=== PATIENT | male | born 1975 | race Caucasian/White ===

== ENCOUNTER → 2018-02-07 | Outpatient (CLI) | payer OTHER | LOC: M LRY 15:49 | DX: R09.89 Other specified symptoms and signs involving the circulatory and respiratory systems (principal) | CPT/HCPCS: 71046 ==

== ENCOUNTER → 2018-02-07 | Outpatient (REF) | payer OTHER | LOC: M SFHCLERA 15:41 | DX: J02.9 Acute pharyngitis, unspecified (principal) ==

== ENCOUNTER 2018-05-14 10:22 | Emergency (ER) | payer OTHER ==
[~2018-05-14 10:22] MED LIST: LORazepam 2 MG/ML VIAL (J2060) As Ordered
[2018-05-14] MEDS ORDERED: SUCCINYLCHOLINE 100 MG/5 ML SYRINGE (J0330) (10:23)
[2018-05-14] MEDS ORDERED: ETOMIDATE INJ 20MG/10ML VIAL (10:23)
[2018-05-14 10:33] LABS: BEDSIDE GLUCOSE 180 MG/DL (70-105)
[2018-05-14] MEDS ORDERED: PROPOFOL 1,000 MG/100 ML VIAL As Ordered (10:42)
[2018-05-14] MEDS ORDERED: fentaNYL 100 MCG/2 ML INJECTION (J3010) As Ordered (10:52)
[2018-05-14] MEDS: NS 1,000 ML IV (10:55)
[2018-05-14] MEDS: NS 500 ML IV ×2 (10:55→11:36)
[2018-05-14 10:57] LABS: HEMATOCRIT 52.8 % (42.0-52.0); HEMOGLOBIN 17.1 g/dl (13.5-17.5); MEAN CORPUSCULAR HEMOGLOBIN 29.8 pg (27.0-33.0); MEAN CORPUSCULAR HGB CONC 32.4 g/dl (32.0-36.5); PLATELET COUNT, AUTOMATED 319 10^3/uL (150-450); RED BLOOD COUNT 5.74 10^6/uL (4.30-6.10); RED CELL DISTRIBUTION WIDTH 11.8 % (11.5-14.5)
[2018-05-14] MEDS: ETOMIDATE INJ 20MG/10ML VIAL IV ×2 (10:57→11:02)
[2018-05-14] MEDS: SUCCINYLCHOLINE INJ 200 MG/10 ML VIAL (J0330) IV ×2 (10:58)
[2018-05-14] MEDS: PROPOFOL 200 MG/20 ML VIAL IV (10:59)
[2018-05-14] MEDS: PROPOFOL 1,000 MG in APPROPRIATE DILUENT 1 EA IV ×2 (10:59→11:36)
[2018-05-14 11:01] LABS: ADD MANUAL DIFFER YES; DIFF SLIDE NUMBER 119; POSITIVE DIFF POS FLAG; POSITIVE MORPH POS FLAG
[2018-05-14] MEDS: fentaNYL 100 MCG/2 ML INJECTION (J3010) IV ×3 (11:02→11:58)
[2018-05-14] MEDS: dexameTHASONE 20 MG/5 ML VIAL (J1100) IV (11:03)
[2018-05-14] MEDS: levETIRAcetam INJection 1,500 MG in D5W 100 ML IV (11:05)
[2018-05-14 11:12] LABS: AMMONIA 198 uMOL/L (<32)
[2018-05-14 11:13] LABS: ABG BASE EXCESS -17.9 (-2.0-2.0); ABG O2 SATURATION 97.9 % (95.0-99.0); ABG PARTIAL PRESSURE CO2 43.2 mmHg (35.0-45.0); ABG PARTIAL PRESSURE O2 141.6 mmHg (75.0-100.0); ABG STANDARD HCO3 11.7 MEQ/L (22.0-26.0); ABG TOTAL CO2 13.4 MEQ/L (22.0-29.0)
[2018-05-14 11:16] LABS: ABG pH (ARTERIAL) 7.063 UNITS (7.350-7.450); ALBUMIN 4.3 GM/DL (3.2-5.2); ALKALINE PHOSPHATASE 72 U/L (45-117); ALT/SGPT 55 U/L (12-78); ANION GAP 28 MEQ/L (8-16); AST/SGOT 28 U/L (7-37); BILIRUBIN,DIRECT 0.2 MG/DL (0.0-0.2); BILIRUBIN,TOTAL 0.5 MG/DL (0.2-1.0); BLOOD UREA NITROGEN 20 MG/DL (7-18); CALCIUM LEVEL 8.8 MG/DL (8.5-10.1); CARBON DIOXIDE LEVEL 9 MEQ/L (21-32); CHLORIDE LEVEL 104 MEQ/L (98-107); CPK CREATINE PHOSPHOKINASE 140 U/L (39-308); CREATININE FOR GFR 1.58 MG/DL (0.70-1.30); ETHYL ALCOHOL (ETHANOL) 0.005 % (0.000-0.010); GLUCOSE, FASTING 211 MG/DL (70-100); POTASSIUM SERUM 3.9 MEQ/L (3.5-5.1); SODIUM LEVEL 141 MEQ/L (136-145); TOTAL PROTEIN 8.2 GM/DL (6.4-8.2); TROPONIN I < 0.02 NG/ML (< 0.10)
[2018-05-14 11:22] LABS: CK-MB VALUE MASS 2.7 NG/ML (<3.6); MB/CK RELATIVE INDEX 1.92 (< OR =4)
[2018-05-14 11:29] LABS: ACETAMINOPHEN LEVEL < 2.0 UG/ML (10.0-30.0)
[2018-05-14 11:31] LABS: ATYPICAL LYMPH 37 % (0-5); EOSINOPHILS 1 % (0-5); LYMPHOCYTES 16 % (16-52); METAMYELOCYTES 1 % (0-0); MONOCYTES 3 % (0-8); NEUTROPHILS 42 % (35-75)
[2018-05-14 11:31] LABS: LACTIC ACID SEPSIS PROTOCOL 20.1 MMOL/L (0.4-2.0)
[2018-05-14 11:32] LABS: PLATELET ESTIMATE NORMAL (NORMAL); SMUDGE CELLS 1+
[2018-05-14 11:40] LABS: AMORPHOUS SEDIMENT RFX SMALL (NEGATIVE); KETONE, URINE AUTO RFX NEGATIVE (NEGATIVE); LEUKOCYTE ESTERASE UR AUTO RFX NEGATIVE (NEGATIVE); MUCUS, URINE RFX SMALL (NEGATIVE); NITRITE, URINE AUTO RFX NEGATIVE (NEGATIVE); RBC, URINE AUTO RFX 10 /HPF (0-3); SPECIFIC GRAVITY UR AUTO RFX 1.014 (1.002-1.035); SQUAM EPITHELIAL CELL UR AURFX 0 /HPF (0-6); WBC, URINE AUTO RFX 2 /HPF (0-3)
[2018-05-14 11:55] LABS: AMPHETAMINES LEVEL URINE NEGATIVE (NEGATIVE); BARBITURATES URINE NEGATIVE (NEGATIVE); BENZODIAZEPINES URINE NEGATIVE (NEGATIVE); CANNABINOIDS URINE NEGATIVE (NEGATIVE); COCAINE METABOLITE URINE NEGATIVE (NEGATIVE); METHADONE URINE NEGATIVE (NEGATIVE); OPIATES URINE NEGATIVE (NEGATIVE); PHENCYCLIDINE URINE NEGATIVE (NEGATIVE)
== END 2018-05-14 12:13 | disposition short-term general hospital (02) ==
LOC: M ED 10:22
DX: G40.901 Epilepsy, unspecified, not intractable, with status epilepticus (principal); G93.6 Cerebral edema; E72.20 Disorder of urea cycle metabolism, unspecified; D49.6 Neoplasm of unspecified behavior of brain; E87.2 Acidosis; R00.0 Tachycardia, unspecified; Z88.0 Allergy status to penicillin
CPT/HCPCS: J0330

== ENCOUNTER 2018-05-25 15:45 | Inpatient (IN) | payer OTHER ==
[2018-05-25] MEDS: MIRALAX *UNIT DOSE* 17GM PACKET PO (09:00)
[2018-05-25] MEDS ORDERED: FLEET ENEMA PR (16:30)
[2018-05-25] MEDS ORDERED: ONDANSETRON 4MG/2ML VIAL (J2405) IM (16:30)
[2018-05-25] MEDS ORDERED: MOM 30ML SUSPENSION UDC PO (16:30)
[2018-05-25] MEDS ORDERED: BISACODYL 10 MG SUPP PR (16:30)
[2018-05-25] MEDS ORDERED: SIMETHICONE 80 MG CHEW TAB PO (16:30)
[2018-05-25] MEDS: ACETAMINOPHEN TAB 650MG DOSE (2X325MG) PO (17:51)
[2018-05-25] MEDS: PERCOCET 5MG/325MG TAB PO ×2 (18:40→23:35)
[2018-05-25] MEDS: SENNA 8.6 MG TAB (SENOKOT) PO (20:30)
[2018-05-25] MEDS: HEPARIN SOD (PORCINE) 5000 UNITS/ML VIAL SC (20:30)
[2018-05-25] MEDS: levETIRAcetam 250MG TABLET (KEPPRA) PO (20:30)
[2018-05-26] MEDS: PERCOCET 5MG/325MG TAB PO ×2 (07:01→22:00)
[2018-05-26] MEDS: ONDANSETRON 4 MG TAB (S0181) PO (07:01)
[2018-05-26] MEDS: levETIRAcetam 250MG TABLET (KEPPRA) PO ×2 (09:53→21:51)
[2018-05-26] MEDS: OMEPRAZOLE 20 MG CAP PO (09:53)
[2018-05-26] MEDS: HEPARIN SOD (PORCINE) 5000 UNITS/ML VIAL SC ×2 (09:53→21:50)
[2018-05-26] MEDS: MIRALAX *UNIT DOSE* 17GM PACKET PO (09:54)
[2018-05-26] MEDS ORDERED: GLUCOSE 4 GM CHEW TABLET PO (10:00)
[2018-05-26] MEDS ORDERED: DEXTROSE 50% 50 ML SYRINGE IV (10:00)
[2018-05-26] MEDS ORDERED: GLUCAGON FOR INJ 1 MG VIAL (J1610) SC (10:00)
[2018-05-26] MEDS ORDERED: hydrALAZINE INJ 20 MG/ML VIAL IV (10:15)
[2018-05-26 10:38] LABS: BASO % 0.2 % (0.0-1.0); EOS % 0.1 % (0.0-3.0); HEMATOCRIT 37.5 % (42.0-52.0); HEMOGLOBIN 12.8 g/dl (13.5-17.5); IMMATURE GRANULOCYTE % 2.7 % (0-3.0); LYMPH # 1.1 10^3/uL (1.5-4.5); LYMPH % 4.9 % (24.0-44.0); MEAN CORPUSCULAR HGB CONC 34.1 g/dl (32.0-36.5); MEAN CORPUSCULAR VOLUME 87.8 fl (80.0-96.0); MONO % 4.6 % (0.0-5.0); NEUTROPHILS # 18.6 10^3/uL (1.8-7.7); NEUTROPHILS % 87.5 % (36.0-66.0); PLATELET COUNT, AUTOMATED 107 10^3/uL (150-450); RED BLOOD COUNT 4.27 10^6/uL (4.30-6.10); RED CELL DISTRIBUTION WIDTH 12.1 % (11.5-14.5); WHITE BLOOD COUNT 21.3 10^3/uL (4.0-10.0)
[2018-05-26 11:19] LABS: ALBUMIN 2.8 GM/DL (3.2-5.2); ALBUMIN/GLOBULIN RATIO 0.82 (1.00-1.93); ALKALINE PHOSPHATASE 52 U/L (45-117); ALT/SGPT 67 U/L (12-78); ANION GAP 8 MEQ/L (8-16); AST/SGOT 74 U/L (7-37); BILIRUBIN,TOTAL 0.6 MG/DL (0.2-1.0); BLOOD UREA NITROGEN 51 MG/DL (7-18); CALCIUM LEVEL 7.8 MG/DL (8.5-10.1); CARBON DIOXIDE LEVEL 29 MEQ/L (21-32); CHLORIDE LEVEL 106 MEQ/L (98-107); CREATININE FOR GFR 1.92 MG/DL (0.70-1.30); GLOMERULAR FILTRATION RATE 41.5 (>60); GLUCOSE, FASTING 139 MG/DL (70-100); POTASSIUM SERUM 4.4 MEQ/L (3.5-5.1); SODIUM LEVEL 143 MEQ/L (136-145); TOTAL PROTEIN 6.2 GM/DL (6.4-8.2)
[2018-05-26 11:21] LABS: BEDSIDE GLUCOSE 131 MG/DL (70-105)
[2018-05-26] MEDS: **hydrALAZINE HCL** 25 MG TAB PO ×3 (12:48→23:57)
[2018-05-26] MEDS: HumaLOG INSULIN (NovoLOG) PER UNIT SC ×2 (12:48→17:48)
[2018-05-26] MEDS: TOPIRAMATE (TopAMAX) 25 MG TAB PO ×2 (12:48→23:56)
[2018-05-26 16:40] LABS: BEDSIDE GLUCOSE 141 MG/DL (70-105)
[2018-05-26 20:49] LABS: BEDSIDE GLUCOSE 149 MG/DL (70-105)
[2018-05-26] MEDS: SENNA 8.6 MG TAB (SENOKOT) PO (21:51)
[2018-05-26] MEDS: FAMOTIDINE 20 MG TAB PO (21:51)
[2018-05-27] MEDS: **hydrALAZINE HCL** 25 MG TAB PO ×4 (06:00→20:00)
[2018-05-27 06:59] LABS: HEMATOCRIT 33.9 % (42.0-52.0); HEMOGLOBIN 11.7 g/dl (13.5-17.5); MEAN CORPUSCULAR HGB CONC 34.5 g/dl (32.0-36.5); MEAN CORPUSCULAR VOLUME 86.9 fl (80.0-96.0); RED CELL DISTRIBUTION WIDTH 12.1 % (11.5-14.5); WHITE BLOOD COUNT 15.7 10^3/uL (4.0-10.0)
[2018-05-27 07:25] LABS: ALBUMIN 2.5 GM/DL (3.2-5.2); ALBUMIN/GLOBULIN RATIO 0.86 (1.00-1.93); ALKALINE PHOSPHATASE 45 U/L (45-117); ALT/SGPT 60 U/L (12-78); ANION GAP 8 MEQ/L (8-16); AST/SGOT 48 U/L (7-37); BILIRUBIN,TOTAL 0.6 MG/DL (0.2-1.0); BLOOD UREA NITROGEN 47 MG/DL (7-18); CALCIUM LEVEL 7.8 MG/DL (8.5-10.1); CARBON DIOXIDE LEVEL 27 MEQ/L (21-32); CHLORIDE LEVEL 107 MEQ/L (98-107); CREATININE FOR GFR 1.75 MG/DL (0.70-1.30); GLOMERULAR FILTRATION RATE 46.2 (>60); GLUCOSE, FASTING 119 MG/DL (70-100); POTASSIUM SERUM 4.7 MEQ/L (3.5-5.1); SODIUM LEVEL 142 MEQ/L (136-145); TOTAL PROTEIN 5.4 GM/DL (6.4-8.2)
[2018-05-27 07:28] LABS: PLATELET COUNT, AUTOMATED 99 10^3/uL (150-450)
[2018-05-27 07:29] LABS: IMMATURE PLATELET FRACTION % 4.5 % (0.0-10.9)
[2018-05-27] MEDS: HumaLOG INSULIN (NovoLOG) PER UNIT SC ×3 (07:30→17:26)
[2018-05-27] MEDS: MIRALAX *UNIT DOSE* 17GM PACKET PO (08:57)
[2018-05-27] MEDS: HEPARIN SOD (PORCINE) 5000 UNITS/ML VIAL SC ×2 (08:57→20:39)
[2018-05-27] MEDS: PERCOCET 5MG/325MG TAB PO ×3 (08:58→20:38)
[2018-05-27] MEDS: TOPIRAMATE (TopAMAX) 25 MG TAB PO (08:58)
[2018-05-27] MEDS: levETIRAcetam 250MG TABLET (KEPPRA) PO ×2 (08:58→20:39)
[2018-05-27] MEDS: FAMOTIDINE 20 MG TAB PO ×2 (08:58→20:39)
[2018-05-27 12:38] LABS: BEDSIDE GLUCOSE 141 MG/DL (70-105)
[2018-05-27 16:52] LABS: BEDSIDE GLUCOSE 160 MG/DL (70-105)
[2018-05-27] MEDS: SENNA 8.6 MG TAB (SENOKOT) PO (20:38)
[2018-05-28] MEDS: **hydrALAZINE HCL** 25 MG TAB PO ×4 (06:00→23:16)
[2018-05-28] MEDS: PERCOCET 5MG/325MG TAB PO ×3 (06:47→17:09)
[2018-05-28 07:12] LABS: HEMATOCRIT 34.6 % (42.0-52.0); HEMOGLOBIN 11.8 g/dl (13.5-17.5); MEAN CORPUSCULAR HEMOGLOBIN 29.8 pg (27.0-33.0); MEAN CORPUSCULAR HGB CONC 34.1 g/dl (32.0-36.5); MEAN CORPUSCULAR VOLUME 87.4 fl (80.0-96.0); PLATELET COUNT, AUTOMATED 102 10^3/uL (150-450); RED BLOOD COUNT 3.96 10^6/uL (4.30-6.10); RED CELL DISTRIBUTION WIDTH 12.2 % (11.5-14.5); WHITE BLOOD COUNT 14.9 10^3/uL (4.0-10.0)
[2018-05-28 07:28] LABS: ALBUMIN 2.5 GM/DL (3.2-5.2); ALBUMIN/GLOBULIN RATIO 0.74 (1.00-1.93); ALKALINE PHOSPHATASE 42 U/L (45-117); ALT/SGPT 62 U/L (12-78); ANION GAP 7 MEQ/L (8-16); AST/SGOT 36 U/L (7-37); BILIRUBIN,TOTAL 0.5 MG/DL (0.2-1.0); BLOOD UREA NITROGEN 41 MG/DL (7-18); CALCIUM LEVEL 7.9 MG/DL (8.5-10.1); CARBON DIOXIDE LEVEL 25 MEQ/L (21-32); CHLORIDE LEVEL 110 MEQ/L (98-107); GLOMERULAR FILTRATION RATE 47.8 (>60); GLUCOSE, FASTING 115 MG/DL (70-100); SODIUM LEVEL 142 MEQ/L (136-145); TOTAL PROTEIN 5.9 GM/DL (6.4-8.2)
[2018-05-28] MEDS: HumaLOG INSULIN (NovoLOG) PER UNIT SC ×3 (08:50→16:55)
[2018-05-28] MEDS: levETIRAcetam 250MG TABLET (KEPPRA) PO ×2 (08:51→21:19)
[2018-05-28] MEDS: FAMOTIDINE 20 MG TAB PO ×2 (08:51→21:19)
[2018-05-28] MEDS: HEPARIN SOD (PORCINE) 5000 UNITS/ML VIAL SC ×2 (08:51→21:19)
[2018-05-28] MEDS: MIRALAX *UNIT DOSE* 17GM PACKET PO (08:52)
[2018-05-28 11:31] LABS: BEDSIDE GLUCOSE 150 MG/DL (70-105)
[2018-05-28 16:49] LABS: BEDSIDE GLUCOSE 132 MG/DL (70-105)
[2018-05-28 21:12] LABS: BEDSIDE GLUCOSE 138 MG/DL (70-105)
[2018-05-28] MEDS: amLODIPine 5 MG TAB PO (21:15)
[2018-05-28] MEDS: SENNA 8.6 MG TAB (SENOKOT) PO (21:19)
[2018-05-28] MEDS: ACETAMINOPHEN TAB 650MG DOSE (2X325MG) PO (23:17)
[2018-05-29] MEDS: **hydrALAZINE HCL** 25 MG TAB PO ×4 (06:09→23:40)
[2018-05-29] MEDS: PERCOCET 5MG/325MG TAB PO ×2 (06:38→12:17)
[2018-05-29 07:18] LABS: HEMATOCRIT 33.8 % (42.0-52.0); HEMOGLOBIN 11.8 g/dl (13.5-17.5); MEAN CORPUSCULAR HEMOGLOBIN 29.8 pg (27.0-33.0); MEAN CORPUSCULAR HGB CONC 34.9 g/dl (32.0-36.5); MEAN CORPUSCULAR VOLUME 85.4 fl (80.0-96.0); PLATELET COUNT, AUTOMATED 105 10^3/uL (150-450); RED BLOOD COUNT 3.96 10^6/uL (4.30-6.10); RED CELL DISTRIBUTION WIDTH 12.2 % (11.5-14.5); WHITE BLOOD COUNT 13.3 10^3/uL (4.0-10.0)
[2018-05-29 07:38] LABS: ALBUMIN 2.6 GM/DL (3.2-5.2); ALBUMIN/GLOBULIN RATIO 0.76 (1.00-1.93); ALKALINE PHOSPHATASE 40 U/L (45-117); ALT/SGPT 63 U/L (12-78); ANION GAP 8 MEQ/L (8-16); AST/SGOT 28 U/L (7-37); BILIRUBIN,TOTAL 0.6 MG/DL (0.2-1.0); BLOOD UREA NITROGEN 32 MG/DL (7-18); CARBON DIOXIDE LEVEL 24 MEQ/L (21-32); CHLORIDE LEVEL 109 MEQ/L (98-107); CREATININE FOR GFR 1.61 MG/DL (0.70-1.30); GLOMERULAR FILTRATION RATE 50.9 (>60); GLUCOSE, FASTING 111 MG/DL (70-100); MAGNESIUM LEVEL 1.7 MG/DL (1.8-2.4); POTASSIUM SERUM 4.6 MEQ/L (3.5-5.1); SODIUM LEVEL 141 MEQ/L (136-145)
[2018-05-29] MEDS: FAMOTIDINE 20 MG TAB PO ×2 (09:57→20:20)
[2018-05-29] MEDS: levETIRAcetam 250MG TABLET (KEPPRA) PO ×2 (09:57→20:21)
[2018-05-29] MEDS: HumaLOG INSULIN (NovoLOG) PER UNIT SC ×3 (09:57→18:11)
[2018-05-29] MEDS: HEPARIN SOD (PORCINE) 5000 UNITS/ML VIAL SC ×2 (09:58→20:20)
[2018-05-29] MEDS: MIRALAX *UNIT DOSE* 17GM PACKET PO (09:58)
[2018-05-29 12:14] LABS: BEDSIDE GLUCOSE 101 MG/DL (70-105)
[2018-05-29 16:49] LABS: BEDSIDE GLUCOSE 148 MG/DL (70-105)
[2018-05-29 19:43] LABS: BEDSIDE GLUCOSE 161 MG/DL (70-105)
[2018-05-29] MEDS: TOPIRAMATE (TopAMAX) 25 MG TAB PO (20:20)
[2018-05-29] MEDS: SENNA 8.6 MG TAB (SENOKOT) PO (20:23)
[2018-05-29] MEDS: METAXALONE 400 MG 1/2 TAB PO (22:22)
[2018-05-30] MEDS: PERCOCET 5MG/325MG TAB PO (00:34)
[2018-05-30] MEDS: **hydrALAZINE HCL** 25 MG TAB PO ×4 (05:47→23:22)
[2018-05-30 07:20] LABS: HEMATOCRIT 32.7 % (42.0-52.0); HEMOGLOBIN 11.5 g/dl (13.5-17.5); MEAN CORPUSCULAR HEMOGLOBIN 30.3 pg (27.0-33.0); MEAN CORPUSCULAR HGB CONC 35.2 g/dl (32.0-36.5); MEAN CORPUSCULAR VOLUME 86.1 fl (80.0-96.0); PLATELET COUNT, AUTOMATED 104 10^3/uL (150-450); RED CELL DISTRIBUTION WIDTH 12.4 % (11.5-14.5); WHITE BLOOD COUNT 12.4 10^3/uL (4.0-10.0)
[2018-05-30] MEDS: HumaLOG INSULIN (NovoLOG) PER UNIT SC ×3 (07:30→17:22)
[2018-05-30 07:57] LABS: ALBUMIN 2.6 GM/DL (3.2-5.2); ALBUMIN/GLOBULIN RATIO 0.76 (1.00-1.93); ALKALINE PHOSPHATASE 42 U/L (45-117); ALT/SGPT 62 U/L (12-78); ANION GAP 8 MEQ/L (8-16); AST/SGOT 24 U/L (7-37); BILIRUBIN,TOTAL 0.5 MG/DL (0.2-1.0); BLOOD UREA NITROGEN 32 MG/DL (7-18); CALCIUM LEVEL 7.9 MG/DL (8.5-10.1); CARBON DIOXIDE LEVEL 24 MEQ/L (21-32); CHLORIDE LEVEL 109 MEQ/L (98-107); CREATININE FOR GFR 1.59 MG/DL (0.70-1.30); GLOMERULAR FILTRATION RATE 51.6 (>60); GLUCOSE, FASTING 114 MG/DL (70-100); POTASSIUM SERUM 4.7 MEQ/L (3.5-5.1); SODIUM LEVEL 141 MEQ/L (136-145)
[2018-05-30] MEDS: FAMOTIDINE 20 MG TAB PO ×2 (09:21→20:49)
[2018-05-30] MEDS: levETIRAcetam 250MG TABLET (KEPPRA) PO ×2 (09:21→20:49)
[2018-05-30] MEDS: HEPARIN SOD (PORCINE) 5000 UNITS/ML VIAL SC ×2 (09:22→20:50)
[2018-05-30] MEDS: MIRALAX *UNIT DOSE* 17GM PACKET PO (09:22)
[2018-05-30 11:48] LABS: BEDSIDE GLUCOSE 147 MG/DL (70-105)
[2018-05-30] MEDS: METAXALONE 400 MG 1/2 TAB PO (13:38)
[2018-05-30 16:36] LABS: BEDSIDE GLUCOSE 150 MG/DL (70-105)
[2018-05-30] MEDS ORDERED: fentaNYL 100 MCG/2 ML INJECTION (J3010) As Ordered (19:06)
[2018-05-30] MEDS ORDERED: NORCO, ANEXSIA 5/325MG TABLET (HYDROcodone/ACETAMINOPHEN) As Ordered (19:07)
[2018-05-30] MEDS: SENNA 8.6 MG TAB (SENOKOT) PO (20:50)
[2018-05-30] MEDS: EUCERIN 120GM CREAM TOP (20:50)
[2018-05-30] MEDS ORDERED: AMITRIPTYLINE 50 MG TAB PO (21:00)
[2018-05-30] MEDS: TOPIRAMATE (TopAMAX) 25 MG TAB PO (23:30)
[2018-05-31] MEDS: **hydrALAZINE HCL** 25 MG TAB PO ×3 (05:21→17:05)
[2018-05-31] MEDS: HumaLOG INSULIN (NovoLOG) PER UNIT SC ×3 (06:57→16:57)
[2018-05-31 07:11] LABS: HEMATOCRIT 34.8 % (42.0-52.0); HEMOGLOBIN 11.9 g/dl (13.5-17.5); MEAN CORPUSCULAR HEMOGLOBIN 29.9 pg (27.0-33.0); MEAN CORPUSCULAR HGB CONC 34.2 g/dl (32.0-36.5); MEAN CORPUSCULAR VOLUME 87.4 fl (80.0-96.0); PLATELET COUNT, AUTOMATED 115 10^3/uL (150-450); RED BLOOD COUNT 3.98 10^6/uL (4.30-6.10); RED CELL DISTRIBUTION WIDTH 12.6 % (11.5-14.5); WHITE BLOOD COUNT 10.6 10^3/uL (4.0-10.0)
[2018-05-31 07:32] LABS: ALBUMIN 2.8 GM/DL (3.2-5.2); ALBUMIN/GLOBULIN RATIO 0.82 (1.00-1.93); ALKALINE PHOSPHATASE 46 U/L (45-117); ALT/SGPT 71 U/L (12-78); ANION GAP 8 MEQ/L (8-16); AST/SGOT 24 U/L (7-37); BILIRUBIN,TOTAL 0.5 MG/DL (0.2-1.0); BLOOD UREA NITROGEN 32 MG/DL (7-18); CALCIUM LEVEL 8.1 MG/DL (8.5-10.1); CARBON DIOXIDE LEVEL 24 MEQ/L (21-32); CHLORIDE LEVEL 110 MEQ/L (98-107); CREATININE FOR GFR 1.52 MG/DL (0.70-1.30); GLOMERULAR FILTRATION RATE 54.3 (>60); GLUCOSE, FASTING 102 MG/DL (70-100); POTASSIUM SERUM 4.5 MEQ/L (3.5-5.1); SODIUM LEVEL 142 MEQ/L (136-145); TOTAL PROTEIN 6.2 GM/DL (6.4-8.2)
[2018-05-31] MEDS: EUCERIN 120GM CREAM TOP ×2 (07:56→20:10)
[2018-05-31] MEDS: MIRALAX *UNIT DOSE* 17GM PACKET PO (07:56)
[2018-05-31] MEDS: FAMOTIDINE 20 MG TAB PO ×2 (07:57→20:09)
[2018-05-31] MEDS: levETIRAcetam 250MG TABLET (KEPPRA) PO ×2 (07:57→20:09)
[2018-05-31] MEDS: TOPIRAMATE (TopAMAX) 25 MG TAB PO ×2 (07:57→20:09)
[2018-05-31] MEDS: HEPARIN SOD (PORCINE) 5000 UNITS/ML VIAL SC ×2 (07:58→20:09)
[2018-05-31 11:49] LABS: MAGNESIUM LEVEL 1.7 MG/DL (1.8-2.4)
[2018-05-31 11:56] LABS: BEDSIDE GLUCOSE 136 MG/DL (70-105)
[2018-05-31] MEDS: METAXALONE 400 MG 1/2 TAB PO ×2 (14:42→23:02)
[2018-05-31 16:55] LABS: BEDSIDE GLUCOSE 138 MG/DL (70-105)
[2018-05-31] MEDS: SENNA 8.6 MG TAB (SENOKOT) PO (20:09)
[2018-05-31 20:10] LABS: BEDSIDE GLUCOSE 152 MG/DL (70-105)
[2018-06-01] MEDS: TOPIRAMATE (TopAMAX) 25 MG TAB PO ×3 (05:34→21:31)
[2018-06-01] MEDS: **hydrALAZINE HCL** 25 MG TAB PO ×4 (05:58→17:49)
[2018-06-01] MEDS: PERCOCET 5MG/325MG TAB PO ×2 (06:39→17:46)
[2018-06-01 06:48] LABS: BEDSIDE GLUCOSE 98 MG/DL (70-105)
[2018-06-01 07:10] LABS: HEMATOCRIT 37.3 % (42.0-52.0); HEMOGLOBIN 12.5 g/dl (13.5-17.5); MEAN CORPUSCULAR HEMOGLOBIN 29.5 pg (27.0-33.0); MEAN CORPUSCULAR HGB CONC 33.5 g/dl (32.0-36.5); PLATELET COUNT, AUTOMATED 116 10^3/uL (150-450); RED BLOOD COUNT 4.24 10^6/uL (4.30-6.10); RED CELL DISTRIBUTION WIDTH 12.5 % (11.5-14.5); WHITE BLOOD COUNT 10.2 10^3/uL (4.0-10.0)
[2018-06-01 07:30] LABS: ALBUMIN 3.1 GM/DL (3.2-5.2); ALBUMIN/GLOBULIN RATIO 0.89 (1.00-1.93); ALKALINE PHOSPHATASE 53 U/L (45-117); ALT/SGPT 81 U/L (12-78); ANION GAP 9 MEQ/L (8-16); AST/SGOT 25 U/L (7-37); BILIRUBIN,TOTAL 0.7 MG/DL (0.2-1.0); BLOOD UREA NITROGEN 30 MG/DL (7-18); CALCIUM LEVEL 8.4 MG/DL (8.5-10.1); CARBON DIOXIDE LEVEL 24 MEQ/L (21-32); CHLORIDE LEVEL 108 MEQ/L (98-107); CREATININE FOR GFR 1.57 MG/DL (0.70-1.30); GLOMERULAR FILTRATION RATE 52.4 (>60); GLUCOSE, FASTING 98 MG/DL (70-100); POTASSIUM SERUM 4.5 MEQ/L (3.5-5.1); SODIUM LEVEL 141 MEQ/L (136-145); TOTAL PROTEIN 6.6 GM/DL (6.4-8.2)
[2018-06-01] MEDS: HumaLOG INSULIN (NovoLOG) PER UNIT SC ×3 (08:05→17:30)
[2018-06-01] MEDS: MIRALAX *UNIT DOSE* 17GM PACKET PO (09:14)
[2018-06-01] MEDS: levETIRAcetam 250MG TABLET (KEPPRA) PO ×2 (09:14→21:27)
[2018-06-01] MEDS: HEPARIN SOD (PORCINE) 5000 UNITS/ML VIAL SC ×2 (09:14→21:26)
[2018-06-01] MEDS: FAMOTIDINE 20 MG TAB PO ×2 (09:14→21:27)
[2018-06-01] MEDS: EUCERIN 120GM CREAM TOP ×2 (09:15→21:00)
[2018-06-01 11:15] LABS: CK-MB VALUE MASS 1.8 NG/ML (<3.6); CPK CREATINE PHOSPHOKINASE 178 U/L (39-308); MB/CK RELATIVE INDEX 1.01 (< OR =4)
[2018-06-01 12:33] LABS: BEDSIDE GLUCOSE 139 MG/DL (70-105)
[2018-06-01 18:00] LABS: BEDSIDE GLUCOSE 125 MG/DL (70-105)
[2018-06-01 20:39] LABS: BEDSIDE GLUCOSE 125 MG/DL (70-105)
[2018-06-01] MEDS: SENNA 8.6 MG TAB (SENOKOT) PO (21:27)
[2018-06-02] MEDS: **hydrALAZINE HCL** 25 MG TAB PO ×4 (06:00→17:28)
[2018-06-02 06:44] LABS: BEDSIDE GLUCOSE 94 MG/DL (70-105)
[2018-06-02] MEDS: TOPIRAMATE (TopAMAX) 25 MG TAB PO (06:51)
[2018-06-02 06:58] LABS: HEMATOCRIT 35.6 % (42.0-52.0); HEMOGLOBIN 12.3 g/dl (13.5-17.5); MEAN CORPUSCULAR HGB CONC 34.6 g/dl (32.0-36.5); MEAN CORPUSCULAR VOLUME 86.8 fl (80.0-96.0); PLATELET COUNT, AUTOMATED 110 10^3/uL (150-450); RED CELL DISTRIBUTION WIDTH 12.7 % (11.5-14.5); WHITE BLOOD COUNT 10.6 10^3/uL (4.0-10.0)
[2018-06-02 07:26] LABS: ALBUMIN/GLOBULIN RATIO 0.83 (1.00-1.93); ALKALINE PHOSPHATASE 51 U/L (45-117); ALT/SGPT 72 U/L (12-78); ANION GAP 8 MEQ/L (8-16); AST/SGOT 19 U/L (7-37); BILIRUBIN,TOTAL 0.7 MG/DL (0.2-1.0); BLOOD UREA NITROGEN 30 MG/DL (7-18); CALCIUM LEVEL 8.2 MG/DL (8.5-10.1); CARBON DIOXIDE LEVEL 24 MEQ/L (21-32); CHLORIDE LEVEL 108 MEQ/L (98-107); CREATININE FOR GFR 1.65 MG/DL (0.70-1.30); GLOMERULAR FILTRATION RATE 49.4 (>60); GLUCOSE, FASTING 92 MG/DL (70-100); POTASSIUM SERUM 4.2 MEQ/L (3.5-5.1); SODIUM LEVEL 140 MEQ/L (136-145); TOTAL PROTEIN 6.6 GM/DL (6.4-8.2)
[2018-06-02] MEDS: HumaLOG INSULIN (NovoLOG) PER UNIT SC ×3 (07:30→16:37)
[2018-06-02] MEDS: HEPARIN SOD (PORCINE) 5000 UNITS/ML VIAL SC ×2 (08:45→21:23)
[2018-06-02] MEDS: levETIRAcetam 250MG TABLET (KEPPRA) PO ×2 (08:45→21:21)
[2018-06-02] MEDS: MIRALAX *UNIT DOSE* 17GM PACKET PO (08:45)
[2018-06-02] MEDS: FAMOTIDINE 20 MG TAB PO ×2 (08:45→21:21)
[2018-06-02] MEDS: PERCOCET 5MG/325MG TAB PO (08:45)
[2018-06-02] MEDS: EUCERIN 120GM CREAM TOP ×2 (08:47→21:23)
[2018-06-02] MEDS: BISACODYL 5 MG TAB PO (08:48)
[2018-06-02 11:41] LABS: BEDSIDE GLUCOSE 57 MG/DL (70-105)
[2018-06-02 16:20] LABS: BEDSIDE GLUCOSE 145 MG/DL (70-105)
[2018-06-02] MEDS: SENNA 8.6 MG TAB (SENOKOT) PO (21:21)
[2018-06-02 21:40] LABS: KETONE, URINE AUTO RFX NEGATIVE (NEGATIVE); LEUKOCYTE ESTERASE UR AUTO RFX NEGATIVE (NEGATIVE); NITRITE, URINE AUTO RFX NEGATIVE (NEGATIVE); RBC, URINE AUTO RFX 1 /HPF (0-3); SPECIFIC GRAVITY UR AUTO RFX 1.018 (1.002-1.035); SQUAM EPITHELIAL CELL UR AURFX 0 /HPF (0-6); WBC, URINE AUTO RFX 1 /HPF (0-3)
[2018-06-03] MEDS: TOPIRAMATE (TopAMAX) 25 MG TAB PO ×2 (04:47→20:53)
[2018-06-03 05:59] LABS: BEDSIDE GLUCOSE 112 MG/DL (70-105)
[2018-06-03] MEDS: **hydrALAZINE HCL** 25 MG TAB PO ×4 (06:00→18:19)
[2018-06-03] MEDS: PERCOCET 5MG/325MG TAB PO (07:01)
[2018-06-03] MEDS: HumaLOG INSULIN (NovoLOG) PER UNIT SC ×3 (07:34→17:13)
[2018-06-03] MEDS: FAMOTIDINE 20 MG TAB PO ×2 (09:02→20:53)
[2018-06-03] MEDS: levETIRAcetam 250MG TABLET (KEPPRA) PO ×2 (09:02→20:54)
[2018-06-03] MEDS: MIRALAX *UNIT DOSE* 17GM PACKET PO (09:03)
[2018-06-03] MEDS: EUCERIN 120GM CREAM TOP ×2 (09:03→20:54)
[2018-06-03] MEDS: HEPARIN SOD (PORCINE) 5000 UNITS/ML VIAL SC ×2 (09:03→20:54)
[2018-06-03 11:41] LABS: BEDSIDE GLUCOSE 100 MG/DL (70-105)
[2018-06-03 16:55] LABS: BEDSIDE GLUCOSE 146 MG/DL (70-105)
[2018-06-03] MEDS: SENNA 8.6 MG TAB (SENOKOT) PO (20:53)
[2018-06-04] MEDS: PERCOCET 5MG/325MG TAB PO ×2 (00:35→15:31)
[2018-06-04] MEDS: **hydrALAZINE HCL** 25 MG TAB PO ×5 (06:00→23:07)
[2018-06-04 06:49] LABS: BEDSIDE GLUCOSE 111 MG/DL (70-105)
[2018-06-04] MEDS: TOPIRAMATE (TopAMAX) 25 MG TAB PO ×3 (07:10→22:38)
[2018-06-04] MEDS: levETIRAcetam 250MG TABLET (KEPPRA) PO ×2 (08:47→22:13)
[2018-06-04] MEDS: FAMOTIDINE 20 MG TAB PO ×2 (08:47→22:13)
[2018-06-04] MEDS: HEPARIN SOD (PORCINE) 5000 UNITS/ML VIAL SC ×2 (08:47→22:13)
[2018-06-04] MEDS: MIRALAX *UNIT DOSE* 17GM PACKET PO (08:48)
[2018-06-04] MEDS: HumaLOG INSULIN (NovoLOG) PER UNIT SC ×3 (08:48→17:53)
[2018-06-04] MEDS: EUCERIN 120GM CREAM TOP ×2 (08:49→22:15)
[2018-06-04 11:42] LABS: BEDSIDE GLUCOSE 120 MG/DL (70-105)
[2018-06-04 17:53] LABS: BEDSIDE GLUCOSE 124 MG/DL (70-105)
[2018-06-04] MEDS: SENNA 8.6 MG TAB (SENOKOT) PO (21:00)
[2018-06-05] MEDS: PERCOCET 5MG/325MG TAB PO (00:45)
[2018-06-05] MEDS: METAXALONE 400 MG 1/2 TAB PO (00:48)
[2018-06-05] MEDS: **hydrALAZINE HCL** 25 MG TAB PO (06:00)
[2018-06-05 06:31] LABS: BEDSIDE GLUCOSE 91 MG/DL (70-105)
[2018-06-05] MEDS: HumaLOG INSULIN (NovoLOG) PER UNIT SC (07:30)
[2018-06-05] MEDS: MIRALAX *UNIT DOSE* 17GM PACKET PO (09:00)
[2018-06-05] MEDS: EUCERIN 120GM CREAM TOP (09:00)
[2018-06-05] MEDS: FAMOTIDINE 20 MG TAB PO (09:19)
[2018-06-05] MEDS: ACETAMINOPHEN TAB 650MG DOSE (2X325MG) PO (09:19)
[2018-06-05] MEDS: levETIRAcetam 250MG TABLET (KEPPRA) PO (09:19)
[2018-06-05] MEDS: HEPARIN SOD (PORCINE) 5000 UNITS/ML VIAL SC (09:20)
== END 2018-06-05 11:10 | disposition home or self-care (01) | DRG 862 ==
LOC: M PM&R 06-03 10:42
DX: Z48.3 Aftercare following surgery for neoplasm (principal); R56.9 Unspecified convulsions; Z79.899 Other long term (current) drug therapy; Z88.0 Allergy status to penicillin; I10 Essential (primary) hypertension; D72.829 Elevated white blood cell count, unspecified; R51 Headache; C71.1 Malignant neoplasm of frontal lobe; N17.9 Acute kidney failure, unspecified; D64.9 Anemia, unspecified; R25.2 Cramp and spasm; R26.89 Other abnormalities of gait and mobility; N39.44 Nocturnal enuresis

== ENCOUNTER 2018-06-14 12:59 | Outpatient (RCR) | payer OTHER | END 2018-07-07 | disposition home or self-care (01) | LOC: M ST 12:59 → M OT 06-26 13:21 → M PT 06-28 12:15 → M ST 12:59 → M OT 06-26 13:21 → M PT 06-28 12:15 → M OT 06-20 13:00 | DX: Z51.89 Encounter for other specified aftercare (principal); R29.898 Other symptoms and signs involving the musculoskeletal system; D49.6 Neoplasm of unspecified behavior of brain | CPT/HCPCS: 97010 ==

== ENCOUNTER → 2018-06-30 | Outpatient (CLI) | payer OTHER | LOC: M ONCR 10:08 | DX: C71.9 Malignant neoplasm of brain, unspecified (principal) ==

== ENCOUNTER 2018-07-12 13:02 | Outpatient (RCR) | payer OTHER | END 2018-08-06 | LOC: M ST 13:02 → M OT 07-17 06:45 → M PT 07-19 09:45 → M OT 07-24 07:30 → M ST 13:02 → M PT 07-19 09:45 → M OT 07-24 07:30 | DX: Z51.89 Encounter for other specified aftercare (principal); R29.898 Other symptoms and signs involving the musculoskeletal system; D49.6 Neoplasm of unspecified behavior of brain | CPT/HCPCS: 97110 ==

== ENCOUNTER 2018-08-07 08:59 | Outpatient (RCR) | payer OTHER | END 2018-09-06 | LOC: M OT 08:59 → M PT 08-14 12:56 → M OT 08:59 | DX: Z51.89 Encounter for other specified aftercare (principal); R29.898 Other symptoms and signs involving the musculoskeletal system; D49.6 Neoplasm of unspecified behavior of brain | CPT/HCPCS: 97110 ==

== ENCOUNTER 2018-09-11 08:54 | Outpatient (RCR) | payer OTHER | END 2018-10-06 | LOC: M PT 08:54 | DX: R29.898 Other symptoms and signs involving the musculoskeletal system (principal); D49.6 Neoplasm of unspecified behavior of brain | CPT/HCPCS: 97110 ==

== ENCOUNTER 2018-10-09 15:20 | Outpatient (RCR) | payer OTHER ==
[~2018-10-09 15:20] MED LIST changes: +ACET1TAB55 PO; +ALB2.5NEB INH; +BISA10SU4 PR; +DEXA1TA PO; +DOCU100C16 PO; +FAMO20TA PO; +HEPA50VL SC; +HYDR100T26 PO; +KEPP1TAB PO; -LORazepam 2 MG/ML VIAL (J2060) As Ordered; +META1TAB22 PO; +MIRA3350 PO; +OXYC-517 PO; +PANT40TA3 PO; +PERCOCET PO; +ROBA500T PO; +SENN8.6T63 PO; +SIME80TA PO; +TOPA1TAB PO; +VITMTA PO
== END 2018-11-06 | disposition home or self-care (01) ==
LOC: M PT 15:20
PROVIDERS: ATTEND Neurological Surgery
DX: D49.6 Neoplasm of unspecified behavior of brain (principal); R29.898 Other symptoms and signs involving the musculoskeletal system

== ENCOUNTER → 2018-10-30 | Outpatient (CLI) | payer OTHER ==
[2018-10-30 10:58] LABS: HEMATOCRIT 40.9 % (42.0-52.0); HEMOGLOBIN 14.1 g/dl (13.5-17.5); MEAN CORPUSCULAR HEMOGLOBIN 28.5 pg (27.0-33.0); MEAN CORPUSCULAR HGB CONC 34.5 g/dl (32.0-36.5); MEAN CORPUSCULAR VOLUME 82.6 fl (80.0-96.0); PLATELET COUNT, AUTOMATED 130 10^3/uL (150-450); RED BLOOD COUNT 4.95 10^6/uL (4.30-6.10); WHITE BLOOD COUNT 4.8 10^3/uL (4.0-10.0)
== END ==
LOC: M LAB 10:28
PROVIDERS: ATTEND Nurse Practitioner
DX: C71.9 Malignant neoplasm of brain, unspecified (principal)

== ENCOUNTER → 2018-11-13 | Outpatient (CLI) | payer OTHER ==
[2018-11-13 15:39] LABS: BASO % 0.2 % (0.0-1.0); EOS % 0.2 % (0.0-3.0); HEMATOCRIT 37.9 % (42.0-52.0); HEMOGLOBIN 13.4 g/dl (13.5-17.5); LYMPH # 1.3 10^3/uL (1.5-4.5); LYMPH % 27.1 % (24.0-44.0); MEAN CORPUSCULAR HEMOGLOBIN 29.1 pg (27.0-33.0); MEAN CORPUSCULAR HGB CONC 35.4 g/dl (32.0-36.5); MEAN CORPUSCULAR VOLUME 82.4 fl (80.0-96.0); MONO # 0.3 10^3/uL (0.0-0.8); NEUTROPHILS # 3.1 10^3/uL (1.8-7.7); NEUTROPHILS % 66.3 % (36.0-66.0); WHITE BLOOD COUNT 4.7 10^3/uL (4.0-10.0)
[2018-11-13 15:41] LABS: PLATELET COUNT, AUTOMATED 40 10^3/uL (150-450)
== END ==
LOC: M LAB 15:15
PROVIDERS: ATTEND Nurse Practitioner
DX: C71.9 Malignant neoplasm of brain, unspecified (principal)

== ENCOUNTER → 2018-11-20 | Outpatient (CLI) | payer OTHER ==
[2018-11-20 09:58] LABS: BASO % 0.4 % (0.0-1.0); EOS # 0.1 10^3/uL (0.0-0.50); EOS % 2.3 % (0.0-3.0); HEMOGLOBIN 12.9 g/dl (13.5-17.5); LYMPH % 39.7 % (24.0-44.0); MEAN CORPUSCULAR HEMOGLOBIN 29.7 pg (27.0-33.0); MEAN CORPUSCULAR HGB CONC 35.8 g/dl (32.0-36.5); MEAN CORPUSCULAR VOLUME 82.9 fl (80.0-96.0); MONO # 0.3 10^3/uL (0.0-0.8); MONO % 10.1 % (0.0-5.0); NEUTROPHILS # 1.2 10^3/uL (1.8-7.7); NEUTROPHILS % 47.5 % (36.0-66.0); RED BLOOD COUNT 4.34 10^6/uL (4.30-6.10); WHITE BLOOD COUNT 2.6 10^3/uL (4.0-10.0)
[2018-11-20 10:03] LABS: PLATELET COUNT, AUTOMATED 97 10^3/uL (150-450)
== END ==
LOC: M LAB 09:27
PROVIDERS: ATTEND Nurse Practitioner
DX: C71.9 Malignant neoplasm of brain, unspecified (principal)

== ENCOUNTER → 2018-11-27 | Outpatient (CLI) | payer OTHER ==
[2018-11-27 13:48] LABS: HEMATOCRIT 32.8 % (42.0-52.0); HEMOGLOBIN 11.7 g/dl (13.5-17.5); LYMPH # 1.2 10^3/uL (1.5-4.5); MEAN CORPUSCULAR HEMOGLOBIN 30.5 pg (27.0-33.0); MEAN CORPUSCULAR HGB CONC 35.7 g/dl (32.0-36.5); MEAN CORPUSCULAR VOLUME 85.4 fl (80.0-96.0); MONO # 0.4 10^3/uL (0.0-0.8); MONO % 13.9 % (0.0-5.0); NEUTROPHILS # 1.4 10^3/uL (1.8-7.7); NEUTROPHILS % 46.8 % (36.0-66.0); PLATELET COUNT, AUTOMATED 242 10^3/uL (150-450); RED BLOOD COUNT 3.84 10^6/uL (4.30-6.10)
== END ==
LOC: M LAB 13:17
PROVIDERS: ATTEND Nurse Practitioner
DX: C71.9 Malignant neoplasm of brain, unspecified (principal)

== ENCOUNTER → 2018-12-04 | Outpatient (CLI) | payer OTHER ==
[2018-12-04 09:46] LABS: BASO % 0.6 % (0.0-1.0); EOS % 0.6 % (0.0-3.0); HEMATOCRIT 36.5 % (42.0-52.0); HEMOGLOBIN 12.9 g/dl (13.5-17.5); LYMPH # 1.1 10^3/uL (1.5-4.5); LYMPH % 32.4 % (24.0-44.0); MEAN CORPUSCULAR HEMOGLOBIN 30.6 pg (27.0-33.0); MEAN CORPUSCULAR HGB CONC 35.3 g/dl (32.0-36.5); MEAN CORPUSCULAR VOLUME 86.5 fl (80.0-96.0); MONO # 0.5 10^3/uL (0.0-0.8); MONO % 13.9 % (0.0-5.0); NEUTROPHILS # 1.8 10^3/uL (1.8-7.7); NEUTROPHILS % 51.6 % (36.0-66.0); PLATELET COUNT, AUTOMATED 249 10^3/uL (150-450); RED BLOOD COUNT 4.22 10^6/uL (4.30-6.10); WHITE BLOOD COUNT 3.5 10^3/uL (4.0-10.0)
== END ==
LOC: M LAB 09:02
PROVIDERS: ATTEND Nurse Practitioner
DX: C71.9 Malignant neoplasm of brain, unspecified (principal)

== ENCOUNTER 2018-12-06 08:45 | Outpatient (RCR) | payer OTHER | END 2018-12-07 | LOC: M PT 08:45 | PROVIDERS: ATTEND Neurological Surgery | DX: C71.9 Malignant neoplasm of brain, unspecified (principal) ==

== ENCOUNTER → 2018-12-18 | Outpatient (CLI) | payer OTHER ==
[2018-12-18 14:23] LABS: BASO % 0.7 % (0.0-1.0); EOS % 0.9 % (0.0-3.0); HEMATOCRIT 35.6 % (42.0-52.0); HEMOGLOBIN 12.6 g/dl (13.5-17.5); LYMPH # 0.7 10^3/uL (1.5-4.5); LYMPH % 15.1 % (24.0-44.0); MEAN CORPUSCULAR HEMOGLOBIN 31.1 pg (27.0-33.0); MEAN CORPUSCULAR HGB CONC 35.4 g/dl (32.0-36.5); MEAN CORPUSCULAR VOLUME 87.9 fl (80.0-96.0); MONO # 0.4 10^3/uL (0.0-0.8); MONO % 8.9 % (0.0-5.0); NEUTROPHILS # 3.2 10^3/uL (1.8-7.7); NEUTROPHILS % 73.9 % (36.0-66.0); PLATELET COUNT, AUTOMATED 173 10^3/uL (150-450); RED BLOOD COUNT 4.05 10^6/uL (4.30-6.10); WHITE BLOOD COUNT 4.4 10^3/uL (4.0-10.0)
== END ==
LOC: M LAB 13:35
PROVIDERS: ATTEND Nurse Practitioner
DX: C71.9 Malignant neoplasm of brain, unspecified (principal)

== ENCOUNTER → 2018-12-25 | Outpatient (CLI) | payer OTHER ==
[2018-12-25 10:35] LABS: BASO % 0.2 % (0.0-1.0); EOS # 0.1 10^3/uL (0.0-0.50); EOS % 2.3 % (0.0-3.0); HEMATOCRIT 35.5 % (42.0-52.0); HEMOGLOBIN 12.7 g/dl (13.5-17.5); LYMPH # 0.8 10^3/uL (1.5-4.5); LYMPH % 14.9 % (24.0-44.0); MEAN CORPUSCULAR HEMOGLOBIN 32.3 pg (27.0-33.0); MEAN CORPUSCULAR HGB CONC 35.8 g/dl (32.0-36.5); MEAN CORPUSCULAR VOLUME 90.3 fl (80.0-96.0); MONO # 0.3 10^3/uL (0.0-0.8); MONO % 6.2 % (0.0-5.0); NEUTROPHILS % 76.2 % (36.0-66.0); PLATELET COUNT, AUTOMATED 122 10^3/uL (150-450); RED BLOOD COUNT 3.93 10^6/uL (4.30-6.10); WHITE BLOOD COUNT 5.2 10^3/uL (4.0-10.0)
== END ==
LOC: M LAB 10:10
PROVIDERS: ATTEND Nurse Practitioner
DX: C71.9 Malignant neoplasm of brain, unspecified (principal)

== ENCOUNTER → 2019-01-02 | Outpatient (CLI) | payer OTHER ==
[2019-01-02 11:07] LABS: BASO % 0.2 % (0.0-1.0); EOS # 0.1 10^3/uL (0.0-0.50); HEMATOCRIT 37.8 % (42.0-52.0); HEMOGLOBIN 13.5 g/dl (13.5-17.5); LYMPH # 0.9 10^3/uL (1.5-4.5); LYMPH % 19.2 % (24.0-44.0); MEAN CORPUSCULAR HEMOGLOBIN 32.2 pg (27.0-33.0); MEAN CORPUSCULAR HGB CONC 35.7 g/dl (32.0-36.5); MEAN CORPUSCULAR VOLUME 90.2 fl (80.0-96.0); MONO # 0.5 10^3/uL (0.0-0.8); MONO % 9.9 % (0.0-5.0); NEUTROPHILS # 3.1 10^3/uL (1.8-7.7); NEUTROPHILS % 68.5 % (36.0-66.0); RED BLOOD COUNT 4.19 10^6/uL (4.30-6.10); WHITE BLOOD COUNT 4.5 10^3/uL (4.0-10.0)
[2019-01-02 11:39] LABS: PLATELET COUNT, AUTOMATED 26 10^3/uL (150-450)
== END ==
LOC: M LAB 10:24
PROVIDERS: ATTEND Nurse Practitioner
DX: C71.9 Malignant neoplasm of brain, unspecified (principal)

== ENCOUNTER 2019-01-03 13:45 | Outpatient (RCR) | payer OTHER | END 2019-01-04 | LOC: M PT 13:45 | PROVIDERS: ATTEND Neurological Surgery | DX: Z51.89 Encounter for other specified aftercare (principal); C71.9 Malignant neoplasm of brain, unspecified ==

== ENCOUNTER → 2019-01-05 | Outpatient (CLI) | payer OTHER ==
[2019-01-05 10:05] LABS: BASO % 0.2 % (0.0-1.0); EOS # 0.1 10^3/uL (0.0-0.50); EOS % 1.1 % (0.0-3.0); HEMATOCRIT 33.2 % (42.0-52.0); HEMOGLOBIN 11.9 g/dl (13.5-17.5); LYMPH # 0.8 10^3/uL (1.5-4.5); LYMPH % 17.5 % (24.0-44.0); MEAN CORPUSCULAR HEMOGLOBIN 32.8 pg (27.0-33.0); MEAN CORPUSCULAR HGB CONC 35.8 g/dl (32.0-36.5); MEAN CORPUSCULAR VOLUME 91.5 fl (80.0-96.0); MONO # 0.4 10^3/uL (0.0-0.8); MONO % 7.6 % (0.0-5.0); NEUTROPHILS # 3.4 10^3/uL (1.8-7.7); NEUTROPHILS % 73.4 % (36.0-66.0); RED BLOOD COUNT 3.63 10^6/uL (4.30-6.10); WHITE BLOOD COUNT 4.6 10^3/uL (4.0-10.0)
[2019-01-05 10:39] LABS: PLATELET COUNT, AUTOMATED 17 10^3/uL (150-450)
== END ==
LOC: M LAB 09:23
PROVIDERS: ATTEND Nurse Practitioner
DX: C71.9 Malignant neoplasm of brain, unspecified (principal)

== ENCOUNTER → 2019-01-08 | Outpatient (CLI) | payer OTHER ==
[2019-01-08 12:44] LABS: BASO % 0.2 % (0.0-1.0); EOS % 0.4 % (0.0-3.0); HEMATOCRIT 31.2 % (42.0-52.0); HEMOGLOBIN 11.4 g/dl (13.5-17.5); LYMPH # 1.1 10^3/uL (1.5-4.5); LYMPH % 22.6 % (24.0-44.0); MEAN CORPUSCULAR HGB CONC 36.5 g/dl (32.0-36.5); MEAN CORPUSCULAR VOLUME 90.4 fl (80.0-96.0); MONO # 0.3 10^3/uL (0.0-0.8); NEUTROPHILS # 3.4 10^3/uL (1.8-7.7); NEUTROPHILS % 69.6 % (36.0-66.0); RED BLOOD COUNT 3.45 10^6/uL (4.30-6.10); WHITE BLOOD COUNT 4.8 10^3/uL (4.0-10.0)
[2019-01-08 12:53] LABS: PLATELET COUNT, AUTOMATED 18 10^3/uL (150-450)
== END ==
LOC: M LAB 11:53
PROVIDERS: ATTEND Nurse Practitioner
DX: C71.9 Malignant neoplasm of brain, unspecified (principal)

== ENCOUNTER → 2019-01-11 | Outpatient (CLI) | payer OTHER ==
[2019-01-11 11:28] LABS: BASO % 0.2 % (0.0-1.0); EOS % 0.5 % (0.0-3.0); HEMATOCRIT 31.1 % (42.0-52.0); HEMOGLOBIN 11.3 g/dl (13.5-17.5); MEAN CORPUSCULAR HEMOGLOBIN 33.4 pg (27.0-33.0); MEAN CORPUSCULAR HGB CONC 36.3 g/dl (32.0-36.5); MONO # 0.2 10^3/uL (0.0-0.8); MONO % 5.3 % (0.0-5.0); NEUTROPHILS # 2.9 10^3/uL (1.8-7.7); NEUTROPHILS % 70.8 % (36.0-66.0); RED BLOOD COUNT 3.38 10^6/uL (4.30-6.10); WHITE BLOOD COUNT 4.1 10^3/uL (4.0-10.0)
[2019-01-11 13:48] LABS: PLATELET COUNT, AUTOMATED 20 10^3/uL (150-450)
== END ==
LOC: M LAB 10:56
PROVIDERS: ATTEND Nurse Practitioner
DX: C71.9 Malignant neoplasm of brain, unspecified (principal)

== ENCOUNTER → 2019-01-15 | Outpatient (CLI) | payer OTHER ==
[2019-01-15 12:53] LABS: EOS # 0.1 10^3/uL (0.0-0.50); EOS % 2.5 % (0.0-3.0); HEMATOCRIT 29.3 % (42.0-52.0); HEMOGLOBIN 10.9 g/dl (13.5-17.5); LYMPH % 30.2 % (24.0-44.0); MEAN CORPUSCULAR HEMOGLOBIN 33.9 pg (27.0-33.0); MEAN CORPUSCULAR HGB CONC 37.2 g/dl (32.0-36.5); MONO # 0.1 10^3/uL (0.0-0.8); MONO % 4.3 % (0.0-5.0); NEUTROPHILS % 62.7 % (36.0-66.0); RED BLOOD COUNT 3.22 10^6/uL (4.30-6.10); WHITE BLOOD COUNT 3.2 10^3/uL (4.0-10.0)
[2019-01-15 13:08] LABS: PLATELET COUNT, AUTOMATED 27 10^3/uL (150-450)
== END ==
LOC: M LAB 12:30
PROVIDERS: ATTEND Nurse Practitioner
DX: C71.9 Malignant neoplasm of brain, unspecified (principal)

== ENCOUNTER 2019-01-18 14:12 | Outpatient (RCR) | payer OTHER | END 2019-02-04 | LOC: M PT 14:12 | PROVIDERS: ATTEND Neurological Surgery | DX: Z51.89 Encounter for other specified aftercare (principal); C71.9 Malignant neoplasm of brain, unspecified ==

== ENCOUNTER → 2019-01-22 | Outpatient (CLI) | payer OTHER ==
[2019-01-22 11:48] LABS: EOS # 0.1 10^3/uL (0.0-0.50); EOS % 4.6 % (0.0-3.0); HEMATOCRIT 27.8 % (42.0-52.0); LYMPH # 0.9 10^3/uL (1.5-4.5); LYMPH % 57.2 % (24.0-44.0); MEAN CORPUSCULAR HEMOGLOBIN 33.6 pg (27.0-33.0); MEAN CORPUSCULAR VOLUME 93.3 fl (80.0-96.0); MONO # 0.2 10^3/uL (0.0-0.8); MONO % 12.5 % (0.0-5.0); NEUTROPHILS % 25.7 % (36.0-66.0); RED BLOOD COUNT 2.98 10^6/uL (4.30-6.10)
[2019-01-22 12:22] LABS: NEUTROPHILS # 0.4 10^3/uL (1.8-7.7); PLATELET COUNT, AUTOMATED 96 10^3/uL (150-450); WHITE BLOOD COUNT 1.5 10^3/uL (4.0-10.0)
== END ==
LOC: M LAB 10:22
PROVIDERS: ATTEND Nurse Practitioner
DX: C71.9 Malignant neoplasm of brain, unspecified (principal)

== ENCOUNTER → 2019-02-12 | Outpatient (CLI) | payer OTHER ==
[~2019-02-12] MED LIST changes: +HEPA1INJ23 SC; -HEPA50VL SC
[2019-02-12 14:51] LABS: BASO % 0.5 % (0.0-1.0); EOS % 0.3 % (0.0-3.0); HEMATOCRIT 31.8 % (42.0-52.0); HEMOGLOBIN 11.1 g/dl (13.5-17.5); LYMPH # 0.7 10^3/uL (1.5-4.5); LYMPH % 18.3 % (24.0-44.0); MEAN CORPUSCULAR HEMOGLOBIN 34.5 pg (27.0-33.0); MEAN CORPUSCULAR HGB CONC 34.9 g/dl (32.0-36.5); MEAN CORPUSCULAR VOLUME 98.8 fl (80.0-96.0); MONO # 0.3 10^3/uL (0.0-0.8); MONO % 8.3 % (0.0-5.0); NEUTROPHILS # 2.8 10^3/uL (1.8-7.7); NEUTROPHILS % 72.3 % (36.0-66.0); PLATELET COUNT, AUTOMATED 159 10^3/uL (150-450); RED BLOOD COUNT 3.22 10^6/uL (4.30-6.10); WHITE BLOOD COUNT 3.9 10^3/uL (4.0-10.0)
== END ==
LOC: M LAB 14:09
PROVIDERS: ATTEND Nurse Practitioner
DX: C71.9 Malignant neoplasm of brain, unspecified (principal)

== ENCOUNTER 2019-02-28 14:22 | Outpatient (RCR) | payer OTHER | END 2019-03-06 | LOC: M PT 14:22 | PROVIDERS: ATTEND Neurological Surgery | DX: C71.9 Malignant neoplasm of brain, unspecified (principal) ==

== ENCOUNTER → 2019-02-28 | Outpatient (CLI) | payer OTHER ==
[2019-02-28 11:50] LABS: BASO % 0.2 % (0.0-1.0); EOS % 0.7 % (0.0-3.0); HEMATOCRIT 34.4 % (42.0-52.0); HEMOGLOBIN 12.3 g/dl (13.5-17.5); LYMPH # 1.5 10^3/uL (1.5-4.5); LYMPH % 26.7 % (24.0-44.0); MEAN CORPUSCULAR HEMOGLOBIN 35.3 pg (27.0-33.0); MEAN CORPUSCULAR HGB CONC 35.8 g/dl (32.0-36.5); MEAN CORPUSCULAR VOLUME 98.9 fl (80.0-96.0); MONO # 0.6 10^3/uL (0.0-0.8); MONO % 10.7 % (0.0-5.0); NEUTROPHILS # 3.4 10^3/uL (1.8-7.7); NEUTROPHILS % 61.5 % (36.0-66.0); RED BLOOD COUNT 3.48 10^6/uL (4.30-6.10); WHITE BLOOD COUNT 5.5 10^3/uL (4.0-10.0)
[2019-02-28 13:27] LABS: PLATELET COUNT, AUTOMATED 33 10^3/uL (150-450)
== END ==
LOC: M LAB 10:51
PROVIDERS: ATTEND Internal Medicine Medical Oncology
DX: C71.9 Malignant neoplasm of brain, unspecified (principal)

== ENCOUNTER → 2019-02-28 | Outpatient (CLI) | payer OTHER ==
[2019-02-28 16:19] LABS: ALBUMIN 3.8 GM/DL (3.2-5.2); ALT/SGPT 108 U/L (12-78); BILIRUBIN,TOTAL 0.6 MG/DL (0.2-1.0); BLOOD UREA NITROGEN 20 MG/DL (7-18); CALCIUM LEVEL 8.5 MG/DL (8.5-10.1); CARBON DIOXIDE LEVEL 28 MEQ/L (21-32); CHLORIDE LEVEL 106 MEQ/L (98-107); CREATININE FOR GFR 1.33 MG/DL (0.70-1.30); GLOMERULAR FILTRATION RATE > 60.0 (>60); GLUCOSE, FASTING 131 MG/DL (70-100); POTASSIUM SERUM 3.9 MEQ/L (3.5-5.1); SODIUM LEVEL 140 MEQ/L (136-145); TOTAL PROTEIN 7.1 GM/DL (6.4-8.2)
== END ==
LOC: M LAB 15:22
PROVIDERS: ATTEND Nurse Practitioner
DX: R94.5 Abnormal results of liver function studies (principal); C71.9 Malignant neoplasm of brain, unspecified

== ENCOUNTER → 2019-03-05 | Outpatient (CLI) | payer OTHER ==
[2019-03-05 12:00] LABS: BASO % 0.2 % (0.0-1.0); EOS % 0.6 % (0.0-3.0); HEMATOCRIT 34.1 % (42.0-52.0); HEMOGLOBIN 11.9 g/dl (13.5-17.5); LYMPH # 0.7 10^3/uL (1.5-4.5); LYMPH % 14.4 % (24.0-44.0); MEAN CORPUSCULAR HEMOGLOBIN 34.6 pg (27.0-33.0); MEAN CORPUSCULAR HGB CONC 34.9 g/dl (32.0-36.5); MEAN CORPUSCULAR VOLUME 99.1 fl (80.0-96.0); MONO # 0.3 10^3/uL (0.0-0.8); MONO % 6.8 % (0.0-5.0); NEUTROPHILS # 3.7 10^3/uL (1.8-7.7); NEUTROPHILS % 77.8 % (36.0-66.0); RED BLOOD COUNT 3.44 10^6/uL (4.30-6.10); WHITE BLOOD COUNT 4.7 10^3/uL (4.0-10.0)
[2019-03-05 12:05] LABS: PLATELET COUNT, AUTOMATED 13 10^3/uL (150-450)
== END ==
LOC: M LAB 10:47
PROVIDERS: ATTEND Nurse Practitioner
DX: C71.9 Malignant neoplasm of brain, unspecified (principal)

== ENCOUNTER → 2019-03-05 | Outpatient (CLI) | payer OTHER ==
[2019-03-05 12:25] LABS: ALBUMIN 3.7 GM/DL (3.2-5.2); ALT/SGPT 142 U/L (12-78); BILIRUBIN,TOTAL 1.1 MG/DL (0.2-1.0); BLOOD UREA NITROGEN 20 MG/DL (7-18); CALCIUM LEVEL 8.1 MG/DL (8.5-10.1); CARBON DIOXIDE LEVEL 29 MEQ/L (21-32); CHLORIDE LEVEL 107 MEQ/L (98-107); CREATININE FOR GFR 1.25 MG/DL (0.70-1.30); GLOMERULAR FILTRATION RATE > 60.0 (>60); GLUCOSE, FASTING 88 MG/DL (70-100); SODIUM LEVEL 140 MEQ/L (136-145); TOTAL PROTEIN 7.2 GM/DL (6.4-8.2)
== END ==
LOC: M LAB 11:06
PROVIDERS: ATTEND Nurse Practitioner
DX: C71.9 Malignant neoplasm of brain, unspecified (principal); R94.5 Abnormal results of liver function studies

== ENCOUNTER → 2019-03-09 | Outpatient (CLI) | payer OTHER ==
[2019-03-09 09:39] LABS: EOS % 1.1 % (0.0-3.0); HEMATOCRIT 31.6 % (42.0-52.0); HEMOGLOBIN 11.1 g/dl (13.5-17.5); LYMPH # 0.9 10^3/uL (1.5-4.5); LYMPH % 23.6 % (24.0-44.0); MEAN CORPUSCULAR HEMOGLOBIN 34.2 pg (27.0-33.0); MEAN CORPUSCULAR HGB CONC 35.1 g/dl (32.0-36.5); MEAN CORPUSCULAR VOLUME 97.2 fl (80.0-96.0); MONO # 0.2 10^3/uL (0.0-0.8); NEUTROPHILS # 2.7 10^3/uL (1.8-7.7); RED BLOOD COUNT 3.25 10^6/uL (4.30-6.10); WHITE BLOOD COUNT 3.7 10^3/uL (4.0-10.0)
[2019-03-09 09:49] LABS: PLATELET COUNT, AUTOMATED 24 10^3/uL (150-450)
[2019-03-09 10:17] LABS: ALBUMIN 3.9 GM/DL (3.2-5.2); ALT/SGPT 168 U/L (12-78); BLOOD UREA NITROGEN 20 MG/DL (7-18); CALCIUM LEVEL 8.3 MG/DL (8.5-10.1); CARBON DIOXIDE LEVEL 28 MEQ/L (21-32); CHLORIDE LEVEL 107 MEQ/L (98-107); CREATININE FOR GFR 1.28 MG/DL (0.70-1.30); GLOMERULAR FILTRATION RATE > 60.0 (>60); GLUCOSE, FASTING 134 MG/DL (70-100); SODIUM LEVEL 140 MEQ/L (136-145); TOTAL PROTEIN 7.1 GM/DL (6.4-8.2)
== END ==
LOC: M LAB 09:06
PROVIDERS: ATTEND Internal Medicine Medical Oncology
DX: C71.9 Malignant neoplasm of brain, unspecified (principal); R94.5 Abnormal results of liver function studies

== ENCOUNTER → 2019-03-12 | Outpatient (CLI) | payer OTHER ==
[2019-03-12 11:09] LABS: ALT/SGPT 180 U/L (12-78); BLOOD UREA NITROGEN 24 MG/DL (7-18); CALCIUM LEVEL 8.5 MG/DL (8.5-10.1); CARBON DIOXIDE LEVEL 28 MEQ/L (21-32); CHLORIDE LEVEL 107 MEQ/L (98-107); CREATININE FOR GFR 1.28 MG/DL (0.70-1.30); GLOMERULAR FILTRATION RATE > 60.0 (>60); GLUCOSE, FASTING 93 MG/DL (70-100); POTASSIUM SERUM 4.1 MEQ/L (3.5-5.1); SODIUM LEVEL 140 MEQ/L (136-145); TOTAL PROTEIN 7.3 GM/DL (6.4-8.2)
== END ==
LOC: M LAB 09:35
PROVIDERS: ATTEND Nurse Practitioner
DX: C71.9 Malignant neoplasm of brain, unspecified (principal); R94.5 Abnormal results of liver function studies

== ENCOUNTER → 2019-03-12 | Outpatient (CLI) | payer OTHER ==
[2019-03-12 10:40] LABS: BASO % 0.4 % (0.0-1.0); EOS % 1.7 % (0.0-3.0); HEMATOCRIT 29.6 % (42.0-52.0); HEMOGLOBIN 10.5 g/dl (13.5-17.5); LYMPH # 0.8 10^3/uL (1.5-4.5); LYMPH % 35.4 % (24.0-44.0); MEAN CORPUSCULAR HEMOGLOBIN 34.2 pg (27.0-33.0); MEAN CORPUSCULAR HGB CONC 35.5 g/dl (32.0-36.5); MEAN CORPUSCULAR VOLUME 96.4 fl (80.0-96.0); MONO # 0.1 10^3/uL (0.0-0.8); MONO % 4.6 % (0.0-5.0); NEUTROPHILS # 1.4 10^3/uL (1.8-7.7); NEUTROPHILS % 57.5 % (36.0-66.0); PLATELET COUNT, AUTOMATED 20 10^3/uL (150-450); RED BLOOD COUNT 3.07 10^6/uL (4.30-6.10); WHITE BLOOD COUNT 2.4 10^3/uL (4.0-10.0)
== END ==
LOC: M LAB 09:30
PROVIDERS: ATTEND Nurse Practitioner
DX: C71.9 Malignant neoplasm of brain, unspecified (principal)

== ENCOUNTER → 2019-03-15 | Outpatient (CLI) | payer OTHER ==
[2019-03-15 11:36] LABS: BASO % 0.5 % (0.0-1.0); EOS # 0.1 10^3/uL (0.0-0.50); EOS % 4.6 % (0.0-3.0); HEMATOCRIT 29.9 % (42.0-52.0); HEMOGLOBIN 10.5 g/dl (13.5-17.5); LYMPH # 1.1 10^3/uL (1.5-4.5); LYMPH % 53.8 % (24.0-44.0); MEAN CORPUSCULAR HEMOGLOBIN 34.4 pg (27.0-33.0); MEAN CORPUSCULAR HGB CONC 35.1 g/dl (32.0-36.5); MONO # 0.1 10^3/uL (0.0-0.8); MONO % 5.6 % (0.0-5.0); NEUTROPHILS % 35.5 % (36.0-66.0); RED BLOOD COUNT 3.05 10^6/uL (4.30-6.10)
[2019-03-15 11:51] LABS: NEUTROPHILS # 0.7 10^3/uL (1.8-7.7)
[2019-03-15 11:52] LABS: PLATELET COUNT, AUTOMATED 34 10^3/uL (150-450)
[2019-03-15 12:13] LABS: ALBUMIN 4.2 GM/DL (3.2-5.2); ALT/SGPT 145 U/L (12-78); BLOOD UREA NITROGEN 23 MG/DL (7-18); CALCIUM LEVEL 8.8 MG/DL (8.5-10.1); CARBON DIOXIDE LEVEL 29 MEQ/L (21-32); CHLORIDE LEVEL 106 MEQ/L (98-107); CREATININE FOR GFR 1.24 MG/DL (0.70-1.30); GLOMERULAR FILTRATION RATE > 60.0 (>60); GLUCOSE, FASTING 84 MG/DL (70-100); SODIUM LEVEL 141 MEQ/L (136-145); TOTAL PROTEIN 7.4 GM/DL (6.4-8.2)
== END ==
LOC: M LAB 10:56
PROVIDERS: ATTEND Nurse Practitioner
DX: C71.9 Malignant neoplasm of brain, unspecified (principal); R74.8 Abnormal levels of other serum enzymes

== ENCOUNTER → 2019-03-15 | Outpatient (CLI) | payer OTHER | LOC: M LAB 10:56 | PROVIDERS: ATTEND Internal Medicine Medical Oncology | DX: Z53.9 Procedure and treatment not carried out, unspecified reason (principal); C71.9 Malignant neoplasm of brain, unspecified ==

== ENCOUNTER → 2019-03-19 | Outpatient (CLI) | payer OTHER ==
[2019-03-19 12:03] LABS: EOS # 0.1 10^3/uL (0.0-0.50); EOS % 4.9 % (0.0-3.0); HEMATOCRIT 30.5 % (42.0-52.0); HEMOGLOBIN 10.8 g/dl (13.5-17.5); LYMPH # 1.2 10^3/uL (1.5-4.5); LYMPH % 63.2 % (24.0-44.0); MEAN CORPUSCULAR HEMOGLOBIN 34.6 pg (27.0-33.0); MEAN CORPUSCULAR HGB CONC 35.4 g/dl (32.0-36.5); MEAN CORPUSCULAR VOLUME 97.8 fl (80.0-96.0); MONO # 0.2 10^3/uL (0.0-0.8); NEUTROPHILS % 20.4 % (36.0-66.0); RED BLOOD COUNT 3.12 10^6/uL (4.30-6.10)
[2019-03-19 12:21] LABS: ALBUMIN 4.2 GM/DL (3.2-5.2); ALT/SGPT 98 U/L (12-78); BLOOD UREA NITROGEN 23 MG/DL (7-18); CALCIUM LEVEL 8.8 MG/DL (8.5-10.1); CARBON DIOXIDE LEVEL 28 MEQ/L (21-32); CHLORIDE LEVEL 107 MEQ/L (98-107); CREATININE FOR GFR 1.28 MG/DL (0.70-1.30); GLOMERULAR FILTRATION RATE > 60.0 (>60); GLUCOSE, FASTING 112 MG/DL (70-100); POTASSIUM SERUM 4.1 MEQ/L (3.5-5.1); SODIUM LEVEL 141 MEQ/L (136-145); TOTAL PROTEIN 7.4 GM/DL (6.4-8.2)
[2019-03-19 12:47] LABS: NEUTROPHILS # 0.4 10^3/uL (1.8-7.7); PLATELET COUNT, AUTOMATED 55 10^3/uL (150-450); WHITE BLOOD COUNT 1.8 10^3/uL (4.0-10.0)
== END ==
LOC: M LAB 10:56
PROVIDERS: ATTEND Nurse Practitioner
DX: C71.9 Malignant neoplasm of brain, unspecified (principal); R94.5 Abnormal results of liver function studies

== ENCOUNTER → 2019-03-22 | Outpatient (CLI) | payer OTHER ==
[2019-03-22 10:11] LABS: HEMATOCRIT 30.4 % (42.0-52.0); HEMOGLOBIN 10.7 g/dl (13.5-17.5); MEAN CORPUSCULAR HGB CONC 35.2 g/dl (32.0-36.5); MEAN CORPUSCULAR VOLUME 99.3 fl (80.0-96.0); RED BLOOD COUNT 3.06 10^6/uL (4.30-6.10)
[2019-03-22 10:39] LABS: ALBUMIN 4.2 GM/DL (3.2-5.2); ALT/SGPT 84 U/L (12-78); BILIRUBIN,TOTAL 0.9 MG/DL (0.2-1.0); BLOOD UREA NITROGEN 18 MG/DL (7-18); CALCIUM LEVEL 8.9 MG/DL (8.5-10.1); CARBON DIOXIDE LEVEL 28 MEQ/L (21-32); CHLORIDE LEVEL 106 MEQ/L (98-107); CREATININE FOR GFR 1.31 MG/DL (0.70-1.30); GLOMERULAR FILTRATION RATE > 60.0 (>60); GLUCOSE, FASTING 118 MG/DL (70-100); POTASSIUM SERUM 4.4 MEQ/L (3.5-5.1); SODIUM LEVEL 139 MEQ/L (136-145); TOTAL PROTEIN 7.1 GM/DL (6.4-8.2)
[2019-03-22 10:57] LABS: WHITE BLOOD COUNT 1.9 10^3/uL (4.0-10.0)
[2019-03-22 11:00] LABS: PLATELET COUNT, AUTOMATED 84 10^3/uL (150-450)
[2019-03-22 11:09] LABS: ATYPICAL LYMPH 6 % (0-5); EOSINOPHILS 2 % (0-5); LYMPHOCYTES 65 % (16-52); MONOCYTES 6 % (0-8); NEUTROPHILS 21 % (35-75)
[2019-03-22 11:11] LABS: ANISOCYTOSIS 1+; PLATELET ESTIMATE DECREASED (NORMAL)
== END ==
LOC: M LAB 09:37
PROVIDERS: ATTEND Nurse Practitioner
DX: C71.9 Malignant neoplasm of brain, unspecified (principal); R74.8 Abnormal levels of other serum enzymes

== ENCOUNTER → 2019-03-29 | Outpatient (CLI) | payer OTHER ==
[2019-03-29 11:30] LABS: BASO % 0.8 % (0.0-1.0); EOS % 0.8 % (0.0-3.0); HEMATOCRIT 29.6 % (42.0-52.0); HEMOGLOBIN 10.5 g/dl (13.5-17.5); LYMPH % 37.9 % (24.0-44.0); MEAN CORPUSCULAR HEMOGLOBIN 35.8 pg (27.0-33.0); MEAN CORPUSCULAR HGB CONC 35.5 g/dl (32.0-36.5); MONO # 0.4 10^3/uL (0.0-0.8); MONO % 14.6 % (0.0-5.0); NEUTROPHILS # 1.2 10^3/uL (1.8-7.7); NEUTROPHILS % 45.1 % (36.0-66.0); PLATELET COUNT, AUTOMATED 178 10^3/uL (150-450); RED BLOOD COUNT 2.93 10^6/uL (4.30-6.10); WHITE BLOOD COUNT 2.6 10^3/uL (4.0-10.0)
[2019-03-29 11:56] LABS: ALBUMIN 3.7 GM/DL (3.2-5.2); ALT/SGPT 82 U/L (12-78); BILIRUBIN,TOTAL 0.5 MG/DL (0.2-1.0); BLOOD UREA NITROGEN 23 MG/DL (7-18); CALCIUM LEVEL 8.4 MG/DL (8.5-10.1); CARBON DIOXIDE LEVEL 28 MEQ/L (21-32); CHLORIDE LEVEL 109 MEQ/L (98-107); CREATININE FOR GFR 1.27 MG/DL (0.70-1.30); GLOMERULAR FILTRATION RATE > 60.0 (>60); GLUCOSE, FASTING 85 MG/DL (70-100); POTASSIUM SERUM 4.6 MEQ/L (3.5-5.1); SODIUM LEVEL 143 MEQ/L (136-145)
== END ==
LOC: M LAB 10:47
PROVIDERS: ATTEND Nurse Practitioner
DX: C71.9 Malignant neoplasm of brain, unspecified (principal); R74.8 Abnormal levels of other serum enzymes

== ENCOUNTER → 2019-04-05 | Outpatient (CLI) | payer OTHER ==
[2019-04-05 11:53] LABS: BASO % 0.5 % (0.0-1.0); EOS % 0.3 % (0.0-3.0); HEMATOCRIT 35.2 % (42.0-52.0); HEMOGLOBIN 12.3 g/dl (13.5-17.5); LYMPH % 24.4 % (24.0-44.0); MEAN CORPUSCULAR HEMOGLOBIN 35.3 pg (27.0-33.0); MEAN CORPUSCULAR HGB CONC 34.9 g/dl (32.0-36.5); MEAN CORPUSCULAR VOLUME 101.1 fl (80.0-96.0); MONO # 0.4 10^3/uL (0.0-0.8); MONO % 10.7 % (0.0-5.0); NEUTROPHILS # 2.5 10^3/uL (1.8-7.7); NEUTROPHILS % 63.8 % (36.0-66.0); PLATELET COUNT, AUTOMATED 206 10^3/uL (150-450); RED BLOOD COUNT 3.48 10^6/uL (4.30-6.10); WHITE BLOOD COUNT 3.9 10^3/uL (4.0-10.0)
[2019-04-05 12:23] LABS: ALBUMIN 3.7 GM/DL (3.2-5.2); ALT/SGPT 102 U/L (12-78); BILIRUBIN,TOTAL 0.7 MG/DL (0.2-1.0); BLOOD UREA NITROGEN 20 MG/DL (7-18); CALCIUM LEVEL 8.5 MG/DL (8.5-10.1); CARBON DIOXIDE LEVEL 27 MEQ/L (21-32); CHLORIDE LEVEL 106 MEQ/L (98-107); CREATININE FOR GFR 1.24 MG/DL (0.70-1.30); GLOMERULAR FILTRATION RATE > 60.0 (>60); GLUCOSE, FASTING 107 MG/DL (70-100); POTASSIUM SERUM 3.9 MEQ/L (3.5-5.1); SODIUM LEVEL 141 MEQ/L (136-145); TOTAL PROTEIN 7.6 GM/DL (6.4-8.2)
== END ==
LOC: M LAB 11:15
PROVIDERS: ATTEND Nurse Practitioner
DX: C71.9 Malignant neoplasm of brain, unspecified (principal); R94.5 Abnormal results of liver function studies

== ENCOUNTER → 2019-04-09 | Outpatient (CLI) | payer OTHER ==
[2019-04-09 11:23] LABS: BASO % 0.6 % (0.0-1.0); EOS % 0.9 % (0.0-3.0); HEMATOCRIT 35.9 % (42.0-52.0); HEMOGLOBIN 12.5 g/dl (13.5-17.5); LYMPH # 0.8 10^3/uL (1.5-4.5); LYMPH % 23.2 % (24.0-44.0); MEAN CORPUSCULAR HEMOGLOBIN 35.6 pg (27.0-33.0); MEAN CORPUSCULAR HGB CONC 34.8 g/dl (32.0-36.5); MEAN CORPUSCULAR VOLUME 102.3 fl (80.0-96.0); MONO # 0.2 10^3/uL (0.0-0.8); MONO % 6.8 % (0.0-5.0); NEUTROPHILS # 2.3 10^3/uL (1.8-7.7); NEUTROPHILS % 68.2 % (36.0-66.0); PLATELET COUNT, AUTOMATED 168 10^3/uL (150-450); RED BLOOD COUNT 3.51 10^6/uL (4.30-6.10); WHITE BLOOD COUNT 3.4 10^3/uL (4.0-10.0)
[2019-04-09 11:55] LABS: ALBUMIN 3.7 GM/DL (3.2-5.2); ALT/SGPT 96 U/L (12-78); BILIRUBIN,TOTAL 0.7 MG/DL (0.2-1.0); BLOOD UREA NITROGEN 19 MG/DL (7-18); CALCIUM LEVEL 8.5 MG/DL (8.5-10.1); CARBON DIOXIDE LEVEL 29 MEQ/L (21-32); CHLORIDE LEVEL 108 MEQ/L (98-107); CREATININE FOR GFR 1.28 MG/DL (0.70-1.30); GLOMERULAR FILTRATION RATE > 60.0 (>60); GLUCOSE, FASTING 86 MG/DL (70-100); POTASSIUM SERUM 4.3 MEQ/L (3.5-5.1); SODIUM LEVEL 143 MEQ/L (136-145); TOTAL PROTEIN 7.1 GM/DL (6.4-8.2)
== END ==
LOC: M LAB 10:48
PROVIDERS: ATTEND Nurse Practitioner
DX: C71.9 Malignant neoplasm of brain, unspecified (principal); R94.5 Abnormal results of liver function studies

== ENCOUNTER → 2019-04-12 | Outpatient (CLI) | payer OTHER ==
[2019-04-12 14:40] LABS: BASO % 0.5 % (0.0-1.0); EOS # 0.1 10^3/uL (0.0-0.50); EOS % 1.8 % (0.0-3.0); HEMATOCRIT 34.7 % (42.0-52.0); HEMOGLOBIN 12.1 g/dl (13.5-17.5); LYMPH # 0.8 10^3/uL (1.5-4.5); LYMPH % 21.4 % (24.0-44.0); MEAN CORPUSCULAR HEMOGLOBIN 35.5 pg (27.0-33.0); MEAN CORPUSCULAR HGB CONC 34.9 g/dl (32.0-36.5); MEAN CORPUSCULAR VOLUME 101.8 fl (80.0-96.0); MONO # 0.3 10^3/uL (0.0-0.8); NEUTROPHILS # 2.7 10^3/uL (1.8-7.7); PLATELET COUNT, AUTOMATED 151 10^3/uL (150-450); RED BLOOD COUNT 3.41 10^6/uL (4.30-6.10); WHITE BLOOD COUNT 3.9 10^3/uL (4.0-10.0)
[2019-04-12 15:12] LABS: ALBUMIN 3.6 GM/DL (3.2-5.2); ALT/SGPT 90 U/L (12-78); BILIRUBIN,TOTAL 0.5 MG/DL (0.2-1.0); BLOOD UREA NITROGEN 24 MG/DL (7-18); CALCIUM LEVEL 8.2 MG/DL (8.5-10.1); CARBON DIOXIDE LEVEL 28 MEQ/L (21-32); CHLORIDE LEVEL 106 MEQ/L (98-107); CREATININE FOR GFR 1.32 MG/DL (0.70-1.30); GLOMERULAR FILTRATION RATE > 60.0 (>60); GLUCOSE, FASTING 136 MG/DL (70-100); POTASSIUM SERUM 4.3 MEQ/L (3.5-5.1); SODIUM LEVEL 142 MEQ/L (136-145)
== END ==
LOC: M LAB 13:51
PROVIDERS: ATTEND Nurse Practitioner
DX: C71.9 Malignant neoplasm of brain, unspecified (principal); R74.8 Abnormal levels of other serum enzymes

== ENCOUNTER → 2019-04-16 | Outpatient (CLI) | payer OTHER ==
[2019-04-16 09:55] LABS: BASO % 0.3 % (0.0-1.0); EOS # 0.1 10^3/uL (0.0-0.50); EOS % 2.3 % (0.0-3.0); HEMATOCRIT 36.6 % (42.0-52.0); HEMOGLOBIN 12.5 g/dl (13.5-17.5); LYMPH # 0.9 10^3/uL (1.5-4.5); LYMPH % 22.5 % (24.0-44.0); MEAN CORPUSCULAR HEMOGLOBIN 34.2 pg (27.0-33.0); MEAN CORPUSCULAR HGB CONC 34.2 g/dl (32.0-36.5); MEAN CORPUSCULAR VOLUME 100.3 fl (80.0-96.0); MONO # 0.3 10^3/uL (0.0-0.8); MONO % 8.1 % (0.0-5.0); NEUTROPHILS # 2.6 10^3/uL (1.8-7.7); NEUTROPHILS % 66.5 % (36.0-66.0); PLATELET COUNT, AUTOMATED 144 10^3/uL (150-450); RED BLOOD COUNT 3.65 10^6/uL (4.30-6.10); WHITE BLOOD COUNT 3.8 10^3/uL (4.0-10.0)
[2019-04-16 10:27] LABS: ALT/SGPT 78 U/L (12-78); BILIRUBIN,TOTAL 0.8 MG/DL (0.2-1.0); BLOOD UREA NITROGEN 21 MG/DL (7-18); CALCIUM LEVEL 8.7 MG/DL (8.5-10.1); CARBON DIOXIDE LEVEL 29 MEQ/L (21-32); CHLORIDE LEVEL 106 MEQ/L (98-107); CREATININE FOR GFR 1.38 MG/DL (0.70-1.30); GLOMERULAR FILTRATION RATE > 60.0 (>60); GLUCOSE, FASTING 123 MG/DL (70-100); POTASSIUM SERUM 4.2 MEQ/L (3.5-5.1); SODIUM LEVEL 142 MEQ/L (136-145)
== END ==
LOC: M LAB 09:14
PROVIDERS: ATTEND Nurse Practitioner
DX: C71.9 Malignant neoplasm of brain, unspecified (principal); R74.8 Abnormal levels of other serum enzymes

== ENCOUNTER → 2019-04-19 | Outpatient (CLI) | payer OTHER ==
[2019-04-19 14:14] LABS: BASO % 0.2 % (0.0-1.0); EOS # 0.1 10^3/uL (0.0-0.50); EOS % 2.4 % (0.0-3.0); HEMATOCRIT 36.3 % (42.0-52.0); HEMOGLOBIN 12.5 g/dl (13.5-17.5); LYMPH # 0.8 10^3/uL (1.5-4.5); LYMPH % 20.1 % (24.0-44.0); MEAN CORPUSCULAR HEMOGLOBIN 34.2 pg (27.0-33.0); MEAN CORPUSCULAR HGB CONC 34.4 g/dl (32.0-36.5); MEAN CORPUSCULAR VOLUME 99.5 fl (80.0-96.0); MONO # 0.4 10^3/uL (0.0-0.8); MONO % 9.3 % (0.0-5.0); NEUTROPHILS # 2.8 10^3/uL (1.8-7.7); PLATELET COUNT, AUTOMATED 100 10^3/uL (150-450); RED BLOOD COUNT 3.65 10^6/uL (4.30-6.10); WHITE BLOOD COUNT 4.2 10^3/uL (4.0-10.0)
[2019-04-19 14:46] LABS: ALBUMIN 3.8 GM/DL (3.2-5.2); ALT/SGPT 99 U/L (12-78); BILIRUBIN,TOTAL 0.7 MG/DL (0.2-1.0); BLOOD UREA NITROGEN 20 MG/DL (7-18); CALCIUM LEVEL 8.4 MG/DL (8.5-10.1); CARBON DIOXIDE LEVEL 29 MEQ/L (21-32); CHLORIDE LEVEL 108 MEQ/L (98-107); CREATININE FOR GFR 1.36 MG/DL (0.70-1.30); GLOMERULAR FILTRATION RATE > 60.0 (>60); GLUCOSE, FASTING 98 MG/DL (70-100); POTASSIUM SERUM 4.3 MEQ/L (3.5-5.1); SODIUM LEVEL 142 MEQ/L (136-145); TOTAL PROTEIN 7.2 GM/DL (6.4-8.2)
== END ==
LOC: M LAB 13:18
PROVIDERS: ATTEND Nurse Practitioner
DX: C71.9 Malignant neoplasm of brain, unspecified (principal); R94.5 Abnormal results of liver function studies; R74.8 Abnormal levels of other serum enzymes

== ENCOUNTER → 2019-04-23 | Outpatient (CLI) | payer OTHER ==
[2019-04-23 09:53] LABS: BASO % 0.5 % (0.0-1.0); EOS # 0.2 10^3/uL (0.0-0.50); EOS % 4.1 % (0.0-3.0); HEMATOCRIT 38.8 % (42.0-52.0); HEMOGLOBIN 13.5 g/dl (13.5-17.5); LYMPH # 0.8 10^3/uL (1.5-4.5); LYMPH % 20.6 % (24.0-44.0); MEAN CORPUSCULAR HEMOGLOBIN 35.1 pg (27.0-33.0); MEAN CORPUSCULAR HGB CONC 34.8 g/dl (32.0-36.5); MEAN CORPUSCULAR VOLUME 100.8 fl (80.0-96.0); MONO # 0.4 10^3/uL (0.0-0.8); MONO % 10.4 % (0.0-5.0); NEUTROPHILS # 2.3 10^3/uL (1.8-7.7); NEUTROPHILS % 64.1 % (36.0-66.0); RED BLOOD COUNT 3.85 10^6/uL (4.30-6.10); WHITE BLOOD COUNT 3.6 10^3/uL (4.0-10.0)
[2019-04-23 10:20] LABS: ALBUMIN 3.9 GM/DL (3.2-5.2); BILIRUBIN,TOTAL 0.7 MG/DL (0.2-1.0); CALCIUM LEVEL 8.8 MG/DL (8.5-10.1); CREATININE FOR GFR 1.5 MG/DL (0.70-1.30); GLOMERULAR FILTRATION RATE 54.9 (>60); POTASSIUM SERUM 4.3 MEQ/L (3.5-5.1); TOTAL PROTEIN 7.2 GM/DL (6.4-8.2)
[2019-04-23 10:33] LABS: PLATELET COUNT, AUTOMATED 65 10^3/uL (150-450)
== END ==
LOC: M LAB 09:17
PROVIDERS: ATTEND Nurse Practitioner
DX: C71.9 Malignant neoplasm of brain, unspecified (principal); R74.8 Abnormal levels of other serum enzymes

== ENCOUNTER → 2019-04-26 | Outpatient (CLI) | payer OTHER ==
[2019-04-26 11:34] LABS: BASO % 0.3 % (0.0-1.0); EOS # 0.1 10^3/uL (0.0-0.50); HEMATOCRIT 36.8 % (42.0-52.0); HEMOGLOBIN 12.9 g/dl (13.5-17.5); LYMPH # 0.8 10^3/uL (1.5-4.5); LYMPH % 22.8 % (24.0-44.0); MEAN CORPUSCULAR HEMOGLOBIN 35.1 pg (27.0-33.0); MEAN CORPUSCULAR HGB CONC 35.1 g/dl (32.0-36.5); MONO # 0.3 10^3/uL (0.0-0.8); MONO % 9.2 % (0.0-5.0); NEUTROPHILS # 2.4 10^3/uL (1.8-7.7); NEUTROPHILS % 64.4 % (36.0-66.0); RED BLOOD COUNT 3.68 10^6/uL (4.30-6.10); WHITE BLOOD COUNT 3.7 10^3/uL (4.0-10.0)
[2019-04-26 11:49] LABS: PLATELET COUNT, AUTOMATED 44 10^3/uL (150-450)
[2019-04-26 12:16] LABS: ALBUMIN 3.8 GM/DL (3.2-5.2); ALT/SGPT 71 U/L (12-78); BLOOD UREA NITROGEN 20 MG/DL (7-18); CALCIUM LEVEL 8.5 MG/DL (8.5-10.1); CARBON DIOXIDE LEVEL 29 MEQ/L (21-32); CHLORIDE LEVEL 106 MEQ/L (98-107); CREATININE FOR GFR 1.37 MG/DL (0.70-1.30); GLOMERULAR FILTRATION RATE > 60.0 (>60); GLUCOSE, FASTING 105 MG/DL (70-100); POTASSIUM SERUM 3.8 MEQ/L (3.5-5.1); SODIUM LEVEL 140 MEQ/L (136-145); TOTAL PROTEIN 7.6 GM/DL (6.4-8.2)
== END ==
LOC: M LAB 11:05
PROVIDERS: ATTEND Nurse Practitioner
DX: C71.9 Malignant neoplasm of brain, unspecified (principal); R94.5 Abnormal results of liver function studies

== ENCOUNTER → 2019-04-30 | Outpatient (CLI) | payer OTHER ==
[2019-04-30 11:25] LABS: BASO % 0.4 % (0.0-1.0); EOS # 0.1 10^3/uL (0.0-0.50); EOS % 1.8 % (0.0-3.0); HEMATOCRIT 35.9 % (42.0-52.0); HEMOGLOBIN 12.7 g/dl (13.5-17.5); LYMPH # 0.8 10^3/uL (1.5-4.5); LYMPH % 18.1 % (24.0-44.0); MEAN CORPUSCULAR HEMOGLOBIN 34.8 pg (27.0-33.0); MEAN CORPUSCULAR HGB CONC 35.4 g/dl (32.0-36.5); MEAN CORPUSCULAR VOLUME 98.4 fl (80.0-96.0); MONO # 0.3 10^3/uL (0.0-0.8); MONO % 7.5 % (0.0-5.0); NEUTROPHILS # 3.2 10^3/uL (1.8-7.7); NEUTROPHILS % 71.8 % (36.0-66.0); RED BLOOD COUNT 3.65 10^6/uL (4.30-6.10); WHITE BLOOD COUNT 4.5 10^3/uL (4.0-10.0)
[2019-04-30 11:26] LABS: PLATELET COUNT, AUTOMATED 30 10^3/uL (150-450)
[2019-04-30 11:51] LABS: ALBUMIN 3.6 GM/DL (3.2-5.2); ALT/SGPT 53 U/L (12-78); BILIRUBIN,TOTAL 0.7 MG/DL (0.2-1.0); BLOOD UREA NITROGEN 21 MG/DL (7-18); CALCIUM LEVEL 8.7 MG/DL (8.5-10.1); CARBON DIOXIDE LEVEL 29 MEQ/L (21-32); CHLORIDE LEVEL 107 MEQ/L (98-107); CREATININE FOR GFR 1.26 MG/DL (0.70-1.30); GLOMERULAR FILTRATION RATE > 60.0 (>60); GLUCOSE, FASTING 99 MG/DL (70-100); POTASSIUM SERUM 4.1 MEQ/L (3.5-5.1); SODIUM LEVEL 141 MEQ/L (136-145)
== END ==
LOC: M LAB 10:48
PROVIDERS: ATTEND Nurse Practitioner
DX: C71.9 Malignant neoplasm of brain, unspecified (principal); R74.8 Abnormal levels of other serum enzymes

== ENCOUNTER → 2019-05-03 | Outpatient (CLI) | payer OTHER ==
[2019-05-03 08:17] LABS: BASO % 0.3 % (0.0-1.0); EOS # 0.1 10^3/uL (0.0-0.50); HEMATOCRIT 34.6 % (42.0-52.0); HEMOGLOBIN 12.2 g/dl (13.5-17.5); LYMPH % 26.9 % (24.0-44.0); MEAN CORPUSCULAR HEMOGLOBIN 34.9 pg (27.0-33.0); MEAN CORPUSCULAR HGB CONC 35.3 g/dl (32.0-36.5); MEAN CORPUSCULAR VOLUME 98.9 fl (80.0-96.0); MONO # 0.3 10^3/uL (0.0-0.8); NEUTROPHILS # 2.3 10^3/uL (1.8-7.7); NEUTROPHILS % 63.5 % (36.0-66.0); WHITE BLOOD COUNT 3.6 10^3/uL (4.0-10.0)
[2019-05-03 08:28] LABS: PLATELET COUNT, AUTOMATED 35 10^3/uL (150-450)
[2019-05-03 08:31] LABS: ALBUMIN 3.7 GM/DL (3.2-5.2); ALT/SGPT 51 U/L (12-78); BILIRUBIN,TOTAL 0.8 MG/DL (0.2-1.0); BLOOD UREA NITROGEN 16 MG/DL (7-18); CALCIUM LEVEL 8.7 MG/DL (8.5-10.1); CARBON DIOXIDE LEVEL 28 MEQ/L (21-32); CHLORIDE LEVEL 107 MEQ/L (98-107); CREATININE FOR GFR 1.38 MG/DL (0.70-1.30); GLOMERULAR FILTRATION RATE > 60.0 (>60); GLUCOSE, FASTING 118 MG/DL (70-100); SODIUM LEVEL 140 MEQ/L (136-145); TOTAL PROTEIN 7.2 GM/DL (6.4-8.2)
== END ==
LOC: M LAB 07:40
PROVIDERS: ATTEND Nurse Practitioner
DX: C71.9 Malignant neoplasm of brain, unspecified (principal); R74.8 Abnormal levels of other serum enzymes

== ENCOUNTER → 2019-05-08 | Outpatient (CLI) | payer OTHER ==
[2019-05-08 14:09] LABS: EOS # 0.1 10^3/uL (0.0-0.50); HEMATOCRIT 34.1 % (42.0-52.0); HEMOGLOBIN 12.3 g/dl (13.5-17.5); LYMPH # 0.9 10^3/uL (1.5-4.5); LYMPH % 26.2 % (24.0-44.0); MEAN CORPUSCULAR HEMOGLOBIN 34.9 pg (27.0-33.0); MEAN CORPUSCULAR HGB CONC 36.1 g/dl (32.0-36.5); MEAN CORPUSCULAR VOLUME 96.9 fl (80.0-96.0); MONO # 0.2 10^3/uL (0.0-0.8); MONO % 6.3 % (0.0-5.0); NEUTROPHILS # 2.2 10^3/uL (1.8-7.7); NEUTROPHILS % 64.2 % (36.0-66.0); RED BLOOD COUNT 3.52 10^6/uL (4.30-6.10); WHITE BLOOD COUNT 3.4 10^3/uL (4.0-10.0)
[2019-05-08 14:14] LABS: PLATELET COUNT, AUTOMATED 23 10^3/uL (150-450)
[2019-05-08 14:35] LABS: ALBUMIN 3.7 GM/DL (3.2-5.2); ALT/SGPT 46 U/L (12-78); BILIRUBIN,TOTAL 0.8 MG/DL (0.2-1.0); BLOOD UREA NITROGEN 18 MG/DL (7-18); CALCIUM LEVEL 8.8 MG/DL (8.5-10.1); CARBON DIOXIDE LEVEL 28 MEQ/L (21-32); CHLORIDE LEVEL 109 MEQ/L (98-107); CREATININE FOR GFR 1.28 MG/DL (0.70-1.30); GLOMERULAR FILTRATION RATE > 60.0 (>60); GLUCOSE, FASTING 87 MG/DL (70-100); POTASSIUM SERUM 4.1 MEQ/L (3.5-5.1); SODIUM LEVEL 142 MEQ/L (136-145); TOTAL PROTEIN 6.7 GM/DL (6.4-8.2)
== END ==
LOC: M LAB 08:00
PROVIDERS: ATTEND Nurse Practitioner
DX: C71.9 Malignant neoplasm of brain, unspecified (principal); R94.5 Abnormal results of liver function studies

== ENCOUNTER → 2019-05-09 | Outpatient (CLI) | payer OTHER ==
[2019-05-09 09:31] LABS: BASO % 0.3 % (0.0-1.0); EOS # 0.1 10^3/uL (0.0-0.50); EOS % 4.8 % (0.0-3.0); HEMATOCRIT 33.9 % (42.0-52.0); HEMOGLOBIN 11.8 g/dl (13.5-17.5); LYMPH # 0.8 10^3/uL (1.5-4.5); MEAN CORPUSCULAR HEMOGLOBIN 33.5 pg (27.0-33.0); MEAN CORPUSCULAR HGB CONC 34.8 g/dl (32.0-36.5); MEAN CORPUSCULAR VOLUME 96.3 fl (80.0-96.0); MONO # 0.2 10^3/uL (0.0-0.8); MONO % 6.9 % (0.0-5.0); NEUTROPHILS # 1.8 10^3/uL (1.8-7.7); NEUTROPHILS % 61.7 % (36.0-66.0); RED BLOOD COUNT 3.52 10^6/uL (4.30-6.10); WHITE BLOOD COUNT 2.9 10^3/uL (4.0-10.0)
[2019-05-09 09:41] LABS: PLATELET COUNT, AUTOMATED 29 10^3/uL (150-450)
[2019-05-09 09:53] LABS: ALBUMIN 3.7 GM/DL (3.2-5.2); ALT/SGPT 49 U/L (12-78); BILIRUBIN,TOTAL 0.8 MG/DL (0.2-1.0); BLOOD UREA NITROGEN 18 MG/DL (7-18); CALCIUM LEVEL 8.6 MG/DL (8.5-10.1); CARBON DIOXIDE LEVEL 29 MEQ/L (21-32); CHLORIDE LEVEL 107 MEQ/L (98-107); CREATININE FOR GFR 1.24 MG/DL (0.70-1.30); GLOMERULAR FILTRATION RATE > 60.0 (>60); GLUCOSE, FASTING 92 MG/DL (70-100); POTASSIUM SERUM 4.1 MEQ/L (3.5-5.1); SODIUM LEVEL 141 MEQ/L (136-145); TOTAL PROTEIN 6.8 GM/DL (6.4-8.2)
== END ==
LOC: M LAB 08:53
PROVIDERS: ATTEND Nurse Practitioner
DX: C71.9 Malignant neoplasm of brain, unspecified (principal); R74.8 Abnormal levels of other serum enzymes

== ENCOUNTER → 2019-05-11 | Outpatient (CLI) | payer OTHER ==
[2019-05-11 10:39] LABS: BASO % 0.5 % (0.0-1.0); EOS # 0.1 10^3/uL (0.0-0.50); EOS % 6.4 % (0.0-3.0); HEMATOCRIT 32.4 % (42.0-52.0); HEMOGLOBIN 11.6 g/dl (13.5-17.5); LYMPH # 0.7 10^3/uL (1.5-4.5); LYMPH % 31.5 % (24.0-44.0); MEAN CORPUSCULAR HGB CONC 35.8 g/dl (32.0-36.5); MEAN CORPUSCULAR VOLUME 97.9 fl (80.0-96.0); MONO # 0.1 10^3/uL (0.0-0.8); MONO % 5.5 % (0.0-5.0); NEUTROPHILS # 1.2 10^3/uL (1.8-7.7); NEUTROPHILS % 55.6 % (36.0-66.0); RED BLOOD COUNT 3.31 10^6/uL (4.30-6.10); WHITE BLOOD COUNT 2.2 10^3/uL (4.0-10.0)
[2019-05-11 10:48] LABS: PLATELET COUNT, AUTOMATED 25 10^3/uL (150-450)
[2019-05-11 11:10] LABS: ALBUMIN 3.7 GM/DL (3.2-5.2); ALT/SGPT 57 U/L (12-78); BILIRUBIN,TOTAL 0.8 MG/DL (0.2-1.0); BLOOD UREA NITROGEN 20 MG/DL (7-18); CALCIUM LEVEL 8.2 MG/DL (8.5-10.1); CARBON DIOXIDE LEVEL 28 MEQ/L (21-32); CHLORIDE LEVEL 108 MEQ/L (98-107); CREATININE FOR GFR 1.35 MG/DL (0.70-1.30); GLOMERULAR FILTRATION RATE > 60.0 (>60); GLUCOSE, FASTING 90 MG/DL (70-100); POTASSIUM SERUM 4.2 MEQ/L (3.5-5.1); SODIUM LEVEL 142 MEQ/L (136-145); TOTAL PROTEIN 6.8 GM/DL (6.4-8.2)
== END ==
LOC: M LAB 10:02
PROVIDERS: ATTEND Nurse Practitioner
DX: C71.9 Malignant neoplasm of brain, unspecified (principal)

== ENCOUNTER → 2019-05-21 | Outpatient (CLI) | payer OTHER ==
[2019-05-21 13:01] LABS: BASO % 0.5 % (0.0-1.0); EOS # 0.1 10^3/uL (0.0-0.50); EOS % 3.6 % (0.0-3.0); HEMATOCRIT 33.6 % (42.0-52.0); HEMOGLOBIN 11.9 g/dl (13.5-17.5); LYMPH # 0.8 10^3/uL (1.5-4.5); LYMPH % 39.5 % (24.0-44.0); MEAN CORPUSCULAR HEMOGLOBIN 34.6 pg (27.0-33.0); MEAN CORPUSCULAR HGB CONC 35.4 g/dl (32.0-36.5); MEAN CORPUSCULAR VOLUME 97.7 fl (80.0-96.0); MONO # 0.3 10^3/uL (0.0-0.8); MONO % 15.4 % (0.0-5.0); NEUTROPHILS % 40.5 % (36.0-66.0); RED BLOOD COUNT 3.44 10^6/uL (4.30-6.10)
[2019-05-21 13:31] LABS: ALBUMIN 3.8 GM/DL (3.2-5.2); ALT/SGPT 55 U/L (12-78); BILIRUBIN,TOTAL 0.5 MG/DL (0.2-1.0); BLOOD UREA NITROGEN 19 MG/DL (7-18); CALCIUM LEVEL 8.7 MG/DL (8.5-10.1); CARBON DIOXIDE LEVEL 28 MEQ/L (21-32); CHLORIDE LEVEL 109 MEQ/L (98-107); CREATININE FOR GFR 1.23 MG/DL (0.70-1.30); GLOMERULAR FILTRATION RATE > 60.0 (>60); GLUCOSE, FASTING 109 MG/DL (70-100); POTASSIUM SERUM 3.9 MEQ/L (3.5-5.1); SODIUM LEVEL 144 MEQ/L (136-145); TOTAL PROTEIN 7.1 GM/DL (6.4-8.2)
[2019-05-21 13:36] LABS: NEUTROPHILS # 0.8 10^3/uL (1.8-7.7); PLATELET COUNT, AUTOMATED 91 10^3/uL (150-450)
== END ==
LOC: M LAB 12:32
PROVIDERS: ATTEND Nurse Practitioner
DX: C71.9 Malignant neoplasm of brain, unspecified (principal); R94.5 Abnormal results of liver function studies

== ENCOUNTER → 2019-05-28 | Outpatient (CLI) | payer OTHER ==
[2019-05-28 13:14] LABS: BASO % 0.6 % (0.0-1.0); EOS % 1.1 % (0.0-3.0); HEMOGLOBIN 12.3 g/dl (13.5-17.5); LYMPH % 28.8 % (24.0-44.0); MEAN CORPUSCULAR HEMOGLOBIN 33.8 pg (27.0-33.0); MEAN CORPUSCULAR HGB CONC 35.1 g/dl (32.0-36.5); MEAN CORPUSCULAR VOLUME 96.2 fl (80.0-96.0); MONO # 0.6 10^3/uL (0.0-0.8); MONO % 17.4 % (0.0-5.0); NEUTROPHILS # 1.8 10^3/uL (1.8-7.7); NEUTROPHILS % 51.8 % (36.0-66.0); PLATELET COUNT, AUTOMATED 132 10^3/uL (150-450); RED BLOOD COUNT 3.64 10^6/uL (4.30-6.10); WHITE BLOOD COUNT 3.5 10^3/uL (4.0-10.0)
[2019-05-28 13:46] LABS: ALBUMIN 3.8 GM/DL (3.2-5.2); ALT/SGPT 77 U/L (12-78); BILIRUBIN,TOTAL 0.6 MG/DL (0.2-1.0); BLOOD UREA NITROGEN 21 MG/DL (7-18); CALCIUM LEVEL 8.7 MG/DL (8.5-10.1); CARBON DIOXIDE LEVEL 30 MEQ/L (21-32); CHLORIDE LEVEL 109 MEQ/L (98-107); CREATININE FOR GFR 1.17 MG/DL (0.70-1.30); GLOMERULAR FILTRATION RATE > 60.0 (>60); GLUCOSE, FASTING 91 MG/DL (70-100); POTASSIUM SERUM 4.3 MEQ/L (3.5-5.1); SODIUM LEVEL 143 MEQ/L (136-145)
== END ==
LOC: M LAB 12:21
PROVIDERS: ATTEND Nurse Practitioner
DX: C71.9 Malignant neoplasm of brain, unspecified (principal); R74.8 Abnormal levels of other serum enzymes

== ENCOUNTER → 2019-06-11 | Outpatient (CLI) | payer OTHER ==
[2019-06-11 12:17] LABS: BASO % 0.3 % (0.0-1.0); EOS # 0.1 10^3/uL (0.0-0.50); EOS % 1.8 % (0.0-3.0); HEMATOCRIT 36.3 % (42.0-52.0); HEMOGLOBIN 12.6 g/dl (13.5-17.5); LYMPH # 0.7 10^3/uL (1.5-4.5); LYMPH % 21.6 % (24.0-44.0); MEAN CORPUSCULAR HEMOGLOBIN 33.5 pg (27.0-33.0); MEAN CORPUSCULAR HGB CONC 34.7 g/dl (32.0-36.5); MEAN CORPUSCULAR VOLUME 96.5 fl (80.0-96.0); MONO # 0.3 10^3/uL (0.0-0.8); MONO % 8.8 % (0.0-5.0); NEUTROPHILS # 2.2 10^3/uL (1.8-7.7); NEUTROPHILS % 67.2 % (36.0-66.0); PLATELET COUNT, AUTOMATED 143 10^3/uL (150-450); RED BLOOD COUNT 3.76 10^6/uL (4.30-6.10); WHITE BLOOD COUNT 3.3 10^3/uL (4.0-10.0)
[2019-06-11 12:41] LABS: ALBUMIN 3.7 GM/DL (3.2-5.2); ALT/SGPT 53 U/L (12-78); BILIRUBIN,TOTAL 0.8 MG/DL (0.2-1.0); BLOOD UREA NITROGEN 18 MG/DL (7-18); CARBON DIOXIDE LEVEL 32 MEQ/L (21-32); CHLORIDE LEVEL 107 MEQ/L (98-107); CREATININE FOR GFR 1.21 MG/DL (0.70-1.30); GLOMERULAR FILTRATION RATE > 60.0 (>60); GLUCOSE, FASTING 86 MG/DL (70-100); POTASSIUM SERUM 4.3 MEQ/L (3.5-5.1); SODIUM LEVEL 142 MEQ/L (136-145); TOTAL PROTEIN 6.9 GM/DL (6.4-8.2)
== END ==
LOC: M LAB 11:35
PROVIDERS: ATTEND Nurse Practitioner
DX: C71.9 Malignant neoplasm of brain, unspecified (principal); R74.8 Abnormal levels of other serum enzymes

== ENCOUNTER → 2019-06-18 | Outpatient (CLI) | payer OTHER ==
[2019-06-18 09:26] LABS: BASO % 0.3 % (0.0-1.0); EOS # 0.1 10^3/uL (0.0-0.50); EOS % 1.9 % (0.0-3.0); HEMATOCRIT 38.4 % (42.0-52.0); HEMOGLOBIN 13.5 g/dl (13.5-17.5); LYMPH # 0.6 10^3/uL (1.5-4.5); LYMPH % 16.3 % (24.0-44.0); MEAN CORPUSCULAR HEMOGLOBIN 34.7 pg (27.0-33.0); MEAN CORPUSCULAR HGB CONC 35.2 g/dl (32.0-36.5); MEAN CORPUSCULAR VOLUME 98.7 fl (80.0-96.0); MONO # 0.3 10^3/uL (0.0-0.8); MONO % 8.3 % (0.0-5.0); NEUTROPHILS # 2.7 10^3/uL (1.8-7.7); NEUTROPHILS % 72.9 % (36.0-66.0); PLATELET COUNT, AUTOMATED 118 10^3/uL (150-450); RED BLOOD COUNT 3.89 10^6/uL (4.30-6.10); WHITE BLOOD COUNT 3.7 10^3/uL (4.0-10.0)
[2019-06-18 09:59] LABS: ALBUMIN 3.7 GM/DL (3.2-5.2); ALT/SGPT 58 U/L (12-78); BILIRUBIN,TOTAL 0.5 MG/DL (0.2-1.0); BLOOD UREA NITROGEN 18 MG/DL (7-18); CALCIUM LEVEL 8.6 MG/DL (8.5-10.1); CARBON DIOXIDE LEVEL 30 MEQ/L (21-32); CHLORIDE LEVEL 108 MEQ/L (98-107); CREATININE FOR GFR 1.25 MG/DL (0.70-1.30); GLOMERULAR FILTRATION RATE > 60.0 (>60); GLUCOSE, FASTING 116 MG/DL (70-100); POTASSIUM SERUM 3.8 MEQ/L (3.5-5.1); SODIUM LEVEL 142 MEQ/L (136-145); TOTAL PROTEIN 7.2 GM/DL (6.4-8.2)
== END ==
LOC: M LAB 09:00
PROVIDERS: ATTEND Nurse Practitioner
DX: C71.9 Malignant neoplasm of brain, unspecified (principal); R74.8 Abnormal levels of other serum enzymes

== ENCOUNTER → 2019-06-25 | Outpatient (CLI) | payer OTHER ==
[2019-06-25 12:07] LABS: BASO % 0.3 % (0.0-1.0); EOS # 0.1 10^3/uL (0.0-0.50); EOS % 2.8 % (0.0-3.0); HEMOGLOBIN 13.1 g/dl (13.5-17.5); LYMPH # 0.7 10^3/uL (1.5-4.5); LYMPH % 20.4 % (24.0-44.0); MEAN CORPUSCULAR HEMOGLOBIN 33.6 pg (27.0-33.0); MEAN CORPUSCULAR HGB CONC 34.5 g/dl (32.0-36.5); MEAN CORPUSCULAR VOLUME 97.4 fl (80.0-96.0); MONO # 0.5 10^3/uL (0.0-0.8); MONO % 13.5 % (0.0-5.0); NEUTROPHILS # 2.3 10^3/uL (1.8-7.7); NEUTROPHILS % 62.7 % (36.0-66.0); WHITE BLOOD COUNT 3.6 10^3/uL (4.0-10.0)
[2019-06-25 12:27] LABS: ALBUMIN 3.7 GM/DL (3.2-5.2); ALT/SGPT 59 U/L (12-78); BILIRUBIN,TOTAL 0.8 MG/DL (0.2-1.0); BLOOD UREA NITROGEN 19 MG/DL (7-18); CALCIUM LEVEL 8.7 MG/DL (8.5-10.1); CARBON DIOXIDE LEVEL 30 MEQ/L (21-32); CHLORIDE LEVEL 107 MEQ/L (98-107); CREATININE FOR GFR 1.22 MG/DL (0.70-1.30); GLOMERULAR FILTRATION RATE > 60.0 (>60); GLUCOSE, FASTING 86 MG/DL (70-100); SODIUM LEVEL 143 MEQ/L (136-145)
[2019-06-25 12:30] LABS: PLATELET COUNT, AUTOMATED 67 10^3/uL (150-450)
== END ==
LOC: M LAB 11:25
PROVIDERS: ATTEND Nurse Practitioner
DX: C71.9 Malignant neoplasm of brain, unspecified (principal); R74.8 Abnormal levels of other serum enzymes

== ENCOUNTER → 2019-07-02 | Outpatient (CLI) | payer OTHER ==
[2019-07-02 12:35] LABS: BASO % 0.5 % (0.0-1.0); EOS # 0.1 10^3/uL (0.0-0.50); EOS % 1.8 % (0.0-3.0); HEMATOCRIT 36.3 % (42.0-52.0); HEMOGLOBIN 12.8 g/dl (13.5-17.5); LYMPH # 0.8 10^3/uL (1.5-4.5); LYMPH % 19.8 % (24.0-44.0); MEAN CORPUSCULAR HEMOGLOBIN 34.4 pg (27.0-33.0); MEAN CORPUSCULAR HGB CONC 35.3 g/dl (32.0-36.5); MEAN CORPUSCULAR VOLUME 97.6 fl (80.0-96.0); MONO # 0.4 10^3/uL (0.0-0.8); MONO % 10.1 % (0.0-5.0); NEUTROPHILS # 2.6 10^3/uL (1.8-7.7); NEUTROPHILS % 67.5 % (36.0-66.0); RED BLOOD COUNT 3.72 10^6/uL (4.30-6.10); WHITE BLOOD COUNT 3.9 10^3/uL (4.0-10.0)
[2019-07-02 12:50] LABS: ALBUMIN 3.8 GM/DL (3.2-5.2); ALT/SGPT 50 U/L (12-78); BLOOD UREA NITROGEN 25 MG/DL (7-18); CALCIUM LEVEL 8.7 MG/DL (8.5-10.1); CARBON DIOXIDE LEVEL 30 MEQ/L (21-32); CHLORIDE LEVEL 107 MEQ/L (98-107); CREATININE FOR GFR 1.24 MG/DL (0.70-1.30); GLOMERULAR FILTRATION RATE > 60.0 (>60); GLUCOSE, FASTING 86 MG/DL (70-100); POTASSIUM SERUM 4.1 MEQ/L (3.5-5.1); SODIUM LEVEL 143 MEQ/L (136-145); TOTAL PROTEIN 6.9 GM/DL (6.4-8.2)
[2019-07-02 12:54] LABS: PLATELET COUNT, AUTOMATED 31 10^3/uL (150-450)
== END ==
LOC: M LAB 11:50
PROVIDERS: ATTEND Nurse Practitioner
DX: C71.9 Malignant neoplasm of brain, unspecified (principal); R74.8 Abnormal levels of other serum enzymes

== ENCOUNTER → 2019-07-05 | Outpatient (CLI) | payer OTHER ==
[2019-07-05 11:39] LABS: EOS # 0.1 10^3/uL (0.0-0.50); EOS % 2.3 % (0.0-3.0); HEMATOCRIT 33.9 % (42.0-52.0); LYMPH # 0.7 10^3/uL (1.5-4.5); LYMPH % 18.7 % (24.0-44.0); MEAN CORPUSCULAR HEMOGLOBIN 33.5 pg (27.0-33.0); MEAN CORPUSCULAR HGB CONC 35.4 g/dl (32.0-36.5); MEAN CORPUSCULAR VOLUME 94.7 fl (80.0-96.0); MONO # 0.2 10^3/uL (0.0-0.8); MONO % 6.8 % (0.0-5.0); NEUTROPHILS # 2.6 10^3/uL (1.8-7.7); NEUTROPHILS % 72.2 % (36.0-66.0); RED BLOOD COUNT 3.58 10^6/uL (4.30-6.10); WHITE BLOOD COUNT 3.5 10^3/uL (4.0-10.0)
[2019-07-05 12:03] LABS: ALBUMIN 3.6 GM/DL (3.2-5.2); ALT/SGPT 38 U/L (12-78); BILIRUBIN,TOTAL 0.8 MG/DL (0.2-1.0); BLOOD UREA NITROGEN 24 MG/DL (7-18); CALCIUM LEVEL 8.7 MG/DL (8.5-10.1); CARBON DIOXIDE LEVEL 30 MEQ/L (21-32); CHLORIDE LEVEL 108 MEQ/L (98-107); CREATININE FOR GFR 1.15 MG/DL (0.70-1.30); GLOMERULAR FILTRATION RATE > 60.0 (>60); GLUCOSE, FASTING 75 MG/DL (70-100); POTASSIUM SERUM 3.8 MEQ/L (3.5-5.1); SODIUM LEVEL 141 MEQ/L (136-145); TOTAL PROTEIN 6.7 GM/DL (6.4-8.2)
[2019-07-05 12:09] LABS: PLATELET COUNT, AUTOMATED 23 10^3/uL (150-450)
== END ==
LOC: M LAB 10:48
PROVIDERS: ATTEND Nurse Practitioner
DX: C71.9 Malignant neoplasm of brain, unspecified (principal)

== ENCOUNTER → 2019-07-09 | Outpatient (CLI) | payer OTHER ==
[2019-07-09 15:17] LABS: EOS # 0.1 10^3/uL (0.0-0.5); EOS % 3.7 % (0.0-3.0); HEMATOCRIT 32.7 % (42.0-52.0); HEMOGLOBIN 11.7 g/dl (13.5-17.5); LYMPH # 0.8 10^3/uL (1.5-5.0); LYMPH % 23.1 % (24.0-44.0); MEAN CORPUSCULAR HEMOGLOBIN 34.4 pg (27.0-33.0); MEAN CORPUSCULAR HGB CONC 35.8 g/dl (32.0-36.5); MEAN CORPUSCULAR VOLUME 96.2 fl (80.0-96.0); MONO # 0.2 10^3/uL (0.0-0.8); MONO % 6.2 % (0.0-5.0); NEUTROPHILS # 2.2 10^3/uL (1.5-8.5); WHITE BLOOD COUNT 3.3 10^3/uL (4.0-10.0)
[2019-07-09 15:29] LABS: ALBUMIN 3.6 GM/DL (3.2-5.2); ALT/SGPT 49 U/L (12-78); BILIRUBIN,TOTAL 0.9 MG/DL (0.2-1.0); BLOOD UREA NITROGEN 25 MG/DL (7-18); CALCIUM LEVEL 8.3 MG/DL (8.5-10.1); CARBON DIOXIDE LEVEL 30 MEQ/L (21-32); CHLORIDE LEVEL 110 MEQ/L (98-107); CREATININE FOR GFR 1.17 MG/DL (0.70-1.30); GLOMERULAR FILTRATION RATE > 60.0 (>60); GLUCOSE, FASTING 109 MG/DL (70-100); POTASSIUM SERUM 4.5 MEQ/L (3.5-5.1); SODIUM LEVEL 144 MEQ/L (136-145); TOTAL PROTEIN 6.8 GM/DL (6.4-8.2)
[2019-07-09 16:54] LABS: PLATELET COUNT, AUTOMATED 17 10^3/uL (150-450)
== END ==
LOC: M LAB 14:12
PROVIDERS: ATTEND Nurse Practitioner
DX: C71.9 Malignant neoplasm of brain, unspecified (principal); R74.8 Abnormal levels of other serum enzymes

== ENCOUNTER → 2019-07-12 | Outpatient (CLI) | payer OTHER ==
[2019-07-12 12:40] LABS: BASO % 0.4 % (0.0-1.0); EOS # 0.1 10^3/uL (0.0-0.5); EOS % 4.8 % (0.0-3.0); HEMATOCRIT 33.6 % (42.0-52.0); LYMPH # 0.8 10^3/uL (1.5-5.0); LYMPH % 30.6 % (24.0-44.0); MEAN CORPUSCULAR HGB CONC 35.7 g/dl (32.0-36.5); MEAN CORPUSCULAR VOLUME 95.2 fl (80.0-96.0); MONO # 0.2 10^3/uL (0.0-0.8); MONO % 7.7 % (0.0-5.0); NEUTROPHILS # 1.5 10^3/uL (1.5-8.5); NEUTROPHILS % 56.1 % (36.0-66.0); RED BLOOD COUNT 3.53 10^6/uL (4.30-6.10); WHITE BLOOD COUNT 2.7 10^3/uL (4.0-10.0)
[2019-07-12 12:58] LABS: ALBUMIN 3.7 GM/DL (3.2-5.2); ALT/SGPT 43 U/L (12-78); BLOOD UREA NITROGEN 21 MG/DL (7-18); CALCIUM LEVEL 8.9 MG/DL (8.5-10.1); CARBON DIOXIDE LEVEL 29 MEQ/L (21-32); CHLORIDE LEVEL 106 MEQ/L (98-107); CREATININE FOR GFR 1.22 MG/DL (0.70-1.30); GLOMERULAR FILTRATION RATE > 60.0 (>60); GLUCOSE, FASTING 93 MG/DL (70-100); POTASSIUM SERUM 4.3 MEQ/L (3.5-5.1); SODIUM LEVEL 139 MEQ/L (136-145); TOTAL PROTEIN 7.2 GM/DL (6.4-8.2)
[2019-07-12 13:17] LABS: PLATELET COUNT, AUTOMATED 13 10^3/uL (150-450)
== END ==
LOC: M LAB 11:24
PROVIDERS: ATTEND Nurse Practitioner
DX: C71.9 Malignant neoplasm of brain, unspecified (principal); R74.8 Abnormal levels of other serum enzymes

== ENCOUNTER → 2019-07-19 | Outpatient (CLI) | payer OTHER ==
[2019-07-19 11:28] LABS: EOS # 0.1 10^3/uL (0.0-0.5); EOS % 4.9 % (0.0-3.0); HEMATOCRIT 30.1 % (42.0-52.0); HEMOGLOBIN 10.9 g/dl (13.5-17.5); LYMPH # 0.6 10^3/uL (1.5-5.0); LYMPH % 38.9 % (24.0-44.0); MEAN CORPUSCULAR HEMOGLOBIN 34.7 pg (27.0-33.0); MEAN CORPUSCULAR HGB CONC 36.2 g/dl (32.0-36.5); MEAN CORPUSCULAR VOLUME 95.9 fl (80.0-96.0); MONO # 0.2 10^3/uL (0.0-0.8); MONO % 11.1 % (0.0-5.0); NEUTROPHILS % 45.1 % (36.0-66.0); RED BLOOD COUNT 3.14 10^6/uL (4.30-6.10)
[2019-07-19 11:52] LABS: ALBUMIN 3.7 GM/DL (3.2-5.2); ALT/SGPT 42 U/L (12-78); BILIRUBIN,TOTAL 0.9 MG/DL (0.2-1.0); BLOOD UREA NITROGEN 20 MG/DL (7-18); CALCIUM LEVEL 8.5 MG/DL (8.5-10.1); CARBON DIOXIDE LEVEL 29 MEQ/L (21-32); CHLORIDE LEVEL 108 MEQ/L (98-107); CREATININE FOR GFR 1.18 MG/DL (0.70-1.30); GLOMERULAR FILTRATION RATE > 60.0 (>60); GLUCOSE, FASTING 80 MG/DL (70-100); POTASSIUM SERUM 3.9 MEQ/L (3.5-5.1); SODIUM LEVEL 143 MEQ/L (136-145); TOTAL PROTEIN 6.8 GM/DL (6.4-8.2)
[2019-07-19 11:59] LABS: WHITE BLOOD COUNT 1.4 10^3/uL (4.0-10.0)
[2019-07-19 12:03] LABS: NEUTROPHILS # 0.7 10^3/uL (1.5-8.5); PLATELET COUNT, AUTOMATED 21 10^3/uL (150-450)
== END ==
LOC: M LAB 10:24
PROVIDERS: ATTEND Internal Medicine Medical Oncology
DX: C71.9 Malignant neoplasm of brain, unspecified (principal); R74.8 Abnormal levels of other serum enzymes

== ENCOUNTER → 2019-07-23 | Outpatient (CLI) | payer OTHER ==
[2019-07-23 10:55] LABS: BASO % 0.6 % (0.0-1.0); EOS # 0.1 10^3/uL (0.0-0.5); HEMATOCRIT 32.4 % (42.0-52.0); HEMOGLOBIN 11.6 g/dl (13.5-17.5); LYMPH # 0.8 10^3/uL (1.5-5.0); LYMPH % 43.9 % (24.0-44.0); MEAN CORPUSCULAR HEMOGLOBIN 34.5 pg (27.0-33.0); MEAN CORPUSCULAR HGB CONC 35.8 g/dl (32.0-36.5); MEAN CORPUSCULAR VOLUME 96.4 fl (80.0-96.0); MONO # 0.3 10^3/uL (0.0-0.8); NEUTROPHILS % 36.5 % (36.0-66.0); RED BLOOD COUNT 3.36 10^6/uL (4.30-6.10)
[2019-07-23 11:18] LABS: ALBUMIN 3.7 GM/DL (3.2-5.2); ALT/SGPT 35 U/L (12-78); BLOOD UREA NITROGEN 21 MG/DL (7-18); CALCIUM LEVEL 8.6 MG/DL (8.5-10.1); CARBON DIOXIDE LEVEL 29 MEQ/L (21-32); CHLORIDE LEVEL 107 MEQ/L (98-107); CREATININE FOR GFR 1.33 MG/DL (0.70-1.30); GLOMERULAR FILTRATION RATE > 60.0 (>60); GLUCOSE, FASTING 90 MG/DL (70-100); POTASSIUM SERUM 4.1 MEQ/L (3.5-5.1); SODIUM LEVEL 143 MEQ/L (136-145)
[2019-07-23 11:23] LABS: NEUTROPHILS # 0.6 10^3/uL (1.5-8.5); PLATELET COUNT, AUTOMATED 38 10^3/uL (150-450); WHITE BLOOD COUNT 1.7 10^3/uL (4.0-10.0)
== END ==
LOC: M LAB 10:14
PROVIDERS: ATTEND Nurse Practitioner
DX: C71.9 Malignant neoplasm of brain, unspecified (principal)

== ENCOUNTER → 2019-07-30 | Outpatient (CLI) | payer OTHER ==
[2019-07-30 12:02] LABS: EOS % 1.5 % (0.0-3.0); HEMATOCRIT 30.9 % (42.0-52.0); HEMOGLOBIN 11.1 g/dl (13.5-17.5); LYMPH # 0.7 10^3/uL (1.5-5.0); LYMPH % 37.4 % (24.0-44.0); MEAN CORPUSCULAR HEMOGLOBIN 34.3 pg (27.0-33.0); MEAN CORPUSCULAR HGB CONC 35.9 g/dl (32.0-36.5); MEAN CORPUSCULAR VOLUME 95.4 fl (80.0-96.0); MONO # 0.3 10^3/uL (0.0-0.8); MONO % 13.3 % (0.0-5.0); NEUTROPHILS % 47.3 % (36.0-66.0); RED BLOOD COUNT 3.24 10^6/uL (4.30-6.10)
[2019-07-30 12:31] LABS: NEUTROPHILS # 0.9 10^3/uL (1.5-8.5); PLATELET COUNT, AUTOMATED 96 10^3/uL (150-450)
[2019-07-30 12:33] LABS: ALBUMIN 3.8 GM/DL (3.2-5.2); ALT/SGPT 41 U/L (12-78); BILIRUBIN,TOTAL 0.7 MG/DL (0.2-1.0); BLOOD UREA NITROGEN 23 MG/DL (7-18); CALCIUM LEVEL 8.8 MG/DL (8.5-10.1); CARBON DIOXIDE LEVEL 29 MEQ/L (21-32); CHLORIDE LEVEL 106 MEQ/L (98-107); CREATININE FOR GFR 1.24 MG/DL (0.70-1.30); GLOMERULAR FILTRATION RATE > 60.0 (>60); GLUCOSE, FASTING 91 MG/DL (70-100); POTASSIUM SERUM 3.9 MEQ/L (3.5-5.1); SODIUM LEVEL 143 MEQ/L (136-145); TOTAL PROTEIN 7.2 GM/DL (6.4-8.2)
== END ==
LOC: M LAB 11:31
PROVIDERS: ATTEND Nurse Practitioner
DX: C71.9 Malignant neoplasm of brain, unspecified (principal); R74.8 Abnormal levels of other serum enzymes

== ENCOUNTER → 2019-08-02 | Outpatient (CLI) | payer OTHER ==
[2019-08-02 13:46] LABS: BASO % 0.4 % (0.0-1.0); EOS % 1.2 % (0.0-3.0); HEMATOCRIT 31.5 % (42.0-52.0); LYMPH # 0.8 10^3/uL (1.5-5.0); LYMPH % 30.9 % (24.0-44.0); MEAN CORPUSCULAR HEMOGLOBIN 34.8 pg (27.0-33.0); MEAN CORPUSCULAR HGB CONC 34.9 g/dl (32.0-36.5); MEAN CORPUSCULAR VOLUME 99.7 fl (80.0-96.0); MONO # 0.3 10^3/uL (0.0-0.8); NEUTROPHILS # 1.3 10^3/uL (1.5-8.5); NEUTROPHILS % 54.1 % (36.0-66.0); PLATELET COUNT, AUTOMATED 107 10^3/uL (150-450); RED BLOOD COUNT 3.16 10^6/uL (4.30-6.10); WHITE BLOOD COUNT 2.5 10^3/uL (4.0-10.0)
[2019-08-02 14:28] LABS: ALBUMIN 3.8 GM/DL (3.2-5.2); ALT/SGPT 49 U/L (12-78); BILIRUBIN,TOTAL 0.7 MG/DL (0.2-1.0); BLOOD UREA NITROGEN 21 MG/DL (7-18); CALCIUM LEVEL 8.5 MG/DL (8.5-10.1); CARBON DIOXIDE LEVEL 29 MEQ/L (21-32); CHLORIDE LEVEL 104 MEQ/L (98-107); CREATININE FOR GFR 1.23 MG/DL (0.70-1.30); GLOMERULAR FILTRATION RATE > 60.0 (>60); GLUCOSE, FASTING 95 MG/DL (70-100); POTASSIUM SERUM 4.2 MEQ/L (3.5-5.1); SODIUM LEVEL 141 MEQ/L (136-145); TOTAL PROTEIN 6.9 GM/DL (6.4-8.2)
== END ==
LOC: M LAB 12:25
PROVIDERS: ATTEND Nurse Practitioner
DX: C71.9 Malignant neoplasm of brain, unspecified (principal); R74.8 Abnormal levels of other serum enzymes

== ENCOUNTER → 2019-08-13 | Outpatient (CLI) | payer OTHER ==
[2019-08-13 12:03] LABS: BASO % 0.3 % (0.0-1.0); EOS # 0.1 10^3/uL (0.0-0.5); EOS % 2.6 % (0.0-3.0); HEMATOCRIT 33.6 % (42.0-52.0); HEMOGLOBIN 11.5 g/dl (13.5-17.5); LYMPH # 0.7 10^3/uL (1.5-5.0); MEAN CORPUSCULAR HEMOGLOBIN 34.4 pg (27.0-33.0); MEAN CORPUSCULAR HGB CONC 34.2 g/dl (32.0-36.5); MEAN CORPUSCULAR VOLUME 100.6 fl (80.0-96.0); MONO # 0.4 10^3/uL (0.0-0.8); MONO % 11.5 % (0.0-5.0); NEUTROPHILS # 1.9 10^3/uL (1.5-8.5); NEUTROPHILS % 63.3 % (36.0-66.0); PLATELET COUNT, AUTOMATED 126 10^3/uL (150-450); RED BLOOD COUNT 3.34 10^6/uL (4.30-6.10)
[2019-08-13 12:33] LABS: ALBUMIN 3.8 GM/DL (3.2-5.2); ALT/SGPT 43 U/L (12-78); BILIRUBIN,TOTAL 0.7 MG/DL (0.2-1.0); BLOOD UREA NITROGEN 20 MG/DL (7-18); CALCIUM LEVEL 8.7 MG/DL (8.5-10.1); CARBON DIOXIDE LEVEL 30 MEQ/L (21-32); CHLORIDE LEVEL 107 MEQ/L (98-107); CREATININE FOR GFR 1.21 MG/DL (0.70-1.30); GLOMERULAR FILTRATION RATE > 60.0 (>60); GLUCOSE, FASTING 85 MG/DL (70-100); POTASSIUM SERUM 4.3 MEQ/L (3.5-5.1); SODIUM LEVEL 143 MEQ/L (136-145); TOTAL PROTEIN 7.1 GM/DL (6.4-8.2)
== END ==
LOC: M LAB 11:25
PROVIDERS: ATTEND Nurse Practitioner
DX: C71.9 Malignant neoplasm of brain, unspecified (principal)

== ENCOUNTER → 2019-08-20 | Outpatient (CLI) | payer OTHER ==
[2019-08-20 13:48] LABS: BASO % 0.2 % (0.0-1.0); EOS # 0.2 10^3/uL (0.0-0.5); EOS % 3.7 % (0.0-3.0); HEMATOCRIT 37.2 % (42.0-52.0); HEMOGLOBIN 12.9 g/dl (13.5-17.5); LYMPH # 0.6 10^3/uL (1.5-5.0); LYMPH % 14.4 % (24.0-44.0); MEAN CORPUSCULAR HEMOGLOBIN 34.9 pg (27.0-33.0); MEAN CORPUSCULAR HGB CONC 34.7 g/dl (32.0-36.5); MEAN CORPUSCULAR VOLUME 100.5 fl (80.0-96.0); MONO # 0.4 10^3/uL (0.0-0.8); NEUTROPHILS # 3.1 10^3/uL (1.5-8.5); NEUTROPHILS % 72.2 % (36.0-66.0); PLATELET COUNT, AUTOMATED 132 10^3/uL (150-450); WHITE BLOOD COUNT 4.3 10^3/uL (4.0-10.0)
[2019-08-20 14:17] LABS: ALBUMIN 3.9 GM/DL (3.2-5.2); ALT/SGPT 40 U/L (12-78); BILIRUBIN,TOTAL 0.8 MG/DL (0.2-1.0); BLOOD UREA NITROGEN 22 MG/DL (7-18); CALCIUM LEVEL 8.8 MG/DL (8.5-10.1); CARBON DIOXIDE LEVEL 32 MEQ/L (21-32); CHLORIDE LEVEL 105 MEQ/L (98-107); CREATININE FOR GFR 1.29 MG/DL (0.70-1.30); GLOMERULAR FILTRATION RATE > 60.0 (>60); GLUCOSE, FASTING 86 MG/DL (70-100); POTASSIUM SERUM 4.1 MEQ/L (3.5-5.1); SODIUM LEVEL 141 MEQ/L (136-145); TOTAL PROTEIN 7.4 GM/DL (6.4-8.2)
== END ==
LOC: M LAB 13:05
PROVIDERS: ATTEND Nurse Practitioner
DX: C71.9 Malignant neoplasm of brain, unspecified (principal)

== ENCOUNTER → 2019-08-27 | Outpatient (CLI) | payer OTHER ==
[2019-08-27 13:21] LABS: EOS # 0.2 10^3/uL (0.0-0.5); EOS % 4.1 % (0.0-3.0); HEMATOCRIT 37.3 % (42.0-52.0); LYMPH # 0.9 10^3/uL (1.5-5.0); LYMPH % 21.9 % (24.0-44.0); MEAN CORPUSCULAR HEMOGLOBIN 34.9 pg (27.0-33.0); MEAN CORPUSCULAR HGB CONC 34.9 g/dl (32.0-36.5); MONO # 0.5 10^3/uL (0.0-0.8); MONO % 12.1 % (0.0-5.0); NEUTROPHILS # 2.4 10^3/uL (1.5-8.5); NEUTROPHILS % 61.9 % (36.0-66.0); RED BLOOD COUNT 3.73 10^6/uL (4.30-6.10); WHITE BLOOD COUNT 3.9 10^3/uL (4.0-10.0)
[2019-08-27 13:36] LABS: PLATELET COUNT, AUTOMATED 74 10^3/uL (150-450)
[2019-08-27 13:55] LABS: ALBUMIN 4.1 GM/DL (3.2-5.2); ALT/SGPT 41 U/L (12-78); BILIRUBIN,TOTAL 1.1 MG/DL (0.2-1.0); BLOOD UREA NITROGEN 20 MG/DL (7-18); CALCIUM LEVEL 9.2 MG/DL (8.5-10.1); CARBON DIOXIDE LEVEL 31 MEQ/L (21-32); CHLORIDE LEVEL 105 MEQ/L (98-107); CREATININE FOR GFR 1.27 MG/DL (0.70-1.30); GLOMERULAR FILTRATION RATE > 60.0 (>60); GLUCOSE, FASTING 98 MG/DL (70-100); POTASSIUM SERUM 4.6 MEQ/L (3.5-5.1); SODIUM LEVEL 139 MEQ/L (136-145); TOTAL PROTEIN 7.5 GM/DL (6.4-8.2)
== END ==
LOC: M LAB 12:43
PROVIDERS: ATTEND Nurse Practitioner
DX: C71.9 Malignant neoplasm of brain, unspecified (principal)

== ENCOUNTER → 2019-09-03 | Outpatient (CLI) | payer OTHER ==
[2019-09-03 11:39] LABS: BASO % 0.3 % (0.0-1.0); EOS # 0.1 10^3/uL (0.0-0.5); EOS % 3.9 % (0.0-3.0); HEMATOCRIT 35.4 % (42.0-52.0); HEMOGLOBIN 12.3 g/dl (13.5-17.5); LYMPH # 0.7 10^3/uL (1.5-5.0); LYMPH % 19.3 % (24.0-44.0); MEAN CORPUSCULAR HEMOGLOBIN 35.2 pg (27.0-33.0); MEAN CORPUSCULAR HGB CONC 34.7 g/dl (32.0-36.5); MEAN CORPUSCULAR VOLUME 101.4 fl (80.0-96.0); MONO # 0.3 10^3/uL (0.0-0.8); MONO % 8.3 % (0.0-5.0); NEUTROPHILS # 2.5 10^3/uL (1.5-8.5); NEUTROPHILS % 67.9 % (36.0-66.0); RED BLOOD COUNT 3.49 10^6/uL (4.30-6.10); WHITE BLOOD COUNT 3.6 10^3/uL (4.0-10.0)
[2019-09-03 11:54] LABS: ALBUMIN 3.8 GM/DL (3.2-5.2); ALT/SGPT 36 U/L (12-78); BILIRUBIN,TOTAL 0.8 MG/DL (0.2-1.0); BLOOD UREA NITROGEN 20 MG/DL (7-18); CALCIUM LEVEL 8.6 MG/DL (8.5-10.1); CARBON DIOXIDE LEVEL 31 MEQ/L (21-32); CHLORIDE LEVEL 106 MEQ/L (98-107); CREATININE FOR GFR 1.25 MG/DL (0.70-1.30); GLOMERULAR FILTRATION RATE > 60.0 (>60); GLUCOSE, FASTING 86 MG/DL (70-100); POTASSIUM SERUM 4.1 MEQ/L (3.5-5.1); SODIUM LEVEL 142 MEQ/L (136-145)
[2019-09-03 12:24] LABS: PLATELET COUNT, AUTOMATED 40 10^3/uL (150-450)
== END ==
LOC: M LAB 10:56
PROVIDERS: ATTEND Nurse Practitioner
DX: C71.9 Malignant neoplasm of brain, unspecified (principal)

== ENCOUNTER → 2019-09-10 | Outpatient (CLI) | payer OTHER ==
[2019-09-10 11:30] LABS: BASO % 0.3 % (0.0-1.0); EOS # 0.2 10^3/uL (0.0-0.5); EOS % 5.7 % (0.0-3.0); HEMATOCRIT 36.9 % (42.0-52.0); HEMOGLOBIN 12.7 g/dl (13.5-17.5); LYMPH # 0.7 10^3/uL (1.5-5.0); LYMPH % 20.6 % (24.0-44.0); MEAN CORPUSCULAR HEMOGLOBIN 34.7 pg (27.0-33.0); MEAN CORPUSCULAR HGB CONC 34.4 g/dl (32.0-36.5); MEAN CORPUSCULAR VOLUME 100.8 fl (80.0-96.0); MONO # 0.2 10^3/uL (0.0-0.8); MONO % 5.7 % (0.0-5.0); NEUTROPHILS # 2.3 10^3/uL (1.5-8.5); NEUTROPHILS % 67.7 % (36.0-66.0); RED BLOOD COUNT 3.66 10^6/uL (4.30-6.10); WHITE BLOOD COUNT 3.4 10^3/uL (4.0-10.0)
[2019-09-10 11:53] LABS: PLATELET COUNT, AUTOMATED 24 10^3/uL (150-450)
[2019-09-10 12:01] LABS: ALBUMIN 3.9 GM/DL (3.2-5.2); ALT/SGPT 42 U/L (12-78); BILIRUBIN,TOTAL 0.8 MG/DL (0.2-1.0); BLOOD UREA NITROGEN 22 MG/DL (7-18); CALCIUM LEVEL 8.9 MG/DL (8.5-10.1); CARBON DIOXIDE LEVEL 32 MEQ/L (21-32); CHLORIDE LEVEL 107 MEQ/L (98-107); CREATININE FOR GFR 1.18 MG/DL (0.70-1.30); GLOMERULAR FILTRATION RATE > 60.0 (>60); GLUCOSE, FASTING 84 MG/DL (70-100); POTASSIUM SERUM 3.8 MEQ/L (3.5-5.1); SODIUM LEVEL 143 MEQ/L (136-145); TOTAL PROTEIN 7.7 GM/DL (6.4-8.2)
== END ==
LOC: M LAB 10:59
PROVIDERS: ATTEND Nurse Practitioner
DX: C71.9 Malignant neoplasm of brain, unspecified (principal)

== ENCOUNTER → 2019-09-13 | Outpatient (CLI) | payer OTHER ==
[2019-09-13 11:35] LABS: EOS # 0.2 10^3/uL (0.0-0.5); HEMATOCRIT 34.4 % (42.0-52.0); LYMPH # 0.7 10^3/uL (1.5-5.0); LYMPH % 26.2 % (24.0-44.0); MEAN CORPUSCULAR HEMOGLOBIN 34.9 pg (27.0-33.0); MEAN CORPUSCULAR HGB CONC 34.9 g/dl (32.0-36.5); MONO # 0.2 10^3/uL (0.0-0.8); MONO % 7.1 % (0.0-5.0); NEUTROPHILS # 1.6 10^3/uL (1.5-8.5); NEUTROPHILS % 60.3 % (36.0-66.0); RED BLOOD COUNT 3.44 10^6/uL (4.30-6.10); WHITE BLOOD COUNT 2.7 10^3/uL (4.0-10.0)
[2019-09-13 11:38] LABS: PLATELET COUNT, AUTOMATED 19 10^3/uL (150-450)
[2019-09-13 12:07] LABS: ALBUMIN 3.8 GM/DL (3.2-5.2); ALT/SGPT 50 U/L (12-78); BLOOD UREA NITROGEN 22 MG/DL (7-18); CALCIUM LEVEL 8.9 MG/DL (8.5-10.1); CARBON DIOXIDE LEVEL 30 MEQ/L (21-32); CHLORIDE LEVEL 108 MEQ/L (98-107); GLOMERULAR FILTRATION RATE > 60.0 (>60); GLUCOSE, FASTING 90 MG/DL (70-100); POTASSIUM SERUM 4.1 MEQ/L (3.5-5.1); SODIUM LEVEL 141 MEQ/L (136-145); TOTAL PROTEIN 7.2 GM/DL (6.4-8.2)
== END ==
LOC: M LAB 10:53
PROVIDERS: ATTEND Nurse Practitioner
DX: C71.9 Malignant neoplasm of brain, unspecified (principal)

== ENCOUNTER → 2019-09-14 | Outpatient (CLI) | payer OTHER ==
[2019-09-14 11:13] LABS: BASO % 0.4 % (0.0-1.0); EOS # 0.2 10^3/uL (0.0-0.5); EOS % 6.9 % (0.0-3.0); HEMOGLOBIN 11.9 g/dl (13.5-17.5); LYMPH # 0.6 10^3/uL (1.5-5.0); MEAN CORPUSCULAR HEMOGLOBIN 35.1 pg (27.0-33.0); MEAN CORPUSCULAR VOLUME 100.3 fl (80.0-96.0); MONO # 0.2 10^3/uL (0.0-0.8); MONO % 7.2 % (0.0-5.0); NEUTROPHILS # 1.8 10^3/uL (1.5-8.5); NEUTROPHILS % 63.5 % (36.0-66.0); RED BLOOD COUNT 3.39 10^6/uL (4.30-6.10); WHITE BLOOD COUNT 2.8 10^3/uL (4.0-10.0)
[2019-09-14 11:21] LABS: PLATELET COUNT, AUTOMATED 17 10^3/uL (150-450)
[2019-09-14 11:39] LABS: ALBUMIN 3.8 GM/DL (3.2-5.2); ALT/SGPT 50 U/L (12-78); BLOOD UREA NITROGEN 21 MG/DL (7-18); CALCIUM LEVEL 8.7 MG/DL (8.5-10.1); CARBON DIOXIDE LEVEL 31 MEQ/L (21-32); CHLORIDE LEVEL 109 MEQ/L (98-107); CREATININE FOR GFR 1.26 MG/DL (0.70-1.30); GLOMERULAR FILTRATION RATE > 60.0 (>60); GLUCOSE, FASTING 81 MG/DL (70-100); SODIUM LEVEL 143 MEQ/L (136-145); TOTAL PROTEIN 7.5 GM/DL (6.4-8.2)
== END ==
LOC: M LAB 10:46
PROVIDERS: ATTEND Nurse Practitioner
DX: C71.9 Malignant neoplasm of brain, unspecified (principal)

== ENCOUNTER → 2019-09-17 | Outpatient (CLI) | payer OTHER ==
[2019-09-17 11:46] LABS: BASO % 0.4 % (0.0-1.0); EOS # 0.2 10^3/uL (0.0-0.5); EOS % 7.6 % (0.0-3.0); HEMATOCRIT 31.7 % (42.0-52.0); HEMOGLOBIN 11.1 g/dl (13.5-17.5); LYMPH # 0.8 10^3/uL (1.5-5.0); LYMPH % 30.3 % (24.0-44.0); MEAN CORPUSCULAR HEMOGLOBIN 35.1 pg (27.0-33.0); MEAN CORPUSCULAR VOLUME 100.3 fl (80.0-96.0); MONO # 0.2 10^3/uL (0.0-0.8); MONO % 9.1 % (0.0-5.0); NEUTROPHILS # 1.4 10^3/uL (1.5-8.5); NEUTROPHILS % 52.6 % (36.0-66.0); RED BLOOD COUNT 3.16 10^6/uL (4.30-6.10); WHITE BLOOD COUNT 2.6 10^3/uL (4.0-10.0)
[2019-09-17 11:47] LABS: PLATELET COUNT, AUTOMATED 32 10^3/uL (150-450)
[2019-09-17 12:08] LABS: ALBUMIN 3.6 GM/DL (3.2-5.2); ALT/SGPT 57 U/L (12-78); BILIRUBIN,TOTAL 0.8 MG/DL (0.2-1.0); BLOOD UREA NITROGEN 17 MG/DL (7-18); CALCIUM LEVEL 8.5 MG/DL (8.5-10.1); CARBON DIOXIDE LEVEL 31 MEQ/L (21-32); CHLORIDE LEVEL 108 MEQ/L (98-107); GLOMERULAR FILTRATION RATE > 60.0 (>60); GLUCOSE, FASTING 86 MG/DL (70-100); SODIUM LEVEL 142 MEQ/L (136-145); TOTAL PROTEIN 7.3 GM/DL (6.4-8.2)
== END ==
LOC: M LAB 11:10
PROVIDERS: ATTEND Nurse Practitioner
DX: C71.9 Malignant neoplasm of brain, unspecified (principal)

== ENCOUNTER → 2019-10-01 | Outpatient (CLI) | payer OTHER ==
[2019-10-01 11:56] LABS: EOS % 1.7 % (0.0-3.0); HEMATOCRIT 30.3 % (42.0-52.0); HEMOGLOBIN 10.4 g/dl (13.5-17.5); LYMPH # 0.6 10^3/uL (1.5-5.0); LYMPH % 35.6 % (24.0-44.0); MEAN CORPUSCULAR HEMOGLOBIN 35.3 pg (27.0-33.0); MEAN CORPUSCULAR HGB CONC 34.3 g/dl (32.0-36.5); MEAN CORPUSCULAR VOLUME 102.7 fl (80.0-96.0); MONO # 0.3 10^3/uL (0.0-0.8); MONO % 14.4 % (0.0-5.0); NEUTROPHILS % 48.3 % (36.0-66.0); RED BLOOD COUNT 2.95 10^6/uL (4.30-6.10)
[2019-10-01 12:26] LABS: ALBUMIN 3.5 GM/DL (3.2-5.2); ALT/SGPT 42 U/L (12-78); BILIRUBIN,TOTAL 0.7 MG/DL (0.2-1.0); BLOOD UREA NITROGEN 18 MG/DL (7-18); CARBON DIOXIDE LEVEL 31 MEQ/L (21-32); CHLORIDE LEVEL 107 MEQ/L (98-107); CREATININE FOR GFR 1.15 MG/DL (0.70-1.30); GLOMERULAR FILTRATION RATE > 60.0 (>60); GLUCOSE, FASTING 92 MG/DL (70-100); SODIUM LEVEL 142 MEQ/L (136-145); TOTAL PROTEIN 7.4 GM/DL (6.4-8.2)
[2019-10-01 12:43] LABS: NEUTROPHILS # 0.9 10^3/uL (1.5-8.5); PLATELET COUNT, AUTOMATED 55 10^3/uL (150-450); WHITE BLOOD COUNT 1.8 10^3/uL (4.0-10.0)
== END ==
LOC: M LAB 11:12
PROVIDERS: ATTEND Nurse Practitioner
DX: C71.9 Malignant neoplasm of brain, unspecified (principal)

== ENCOUNTER 2019-10-03 12:42 | Outpatient (RCR) | payer OTHER | END 2019-10-06 | LOC: M PT 12:42 | PROVIDERS: ATTEND Family Medicine | DX: Z51.89 Encounter for other specified aftercare (principal); Z92.21 Personal history of antineoplastic chemotherapy ==

== ENCOUNTER → 2019-10-08 | Outpatient (CLI) | payer OTHER ==
[2019-10-08 11:43] LABS: BASO % 0.4 % (0.0-1.0); EOS % 1.2 % (0.0-3.0); HEMATOCRIT 30.4 % (42.0-52.0); HEMOGLOBIN 10.6 g/dl (13.5-17.5); LYMPH # 0.6 10^3/uL (1.5-5.0); LYMPH % 26.3 % (24.0-44.0); MEAN CORPUSCULAR HEMOGLOBIN 36.2 pg (27.0-33.0); MEAN CORPUSCULAR HGB CONC 34.9 g/dl (32.0-36.5); MEAN CORPUSCULAR VOLUME 103.8 fl (80.0-96.0); MONO # 0.5 10^3/uL (0.0-0.8); MONO % 18.9 % (0.0-5.0); NEUTROPHILS # 1.3 10^3/uL (1.5-8.5); NEUTROPHILS % 52.8 % (36.0-66.0); RED BLOOD COUNT 2.93 10^6/uL (4.30-6.10); WHITE BLOOD COUNT 2.4 10^3/uL (4.0-10.0)
[2019-10-08 11:46] LABS: PLATELET COUNT, AUTOMATED 86 10^3/uL (150-450)
[2019-10-08 12:10] LABS: ALBUMIN 3.6 GM/DL (3.2-5.2); ALT/SGPT 45 U/L (12-78); BLOOD UREA NITROGEN 19 MG/DL (7-18); CALCIUM LEVEL 8.6 MG/DL (8.5-10.1); CARBON DIOXIDE LEVEL 31 MEQ/L (21-32); CHLORIDE LEVEL 105 MEQ/L (98-107); CREATININE FOR GFR 1.26 MG/DL (0.70-1.30); GLOMERULAR FILTRATION RATE > 60.0 (>60); GLUCOSE, FASTING 101 MG/DL (70-100); POTASSIUM SERUM 3.9 MEQ/L (3.5-5.1); SODIUM LEVEL 142 MEQ/L (136-145); TOTAL PROTEIN 7.5 GM/DL (6.4-8.2)
== END ==
LOC: M LAB 11:22
PROVIDERS: ATTEND Nurse Practitioner
DX: C71.9 Malignant neoplasm of brain, unspecified (principal)

== ENCOUNTER → 2019-10-15 | Outpatient (CLI) | payer OTHER ==
[2019-10-15 12:11] LABS: CHOLESTEROL RISK RATIO 4.261 (<5)
== END ==
LOC: M LAB 11:01
PROVIDERS: ATTEND Family Medicine
DX: Z00.00 Encounter for general adult medical examination without abnormal findings (principal); Z13.220 Encounter for screening for lipoid disorders

== ENCOUNTER → 2019-10-15 | Outpatient (CLI) | payer OTHER ==
[2019-10-15 11:38] LABS: BASO % 0.3 % (0.0-1.0); EOS % 0.9 % (0.0-3.0); HEMATOCRIT 32.1 % (42.0-52.0); HEMOGLOBIN 11.3 g/dl (13.5-17.5); LYMPH # 0.7 10^3/uL (1.5-5.0); MEAN CORPUSCULAR HGB CONC 35.2 g/dl (32.0-36.5); MEAN CORPUSCULAR VOLUME 102.2 fl (80.0-96.0); MONO # 0.3 10^3/uL (0.0-0.8); MONO % 10.7 % (0.0-5.0); NEUTROPHILS # 2.1 10^3/uL (1.5-8.5); NEUTROPHILS % 66.1 % (36.0-66.0); PLATELET COUNT, AUTOMATED 110 10^3/uL (150-450); RED BLOOD COUNT 3.14 10^6/uL (4.30-6.10); WHITE BLOOD COUNT 3.2 10^3/uL (4.0-10.0)
== END ==
LOC: M LAB 10:58
PROVIDERS: ATTEND Nurse Practitioner
DX: C71.9 Malignant neoplasm of brain, unspecified (principal)

== ENCOUNTER 2019-10-30 09:15 | Outpatient (RCR) | payer OTHER | END 2019-11-06 | LOC: M PT 09:15 | PROVIDERS: ATTEND Family Medicine | DX: Z51.89 Encounter for other specified aftercare (principal); Z92.21 Personal history of antineoplastic chemotherapy; Z92.3 Personal history of irradiation; R53.1 Weakness; C71.1 Malignant neoplasm of frontal lobe ==

== ENCOUNTER 2019-11-26 00:34 | Emergency (ER) | payer OTHER ==
[~2019-11-26] VITALS: Ht 180.3 cm; Wt 88.6 kg
[2019-11-26] MEDS ORDERED: levETIRAcetam INJection 500 MG in D5W MINI-BAG PLUS 100 ML IV ONE (01:15)
[2019-11-26 01:21] LABS: BASO % 0.4 % (0.0-1.0); EOS # 0.2 10^3/uL (0.0-0.5); EOS % 3.3 % (0.0-3.0); HEMATOCRIT 33.7 % (42.0-52.0); HEMOGLOBIN 11.8 g/dl (13.5-17.5); LYMPH # 1.2 10^3/uL (1.5-5.0); LYMPH % 25.9 % (24.0-44.0); MEAN CORPUSCULAR HEMOGLOBIN 33.8 pg (27.0-33.0); MEAN CORPUSCULAR VOLUME 96.6 fl (80.0-96.0); MONO # 0.4 10^3/uL (0.0-0.8); MONO % 9.6 % (0.0-5.0); NEUTROPHILS # 2.8 10^3/uL (1.5-8.5); NEUTROPHILS % 60.6 % (36.0-66.0); PLATELET COUNT, AUTOMATED 110 10^3/uL (150-450); RED BLOOD COUNT 3.49 10^6/uL (4.30-6.10); WHITE BLOOD COUNT 4.6 10^3/uL (4.0-10.0)
--- NOTE | 2019-11-26 01:34 | REPVR ---
PROCEDURE INFORMATION: Exam: CT Head Without Contrast Exam date and time: 11/26/2019 1:20 AM Age: 44 years old Clinical indication: Condition or disease; Convulsions or seizures; Unspecified; Prior surgery; Surgery date: 6+ months; Surgery type: Craniotomy; Additional info: Siez/hx frontal glioma TECHNIQUE: Imaging protocol: Computed tomography of the head without contrast. Radiation optimization: All CT scans at this facility use at least one of these dose optimization techniques: automated exposure control; mA and/or kV adjustment per patient size (includes targeted exams where dose is matched to clinical indication); or iterative reconstruction. COMPARISON: CT HEAD W/O CONTRAST - OUTSIDE PRIOR 2018-05-19 02:56 FINDINGS: Brain: Left frontal lobe encephalomalacia. Calcifications along the medial left frontal lobe. Ventricles: Left lateral ventricle ex vacuo dilatation from volume loss. Bones/joints: Left frontal craniotomy. Sinuses: Visualized sinuses are unremarkable. No fluid levels. Mastoid air cells: Visualized mastoid air cells are well aerated. Soft tissues: Unremarkable. IMPRESSION: No acute intracranial abnormality. Electronically signed by: Tino Victoria On 11/26/2019 01:34:45 AM
[2019-11-26 01:42] LABS: ALBUMIN 3.9 GM/DL (3.2-5.2); ALT/SGPT 28 U/L (12-78); BILIRUBIN,DIRECT 0.2 MG/DL (0.0-0.2); BILIRUBIN,TOTAL 0.6 MG/DL (0.2-1.0); BLOOD UREA NITROGEN 21 MG/DL (7-18); CALCIUM LEVEL 9.1 MG/DL (8.5-10.1); CARBON DIOXIDE LEVEL 25 MEQ/L (21-32); CHLORIDE LEVEL 104 MEQ/L (98-107); CREATININE FOR GFR 1.36 MG/DL (0.70-1.30); GLOMERULAR FILTRATION RATE > 60.0 (>60); GLUCOSE, FASTING 109 MG/DL (70-100); POTASSIUM SERUM 3.7 MEQ/L (3.5-5.1); SODIUM LEVEL 139 MEQ/L (136-145); TOTAL PROTEIN 7.1 GM/DL (6.4-8.2)
[2019-11-26] MEDS ORDERED: NS 500 ML IV ONE ×2 (02:00)
[2019-11-26 02:09] LABS: INFLUENZA A AMPLIFICATION NEGATIVE (NEGATIVE); INFLUENZA B AMPLIFICATION NEGATIVE (NEGATIVE)
[2019-11-26 03:50] VITALS: BP 122/68
== END 2019-11-26 04:21 | disposition home or self-care (01) ==
LOC: M ED 00:34
DX: G40.909 Epilepsy, unspecified, not intractable, without status epilepticus (principal); Z85.841 Personal history of malignant neoplasm of brain; R05 Cough; Z88.0 Allergy status to penicillin; Z79.899 Other long term (current) drug therapy
CPT/HCPCS: 70450; 80048; 80076; 80180; 82140; 83605; 85025; 87502; 96374; 99284; J1953

== ENCOUNTER 2020-05-19 00:23 | Emergency (ER) | payer OTHER ==
[~2020-05-19] VITALS: Ht 180.3 cm; Wt 87.7 kg
[~2020-05-19 00:23] MED LIST changes: +PANT40TA29 PO; -PANT40TA3 PO
[2020-05-19] MEDS ORDERED: TIZA4TAB4 (00:44)
[2020-05-19] MEDS ORDERED: LEVE750T5 PO (00:44)
[2020-05-19] MEDS ORDERED: DICL75TA PO (00:44)
[2020-05-19] MEDS ORDERED: LIDOCAINE 5% (LIDODERM) PATCH TD ONE (01:30)
[2020-05-19 02:08] VITALS: BP 122/83
--- NOTE | 2020-05-19 08:56 | REP ---
REASON: Over use. COMPARISON: No priors. FINDINGS: Three views of the left shoulder were performed. The acromioclavicular and glenohumeral relationships are within normal limits. There is no acute fracture or destructive osseous lesions. Electronically Signed by Omer Huynh DO 05/19/2020 09:55 A
[2020-05-19] MEDS ORDERED: **NOTE PATIENT COMMENT** MISC XX SCH (21:00)
== END 2020-05-19 02:22 | disposition home or self-care (01) ==
LOC: M ED 00:23
DX: M25.512 Pain in left shoulder (principal); G40.919 Epilepsy, unspecified, intractable, without status epilepticus; Z79.899 Other long term (current) drug therapy; Z88.0 Allergy status to penicillin

== ENCOUNTER 2020-05-24 17:46 | Inpatient (IN) | payer OTHER ==
[~2020-05-24] VITALS: Ht 180.3 cm; Wt 88.1 kg
[~2020-05-24 17:46] MED LIST changes: +DICL75TA PO; +LEVE750T5 PO; +TIZA4TAB4
[2020-05-24] MEDS ORDERED: PRED20TA PO (17:57)
[2020-05-24] MEDS ORDERED: ACETAMINOPHEN 325 MG TAB PO ONE (20:00)
[2020-05-24 20:36] LABS: BASO % 0.3 % (0.0-1.0); LYMPH # 0.7 10^3/uL (1.5-5.0); LYMPH % 5.3 % (24.0-44.0); MEAN CORPUSCULAR HEMOGLOBIN 31.4 pg (27.0-33.0); MEAN CORPUSCULAR VOLUME 92.5 fl (80.0-96.0); MONO # 1.5 10^3/uL (0.0-0.8); MONO % 10.6 % (0.0-5.0); NEUTROPHILS # 11.5 10^3/uL (1.5-8.5); NEUTROPHILS % 83.1 % (36.0-66.0); PLATELET COUNT, AUTOMATED 167 10^3/uL (150-450); RED BLOOD COUNT 5.73 10^6/uL (4.30-6.10); WHITE BLOOD COUNT 13.8 10^3/uL (4.0-10.0)
[2020-05-24 20:57] LABS: ERYTHROCYTE SEDIMENTATION RATE 2 mm/hr (0-15)
[2020-05-24] MEDS ORDERED: NS 1,000 ML IV ONE (21:30)
[2020-05-24] MEDS ORDERED: AMPICILLIN SOD/SULBACTAM SOD 3 GM in D5W MINI-BAG PLUS 100 ML IV ONE (21:30)
[2020-05-25] VITALS (10 sets, daily range): BP systolic 118–164; BP diastolic 87–98
--- NOTE | 2020-05-25 01:04 | HPEPDOC ---
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 Patient reports that one week ago (Tuesday 05/15) he had injured his left shoulder while moving furniture. Patient reported that he had pulled a muscle and noted that he was experiencing some left arm weakness and pain. Patient subsequently went to the [facility] urgent care on (Thursday 05/17) where he was prescribed Zanaflex, Diclofenac and a sling of his left arm. Patient noted that on Tuesday (05/19) he began to develop a rash on his left forearm. Patient describes the rash as flat red without any itching. He reported that he can shower, which may be aggravated because it became slightly raised. On Tuesday (05/20) patient followed up with orthopedic surgery and received a joint injection of his left shoulder for his ongoing shoulder pain. He reported the rash and is advised that it can be secondary to a sling. Patients rash continued to worsen and began to blister. He had followed up with his primary care provider on Tuesday (05/21), and was prescribed prednisone. He is advised to stop ketorolac because of the drug interaction. Patient had already completed the Zanaflex that he was prescribed. Patient has presented to the ER today because of worsening rash and associated shortness of breath. Patient denies any fevers or chills while at home and was noted to have a fever in the emergency room. Patient denies any nausea, vomiting, chest pain, cough or palpitations. Patient in eyes any abdominal pain, constipation, diarrhea, or urinary discomfort. Has experiencing loss of appetite and a decrease in his weight. 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), Seizures and Recent history of a sprained left shoulder Surgical History Brain tumor resection 2017 Family History - Mother is alive without any medical problems in father with a history of diabetes Social History - Denies the use of alcohol, tobacco or illicit drugs - Denies recent travel or sick contacts - Lives with and children - Occupation; self-employed contractor Review of Systems Other systems 10 point review of systems complete, all negative otherwise stated in HPI Vital Signs - Vitals: BP [136/101], HR [99], RR [17], Sat [96%RA], Temp [99.7F] - General: Lying in bed, No acute distress, Speaking in full sentences, AAOx3 - HEENT: NC, AT, PERRLA - CVS: RRR, +S1S2 - Lungs: Fair air entry bilaterally, No appreciable wheezing / rales / rhonchi - Abdomen: Soft, Non-distended, Non-tender - Extremities: No lower extremity edema, No calf tenderness - Neuro: No focal motor or sensory deficit - Skin: L arm with extensive blistering lesion down to forearm, sparing palms, areas on body (back / chest / legs / neck) with small blisters noted Laboratory Data Labs 24H Laboratory Tests 2 05/24/20 19:52: Urine Color YELLOW, Urine Appearance CLEAR, Urine pH 5.0, Urine Specific [place] 1.021, Urine Protein NEGATIVE, Urine Glucose (UA) NEGATIVE, Urine Ketones NEGATIVE, Urine Blood NEGATIVE, Urine Nitrite NEGATIVE, Urine Bilirubin NEGATIVE, Urine Urobilinogen 0.2, Urine Leukocyte Esterase NEGATIVE, Urine WBC (Auto) 0, Urine RBC (Auto) 0, Urine Hyaline Casts (Auto) 0, Urine Bacteria (Auto) NEGATIVE, Urine Squamous Epithelial Cells 0, Urine Sperm (Auto) 05/24/20 19:55: Immature Granulocyte % (Auto) 0.7, Neutrophils (%) (Auto) 83.1H, Lymphocytes (%) (Auto) 5.3L, Monocytes (%) (Auto) 10.6H, Eosinophils (%) (Auto) 0.0, Basophils (%) (Auto) 0.3, Neutrophils # (Auto) 11.5H, Lymphocytes # (Auto) 0.7L, Monocytes # (Auto) 1.5H, Eosinophils # (Auto) 0.0, Basophils # (Auto) 0.0, Nucleated Red Blood Cells % (auto) 0.0, Erythrocyte Sedimentation Rate 2, C-Reactive Protein, Quantitative < 0.30 05/24/20 20:01: 05/24/20 21:13: POC Glucose (Misc Panel) 139H, POC Sodium (Misc Panel) 134L, POC Potassium (Misc Panel) 4.7, POC Chloride (Misc Panel) 97L, POC Total CO2 (Misc Panel) 28.0H, POC Blood Urea Nitrogen (Misc Panel 31H, POC Ionized Calcium (Misc Panel) 4.1L, POC Creatinine (Misc Panel) 1.2, POC Hematocrit (Misc Panel) 56.0H 05/24/20 21:20: Lactic Acid Level 2.6*H CBC/BMP Laboratory Tests 05/24/20 19:55 Microbiology Microbiology 05/24/20 Blood Culture, Received Pending 05/24/20 Blood Culture, Received Pending Plan / VTE VTE Prophylaxis Ordered?: Yes Plan Plan Extensive blistering rash / Fever - possibly 2/2 viral illness - Patient presented to emergency room with a rash that has worsened since Tuesday - Initially started off as a small red area on his forearm that is now extensively spread up his arm and his blistering - Physical does reveal multiple areas on his back, abdomen, chest and neck, appear as small blistering lesions - Patient was febrile emergency room - Leukocytosis with neutrophil predominance - possibly 2/2 viral illness, possibly 2/2 corticosteroids - ESR / CRP not elevated - UA negative - Will check viral titers / cultures / Procalcitonin / blood cultures - Airborne / contact precautions - Will start Acyclovir / empiric coverage with antibiotics to prevent additional bacterial infection / IV fluids Shortness of breath - possibly 2/2 above - Patient currently is not tachypneic and saturations are normal on room air - CXR was reviewed - Will get CT chest Lactic acidosis - c/w IV fluid hydration Mild hyponatremia - likely 2/2 hypotonic hypovolemic etiology - Will check repeat BMP - c/w IV fluid hydration Recent history of a sprained left shoulder - Has recently received a corticosteroid injection with Orthopedic surgery on Tuesday (05/20) Oligodendroglioma - s/p resection 05/2018 Seizures - Last seizure was November/2019 - c/w Jaqueline DVT prophylaxis - Will start Heparin HERNAN VARELA MD May 25, 2020 01:04
[2020-05-25] MEDS: ACYCLOVIR IV SCH ×3 (02:30→17:02)
[2020-05-25] MEDS: D5W IV SCH ×3 (02:30→17:02)
[2020-05-25] MEDS: levETIRAcetam 250MG TABLET (KEPPRA) PO SCH ×3 (02:30→21:51)
[2020-05-25] MEDS: NS 1,000 ML IV SCH ×4 (02:30→20:36)
--- NOTE | 2020-05-25 02:31 | REPVR ---
PROCEDURE INFORMATION: Exam: CT Chest Without Contrast Exam date and time: 05/25/2020 1:57 AM Age: 44 years old Clinical indication: Shortness of breath; Additional info: Possible zoster with SOB TECHNIQUE: Imaging protocol: Computed tomography of the chest without contrast. 3D rendering: MIP and/or 3D reconstructed images were created by the technologist. Radiation optimization: All CT scans at this facility use at least one of these dose optimization techniques: automated exposure control; mA and/or kV adjustment per patient size (includes targeted exams where dose is matched to clinical indication); or iterative reconstruction. COMPARISON: CR Chest, 1 view 2020-05-24 21:37 FINDINGS: Lungs: Dependent subsegmental pulmonary atelectasis. Pleural space: Unremarkable. No pneumothorax. No pleural effusion. Heart: Unremarkable. No cardiomegaly. No pericardial effusion. Aorta: Unremarkable. No aortic aneurysm. Lymph nodes: Unremarkable. No enlarged lymph nodes. Bones/joints: Unremarkable. No acute fracture. Soft tissues: Gynecomastia. IMPRESSION: No acute findings. Electronically signed by: Tino Victoria On 05/25/2020 02:31:36 AM
[2020-05-25] MEDS ORDERED: AMPICILLIN SOD/SULBACTAM SOD 3 GM in D5W MINI-BAG PLUS 100 ML IV SCH (05:00)
[2020-05-25] MEDS: HEPARIN SOD (PORCINE) 5000UNITS/ML 1ML VIAL/SYRINGE SC SCH ×3 (05:36→21:52)
[2020-05-25] MEDS: AMPICILLIN SOD/SULBACTAM SOD 3 GM in D5W MINI-BAG PLUS 100 ML IV SCH ×2 (06:18→12:21)
[2020-05-25 08:13] LABS: OSMOLALITY SERUM 279 MOSM/KG (275-295)
[2020-05-25 08:25] LABS: BLOOD UREA NITROGEN 26 MG/DL (7-18); CALCIUM LEVEL 7.9 MG/DL (8.5-10.1); CARBON DIOXIDE LEVEL 22 MEQ/L (21-32); CHLORIDE LEVEL 98 MEQ/L (98-107); CREATININE FOR GFR 1.12 MG/DL (0.70-1.30); GLOMERULAR FILTRATION RATE > 60.0 (>60); GLUCOSE, FASTING 140 MG/DL (70-100); POTASSIUM SERUM 4.3 MEQ/L (3.5-5.1); SODIUM LEVEL 132 MEQ/L (136-145)
[2020-05-25 10:00] LABS: HEMATOCRIT 47.7 % (42.0-52.0); HEMOGLOBIN 16.3 g/dl (13.5-17.5); MEAN CORPUSCULAR HEMOGLOBIN 31.2 pg (27.0-33.0); MEAN CORPUSCULAR HGB CONC 34.2 g/dl (32.0-36.5); MEAN CORPUSCULAR VOLUME 91.4 fl (80.0-96.0); PLATELET COUNT, AUTOMATED 124 10^3/uL (150-450); RED BLOOD COUNT 5.22 10^6/uL (4.30-6.10); WHITE BLOOD COUNT 9.2 10^3/uL (4.0-10.0)
--- NOTE | 2020-05-25 10:27 | REP ---
CHEST: REASON: Fever. COMPARISON: 05/14/2018 FINDINGS: The technique utilized in obtaining the radiograph has magnified the cardiac silhouette and accentuated the interstitial markings. The superior mediastinal structures are midline. The cardiac silhouette is unremarkable in size, shape, and position. The diaphragmatic surfaces of the lungs are regular, and the costophrenic angles are clear. The pulmonary vargas are clear. The imaged osseous structures are intact. IMPRESSION: There is no acute cardiopulmonary disease. No significant change. Electronically Signed by Omer Huynh DO 05/25/2020 10:34 A
[2020-05-25 10:44] LABS: ATYPICAL LYMPH 4 % (0-5); LYMPHOCYTES 12 % (16-44); MONOCYTES 6 % (0-5); NEUTROPHILS 73 % (28-66)
[2020-05-25 10:47] LABS: PLATELET ESTIMATE DECREASED (NORMAL)
[2020-05-25] MEDS: ACETAMINOPHEN TAB 650MG DOSE (2X325MG) PO PRN ×3 (10:55→23:06)
--- NOTE | 2020-05-25 15:13 | IPNPDOC ---
Text Note Date of Service The patient was seen on 05/25/20. NOTE Subjective: No any acute events overnight, patient had low grade fever in the morning. 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), Seizures and Recent history of a sprained left shoulder who presented to the emergency room with erythema or left arm associated with extensive blisters Sepsis 2/2 most likely viral infection pt has tachycardia, fever, elevated LA Await Bcx, Iv fluid Await safety associate recommendation Extensive blistering rash / Fever Differential diagnosis includes bullous impetigo, bolus pemphigoid, drug-induced blisters, varicella zoster Patient developed rash and blisters after he took diclofenac and Zanaflex c/w Acyclovir I will empirically start IV steroids Blood culture pending MRSA screen negative We will continue antibiotics for now Appreciate/agree with the safety associate consult Shortness of breath Resolved Lactic acidosis c/w IV fluid hydration Mild hyponatremia Most likely secondary to SIADH due to Keppra We'll check urine lites, serum and urine osmolality Continue to monitor Recent history of a sprained left shoulder Has recently received a corticosteroid injection with Orthopedic surgery on Tuesday (05/20) Oligodendroglioma - s/p resection 05/2018 Seizures - Last seizure was November/2019 - c/w Keppra DVT prophylaxis - Will start Heparin VS,Fishbone, I+O VS, Fishbone, I+O Laboratory Tests 05/24/20 19:55 05/25/20 07:25 05/25/20 09:41 Vital Signs Date Time Temp Pulse Resp B/P (MAP) Pulse Ox O2 Delivery O2 Flow Rate FiO2 05/25/20 11:59 99.5 124 22 135/95 (108) 05/25/20 05:23 96 Room Air I&O- Last 24 Hours up to 6 AM 05/25/20 06:00 Intake Total 1100 ml Balance 1100 ml PERICO MYLES DO May 25, 2020 15:13
--- NOTE | 2020-05-25 15:59 | CR.PDOC ---
General Date of Consultation: May 25, 2020 Referring Provider: PERICO MYLES DO Attending Physician: PERICO MYLES DO Consultation Reason for Consultation Rash left arm History of Present Illness Patient is a 44-year-old male with a past medical history of o ligodendroglioma (post resection 05/2018), seizures and recent history of a sprained left shoulder who presented to the emergency room with a worsening rash and was admitted to med/surg floor. Patient reports that one week ago (Tuesday 05/15) he had injured his left shoulder while moving furniture. Patient reported that he had pulled a muscle and noted that he was experiencing some left arm weakness and pain. Patient subsequently went to the [facility] urgent care on (Thursday 05/17) where he was prescribed Zanaflex, diclofenac and a sling of his left arm. Patient noted that on Tuesday (05/19) he began to develop a rash on his left forearm. Patient describes the rash at that time as flat red without any itching. On Tuesday (05/20) patient followed up with orthopedic surgery and received a joint injection of his left shoulder for his ongoing shoulder pain. He reported the rash and was advised that it can be secondary to a sling. Patients rash continued to worsen and began to blister. He had followed up with his primary care provider on Tuesday (05/21), and was prescribed prednisone. He was advised to stop ketorolac because of the drug interaction. Patient had already completed the Zanaflex that he was prescribed. Patient has presented to the ER today because of worsening rash and associated shortness of breath. Patient denies any fevers or chills while at home and was noted to have a fever in the emergency room and mild fevers in the past 24 hours. Patient denies any nausea, vomiting, chest pain, cough or palpitations. Patient denies any abdominal pain, constipation, diarrhea, or urinary discomfort. Patient is experiencing loss of appetite and a decrease in his weight. He feels a sense of malaise and sluggishness. Of note - patient does have neutrophilia, neg MRSA screen, lactic acidosis, and pending HIV, HSV and VZV serum labs and culture/smear. Home Medications Scheduled Levetiracetam (Levetiracetam) 750 Mg Tablet, 750 MG PO BID, (Reported) Prednisone (Prednisone) 20 Mg Tablet, 20 MG PO TID, (Reported) Allergies Coded Allergies: Amoxicillin (Verified Allergy, Severe, 05/19/20) Penicillins (Verified Allergy, Mild, NAUSEA AND VOMITING, 11/26/19) Past Medical History Medical History Oligodendroglioma (post resection 05/2018) Seizures Surgical History Brain tumor resection 2018 as above Family History Mother is alive without any medical problems Father with a history of diabetes Social History Denies the use of alcohol, tobacco or illicit drugs Denies recent travel or sick contacts Lives with and children Occupation; self-employed contractor Review of Systems CONSTITUTIONAL: + malaise and mild fever, + sluggishness HEENT: No vision problems or pain in ocular region CARDIOVASCULAR: No chest pain or edema of the legs RESPIRATORY: Mild SOB GENITOURINARY: No pain with urination, no rash in the genital region MUSCULOSKELETAL: + pain in the left shoulder GASTROINTESTINAL: No N/V/D SKIN: Itching and pain with rash in the left forearm >>> chest, left shoulder, face NEUROLOGICAL: No recent seizure activity per patient, no HEALY PSYCHIATRIC: No depression or anxiety per patient HEMATOLOGIC/LYMPHATIC: No abnormal bruising per patient ALLERGIC/IMMUNOLOGIC: No allergic symptoms per patient except for possible rash on his left arm with itch Physical Examination VITAL SIGNS: Please see below. GENERAL APPEARANCE: Mild sluggishness appreciated o/w well developed well n ourished white male in NAD HEENT: EOMI with scattered inflammatory pink vesicles and papules with a few of them crusted on the face RESPIRATORY: RRR, no labored breathing CARDIOVASCULAR: No lower leg edema appreciated ABDOMEN: Soft, supple EXTREMITIES and SKIN: Left shoulder to hand with sharply demarcated vesicles and bullae in a tight pattern that appears almost dermatomal (did have sling in this distribution as well per patient); vesicles and bullae are tense (not flaccid); vesicles and inflammatory papules also appreciated on face, chest, and shoulders proper but 98% of the rash is present on the left arm NEUROLOGICAL: EOMI, no gross deficits, CN II-XII grossly intact PSYCHIATRIC: Mood and affect appropriate and congruent to the situation at hand Laboratory Data Please see below. I favor the neutrophilia to be 2/2 steroid-induced neutrophil demargination driving up the overall WBC. Increasing lactic acid level day over day. Pending several lab studies. Assessment and Plan 1. Rash - Favor herpes zoster > allergic contact dermatitis (elastic or latex in the sling can cause ACD). 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 My concern would be that patient actually was developing herpes zoster around May 15 while he was moving furniture and that he attributed the pain and discomfort in the shoulder as musculoskeletal in nature when in reality he was in the prodromal/early stages of herpes zoster before the rash breaks out (usually about 2-4 days after the first symptoms of pain and discomfort). If zoster, I am concerned about disseminated variant given several lesions on face (CN V) plus the left arm and thus we should continue to watch the patient in the hospital. - STOP methylprednisolone (defer to primary team to stop medication); can make viral situations worse and thus will be important to stop until virus ruled out by lab studies - STOP ampicillin/sulbactam (do not favor bacterial process) - CONTINUE acyclovir at current dosing for 10-14 days; can convert dosing to PO Valtrex as patient improves (typically Valtrex 1 gram PO TID) - FOLLOW UP VZV PCR swab, VZV and HSV smear/culture, VZV and HSV serum studies - If virus is ruled out via studies, then treatment with a steroid taper (starting at 40 mg per day and decreased by 10 mg every 5 days) plus topical triamcinolone 0.1 oint BID to areas with rash on body and topical hydrocortisone 2.5 oint BID to areas with rash on face would be reasonable - this treatment would be for allergic contact dermatitis for elastic and - Does not appear like bullous pemphigoid 2. Lactic acidosis - Defer to primary team but could be caused by his herpes zoster eruption (disseminated version) vs. sub-clinical seizures vs. other. Ensure adequate hydration PO and IV if necessary. 3. Neutrophilia - I favor the neutrophilia to be 2/2 steroid-induced neutrophil demargination driving up the overall WBC. - STOP methylprednisolone (defer to primary team to stop medication); can make viral situations worse and thus will be important to stop until virus ruled out by lab studies 4. Fever - Low grade with malaise. - CONTINUE to monitor as part of vital signs - Can use acetaminophen to lower (max 3-4 g per day) Thank you for this consultation. Patient should remain in the hospital for the time being. You can reach the water filtration technician dermatology provider if patient concerns develop. Dermatology will continue to follow along with this patient. Tim Sarmiento MD [facility] [phone] (personal cell) [phone] (work cell) Vital Signs/I&O Vital Signs Date Time Temp Pulse Resp B/P (MAP) Pulse Ox O2 Delivery O2 Flow Rate FiO2 05/25/20 14:00 99.4 117 21 134/93 (107) 94 Room Air I&O- Last 24 Hours up to 6 AM 05/25/20 06:00 Intake Total 1100 ml Balance 1100 ml Laboratory Data Labs 24H Laboratory Tests 2 05/24/20 19:52: Urine Color YELLOW, Urine Appearance CLEAR, Urine pH 5.0, Urine Specific [place] 1.021, Urine Protein NEGATIVE, Urine Glucose (UA) NEGATIVE, Urine Ketones NEGATIVE, Urine Blood NEGATIVE, Urine Nitrite NEGATIVE, Urine Bilirubin NEGATIVE, Urine Urobilinogen 0.2, Urine Leukocyte Esterase NEGATIVE, Urine WBC (Auto) 0, Urine RBC (Auto) 0, Urine Hyaline Casts (Auto) 0, Urine Bacteria (Auto) NEGATIVE, Urine Squamous Epithelial Cells 0, Urine Sperm (Auto) 05/24/20 19:55: Immature Granulocyte % (Auto) 0.7, Neutrophils (%) (Auto) 83.1H, Lymphocytes (%) (Auto) 5.3L, Monocytes (%) (Auto) 10.6H, Eosinophils (%) (Auto) 0.0, Basophils (%) (Auto) 0.3, Neutrophils # (Auto) 11.5H, Lymphocytes # (Auto) 0.7L, Monocytes # (Auto) 1.5H, Eosinophils # (Auto) 0.0, Basophils # (Auto) 0.0, Nucleated Red Blood Cells % (auto) 0.0, Erythrocyte Sedimentation Rate 2, C-Reactive Protein, Quantitative < 0.30 05/24/20 20:01: 05/24/20 21:13: POC Glucose (Misc Panel) 139H, POC Sodium (Misc Panel) 134L, POC Potassium (Misc Panel) 4.7, POC Chloride (Misc Panel) 97L, POC Total CO2 (Misc Panel) 28.0H, POC Blood Urea Nitrogen (Misc Panel 31H, POC Ionized Calcium (Misc Panel) 4.1L, POC Creatinine (Misc Panel) 1.2, POC Hematocrit (Misc Panel) 56.0H 05/24/20 21:20: Lactic Acid Level 2.6*H 05/25/20 05:29: Methicillin-Resist S.aureus DNA PCR NOT DETECTED 05/25/20 07:15: 05/25/20 07:17: Lactic Acid Followup at 4 Hours 3.6*H 05/25/20 07:25: Anion Gap 12, Glomerular Filtration Rate > 60.0, Osmolality 279, Calcium Level 7.9L 05/25/20 09:41: Neutrophils (%) (Auto) , Nucleated Red Blood Cells % (auto) 0.0, Neutrophils 73H, Band Neutrophils 5, Lymphocytes (Manual) 12L, Monocytes (Manual) 6H, Aty pical Lymphocytes 4, Platelet Estimate DECREASED CBC/BMP Laboratory Tests 05/24/20 19:55 05/25/20 07:25 05/25/20 09:41 Microbiology Microbiology 05/25/20 Herpes & Varicella-Zoster Culture M, Received Pending 05/25/20 Herpes Simplex Virus Culture, Received Pending 05/25/20 Varicella zoster Virus Smear, Received Pending 05/24/20 Blood Culture, Received Pending 05/24/20 Blood Culture, Received Pending Allergies Coded Allergies: amoxicillin (Verified Allergy, Severe, 05/19/20) Penicillins (Verified Allergy, Mild, NAUSEA AND VOMITING, 11/26/19) Home Medications Scheduled Diclofenac Sodium (Diclofenac Sodium) 75 Mg Tablet.dr, 75 MG PO BID, (Reported) Levetiracetam (Levetiracetam) 750 Mg Tablet, 750 MG PO BID, (Reported) Prednisone (Prednisone) 20 Mg Tablet, 20 MG PO TID, (Reported) TIM SARMIENTO MD May 25, 2020 15:59
[2020-05-25] MEDS ORDERED: methylPREDNISolone 40MG 1ML VIAL IV SCH (16:00)
[2020-05-25] MEDS ORDERED: METOPROLOL 5 MG/5 ML VIAL IV STA (19:07)
[2020-05-25] MEDS ORDERED: NS 1,000 ML IV ONE (19:15)
[2020-05-25 20:21] LABS: HEMATOCRIT 43.9 % (42.0-52.0); MEAN CORPUSCULAR HEMOGLOBIN 31.6 pg (27.0-33.0); MEAN CORPUSCULAR HGB CONC 34.2 g/dl (32.0-36.5); MEAN CORPUSCULAR VOLUME 92.4 fl (80.0-96.0); PLATELET COUNT, AUTOMATED 128 10^3/uL (150-450); RED BLOOD COUNT 4.75 10^6/uL (4.30-6.10); WHITE BLOOD COUNT 6.9 10^3/uL (4.0-10.0)
[2020-05-25 20:48] LABS: ALBUMIN 2.9 GM/DL (3.2-5.2); ALT/SGPT 262 U/L (12-78); BILIRUBIN,TOTAL 0.5 MG/DL (0.2-1.0); BLOOD UREA NITROGEN 27 MG/DL (7-18); CALCIUM LEVEL 7.9 MG/DL (8.5-10.1); CARBON DIOXIDE LEVEL 27 MEQ/L (21-32); CHLORIDE LEVEL 100 MEQ/L (98-107); CREATININE FOR GFR 1.28 MG/DL (0.70-1.30); GLOMERULAR FILTRATION RATE > 60.0 (>60); GLUCOSE, FASTING 153 MG/DL (70-100); POTASSIUM SERUM 4.5 MEQ/L (3.5-5.1); SODIUM LEVEL 132 MEQ/L (136-145); TOTAL PROTEIN 6.5 GM/DL (6.4-8.2)
[2020-05-25] MEDS: METOPROLOL 5 MG/5 ML VIAL IV PRN (23:07)
[2020-05-26] VITALS (10 sets, daily range): BP systolic 114–148; BP diastolic 74–93
[2020-05-26] MEDS: NS 1,000 ML IV SCH ×3 (02:15→21:44)
[2020-05-26] MEDS: ACYCLOVIR IV SCH ×3 (02:15→17:56)
[2020-05-26] MEDS: D5W IV SCH ×3 (02:15→17:56)
[2020-05-26] MEDS: ACETAMINOPHEN TAB 650MG DOSE (2X325MG) PO PRN ×3 (05:26→21:45)
[2020-05-26] MEDS: HEPARIN SOD (PORCINE) 5000UNITS/ML 1ML VIAL/SYRINGE SC SCH ×3 (05:26→21:46)
[2020-05-26 06:37] LABS: HEMATOCRIT 46.1 % (42.0-52.0); HEMOGLOBIN 15.8 g/dl (13.5-17.5); MEAN CORPUSCULAR HEMOGLOBIN 31.8 pg (27.0-33.0); MEAN CORPUSCULAR HGB CONC 34.3 g/dl (32.0-36.5); MEAN CORPUSCULAR VOLUME 92.8 fl (80.0-96.0); PLATELET COUNT, AUTOMATED 116 10^3/uL (150-450); RED BLOOD COUNT 4.97 10^6/uL (4.30-6.10); WHITE BLOOD COUNT 6.5 10^3/uL (4.0-10.0)
[2020-05-26 06:55] LABS: BLOOD UREA NITROGEN 24 MG/DL (7-18); CARBON DIOXIDE LEVEL 27 MEQ/L (21-32); CHLORIDE LEVEL 103 MEQ/L (98-107); CREATININE FOR GFR 1.07 MG/DL (0.70-1.30); GLOMERULAR FILTRATION RATE > 60.0 (>60); GLUCOSE, FASTING 112 MG/DL (70-100); MAGNESIUM LEVEL 2.3 MG/DL (1.8-2.4); POTASSIUM SERUM 4.5 MEQ/L (3.5-5.1); SODIUM LEVEL 139 MEQ/L (136-145)
[2020-05-26 07:12] LABS: ATYPICAL LYMPH 7 % (0-5); LYMPHOCYTES 18 % (16-44); METAMYELOCYTES 1 % (0-0); MONOCYTES 10 % (0-5); NEUTROPHILS 63 % (28-66)
[2020-05-26 07:13] LABS: PLATELET ESTIMATE DECREASED (NORMAL)
[2020-05-26] MEDS: levETIRAcetam 250MG TABLET (KEPPRA) PO SCH ×2 (08:24→21:45)
[2020-05-26] MEDS: METOPROLOL 5 MG/5 ML VIAL IV PRN (09:52)
[2020-05-26 10:07] LABS: OSMOLALITY URINE 578 MOSM/KG (500-800)
[2020-05-26 10:13] LABS: SODIUM,RANDOM URINE 99 MEQ/L
[2020-05-26] MEDS ORDERED: MIRALAX *UNIT DOSE* 17GM PACKET PO PRN (10:15)
--- NOTE | 2020-05-26 10:59 | ECGEPIP ---
[facility] Test Date: 2020-05-25 Pat Name: JANIE CASTILLO Department: Room: [place] [address] Gender: Male Bargeman: NATHALIA : [id number] Requested By: PERICO MYLES Order Number: [id number] Reading MD: Tino Chacon Measurements Intervals [place] Rate: 144 P: [place]: 0 QRS: 24 QRSD: 80 T: 50 QT: 259 QTc: 401 Interpretive Statements Sinus tachycardia, 144 bpm. Increased heart rate compared with 05/14/2018. Electronically Signed on 05-26-2020 10:58:58 EDT by Tino Chacon
[2020-05-26] MEDS: METOPROLOL TART 12.5 MG PER 1/2 TAB PO SCH ×2 (13:20→21:45)
[2020-05-26] MEDS ORDERED: NS 1,000 ML IV ONE (14:15)
--- NOTE | 2020-05-26 15:03 | IPNPDOC ---
Text Note Date of Service The patient was seen on 05/26/20. NOTE Subjective: 44 WM transferred to PCU overnight with fever and tachycardia, sinus tach on EKG. LFTs elevated 2-3x normal limit, patient is eating at bedside and feeling better this morning than late day yesterday. Steroids stopped. On acyclovir. Unasyn stopped as well. Review of Systems CONSTITUTIONAL: + malaise and fever, + sluggishness HEENT: No vision problems or pain in ocular region CARDIOVASCULAR: No chest pain or edema of the legs RESPIRATORY: Mild SOB GENITOURINARY: No pain with urination, no rash in the genital region MUSCULOSKELETAL: + pain in the left shoulder GASTROINTESTINAL: No N/V/D, no abdominal pain SKIN: Itching and pain with rash in the left forearm >>> chest, left shoulder, face NEUROLOGICAL: No recent seizure activity per patient, no HEALY PSYCHIATRIC: No depression or anxiety per patient HEMATOLOGIC/LYMPHATIC: No abnormal bruising per patient ALLERGIC/IMMUNOLOGIC: No allergic symptoms per patient except for possible rash on his left arm with itch Physical Examination VITAL SIGNS: Please see below. GENERAL APPEARANCE: Mild sluggishness appreciated o/w well developed well nourished white male in NAD HEENT: EOMI with scattered inflammatory pink vesicles and papules with a few of them crusted on the face RESPIRATORY: RRR, no labored breathing CARDIOVASCULAR: No lower leg edema appreciated ABDOMEN: Soft, supple EXTREMITIES and SKIN: Left shoulder to hand with sharply demarcated vesicles and bullae in a tight pattern that appears almost dermatomal (did have sling in this distribution as well per patient); vesicles and bullae are tense (not flaccid); vesicles and inflammatory papules also appreciated on face, chest, and shoulders proper but 98% of the rash is present on the left arm NEUROLOGICAL: EOMI, no gross deficits, CN II-XII grossly intact PSYCHIATRIC: Mood and affect appropriate and congruent to the situation at hand Laboratory Data Please see below. I favor the neutrophilia to be 2/2 steroid-induced neutrophil demargination driving up the overall WBC. Lactic acid elevation resolved. Elevated LFTs noted, see below for commentary. HIV negative. Ca 7.9 to 8 with albumin 2.9 (normal when corrected). Assessment and Plan 1. Rash - Favor herpes zoster > allergic contact dermatitis (elastic or latex in the sling can cause ACD). 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 My concern would be that patient actually was developing herpes zoster around May 15 while he was moving furniture and that he attributed the pain and discomfort in the shoulder as musculoskeletal in nature when in reality he was in the prodromal/early stages of herpes zoster before the rash breaks out (usually about 2-4 days after the first symptoms of pain and discomfort). If zoster, I am concerned about disseminated variant given several lesions on face (CN V) plus the left arm and thus we should continue to watch the patient in the hospital. - CONTINUE acyclovir at current dosing for 10-14 days; can convert dosing to PO Valtrex as patient improves (typically Valtrex 1 gram PO TID) - FOLLOW UP VZV PCR swab, VZV and HSV smear/culture, VZV and HSV serum studies - If virus is ruled out via studies, then treatment with a steroid taper (starting at 40 mg per day and decreased by 10 mg every 5 days) plus topical triamcinolone 0.1 oint BID to areas with rash on body and topical hydrocortisone 2.5 oint BID to areas with rash on face would be reasonable - this treatment would be for allergic contact dermatitis for elastic and - Does not appear like bullous pemphigoid - Check coagulation panel - Check IgA level in case IVIg is needed if patient decompensates 2. Elevated LFTs - Favor 2/2 herpes zoster dissemination - Check hepatitis panel 3. Lactic acidosis - Resolved 1.7. 4. Neutrophilia - I favor the neutrophilia to be 2/2 steroid-induced neutrophil demargination driving up the overall WBC. 5. Fever - Low grade with malaise. - CONTINUE to monitor as part of vital signs - Can use acetaminophen to lower (max 3 g per day) Thank you for this consultation. Patient should remain in the hospital for the time being. You can reach the balance wheel motion inspector dermatology provider if patient concerns develop. Dermatology will continue to follow along with this patient. Tim Sarmiento MD [facility] [phone] (personal cell) [phone] (work cell) VS,Fishbone, I+O VS, Fishbone, I+O Laboratory Tests 05/25/20 20:07 05/26/20 05:50 Vital Signs Date Time Temp Pulse Resp B/P (MAP) Pulse Ox O2 Delivery O2 Flow Rate FiO2 05/26/20 14:00 98.8 95 20 119/76 (90) 97 Room Air I&O- Last 24 Hours up to 6 AM 05/26/20 06:00 Intake Total 3590 ml Output Total 3825 ml Balance -235 ml TIM SARMIENTO MD May 26, 2020 15:03
[2020-05-26 18:08] LABS: INR 0.92; PROTHROMBIN TIME 12.1 SECONDS (11.8-14.0)
[2020-05-26] MEDS ORDERED: FLEET ENEMA PR PRN (18:30)
[2020-05-26 18:40] LABS: PARTIAL THROMBOPLASTIN TIME 24.6 SECONDS (25.0-38.4)
[2020-05-26] MEDS: MOM 30ML SUSPENSION UDC PO PRN (18:47)
--- NOTE | 2020-05-26 19:27 | IPNPDOC ---
Text Note Date of Service The patient was seen on 05/26/20. NOTE Subjective: Patient seen at bedside on 05/26/2020. He had overnight fevers and tachycardia and is on telemetry. He feels tired and lying in bed.. He reports having constipation. He denies having any chest shortness of breath, chest pain, abdominal pain, diarrhea or dysuria. Objective: General: Well developed, Patient is mildly sluggishness, alert, lying in bed. HEENT: Extraocular movements intact, scattered vesicles and papules over the face and neck. Cardiovascular: S1, S2, normal rhythm, no murmur, rub, or gallop. Respiratory: Chest is clear to auscultation bilaterally, No rhonchi, wheezes or rubs. Abdomen: Soft, bowel sounds positive, no bruits. No tenderness on palpation. Liver edge, spleen, kidney not felt, no masses. Extremities and skin: Tense vesicles and bullae noted on his left arm and forearm, inflammatory papules are noted on the back, chest, face, behind neck, over thighs. Patient denies having pain or itching. Central nervous system (BANQUET MANAGER): Awake, alert and fully oriented. 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 He denies having any fever, chills, nausea, vomiting, chest pain. . He reports experiencing loss of appetite and weight loss. Patient reports a week ago [05/15/2020] he had an injury to the left shoulder and pulled his muscle and was experiencing pain and weakness. He went to the urgent care and was prescribed Zanaflex, diclofenac, and a sling for his left arm. Patient noted a rash on his left forearm on Tuesday [05/19/2020]. Tuesday he foll owed up with orthopedic surgery and received a joint injection for the left shoulder for the shoulder pain. He was advised to stop ketorolac due to drug interaction. Plan: 1. Rash: 2/2 Herpes zoster vs allergic contact dermatitis: - Dermatology consulted, and will follow their recommendations. - Patient reports having a history of an elastic band allergy as an . - Continue acyclovir for 10-14 days, switched to by mouth Valtrex if the patient improves. - VZV PCR swab, VZV and HSV smear/culture, VZV and HSV serum studies pending, and Blood cultures negative, MRSA negative. - Will check IgA , and if needed start on IVIg as recommend by dermatology. 2. Sepsis: - Secondary to viral infection, patient is tachycardic, fevers, elevated lactic acidosis. - Blood cultures negative, continue IV fluids. - Continue IV fluid hydration. 3. Sprained left shoulder: - Received a corticosteroid injection with orthopedic surgery on Tuesday [05/20/2020]. 4. Oligodendroglioma: - Status post resection 05/2018 5. Seizure: - Last seizure was in November 2019. - Continue Keppra. DVT prophylaxis: sc heparin Disposition: pending clinical improvement *Note written by Amos Parra MD and reviewed. Perico Maynard, have independently examined this patient and performed my own physical exam, as well as reviewed the documentation. I have discussed in detail with the resident / student the findings and plan of treatment as documented by the resident / student. I agree with their findings and treatment plan. I will continue to follow the patient during this hospital stay VS,Maranda, I+O VS, Maranda, I+O Laboratory Tests 05/25/20 20:07 05/26/20 05:50 Vital Signs Date Time Temp Pulse Resp B/P (MAP) Pulse Ox O2 Delivery O2 Flow Rate FiO2 05/26/20 17:00 99.0 118 20 145/93 (110) 96 Room Air I&O- Last 24 Hours up to 6 AM 05/26/20 06:00 Intake Total 3590 ml Output Total 3825 ml Balance -235 ml SAUMYA NATARAJAN D.O. May 26, 2020 19:27 PERICO MAYNARD DO May 27, 2020 16:04
[2020-05-26] MEDS: POLYVINYL ALCOHOL OPHTH SOLN 15 ML(LIQUITEARS) OU PRN (21:44)
[2020-05-27] VITALS (7 sets, daily range): BP systolic 114–135; BP diastolic 64–88
[2020-05-27] MEDS: ACYCLOVIR IV SCH ×3 (02:27→17:55)
[2020-05-27] MEDS: D5W IV SCH ×3 (02:27→17:55)
[2020-05-27] MEDS: ACETAMINOPHEN TAB 650MG DOSE (2X325MG) PO PRN ×2 (02:28→09:06)
[2020-05-27 05:44] LABS: HEMATOCRIT 36.4 % (42.0-52.0); HEMOGLOBIN 12.5 g/dl (13.5-17.5); MEAN CORPUSCULAR HGB CONC 34.3 g/dl (32.0-36.5); MEAN CORPUSCULAR VOLUME 93.1 fl (80.0-96.0); PLATELET COUNT, AUTOMATED 113 10^3/uL (150-450); RED BLOOD COUNT 3.91 10^6/uL (4.30-6.10); WHITE BLOOD COUNT 5.3 10^3/uL (4.0-10.0)
[2020-05-27 06:03] LABS: BLOOD UREA NITROGEN 21 MG/DL (7-18); CALCIUM LEVEL 7.8 MG/DL (8.5-10.1); CARBON DIOXIDE LEVEL 29 MEQ/L (21-32); CHLORIDE LEVEL 105 MEQ/L (98-107); CREATININE FOR GFR 1.07 MG/DL (0.70-1.30); GLOMERULAR FILTRATION RATE > 60.0 (>60); GLUCOSE, FASTING 112 MG/DL (70-100); MAGNESIUM LEVEL 2.3 MG/DL (1.8-2.4); POTASSIUM SERUM 4.6 MEQ/L (3.5-5.1); SODIUM LEVEL 135 MEQ/L (136-145)
[2020-05-27] MEDS: NS 1,000 ML IV SCH ×3 (06:22→21:58)
[2020-05-27] MEDS: HEPARIN SOD (PORCINE) 5000UNITS/ML 1ML VIAL/SYRINGE SC SCH ×3 (06:22→21:59)
[2020-05-27 06:32] LABS: ATYPICAL LYMPH 4 % (0-5); EOSINOPHILS 1 % (0-3); LYMPHOCYTES 48 % (16-44); MONOCYTES 2 % (0-5); NEUTROPHILS 44 % (28-66); PLATELET ESTIMATE NORMAL (NORMAL)
[2020-05-27 08:25] LABS: ALBUMIN 2.5 GM/DL (3.2-5.2); ALT/SGPT 235 U/L (12-78); BILIRUBIN,DIRECT 0.1 MG/DL (0.0-0.2); BILIRUBIN,TOTAL 0.4 MG/DL (0.2-1.0); TOTAL PROTEIN 5.9 GM/DL (6.4-8.2)
[2020-05-27] MEDS: METOPROLOL TART 12.5 MG PER 1/2 TAB PO SCH ×2 (09:05→21:58)
[2020-05-27] MEDS: levETIRAcetam 250MG TABLET (KEPPRA) PO SCH ×2 (09:05→21:58)
[2020-05-27] MEDS: MOM 30ML SUSPENSION UDC PO PRN (09:09)
--- NOTE | 2020-05-27 10:03 | IPNPDOC ---
Text Note Date of Service The patient was seen on 05/27/20. NOTE Subjective: 44 WM in the PCU with fever and tachycardia that have improved since yesterday. LFTs elevated 2-3x normal limit and now improving, patient is eating at bedside and feeling better this morning yesterday. On acyclovir. IgA level ordered along with hepatitis panel. Review of Systems CONSTITUTIONAL: + malaise and fever, + sluggishness HEENT: No vision problems or pain in ocular region CARDIOVASCULAR: No chest pain or edema of the legs RESPIRATORY: Mild SOB GENITOURINARY: No pain with urination, no rash in the genital region MUSCULOSKELETAL: + pain in the left shoulder GASTROINTESTINAL: No N/V/D, no abdominal pain SKIN: Itching and pain with rash in the left forearm >>> chest, left shoulder, face NEUROLOGICAL: No recent seizure activity per patient, no HEALY PSYCHIATRIC: No depression or anxiety per patient HEMATOLOGIC/LYMPHATIC: No abnormal bruising per patient ALLERGIC/IMMUNOLOGIC: No allergic symptoms per patient except for possible rash on his left arm with itch Physical Examination VITAL SIGNS: Please see below. GENERAL APPEARANCE: Mild sluggishness appreciated o/w well developed well nourished white male in NAD HEENT: EOMI with scattered inflammatory pink vesicles and papules with a few of them crusted on the face RESPIRATORY: RRR, no labored breathing CARDIOVASCULAR: No lower leg edema appreciated ABDOMEN: Soft, supple EXTREMITIES and SKIN: Left shoulder to hand with sharply demarcated vesicles and bullae in a tight pattern that appears almost dermatomal (did have sling in this distribution as well per patient); vesicles and bullae are tense (not flaccid); vesicles and inflammatory papules also appreciated on face, chest, and shoulders proper but 98% of the rash is present on the left arm - 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 I favor the neutrophilia to be 2/2 steroid-induced neutrophil demargination driving up the overall WBC and WBC now normalized. Lactic acid elevation resolved. Elevated LFTs noted, see below for commentary but have improved. HIV negative. Ca normalized when corrected for albumin. Synthetic liver function good with coag panel. Assessment and Plan 1. Rash - Has improved. Favor herpes zoster > allergic contact dermatitis (elastic or latex in the sling can cause ACD). 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 My concern would be that patient actually was developing herpes zoster around May 15 while he was moving furniture and that he attributed the pain and discomfort in the shoulder as musculoskeletal in nature when in reality he was in the prodromal/early stages of herpes zoster before the rash breaks out (usually about 2-4 days after the first symptoms of pain and discomfort). If zoster, I am concerned about disseminated variant given several lesions on face (CN V) plus the left arm and thus we should continue to watch the patient in the hospital. - CONTINUE acyclovir at current dosing for 10-14 days; can convert dosing to PO Valtrex as patient improves (typically Valtrex 1 gram PO TID) - FOLLOW UP VZV PCR swab, VZV and HSV smear/culture, VZV and HSV serum studies - If virus is ruled out via studies, then treatment with a steroid taper (starting at 40 mg per day and decreased by 10 mg every 5 days) plus topical triamcinolone 0.1 oint BID to areas with rash on body and topical hydrocortisone 2.5 oint BID to areas with rash on face would be reasonable - this treatment would be for allergic contact dermatitis for elastic and - Coag panel ok - Follow up IgA level 2. Elevated LFTs - Favor 2/2 herpes zoster dissemination. Improving. - Follow up hepatitis panel 3. SIRS criteria - Patient needs to be consistently afebrile and not tachycardic and then can move back to regular floor room with discharge planning at that time. White count has normalized. 4. Lactic acidosis - Resolved. 5. Neutrophilia - I favor the neutrophilia to be 2/2 steroid-induced neutrophil demargination driving up the overall WBC but WBC has now normalized. 6. Fever - Low grade with malaise. - CONTINUE to monitor as part of vital signs - Can use acetaminophen to lower (max 3 g per day) Thank you for this consultation. Patient should remain in the hospital for the time being. You can reach the occupational therapist assistants dermatology provider if patient concerns develop. Dermatology will continue to follow along with this patient. Tim Sarmiento MD [facility] [phone] (personal cell) [phone] (work cell) VS,Fishbone, I+O VS, Fishbone, I+O Laboratory Tests 05/27/20 05:24 Vital Signs Date Time Temp Pulse Resp B/P (MAP) Pulse Ox O2 Delivery O2 Flow Rate FiO2 05/27/20 09:05 97 123/79 05/27/20 04:00 98.5 17 95 Room Air I&O- Last 24 Hours up to 6 AM 05/27/20 06:00 Intake Total 5890 ml Output Total 5250 ml Balance 640 ml TIM SARMIENTO MD May 27, 2020 10:03
--- NOTE | 2020-05-27 18:59 | IPNPDOC ---
Text Note Date of Service The patient was seen on 05/27/20. NOTE Subjective: Patient seen at bedside 05/27/2020. He reports feeling better than yesterday, feels less tired, eating and had a bowel movement. Denies chest pain, shortness of breath, abdominal pain, diarrhea and dysuria. Objective: General: Patient is awake, alert, oriented times three, lying in bed, no apparent distress. HEENT: Extraocular movement intact, scattered papules and crusted lesion on face and neck, noted one in his hair too. Cardiovascular: S1, S2, normal rhythm, no murmur, rub, or gallop Respiratory: Chest is clear to auscultation bilaterally, No rhonchi, wheezes or rubs. Abdomen: Soft, bowel sounds positive, no bruits. No tenderness on palpation. Liver edge, spleen, kidney not felt, no masses. Extremities and skin: Tense vesicles and bullae noted on his left arm and forearm, inflammatory papules are noted on the back, chest, face, behind neck. His lesions look less tense than yesterday. Patient denies having pain or itching. Spine: No kyphosis, no para-spinal tenderness, no costovertebral tenderness. Central nervous system (NUMBERER AND WIRER): Awake, alert and fully oriented. 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 He denies having any fever, chills, nausea, vomiting and chest pain. He reports experiencing loss of appetite and weight loss. Plan: 1. Rash: 2/2 Herpes zoster vs allergic contact dermatitis: - Dermatology consulted, and we are following their recommendations. - Patient reports having a history of an elastic band allergy as an infant. - Continue acyclovir for 10-14 days, switched to by mouth Valtrex if the patient improves. - VZV PCR swab, VZV and HSV smear/culture, VZV and HSV serum studies pending, and Blood cultures negative, MRSA negative. - If virus is ruled out via studies, then treatment with a steroid taper (starting at 40 mg per day and decreased by 10 mg every 5 days) plus topical triamcinolone 0.1 oint BID to areas with rash on body and topical hydrocortisone 2.5 oint BID to areas with rash on face would be reasonable - this treatment would be for allergic contact dermatitis(recommended by [facility]) - Coagulation panel normal, IgA pending - His liver enzymes trending down, hepatitis panel pending. 2. Sepsis: - Secondary to viral infection, patient is tachycardic, no fevers overnight. - Will start him on metoprolol. - Blood cultures negative, continue IV fluids. 3. Sprained left shoulder: - Received a corticosteroid injection with orthopedic surgery on Tuesday [05/20/2020]. 4. Oligodendroglioma: - Status post resection 05/2018 5. Seizure: - Last seizure was in November 2019. - Continue Keppra. 6. DVT prophylaxis: - Heparin SC Disposition: Lab Work pending. Based on lab work and if the patient is clinically improving will to switch him to oral medication. *Note written by Amos Parra MD and reviewed. VS,Fishbone, I+O VS, Fishbone, I+O Laboratory Tests 05/27/20 05:24 Vital Signs Date Time Temp Pulse Resp B/P (MAP) Pulse Ox O2 Delivery O2 Flow Rate FiO2 05/27/20 16:00 98.9 95 20 135/88 (104) 99 Room Air I&O- Last 24 Hours up to 6 AM 05/27/20 06:00 Intake Total 5890 ml Output Total 5250 ml Balance 640 ml SAUMYA NATARAJAN D.O. May 27, 2020 18:59
[2020-05-27 19:07] LABS: HERPES ZOSTER, VARICELLA IgG >4000 index (Immune >165); HERPES ZOSTER, VARICELLA IgM 1.16 index (0.00-0.90); HSV IgM TYPES 1&2 1.36 Ratio (0.00-0.90)
[2020-05-27] MEDS: POLYVINYL ALCOHOL OPHTH SOLN 15 ML(LIQUITEARS) OU PRN (22:01)
--- NOTE | 2020-05-27 23:05 | ECGEPIP ---
[facility] Test Date: 2020-05-26 Pat Name: JANIE CASTILLO Department: Room: [place] [address] Gender: Male School Psychologist: EDY : 1975 Requested By: SAUMYA NATARAJAN D.O. Order Number: [id number] Reading MD: Tino Chacon Measurements Intervals [place] Rate: 97 P: 50 KS: 138 QRS: 26 QRSD: 93 T: 54 QT: 329 QTc: 419 Interpretive Statements SINUS RHYTHM Within normal limits. Decreased heart rate compared with 05/25/2020. Electronically Signed on 05-27-2020 23:04:51 EDT by Tino Chacon
[2020-05-28] MEDS: NS 1,000 ML IV SCH ×5 (01:42→21:14)
[2020-05-28] MEDS: D5W IV SCH ×3 (02:46→18:42)
[2020-05-28] MEDS: ACYCLOVIR IV SCH ×3 (02:46→18:42)
[2020-05-28 04:00] VITALS: BP 130/72
[2020-05-28] MEDS: HEPARIN SOD (PORCINE) 5000UNITS/ML 1ML VIAL/SYRINGE SC SCH ×3 (05:10→21:13)
[2020-05-28 06:02] LABS: BASO % 0.3 % (0.0-1.0); EOS # 0.1 10^3/uL (0.0-0.5); HEMATOCRIT 39.2 % (42.0-52.0); HEMOGLOBIN 13.5 g/dl (13.5-17.5); LYMPH % 34.1 % (24.0-44.0); MEAN CORPUSCULAR HEMOGLOBIN 32.1 pg (27.0-33.0); MEAN CORPUSCULAR HGB CONC 34.4 g/dl (32.0-36.5); MEAN CORPUSCULAR VOLUME 93.1 fl (80.0-96.0); MONO # 0.4 10^3/uL (0.0-0.8); MONO % 7.2 % (0.0-5.0); NEUTROPHILS # 3.3 10^3/uL (1.5-8.5); NEUTROPHILS % 55.1 % (36.0-66.0); PLATELET COUNT, AUTOMATED 115 10^3/uL (150-450); RED BLOOD COUNT 4.21 10^6/uL (4.30-6.10)
[2020-05-28 06:24] LABS: ALBUMIN 2.8 GM/DL (3.2-5.2); ALT/SGPT 186 U/L (12-78); BILIRUBIN,TOTAL 0.4 MG/DL (0.2-1.0); BLOOD UREA NITROGEN 16 MG/DL (7-18); CALCIUM LEVEL 8.3 MG/DL (8.5-10.1); CARBON DIOXIDE LEVEL 29 MEQ/L (21-32); CHLORIDE LEVEL 102 MEQ/L (98-107); CREATININE FOR GFR 1.16 MG/DL (0.70-1.30); GLOMERULAR FILTRATION RATE > 60.0 (>60); GLUCOSE, FASTING 106 MG/DL (70-100); MAGNESIUM LEVEL 2.3 MG/DL (1.8-2.4); POTASSIUM SERUM 4.5 MEQ/L (3.5-5.1); SODIUM LEVEL 138 MEQ/L (136-145); TOTAL PROTEIN 6.4 GM/DL (6.4-8.2)
[2020-05-28 08:00] VITALS: BP 124/78
--- NOTE | 2020-05-28 10:32 | IPNPDOC ---
Text Note Date of Service The patient was seen on 05/28/20. NOTE Subjective: 44 WM in the PCU with fever and tachycardia that have improved since yesterday, slowly, with VZV IgM and HSV 1/2 IgM positivity. LFTs elevated 2-3x normal limit and now improving to normalized, patient is eating at bedside and feeling better this morning than yesterday. On acyclovir. IgA level ordered along with hepatitis panel. Review of Systems CONSTITUTIONAL: + malaise and fever, + sluggishness HEENT: No vision problems or pain in ocular region CARDIOVASCULAR: No chest pain or edema of the legs RESPIRATORY: Mild SOB GENITOURINARY: No pain with urination, no rash in the genital region MUSCULOSKELETAL: + pain in the left shoulder GASTROINTESTINAL: No N/V/D, no abdominal pain SKIN: Itching and pain with rash in the left forearm >>> chest, left shoulder, face NEUROLOGICAL: No recent seizure activity per patient, no HEALY PSYCHIATRIC: No depression or anxiety per patient HEMATOLOGIC/LYMPHATIC: No abnormal bruising per patient ALLERGIC/IMMUNOLOGIC: No allergic symptoms per patient except for possible rash on his left arm with itch Physical Examination VITAL SIGNS: Please see below. GENERAL APPEARANCE: Mild sluggishness appreciated o/w well developed well nourished white male in NAD HEENT: EOMI with scattered inflammatory pink vesicles and papules with a few of them crusted on the face RESPIRATORY: RRR, no labored breathing CARDIOVASCULAR: No lower leg edema appreciated ABDOMEN: Soft, supple EXTREMITIES and SKIN: Left shoulder to hand with sharply demarcated vesicles and bullae in a tight pattern that appears almost dermatomal (did have sling in this distribution as well per patient); vesicles and bullae are tense (not flaccid); vesicles and inflammatory papules also appreciated on face, chest, and shoulders proper but 98% of the rash is present on the left arm - does appear drier operator 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 Assessment and Plan 1. Varicella zoster virus, disseminated - Has improved. VZV IgM positive along with HSV 1/2 IgM. - CONTINUE acyclovir at current dosing for 10-14 days; can convert dosing to PO Valtrex as patient improves (typically Valtrex 1 gram PO TID) - FOLLOW UP remainder of studies ordered - Follow up IgA level 2. Elevated LFTs - Favor 2/2 herpes zoster dissemination. Improving. - Follow up hepatitis panel 3. SIRS criteria met - Patient needs to be consistently afebrile and not tachycardic and then can move back to regular floor room with discharge planning at that time. White count has normalized. 4. Fever - Low grade with malaise. - CONTINUE to monitor as part of vital signs - Can use acetaminophen to lower (max 3 g per day) Thank you for this consultation. Patient should remain in the hospital for the time being. You can reach the production floater dermatology provider if patient concerns develop. Dermatology will continue to follow along with this patient. Tim Sarmiento MD [facility] [phone] (personal cell) [phone] (work cell) VS,Fishbone, I+O VS, Fishbone, I+O Laboratory Tests 05/28/20 05:47 Vital Signs Date Time Temp Pulse Resp B/P (MAP) Pulse Ox O2 Delivery O2 Flow Rate FiO2 05/28/20 04:00 99.2 102 16 130/72 (91) 94 Room Air I&O- Last 24 Hours up to 6 AM 05/28/20 06:00 Intake Total 5010 ml Output Total 6750 ml Balance -1740 ml TIM SARMIENTO MD May 28, 2020 10:32
[2020-05-28] MEDS: levETIRAcetam 250MG TABLET (KEPPRA) PO SCH ×2 (10:41→21:13)
[2020-05-28] MEDS: METOPROLOL TART 12.5 MG PER 1/2 TAB PO SCH ×2 (10:42→21:14)
[2020-05-28 11:28] LABS: HEPATITIS A ANTIBODY IGM NEGATIVE (NEGATIVE); HEPATITIS B CORE ANTIBODY IGM NEGATIVE (NEGATIVE); HEPATITIS B SURFACE ANTIGEN NEGATIVE (NEGATIVE); HEPATITIS C VIRUS ABY INDEX 0.1 INDEX (<0.8)
[2020-05-28 17:00] VITALS: BP 136/70
--- NOTE | 2020-05-28 18:16 | IPNPDOC ---
Text Note Date of Service The patient was seen on 05/28/20. NOTE Subjective: Patient seen at bedside 05/28/2020. Patient reports feeling better, improving slowly. Eating well and had a bowel movement. Denies chest pain, shortness of breath, abdominal pain, diarrhea and dysuria. Objective: General: Patient is awake, alert, oriented times three, lying in bed, no apparent distress. HEENT: Extraocular movement intact, crusted lesion on face and neck. Cardiovascular: S1, S2, normal rhythm, no murmur, rub, or gallop Respiratory: Chest is clear to auscultation bilaterally, No rhonchi, wheezes or rubs. Abdomen: Soft, bowel sounds positive, no bruits. No tenderness on palpation. Liver edge, spleen, kidney not felt, no masses. Extremities and skin: He has crusted lesions over the left shoulder posteriorly. Vesicles and bullae noted on his left arm and forearm reduced in size than yesterday, inflammatory papules are noted on the back, chest, face, behind neck. His lesions look less tense than yesterday. Patient denies having pain or itching. Spine: No kyphosis, no para-spinal tenderness, no costovertebral tenderness. Central nervous system (MANAGER INTERNET): Awake, alert and fully oriented. 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 He denies having any fever, chills, nausea, vomiting and chest pain. He reports experiencing loss of appetite and weight loss. Plan: 1. Rash: 2/2 Herpes zoster - Dermatology consulted, and we are following their recommendations. - Patient reports having a history of an elastic band allergy as an . - Continue acyclovir for 10-14 days, switched to by mouth Valtrex if the patient improves[typically Valtrex 1 g by mouth 3 times a day] - VZV IgM antibody 1.16[elevated], HSV 1 & 2 IgM AB 1.36[elevated], HIV negat kiley, hepatitis panel negative and Blood cultures negative, MRSA negative. - Coagulation panel normal, IgA pending 2. Sepsis: - Secondary to viral infection, patient is tachycardic, no fevers overnight. -Continue metoprolol. - Blood cultures negative, continue IV fluids. 3. Sprained left shoulder: - Received a corticosteroid injection with orthopedic surgery on Tuesday [05/20/2020]. 4. Oligodendroglioma: - Status post resection 05/2018 5. Seizure: - Last seizure was in November 2019. - Continue Keppra. 6. DVT prophylaxis: - Heparin SC Disposition: pending clinical improvement will switch him to oral medication and plan for discharge after PT/OT clearance. *Note written by Amos Parra MD and reviewed. VS,Maranda, I+O VSMaranda, I+O Laboratory Tests 05/28/20 05:47 Vital Signs Date Time Temp Pulse Resp B/P (MAP) Pulse Ox O2 Delivery O2 Flow Rate FiO2 05/28/20 17:00 99.7 100 18 136/70 (92) 95 Room Air I&O- Last 24 Hours up to 6 AM 05/28/20 06:00 Intake Total 5010 ml Output Total 6750 ml Balance -1740 ml SAUMYA NATARAJAN D.O. May 28, 2020 18:16
[2020-05-28 20:00] VITALS: BP 131/77
[2020-05-29] MEDS: D5W IV SCH ×2 (01:48→10:33)
[2020-05-29] MEDS: ACYCLOVIR IV SCH ×2 (01:48→10:33)
[2020-05-29 02:00] VITALS: BP 124/76
[2020-05-29] MEDS: NS 1,000 ML IV SCH ×2 (04:47→11:29)
[2020-05-29] MEDS: HEPARIN SOD (PORCINE) 5000UNITS/ML 1ML VIAL/SYRINGE SC SCH (04:47)
[2020-05-29 06:08] LABS: IGASUB2 173.5 mg/dL (73.2-301.2); IGASUB3 25.8 mg/dL (13.4-97.9)
[2020-05-29 06:53] LABS: BASO % 0.3 % (0.0-1.0); EOS # 0.2 10^3/uL (0.0-0.5); HEMATOCRIT 37.8 % (42.0-52.0); LYMPH # 1.6 10^3/uL (1.5-5.0); LYMPH % 25.1 % (24.0-44.0); MEAN CORPUSCULAR HEMOGLOBIN 31.9 pg (27.0-33.0); MEAN CORPUSCULAR HGB CONC 34.4 g/dl (32.0-36.5); MEAN CORPUSCULAR VOLUME 92.9 fl (80.0-96.0); MONO # 0.4 10^3/uL (0.0-0.8); MONO % 6.5 % (0.0-5.0); NEUTROPHILS # 4.1 10^3/uL (1.5-8.5); NEUTROPHILS % 64.2 % (36.0-66.0); PLATELET COUNT, AUTOMATED 126 10^3/uL (150-450); RED BLOOD COUNT 4.07 10^6/uL (4.30-6.10); WHITE BLOOD COUNT 6.4 10^3/uL (4.0-10.0)
[2020-05-29 07:16] LABS: ALBUMIN 2.9 GM/DL (3.2-5.2); ALT/SGPT 170 U/L (12-78); BILIRUBIN,TOTAL 0.5 MG/DL (0.2-1.0); BLOOD UREA NITROGEN 20 MG/DL (7-18); CALCIUM LEVEL 8.4 MG/DL (8.5-10.1); CARBON DIOXIDE LEVEL 26 MEQ/L (21-32); CHLORIDE LEVEL 105 MEQ/L (98-107); GLOMERULAR FILTRATION RATE > 60.0 (>60); GLUCOSE, FASTING 105 MG/DL (70-100); MAGNESIUM LEVEL 2.3 MG/DL (1.8-2.4); POTASSIUM SERUM 4.5 MEQ/L (3.5-5.1); SODIUM LEVEL 137 MEQ/L (136-145); TOTAL PROTEIN 6.6 GM/DL (6.4-8.2)
[2020-05-29 09:00] VITALS: BP 148/78
[2020-05-29] MEDS: levETIRAcetam 250MG TABLET (KEPPRA) PO SCH (09:00)
[2020-05-29] MEDS: METOPROLOL TART 12.5 MG PER 1/2 TAB PO SCH (09:00)
[2020-05-31] MEDS ORDERED: HEPARIN SOD (PORCINE) 5000UNITS/ML 1ML VIAL/SYRINGE ONE ×3 (05:21→22:33)
[2020-05-31] MEDS ORDERED: levETIRAcetam 250MG TABLET (KEPPRA) ONE ×2 (08:46→20:20)
[2020-05-31] MEDS ORDERED: METOPROLOL TART 12.5 MG PER 1/2 TAB ONE ×2 (08:46→20:20)
[2020-05-31] MEDS ORDERED: METOPROLOL TART 12.5 MG PER 1/2 TAB As Ordered ONE (20:20)
[2020-05-31] MEDS ORDERED: levETIRAcetam 250MG TABLET (KEPPRA) As Ordered ONE (20:20)
[2020-05-31] MEDS ORDERED: HEPARIN SOD (PORCINE) 5000UNITS/ML 1ML VIAL/SYRINGE As Ordered ONE ×3 (22:32→22:35)
[2020-06-01] MEDS ORDERED: METOPROLOL TART 12.5 MG PER 1/2 TAB ONE (07:13)
[2020-06-01] MEDS ORDERED: HEPARIN SOD (PORCINE) 5000UNITS/ML 1ML VIAL/SYRINGE As Ordered ONE (07:13)
[2020-06-01] MEDS ORDERED: levETIRAcetam 250MG TABLET (KEPPRA) ONE (07:13)
[2020-06-01] MEDS ORDERED: valACYclovir HCL 500 MG TAB ONE (07:13)
[2020-06-01] MEDS ORDERED: HEPARIN SOD (PORCINE) 5000UNITS/ML 1ML VIAL/SYRINGE ONE (07:13)
[2020-06-01] MEDS ORDERED: levETIRAcetam 250MG TABLET (KEPPRA) As Ordered ONE (10:16)
[2020-06-01] MEDS ORDERED: METOPROLOL TART 12.5 MG PER 1/2 TAB As Ordered ONE (10:16)
[2020-06-01] MEDS ORDERED: valACYclovir HCL 500 MG TAB As Ordered ONE (11:32)
[2020-06-03] MEDS ORDERED: ACETAMINOPHEN TAB 650MG DOSE (2X325MG) ONE (20:57)
[2020-06-03] MEDS ORDERED: GABAPENTIN 400 MG CAP As Ordered ONE (20:57)
[2020-06-03] MEDS ORDERED: LEVEMIR (INSULIN DETEMIR) 1 UNITS/0.01ML As Ordered ONE (20:58)
[2020-07-09 12:37] LABS: HEMATOCRIT 38.6 % (42.0-52.0); HEMOGLOBIN 13.3 g/dl (13.5-17.5); MEAN CORPUSCULAR HEMOGLOBIN 32.3 pg (27.0-33.0); MEAN CORPUSCULAR HGB CONC 34.5 g/dl (32.0-36.5); MEAN CORPUSCULAR VOLUME 93.7 fl (80.0-96.0); PLATELET COUNT, AUTOMATED 175 10^3/uL (150-450); RED BLOOD COUNT 4.12 10^6/uL (4.30-6.10); WHITE BLOOD COUNT 7.2 10^3/uL (4.0-10.0)
[2020-07-15 09:59] LABS: BLOOD UREA NITROGEN 16 MG/DL (7-18); GLUCOSE, FASTING 127 MG/DL (70-100)
[2020-07-15 10:00] LABS: CALCIUM LEVEL 8.5 MG/DL (8.5-10.1); CARBON DIOXIDE LEVEL 25 mmol/L (20-29); CHLORIDE LEVEL 108 MEQ/L (98-107); GLOMERULAR FILTRATION RATE > 60.0 (>60); POTASSIUM SERUM 4.3 MEQ/L (3.5-5.1); SODIUM LEVEL 140 MEQ/L (136-145)
[2020-07-15 13:18] LABS: BLOOD UREA NITROGEN 19 MG/DL (7-18); GLOMERULAR FILTRATION RATE > 60.0 (>60); GLUCOSE, FASTING 104 MG/DL (70-100)
[2020-07-15 13:19] LABS: ALT/SGPT 137 IU/L (0-32); BILIRUBIN,TOTAL 0.5 MG/DL (0.2-1.0); CALCIUM LEVEL 8.8 MG/DL (8.5-10.1); CARBON DIOXIDE LEVEL 27 mmol/L (20-29); CHLORIDE LEVEL 105 MEQ/L (98-107); MAGNESIUM LEVEL 2.3 MG/DL (1.8-2.4); POTASSIUM SERUM 4.6 MEQ/L (3.5-5.1); SODIUM LEVEL 139 MEQ/L (136-145)
== END 2020-06-01 13:00 | disposition home or self-care (01) | DRG 720 ==
LOC: M ED 17:46 → M ED INP 05-25 00:13 → M MSPAV 05-25 05:10 → M PCU 05-25 20:16
PROVIDERS: ADMIT Internal Medicine; ATTEND Internal Medicine
DX: A41.9 Sepsis, unspecified organism (principal); E87.0 Hyperosmolality and hypernatremia; E87.2 Acidosis; B01.89 Other varicella complications; Z88.0 Allergy status to penicillin; Z79.899 Other long term (current) drug therapy; B02.8 Zoster with other complications

== ENCOUNTER → 2020-06-15 | Emergency (ER) | payer OTHER ==
[~2020-06-15] MED LIST changes: +DOXY100C37 PO; +GABAPENTIN 300 MG CAP As Ordered ONE; +GABAPENTIN 300 MG CAP ONE; +NEUR300C PO; +PRED20TA PO; +VALA1TAB5
== END | disposition home or self-care (01) ==
LOC: M ED 23:27
DX: B02.23 Postherpetic polyneuropathy (principal); R56.9 Unspecified convulsions; Z88.0 Allergy status to penicillin; Z88.1 Allergy status to other antibiotic agents; Z79.899 Other long term (current) drug therapy

== ENCOUNTER → 2020-07-07 | Outpatient (RCR) | payer OTHER ==
[~2020-07-07] MED LIST changes: -GABAPENTIN 300 MG CAP As Ordered ONE; -GABAPENTIN 300 MG CAP ONE
== END ==
LOC: M PT 13:19
PROVIDERS: ATTEND Orthopaedic Surgery Sports Medicine
DX: S46.012D Strain of muscle(s) and tendon(s) of the rotator cuff of left shoulder, subsequent encounter (principal); W18.30XD Fall on same level, unspecified, subsequent encounter; Y92.9 Unspecified place or not applicable

== ENCOUNTER 2020-07-18 19:57 | Emergency (ER) | payer OTHER ==
[~2020-07-18] VITALS: Ht 180.3 cm; Wt 90.5 kg
[~2020-07-18 19:57] MED LIST changes: -DOXY100C37 PO; -NEUR300C PO; -VALA1TAB5
[2020-07-18 21:18] LABS: BASO % 0.4 % (0.0-1.0); EOS # 0.3 10^3/uL (0.0-0.5); EOS % 4.8 % (0.0-3.0); HEMATOCRIT 40.1 % (42.0-52.0); HEMOGLOBIN 13.9 g/dl (13.5-17.5); LYMPH # 1.2 10^3/uL (1.5-5.0); LYMPH % 23.6 % (24.0-44.0); MEAN CORPUSCULAR HEMOGLOBIN 32.7 pg (27.0-33.0); MEAN CORPUSCULAR HGB CONC 34.7 g/dl (32.0-36.5); MEAN CORPUSCULAR VOLUME 94.4 fl (80.0-96.0); MONO # 0.5 10^3/uL (0.0-0.8); MONO % 9.8 % (0.0-5.0); NEUTROPHILS # 3.2 10^3/uL (1.5-8.5); NEUTROPHILS % 61.2 % (36.0-66.0); PLATELET COUNT, AUTOMATED 181 10^3/uL (150-450); RED BLOOD COUNT 4.25 10^6/uL (4.30-6.10); WHITE BLOOD COUNT 5.2 10^3/uL (4.0-10.0)
[2020-07-18 21:40] LABS: BLOOD UREA NITROGEN 20 MG/DL (7-18); C REACTIVE PROTEIN QUANTITATIV 0.41 MG/DL (0.00-0.30); CALCIUM LEVEL 8.9 MG/DL (8.5-10.1); CARBON DIOXIDE LEVEL 28 MEQ/L (21-32); CHLORIDE LEVEL 105 MEQ/L (98-107); CREATININE FOR GFR 1.22 MG/DL (0.70-1.30); GLOMERULAR FILTRATION RATE > 60.0 (>60); GLUCOSE, FASTING 127 MG/DL (70-100); SODIUM LEVEL 139 MEQ/L (136-145)
--- NOTE | 2020-07-18 21:41 | REPVR ---
PROCEDURE INFORMATION: Exam: US Left Non-Vascular Joint or Other Extremity Structure, Limited Upper Extremity Exam date and time: 07/18/2020 9:26 PM Age: 44 years old Clinical indication: Mass or lump; Arm, lower; Left; Additional info: 2 tender indurated areas to left forearm TECHNIQUE: Imaging protocol: Left US joint or other nonvascular extremity structure or structures. Real-time ultrasound with image documentation. Limited study. Exam focused on the upper extremity in the region of clinical interest. COMPARISON: No relevant prior studies available. FINDINGS: Soft tissues: There are 2 subcutaneous hypoechoic areas in the forearm. One is more proximal measuring 10 x 10 x 3 mm with no internal vascularity. There is another more distal measuring 13 x 6 x 17 mm. No surrounding hypervascularity is noted. IMPRESSION: 2 hypoechoic areas in the left forearm with 1 more proximal measuring 10 x 10 x 3 and 1 more distal measuring 13 x 6 x 17 mm. Findings may reflect lymphoceles or seroma formations. Abscess is not excluded. Significant surrounding hypervascularity is not seen. Electronically signed by: Ralph Bella On 07/18/2020 21:40:16 PM
[2020-07-18 21:42] LABS: ERYTHROCYTE SEDIMENTATION RATE 50 mm/hr (0-15)
[2020-07-18] MEDS ORDERED: DOXYCYCLINE HYCLATE 100MG TABLET PO ONE (22:15)
[2020-07-18] MEDS ORDERED: DOXY100C37 PO (22:15)
[2020-07-18 22:34] VITALS: BP 129/85
--- NOTE | 2020-07-21 13:11 | ED PDOC ---
Post-Departure Follow-Up dr domingo faxed formal report of extremity us for fu John Casas MD Jul 21, 2020 13:11
== END 2020-07-18 22:40 | disposition home or self-care (01) ==
LOC: M ED 19:57
DX: L03.114 Cellulitis of left upper limb (principal); Z88.0 Allergy status to penicillin; Z88.1 Allergy status to other antibiotic agents; Z79.899 Other long term (current) drug therapy

== ENCOUNTER 2020-07-27 14:45 | Emergency (ER) | payer OTHER ==
[~2020-07-27] VITALS: Ht 180.3 cm; Wt 90.7 kg
[~2020-07-27 14:45] MED LIST changes: +DOXY100C37 PO
[2020-07-27 14:46] VITALS: BP 111/72
[2020-07-27] MEDS ORDERED: VALA1TAB5 (14:58)
[2020-07-27] MEDS ORDERED: NEUR300C PO (16:05)
[2020-07-27] MEDS ORDERED: GABAPENTIN 300 MG CAP PO ONE (16:15)
== END 2020-07-27 16:22 | disposition home or self-care (01) ==
LOC: M ED 14:45
DX: B02.23 Postherpetic polyneuropathy (principal); Z88.0 Allergy status to penicillin; Z88.1 Allergy status to other antibiotic agents; Z79.899 Other long term (current) drug therapy

== ENCOUNTER → 2020-08-06 | Outpatient (RCR) | payer OTHER ==
[~2020-08-06] MED LIST changes: +NEUR300C PO; +VALA1TAB5
== END ==
LOC: M PT 07-10 11:42
PROVIDERS: ATTEND Orthopaedic Surgery Sports Medicine
DX: S46.012A Strain of muscle(s) and tendon(s) of the rotator cuff of left shoulder, initial encounter (principal); X58.XXXA Exposure to other specified factors, initial encounter; Y92.9 Unspecified place or not applicable

== ENCOUNTER 2020-08-11 11:45 | Outpatient (RCR) | payer OTHER | END 2020-09-06 | LOC: M PT 11:45 | PROVIDERS: ATTEND Orthopaedic Surgery Sports Medicine | DX: S46.012D Strain of muscle(s) and tendon(s) of the rotator cuff of left shoulder, subsequent encounter (principal); X58.XXXD Exposure to other specified factors, subsequent encounter; Y92.89 Other specified places as the place of occurrence of the external cause ==

== ENCOUNTER 2020-09-05 22:50 | Emergency (ER) | payer OTHER ==
[~2020-09-05] VITALS: Ht 180.3 cm; Wt 93.0 kg
[2020-09-05] MEDS ORDERED: NS 1,000 ML IV SCH (23:12)
[2020-09-05] MEDS ORDERED: ASPIRIN 81 MG CHEW TABLET PO ONE (23:15)
[2020-09-05] MEDS ORDERED: GI COCKTAIL 50ML BTL(HYOSCYAMINE/MAALOX/LIDOCAINE VISCOUS)(1:3:1) PO ONE (23:15)
[2020-09-05 23:22] LABS: BASO % 0.4 % (0.0-1.0); EOS # 0.2 10^3/uL (0.0-0.5); EOS % 4.3 % (0.0-3.0); HEMATOCRIT 40.5 % (42.0-52.0); HEMOGLOBIN 14.1 g/dl (13.5-17.5); LYMPH # 1.7 10^3/uL (1.5-5.0); LYMPH % 35.9 % (24.0-44.0); MEAN CORPUSCULAR HEMOGLOBIN 32.6 pg (27.0-33.0); MEAN CORPUSCULAR HGB CONC 34.8 g/dl (32.0-36.5); MEAN CORPUSCULAR VOLUME 93.8 fl (80.0-96.0); MONO # 0.6 10^3/uL (0.0-0.8); MONO % 11.5 % (0.0-5.0); NEUTROPHILS # 2.3 10^3/uL (1.5-8.5); NEUTROPHILS % 47.7 % (36.0-66.0); PLATELET COUNT, AUTOMATED 190 10^3/uL (150-450); RED BLOOD COUNT 4.32 10^6/uL (4.30-6.10); WHITE BLOOD COUNT 4.9 10^3/uL (4.0-10.0)
[2020-09-05 23:34] LABS: INR 0.84; PROTHROMBIN TIME 11.7 SECONDS (12.5-14.3)
[2020-09-05 23:51] LABS: ALBUMIN 3.9 GM/DL (3.2-5.2); ALT/SGPT 39 U/L (12-78); BILIRUBIN,DIRECT < 0.1 MG/DL (0.0-0.2); BILIRUBIN,TOTAL 0.5 MG/DL (0.2-1.0); BLOOD UREA NITROGEN 25 MG/DL (7-18); CALCIUM LEVEL 8.4 MG/DL (8.5-10.1); CARBON DIOXIDE LEVEL 26 MEQ/L (21-32); CHLORIDE LEVEL 107 MEQ/L (98-107); CREATININE FOR GFR 1.15 MG/DL (0.70-1.30); GLOMERULAR FILTRATION RATE > 60.0 (>60); GLUCOSE, FASTING 117 MG/DL (70-100); LIPASE 105 U/L (73-393); POTASSIUM SERUM 4.2 MEQ/L (3.5-5.1); SODIUM LEVEL 140 MEQ/L (136-145); TOTAL PROTEIN 8.2 GM/DL (6.4-8.2)
--- NOTE | 2020-09-05 23:52 | REPVR ---
PROCEDURE INFORMATION: Exam: XR Chest, 1 View Exam date and time: 09/05/2020 11:42 PM Age: 44 years old Clinical indication: Other: Chest pain TECHNIQUE: Imaging protocol: XR of the chest Views: 1 view. COMPARISON: CT Chest without contrast 05/25/2020 1:47 AM FINDINGS: Lungs: Unremarkable. No consolidation. Pleural space: Unremarkable. No pleural effusion. No pneumothorax. Heart/Mediastinum: Unremarkable. No cardiomegaly. Bones/joints: Unremarkable. IMPRESSION: Negative chest. Electronically signed by: Ralph Bella On 09/05/2020 23:52:21 PM
[2020-09-06 00:21] VITALS: BP 142/83
[2020-09-06 01:30] LABS: TROPONIN I < 0.02 NG/ML (< 0.10)
--- NOTE | 2020-09-06 08:02 | ECGEPIP ---
[facility] - ED Test Date: 2020-09-05 Pat Name: JANIE CASTILLO Department: Room: - Gender: Male [employer]: juanito : 1975 Requested By: ROB GOOD Order Number: [id number] Reading MD: Arturo Lawrence Measurements Intervals [place] Rate: 82 P: 6 TX: 106 QRS: -15 QRSD: 110 T: 68 QT: 333 QTc: 390 Interpretive Statements SINUS RHYTHM WITH SHORT TX INTERVAL INCOMPLETE RIGHT BUNDLE BRANCH BLOCK BASELINE ARTIFACT AFFECTS INTERPRETATION Electronically Signed on 09-06-2020 8:02:09 EDT by Arturo Lawrence
== END 2020-09-06 01:40 | disposition home or self-care (01) ==
LOC: M ED 22:50
DX: R07.9 Chest pain, unspecified (principal); R94.31 Abnormal electrocardiogram [ECG] [EKG]; Z88.0 Allergy status to penicillin; Z88.1 Allergy status to other antibiotic agents; Z79.899 Other long term (current) drug therapy

== ENCOUNTER → 2020-09-12 | Outpatient (CLI) | payer OTHER ==
--- NOTE | 2020-09-12 11:06 | REP ---
INDICATION: LT SHOULDER PAIN FILE ROOM. COMPARISON: Radiographs 05/19/2020. TECHNIQUE: Coronal oblique T1, T2 fat sat, sagittal oblique T2 fat sat, axial T2 fat sat, gradient echo. FINDINGS: Rotator cuff: There is diffuse ill-defined high signal on T2 weighted images involving the visualized supraspinatus, infraspinatus and subscapularis muscles suggesting diffuse muscle strain. There is also mild ill-defined high signal in the subscapularis and supraspinatus tendons compatible with tendinopathy/tendinitis. I do not see a discrete rotator cuff tendon tear. Acromioclavicular joint: There are mild hypertrophic degenerative changes with a tiny amount of fluid in the joint. Acromion: Type 2 Biceps Tendon: The biceps tendon is within the bicipital groove mild surrounding fluid possibly indicating mild tenosynovitis. Hill Sach's deformity: None. Deltoid muscle: No abnormal signal. Biceps labral complex: Mild fraying. Labrum: No tear. Cartilage: No defects. 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 More inferolaterally there are tiny areas of subcortical cystic change. Joint fluid: No effusion. IMPRESSION: Diffuse increased signal on T2 weighted images involving the supraspinatus, infraspinatus and subscapularis muscles suggesting diffuse muscle strain. Tendinopathy/tendinitis supraspinatus and subscapularis tendons without evidence of a discrete rotator cuff tendon tear. Mild hypertrophic degenerative changes acromioclavicular joint with type 2 acromion. Mild fraying of the biceps labral complex. No discrete labral tear identified. Mild fluid surrounding the biceps tendon in the bicipital groove may indicate mild tenosynovitis. Abnormal signal in the superior humeral head characteristic of avascular necrosis. <Electronically signed by Tre Copeland > 09/12/20 [id number]
== END ==
LOC: M RAD 09:11
PROVIDERS: ATTEND Orthopaedic Surgery Sports Medicine
DX: M25.512 Pain in left shoulder (principal)

== ENCOUNTER 2020-09-26 05:51 | Emergency (ER) | payer OTHER ==
[~2020-09-26] VITALS: Ht 180.3 cm; Wt 95.9 kg
[2020-09-26] MEDS ORDERED: NEOM1SUS13 AS (05:58)
[2020-09-26] MEDS ORDERED: IBUP-1720 PO (06:30)
[2020-09-26] MEDS ORDERED: ACETAMINOPHEN 500 MG TAB PO ONE (06:45)
[2020-09-26 07:19] LABS: BASO % 0.2 % (0.0-1.0); EOS # 0.1 10^3/uL (0.0-0.5); EOS % 1.1 % (0.0-3.0); HEMOGLOBIN 13.2 g/dl (13.5-17.5); LYMPH # 1.1 10^3/uL (1.5-5.0); LYMPH % 13.1 % (24.0-44.0); MEAN CORPUSCULAR HEMOGLOBIN 31.8 pg (27.0-33.0); MEAN CORPUSCULAR HGB CONC 33.8 g/dl (32.0-36.5); MONO # 0.7 10^3/uL (0.0-0.8); MONO % 8.4 % (0.0-5.0); NEUTROPHILS # 6.3 10^3/uL (1.5-8.5); NEUTROPHILS % 76.8 % (36.0-66.0); PLATELET COUNT, AUTOMATED 161 10^3/uL (150-450); RED BLOOD COUNT 4.15 10^6/uL (4.30-6.10); WHITE BLOOD COUNT 8.2 10^3/uL (4.0-10.0)
--- NOTE | 2020-09-26 07:21 | REPVR ---
PROCEDURE INFORMATION: Exam: CT Temporal Bones Without Contrast. Exam date and time: 09/26/2020 6:42 AM Age: 44 years old Clinical indication: Pain; Other: Right ear; Additional info: R severe ear canal swelling with mastoid tenderness TECHNIQUE: Imaging protocol: Computed tomography images of the temporal bones without contrast. Radiation optimization: All CT scans at this facility use at least one of these dose optimization techniques: automated exposure control; mA and/or kV adjustment per patient size (includes targeted exams where dose is matched to clinical indication); or iterative reconstruction. COMPARISON: CT Head without contrast 11/26/2019 1:11 AM FINDINGS: Right inner ear: Normal. Right ossicles and middle ear: There is soft tissue in the right middle ear, mostly around the ossicles and a small amount in the epitympanum. There is thickening of the right tympanic membrane. There is slight blunting of the right scutum. The ossicles appear intact. Right external auditory canal: There is diffuse swelling of the soft tissues in the right external auditory canal, approaching the tympanic membrane. Right facial nerve canal: Normal. Right jugular foramen: No jugular dehiscence. Right carotid canal: No aberrent carotid canal. Right mastoid air cells: There is partial opacification of the right mastoid air cells. No associated sclerosis or destructive changes identified. Left inner ear: Normal. Left ossicles and middle ear: Normal. Left external auditory canal: Normal. Left facial nerve canal: Normal. Left jugular foramen: No jugular dehiscence. Left carotid canal: No aberrent carotid canal. Left mastoid air cells: The left mastoid air cells are clear. Soft tissues: Unremarkable. IMPRESSION: 1. Diffuse thickening of the soft tissues of the right external auditory canal, consistent with otitis externa. 2. Thickened right tympanic membrane and soft tissue in the right middle ear, mostly around the ossicles and a small amount in the epitympanum, as well as a small amount of fluid in the right mastoid air cells, most consistent with chronic otitis media. There is slight blunting of the right scutum but there is no erosion of the ossicles and no bony changes of the right mastoid identified. Electronically signed by: Sharon Mathew On 09/26/2020 07:21:04 AM
[2020-09-26 07:38] LABS: ERYTHROCYTE SEDIMENTATION RATE 60 mm/hr (0-15)
[2020-09-26] MEDS ORDERED: NS 1,000 ML IV ONE (07:45)
[2020-09-26] MEDS ORDERED: AZIT-12 PO (07:51)
[2020-09-26 10:09] VITALS: BP 124/81
--- NOTE | 2020-09-26 21:37 | ECGEPIP ---
[facility] - ED Test Date: 2020-09-26 Pat Name: JANIE CASTILLO Department: Room: - Gender: Male Care Taker: CESILIA : 1975 Requested By: EMILIANO GOOD Order Number: [id number] Reading MD: Verona Burks Measurements Intervals [place] Rate: 102 P: 30 TN: 143 QRS: 7 QRSD: 106 T: 55 QT: 311 QTc: 406 Interpretive Statements SINUS TACHYCARDIA ABNORMAL RHYTHM ECG INCOMPLETE BUNDLE BRANCH BLOCK INCREASED RATE 09/05/20 Electronically Signed on 09-26-2020 21:36:40 EST by Verona Burks
[2020-09-26] MEDS ORDERED: NAPR-837 PO (23:27)
== END 2020-09-26 10:15 | disposition home or self-care (01) ==
LOC: M ED 05:51
DX: H66.91 Otitis media, unspecified, right ear (principal); H60.91 Unspecified otitis externa, right ear; R50.9 Fever, unspecified; R00.0 Tachycardia, unspecified; I45.10 Unspecified right bundle-branch block; G40.909 Epilepsy, unspecified, not intractable, without status epilepticus; Z85.841 Personal history of malignant neoplasm of brain; Z88.0 Allergy status to penicillin; Z88.1 Allergy status to other antibiotic agents; Z79.899 Other long term (current) drug therapy

== ENCOUNTER 2020-09-26 22:00 | Emergency (ER) | payer OTHER ==
[~2020-09-26] VITALS: Ht 180.3 cm; Wt 95.5 kg
[~2020-09-26 22:00] MED LIST changes: +AZIT-12 PO; +IBUP-1720 PO; +NEOM1SUS13 AS
[2020-09-26 22:01] VITALS: BP 125/86
[2020-09-26] MEDS ORDERED: NAPR-837 PO (23:27)
[2020-09-26] MEDS ORDERED: NAPROXEN 250 MG TAB PO ONE (23:30)
== END 2020-09-26 23:45 | disposition home or self-care (01) ==
LOC: M ED 22:00
DX: M25.512 Pain in left shoulder (principal); G89.29 Other chronic pain; Z79.899 Other long term (current) drug therapy; Z79.2 Long term (current) use of antibiotics; Z88.0 Allergy status to penicillin

== ENCOUNTER 2020-10-17 12:29 | Outpatient (RCR) | payer OTHER ==
[~2020-10-17 12:29] MED LIST changes: +NAPR-837 PO
== END 2020-11-06 ==
LOC: M PT 12:29
PROVIDERS: ATTEND Family Medicine
DX: Z51.89 Encounter for other specified aftercare (principal); M25.512 Pain in left shoulder

== ENCOUNTER 2020-10-27 19:40 | Emergency (ER) | payer OTHER ==
[~2020-10-27] VITALS: Ht 180.3 cm; Wt 93.8 kg
[2020-10-27 20:23] LABS: BASO % 0.2 % (0.0-1.0); EOS # 0.1 10^3/uL (0.0-0.5); EOS % 2.6 % (0.0-3.0); HEMOGLOBIN 13.6 g/dl (13.5-17.5); LYMPH # 1.3 10^3/uL (1.5-5.0); LYMPH % 28.6 % (24.0-44.0); MEAN CORPUSCULAR HEMOGLOBIN 30.8 pg (27.0-33.0); MEAN CORPUSCULAR VOLUME 90.7 fl (80.0-96.0); MONO # 0.5 10^3/uL (0.0-0.8); MONO % 10.2 % (0.0-5.0); NEUTROPHILS # 2.7 10^3/uL (1.5-8.5); NEUTROPHILS % 58.2 % (36.0-66.0); PLATELET COUNT, AUTOMATED 163 10^3/uL (150-450); RED BLOOD COUNT 4.41 10^6/uL (4.30-6.10); WHITE BLOOD COUNT 4.7 10^3/uL (4.0-10.0)
--- NOTE | 2020-10-27 20:39 | REPVR ---
PROCEDURE INFORMATION: Exam: XR Chest, 1 View Exam date and time: 10/27/2020 8:03 PM Age: 45 years old Clinical indication: Chest pain TECHNIQUE: Imaging protocol: XR of the chest Views: 1 view. COMPARISON: 1. CR PORTABLE CHEST X-RAY 09/05/2020 11:[address] Chest without contrast 05/25/2020 1:47:02 AM FINDINGS: Lungs: Unremarkable. No consolidation. No pulmonary edema. Pleural space: Unremarkable. No pleural effusion or pneumothorax is identified. Heart/Mediastinum: Unremarkable. No cardiomegaly. Bones/joints: Unremarkable. IMPRESSION: No acute findings. Electronically signed by: Mickey Parks On 10/27/2020 20:39:43 PM
[2020-10-27 20:52] LABS: BLOOD UREA NITROGEN 23 MG/DL (7-18); CALCIUM LEVEL 8.7 MG/DL (8.5-10.1); CARBON DIOXIDE LEVEL 30 MEQ/L (21-32); CHLORIDE LEVEL 106 MEQ/L (98-107); CK-MB VALUE MASS < 1.0 NG/ML (<3.6); CPK CREATINE PHOSPHOKINASE 64 U/L (39-308); CREATININE FOR GFR 1.46 MG/DL (0.70-1.30); GLOMERULAR FILTRATION RATE 56.1 (>60); GLUCOSE, FASTING 132 MG/DL (70-100); MB/CK RELATIVE INDEX 1.56 (< OR =4); POTASSIUM SERUM 4.5 MEQ/L (3.5-5.1); SODIUM LEVEL 140 MEQ/L (136-145); TROPONIN I < 0.02 NG/ML (< 0.10)
[2020-10-27 21:30] VITALS: BP 122/81
--- NOTE | 2020-10-28 00:40 | ECGEPIP ---
[facility] - ED Test Date: 2020-10-27 Pat Name: JANIE CASTILLO Department: Room: - Gender: Male [employer]: : 1975 Requested By: Arturo Quevedo Order Number: [id number] Reading MD: Arturo Lawrence Measurements Intervals [place] Rate: 86 P: 54 UT: 151 QRS: 31 QRSD: 106 T: 58 QT: 337 QTc: 405 Interpretive Statements SINUS RHYTHM POSSIBLE INCOMPLETE RIGHT BUNDLE BRANCH BLOCK RATE CHANGE COMPARED TO 09/26/20 Electronically Signed on 10-28-2020 0:39:58 EST by Arturo Lawrence
== END 2020-10-27 21:32 | disposition home or self-care (01) ==
LOC: M ED 19:40
DX: R07.9 Chest pain, unspecified (principal); Z88.0 Allergy status to penicillin; Z88.1 Allergy status to other antibiotic agents

== ENCOUNTER 2020-11-05 22:05 | Emergency (ER) | payer OTHER ==
[~2020-11-05] VITALS: Ht 180.3 cm; Wt 93.8 kg
[2020-11-05 22:06] VITALS: BP 126/78
== END 2020-11-06 00:28 | disposition left against medical advice (07) ==
LOC: M ED 22:05
DX: Z53.29 Procedure and treatment not carried out because of patient's decision for other reasons (principal)

== ENCOUNTER 2020-11-26 01:13 | Emergency (ER) | payer MEDICARE, OTHER ==
[~2020-11-26] VITALS: Ht 180.3 cm; Wt 94.2 kg
[~2020-11-26 01:13] MED LIST changes: +SIME80CH5 PO; -SIME80TA PO
--- OUTSIDE RECORDS SUMMARY | 2020-11-26 01:21 | CCD ---
Author Author [facility] Organization [facility] Address Unknown Phone Unavailable Care Team Providers Care Research Subject Name Role Phone Darlene Sosa Unavailable PROBLEMS Type Condition ICD9-CM Code LOP92-GA Code Onset Dates Condition S tatus SNOMED Code Notes Problem Status post radiation therapy Z92.3 Active 42 2365064 Problem History of oligodendroglioma of brain Z85.841 Active 112847577864535 Problem Post-inflammatory hyperpigmentation L81.0 Acti ve 174349954 Problem Brachial plexopathy G54.0 Active 8669584 Problem Pain in left shoulder M25.512 Active 78005798 Problem Other chronic pain G89.29 Active 07939431 Problem Neuralgia, 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 5958442 Problem Scar condition and fibrosis of skin L90.5 Acti ve 071438325 ALLERGIES Allergen (clinical drug ingredient) Drug/Non Drug Allergy do cumented on EMR Reaction Allergy Type Onset Date Status Penicillin (For Allergies Use Only) Nausea/Vomiting Drug A llergy Active ENCOUNTERS from 1977 to 2020-11-10 Encounter Location Date Provider Diagnosis [facility] [address] [place] [address] Oct Darlene Smithoecarlos IMMUNIZATIONS No Information SOCIAL HISTORY Tobacco Use: Social History Observation Description Date Details (start date - stop date) Never Smoker Sex Assigned At : Social History Observation Description Sex Assigned At Unknown Education: Question Answer Notes Level of Education: Finished High School Audit Question Answer Notes Total Score: 0 Interpretation: Alcohol Education Language: Question Answer Notes Languages spoken: [place] Tenriism: Question Answer Notes Tenriism 08 Muslim Sexual Hx: Question Answer Notes Had sex in the last 12 months (vaginal, oral, or anal)? Yes Have you ever had an STD? No with Women only Use protection? No Drug and Alcohol Question Answer Notes Total Score: 0 Interpretation: No problems reported Alcohol Screening: Question Answer Notes Did you have a drink containing alcohol in the past year? No Points 0 Interpretation Negative BMI Care Goal Follow-Up Question Answer Notes Above Normal BMI Follow-Up Dietary management educatio n, guidance, and counseling Tobacco Use: Question Answer Notes Are you a: never smoker never smoker updated 05/21/2020 REASON FOR REFERRAL No Information VITAL SIGNS No information MEDICATIONS Medication SIG (Take, Route, Frequency, Duration) Notes Start Da te End Date Status Vitamin D 400 UNIT 2 capsules Orally Once a day Active Zinc 10 MG Orally Active Garlic 300 MG Orally Active Multi Vitamin - 1 tablet Orally Once a day Active Glucosamine Chondro Complex - Orally Active Vitamin C 500 MG Orally Active Naproxen 500 MG 1 tablet with food or milk as needed Orally every 12 hrs Active Keppra 750 MG 1 tablet Orally Twice a day Active Turmeric Active PROCEDURES No Information RESULTS No Results REASON FOR VISIT er follow up MEDICAL (GENERAL) HISTORY Type Description Date Medical History brain tumor: Oligodendroglioma Surgical History partial removal of brain tumor 2018 Surgical History Platlet infusion 2019 Hospitalization History [facility] 05/14-05/26 2018 Hospitalization History [facility] 05/26-06/05 2018 Goals Section No Information Health Concerns No Information MEDICAL EQUIPMENT No Information MENTAL STATUS No Information FUNCTIONAL STATUS No Information ASSESSMENTS No Information PLAN OF TREATMENT Next Appt Details Provider Name:Darlene Sosa, 2021-02 01:30:00 PM, [address] [place] [address], [id number], Provider Name:Justus Castrejon, 2021-02 10:15:00 AM, [address] [facility], [place], [address], Insurance Providers Payer Name Payer Address Payer Phone Insured Name Patient Relati onship to Insured Coverage Start Date Coverage End Date [employer] CLAIMS DEPT [facility] [phone] [facility] [phone] JANIE CASTILLO 2018
--- OUTSIDE RECORDS SUMMARY | 2020-11-26 01:22 | CCD ---
Author Author [facility] Organization [facility] Address Unknown Phone Unavailable Care Team Providers Care Bronze Plater Name Role Phone JOSELO VALENCIA . Unavailable Unavailable Amy Ha MD Unavailable Unavailable Amy Ha MD Unavailable Unavailable Amy Ha MD Unavailable Unavailable Amy Ha MD Unavailable Unavailable Amy Ha MD Unavailable Unavailable Amy Ha MD Unavailable Unavailable Amy Ha MD Unavailable Unavailable Amy Ha MD Unavailable Unavailable Amy Ha MD Unavailable Unavailable Amy Ha MD Unavailable Unavailable Amy Ha MD Unavailable Unavailable Amy Ha MD Unavailable Unavailable Amy Ha MD Unavailable Unavailable Amy Ha MD Unavailable Unavailable Amy Ha MD Unavailable Unavailable Amy Ha MD Unavailable Unavailable Amy Ha MD Unavailable Unavailable Schoeneman, Wilburton DO Unavailable Schoeneman, Wilburton DO Unavailable Schoeneman, Wilburton DO Unavailable Schoeneman, Wilburton DO Unavailable Schoeneman, Wilburton DO Unavailable Schoeneman, Wilburton DO Unavailable Schoeneman, Darlene DO Unavailable Schoeneman, Darlene DO Unavailable Schoeneman, Wilburton DO Unavailable Schoeneman, Wilburton DO Unavailable Schoeneman, Wilburton DO Unavailable Schoeneman, Wilburton DO Unavailable Schoeneman, Wilburton DO Unavailable Schoeneman, Darlene DO Unavailable Schoeneman, Wilburton DO Unavailable Schoeneman, Wilburton DO Unavailable Schoeneman, Wilburton DO Unavailable Schoeneman, Darlene DO Unavailable Schoeneman, Wilburton DO Unavailable Schoeneman, Wilburton DO Unavailable Schoeneman, Wilburton DO Unavailable Schoeneman, Darlene DO Unavailable Schoeneman, Wilburton DO Unavailable Schoeneman, Darlene DO Unavailable Schoeneman, Wilburton DO Unavailable Schoeneman, Wilburton DO Unavailable Schoeneman, Wilburton DO Unavailable Schoeneman, Wilburton DO Unavailable Schoeneman, Wilburton DO Unavailable Schoeneman, Darlene DO Unavailable Schoeneman, Wilburton DO Unavailable Schoeneman, Wilburton DO Unavailable ADITHYA SAVAGEUM MD, PHD Unavailable Unavailabl e SAVAGE, ADITHYA GOOD MD, PHD Unavailable Unavailabl e SAVAGE, ADITHYA GOOD MD, PHD Unavailable Unavailabl e SAVAGE, ADITHYA GOOD MD, PHD Unavailable Unavailabl e SAVAEG, ADITHYA GOOD MD, PHD Unavailable Unavailabl e SAVAGE, ADITHYA GOOD MD, PHD Unavailable Unavailabl e SAVAGE, ADITHYA GOOD MD, PHD Unavailable Unavailabl e SAVAGE, ADITHYA GOOD MD, PHD Unavailable Unavailabl e SAVAGE, ADTIHYA GOOD MD, PHD Unavailable Unavailabl e SAVAGE, ADITHYA GOOD MD, PHD Unavailable Unavailabl e SAVAGE, ADITHYA GOOD MD, PHD Unavailable Unavailabl e SAVAGE, ADITHYA GOOD MD, PHD Unavailable Unavailabl e SAVAGE, ADITHYA GOOD MD, PHD Unavailable Unavailabl e SAVAGE, ADITHYA GOOD MD, PHD Unavailable Unavailabl e SAVAGE, ADITHYA GOOD MD, PHD Unavailable Unavailabl e SAVAGE, ADITHYA GOOD MD, PHD Unavailable Unavailabl e SAVAGE, ADITHYA GOOD MD, PHD Unavailable Unavailabl e SAVAGE, ADITHYA GOOD MD, PHD Unavailable Unavailabl e SAVAGE, ADITHYA GOOD MD, PHD Unavailable Unavailabl e SAVAGE, ADITHYA GOOD MD, PHD Unavailable Unavailabl e SAVAGE, ADITHYA GOOD MD, PHD Unavailable Unavailabl e SAVAGE, ADITHYA GOOD MD, PHD Unavailable Unavailabl e SAVAGE, ADITHYA GOOD MD, PHD Unavailable Unavailabl e SAVAGE, ADITHYA GOOD MD, PHD Unavailable Unavailabl e SAVAGE, ADITHYA GOOD MD, PHD Unavailable Unavailabl e SAVAGE, ADITHYA GOOD MD, PHD Unavailable Unavailabl e SAVAGE, ADITHYA GOOD MD, PHD Unavailable Unavailabl e SAVAGE, ADITHYA GOOD MD, PHD Unavailable Unavailabl e SAVAGE, ADITHYA GOOD MD, PHD Unavailable Unavailabl e SAVAGE, ADITHYA GOOD MD, PHD Unavailable Unavailabl e SAVAGE, ADITHYA GOOD MD, PHD Unavailable Unavailabl e SAVAGE, ADITHYA GOOD MD, PHD Unavailable Unavailabl e SAVAGE, ADITHYA GOOD MD, PHD Unavailable Unavailabl e MONIQUE OCONNOR . Unavailable Unavailable LLOYD MIJUNG MD Unavailable Unavailable LLOYD MIJUNG MD Unavailable Unavailable LLOYD MIJUNG MD Unavailable Unavailable LLOYD MIJUNG MD Unavailable Unavailable LLOYD MIJUNG MD Unavailable Unavailable LLOYD MIJUNG MD Unavailable Unavailable LLOYD MIJUNG MD Unavailable Unavailable LLOYD MIJUNG MD Unavailable Unavailable LLOYD MIJUNG MD Unavailable Unavailable LLOYD MIJUNG MD Unavailable Unavailable LLOYD MIJUNG MD Unavailable Unavailable LLOYD MIJUNG MD Unavailable Unavailable LLOYD MIJUNG MD Unavailable Unavailable LLOYD MIJUNG MD Unavailable Unavailable LLOYD MIJUNG MD Unavailable Unavailable LLOYD, MIJUNG MD Unavailable Unavailable LLOYD, MIJUNG MD Unavailable Unavailable LLOYD, MIJUNG MD Unavailable Unavailable LLOYD, MIJUNG MD Unavailable Unavailable LLOYD MIJUNG MD Unavailable Unavailable LLOYD, MIJUNG MD Unavailable Unavailable LLOYD, MIJUNG MD Unavailable Unavailable LLOYD, MIJUNG MD Unavailable Unavailable LLOYD, MIJUNG MD Unavailable Unavailable LLOYD MIJUNG MD Unavailable Unavailable LLOYD, MIJUNG MD Unavailable Unavailable LLOYD MIJUNG MD Unavailable Unavailable LLOYD MIJUNG MD Unavailable Unavailable LLOYD MIJUNG MD Unavailable Unavailable LLOYD MIJUNG MD Unavailable Unavailable LLOYD, MIJUNG MD Unavailable Unavailable LLOYD MIJUNG MD Unavailable Unavailable LLOYD MIJUNG MD Unavailable Unavailable LLOYD, MIJUNG MD Unavailable Unavailable LLOYD MIJUNG MD Unavailable Unavailable LLOYD MIJUNG MD Unavailable Unavailable LLOYD MIJUNG MD Unavailable Unavailable LLOYD MIJUNG MD Unavailable Unavailable LLOYD, MIJUNG MD Unavailable Unavailable LLOYD, MIJUNG MD Unavailable Unavailable LLOYD, MIJUNG MD Unavailable Unavailable LLOYD MIJUNG MD Unavailable Unavailable LLOYD MIJUNG MD Unavailable Unavailable LLOYD MIJUNG MD Unavailable Unavailable LLOYD MIJUNG MD Unavailable Unavailable LLOYD MIJUNG MD Unavailable Unavailable LLOYD MIJUNG MD Unavailable Unavailable LLOYD MIJUNG MD Unavailable Unavailable LLOYD MIJUNG MD Unavailable Unavailable LLOYD MIJUNG MD Unavailable Unavailable LLOYD MIJUNG MD Unavailable Unavailable LLOYD MIJUNG MD Unavailable Unavailable LLOYD MIJUNG MD Unavailable Unavailable LLOYD MIDEYSIG MD Unavailable Unavailable LLOYD MIJUNG Unavailable Unavailable Michelle BULL MD Unavailable Unavailable Michelle BULL MD Unavailable Unavailable Michelle BULL MD Unavailable Unavailable Michelle BULL MD Unavailable Unavailable Michelle BULL MD Unavailable Unavailable ANTECMichelle LUBIN MD Unavailable Unavailable ANTECMichelle LUBIN MD Unavailable Unavailable ANTECOL, Michelle TEIXEIRA MD Unavailable Unavailable ANTECOL, Michelle TEIXEIRA MD Unavailable Unavailable ANTECOL, Michelle TEIXEIRA MD Unavailable Unavailable ANTECOL, Michelle TEIXEIRA MD Unavailable Unavailable ANTECOL, Michelle TEIXEIRA MD Unavailable Unavailable ANTECOL, Michelle TEIXEIRA MD Unavailable Unavailable ANTECOL, Michelle TEIXEIRA MD Unavailable Unavailable ANTECOL, Michelle TEIXEIRA MD Unavailable Unavailable ANTECOL, Michelle TEIXEIRA MD Unavailable Unavailable ANTECOL, Michelle TEIXEIRA MD Unavailable Unavailable ANTECOL, Michelle TEIXEIRA MD Unavailable Unavailable ANTECOL, Michelle TEIXEIRA MD Unavailable Unavailable ANTECOL, Michelle TEIXEIRA MD Unavailable Unavailable ANTECOL, Michelle TEIXEIRA MD Unavailable Unavailable ANTECOL, Michelle TEIXEIRA MD Unavailable Unavailable ANTECOL, Michelle TEIXEIRA MD Unavailable Unavailable ANTECOL, Michelle TEIXEIRA MD Unavailable Unavailable ANTECOL, Michelle TEIXEIRA MD Unavailable Unavailable ANTECOL, Michelle TEIXEIRA MD Unavailable Unavailable ANTECOL, Michelle TEIXEIRA MD Unavailable Unavailable ANTECOL, Michelle TEIXEIRA MD Unavailable Unavailable ANTECOL, Michelle TEIXEIRA MD Unavailable Unavailable ANTECOL, Michelle TEIXEIRA MD Unavailable Unavailable ANTECOL, Micehlle TEIXEIRA MD Unavailable Unavailable ANTECOL, Michelle TEIXEIRA MD Unavailable Unavailable ANTECOL, Michelle TEIXEIRA MD Unavailable Unavailable ANTECOL, Michelle TEIXEIRA MD Unavailable Unavailable ANTECOL, Michelle TEIXEIRA MD Unavailable Unavailable ANTECOL, Michelle TEIXEIRA MD Unavailable Unavailable ANTECOL, Michelle TEIXEIRA MD Unavailable Unavailable ANTECOL, Michelle TEIXEIRA MD Unavailable Unavailable ANTECOL, Michelle TEIXEIRA MD Unavailable Unavailable ANTECOL, Michelle TEIXEIRA MD Unavailable Unavailable ANTECOL, Michelle TEIXEIRA MD Unavailable Unavailable ANTECOL, Michelle TEIXEIRA MD Unavailable Unavailable ANTECOL, Michelle TEIXEIRA MD Unavailable Unavailable ANTECOL, Michelle TEIXEIRA MD Unavailable Unavailable ANTECOL, Michelle TEIXEIRA MD Unavailable Unavailable ANTECOL, Michelle TEIXEIRA MD Unavailable Unavailable ANTECOL, Michelle TEIXEIRA MD Unavailable Unavailable ANTECOL, Michelle TEIXEIRA MD Unavailable Unavailable ANTECOL, Michelle TEIXEIRA MD Unavailable Unavailable ANTECOL, Michelle TEIXEIRA MD Unavailable Unavailable ANTECOL, Michelle TEIXEIRA MD Unavailable Unavailable ANTECOL, Michelle TEIXEIRA MD Unavailable Unavailable ANTECOL, Michelle TEIXEIRA MD Unavailable Unavailable ANTECOL, Michelle TEIXEIRA MD Unavailable Unavailable ANTECOL, Michelle TEIXEIRA MD Unavailable Unavailable SAVAGE, ADITHYA GOOD MD, PHD Unavailable Unavailabl e SAVAGEADITHYA WHITMORE MD, PHD Unavailable Unavailabl e SAVAGE, ADITHYA GOOD MD, PHD Unavailable Unavailabl e SAVAGEADITHYA WHITMORE MD, PHD Unavailable Unavailabl e SAVAGE, ADITHYA GOOD MD, PHD Unavailable Unavailabl e SAVAGE, ADITHYA GOOD MD, PHD Unavailable Unavailabl e SAVAGEADITHYA WHITMORE MD, PHD Unavailable Unavailabl e SAVAGE, ADITHYA GOOD MD, PHD Unavailable Unavailabl e SAVAGE, ADITHYA GOOD MD, PHD Unavailable Unavailabl e SAVAGE, ADITHYA GOOD MD, PHD Unavailable Unavailabl e SAVAGE, ADITHYA GOOD MD, PHD Unavailable Unavailabl e SAVAGE, ADITHYA GOOD MD, PHD Unavailable Unavailabl e SAVAGE, ADITHYA GOOD MD, PHD Unavailable Unavailabl e SAVAGE, ADITHYA GOOD MD, PHD Unavailable Unavailabl e SAVAGE, ADITHYA GOOD MD, PHD Unavailable Unavailabl e SAVAGE, ADITHYA GOOD MD, PHD Unavailable Unavailabl e SAVAGE, ADITHYA GOOD MD, PHD Unavailable Unavailabl e SAVAGE, ADITHYA GOOD MD, PHD Unavailable Unavailabl e SAVAGE, ADITHYA GOOD MD, PHD Unavailable Unavailabl e SAVAGE, ADITHYA GOOD MD, PHD Unavailable Unavailabl e SAVAGE, ADITHYA GOOD MD, PHD Unavailable Unavailabl e SAVAGE, ADITHYA GOOD MD, PHD Unavailable Unavailabl e SAVAGE, ADITHYA GOOD MD, PHD Unavailable Unavailabl e SAVAGE, ADITHYA GOOD MD, PHD Unavailable Unavailabl e SAVAGE, ADITHYA GOOD MD, PHD Unavailable Unavailabl e SAVAGE, ADITHYA GOOD MD, PHD Unavailable Unavailabl e SAVAGE, ADITHYA GOOD MD, PHD Unavailable Unavailabl e SAVAGE, ADITHYA GOOD MD, PHD Unavailable Unavailabl e SAVAGE, ADITHYA GOOD MD, PHD Unavailable Unavailabl e SAVAGE, ADITHYA GOOD MD, PHD Unavailable Unavailabl e SAVAGE, ADITHYA GOOD MD, PHD Unavailable Unavailabl e SAVAGE, ADITHYA GOOD MD, PHD Unavailable Unavailabl e SAVAGE, ADITHYA GOOD MD, PHD Unavailable Unavailabl e CAMEJO, B JOSE ALBERTO Unavailable Unavailable Abhay Merrill MD Unavailable Unavailable Abhay Merrill MD Unavailable Unavailable Abhay Merrill MD Unavailable Unavailable Abhay Merrill MD Unavailable Unavailable Abhay Merrill MD Unavailable Unavailable Abhay Merrill MD Unavailable Unavailable Abhay Merrill MD Unavailable Unavailable Abhay Merrill MD Unavailable Unavailable Abhay Merrill MD Unavailable Unavailable Abhay Merrill MD Unavailable Unavailable Abhay Merrill MD Unavailable Unavailable Abhay Merrill MD Unavailable Unavailable Abhay Merrill MD Unavailable Unavailable Abhay Merrill MD Unavailable Unavailable Abhay Merrill MD Unavailable Unavailable Mollison, Abhay Don MD Unavailable Unavailable Mollison, Abhay Don MD Unavailable Unavailable Mollison, Abhay Don MD Unavailable Unavailable Mollison, Abhay Don MD Unavailable Unavailable Mollison, Abhay Don MD Unavailable Unavailable Mollison, Abhay Don MD Unavailable Unavailable Schoeneman, Wilburton DO Unavailable Schoeneman, Darlene DO Unavailable Schoeneman, Darlene DO Unavailable Schoeneman, Darlene DO Unavailable Schoeneman, Wilburton DO Unavailable Schoeneman, Wilburton DO Unavailable Schoeneman, Wilburton DO Unavailable Schoeneman, Darlene DO Unavailable Schoeneman, Wilburton DO Unavailable Schoeneman, Wilburton DO Unavailable Schoeneman, Wilburton DO Unavailable Schoeneman, Wilburton DO Unavailable Schoeneman, Wilburton DO Unavailable Schoeneman, Wilburton DO Unavailable Schoeneman, Darlene DO Unavailable Schoeneman, Darlene DO Unavailable Schoeneman, Wilburton DO Unavailable Schoeneman, Darlene DO Unavailable Schoeneman, Darlene DO Unavailable Schoeneman, Darlene DO Unavailable Schoeneman, Wilburton DO Unavailable Schoeneman, Darlene DO Unavailable Schoeneman, Wilburton DO Unavailable Schoeneman, Wilburton DO Unavailable Schoeneman, Wilburton DO Unavailable Schoeneman, Wilburton DO Unavailable Schoeneman, Wilburton DO Unavailable Schoeneman, Darlene DO Unavailable Schoeneman, Darlene DO Unavailable Schoeneman, Darlene DO Unavailable Schoeneman, Darlene DO Unavailable Schoeneman, Darlene DO Unavailable SHIN CHERY MD Unavailable Unavailable SHIN CHERY MD Unavailable Unavailable SHIN CHERY MD Unavailable Unavailable SHIN CHERY MD Unavailable Unavailable SHIN CHERY MD Unavailable Unavailable SHIN CHERY MD Unavailable Unavailable SHIN CHERY MD Unavailable Unavailable SHIN CHERY MD Unavailable Unavailable SHIN CHERY MD Unavailable Unavailable SHIN CHERY MD Unavailable Unavailable SHIN CHERY MD Unavailable Unavailable SHIN CHERY MD Unavailable Unavailable SHIN CHERY MD Unavailable Unavailable SHIN CHERY MD Unavailable Unavailable SHIN CHERY MD Unavailable Unavailable SHIN CHERY MD Unavailable Unavailable SHIN CHERY MD Unavailable Unavailable SHIN CHERY MD Unavailable Unavailable SHIN CHERY MD Unavailable Unavailable SHIN CHERY MD Unavailable Unavailable SHIN CHERY MD Unavailable Unavailable SHIN CHERY MD Unavailable Unavailable SHIN CHERY MD Unavailable Unavailable SHIN CHERY MD Unavailable Unavailable SHIN CHERY MD Unavailable Unavailable SHIN CHERY MD Unavailable Unavailable SHIN CHERY MD Unavailable Unavailable SHIN CHERY MD Unavailable Unavailable SHIN CHERY MD Unavailable Unavailable SHIN CHERY MD Unavailable Unavailable SHIN CHERY MD Unavailable Unavailable SHIN CHERY MD Unavailable Unavailable SHIN CHERY MD Unavailable Unavailable SHIN CHERY MD Unavailable Unavailable SHIN CHERY MD Unavailable Unavailable SHIN CHERY MD Unavailable Unavailable SHIN CHERY MD Unavailable Unavailable SHIN CHERY MD Unavailable Unavailable SHIN CHERY MD Unavailable Unavailable SHIN CHERY MD Unavailable Unavailable SHIN CHERY MD Unavailable Unavailable SHIN CHERY MD Unavailable Unavailable SHIN CHERY MD Unavailable Unavailable SHIN CHERY MD Unavailable Unavailable SHIN CHERY MD Unavailable Unavailable Peter Pipo, L Earlene DO Unavailable Unavailable Winchester Pipo, L Earlene DO Unavailable Unavailable Peter Pipo, L Earlene DO Unavailable Unavailable Peter Pipo, L Earlene DO Unavailable Unavailable Winchester Pipo, L Earlene DO Unavailable Unavailable Winchester Pipo, L Earlene DO Unavailable Unavailable DARLYN, L HARDIK MD Unavailable Unavailable DARLYN, L HARDIK MD Unavailable Unavailable DARLYN, L HARDIK MD Unavailable Unavailable DARLYN, L HARDIK MD Unavailable Unavailable DARLYN, L HARDIK MD Unavailable Unavailable DARLYN, L HARDIK MD Unavailable Unavailable DARLYN, L HARDIK MD Unavailable Unavailable DARLYN, L HARDIK MD Unavailable Unavailable DARLYN, L HARDIK MD Unavailable Unavailable DARLYN, L HARDIK MD Unavailable Unavailable DARLYN, L HARDIK MD Unavailable Unavailable DARLYN, L HARDIK MD Unavailable Unavailable DARLYN, L HARDIK MD Unavailable Unavailable DARLYN, L HARDIK MD Unavailable Unavailable DARLYN, L HARDIK MD Unavailable Unavailable DARLYN, L HARDIK MD Unavailable Unavailable DARLYN, L HARDIK MD Unavailable Unavailable DARLYN, L HARDIK MD Unavailable Unavailable DARLYN, L HARDIK MD Unavailable Unavailable DARLYN, L HARDIK MD Unavailable Unavailable DARLYN, L HARDIK MD Unavailable Unavailable DARLYN, L HARDIK MD Unavailable Unavailable DARLYN, L HARDIK MD Unavailable Unavailable Re-disclosure Warning The records that you are about to access may contain information from federally-assisted alcohol or drug abuse programs. If such information is present, then the following federally mandated warning applies: This information has been disclosed to you from records protected by federal confidentiality rules (42 CFR part 2). The federal rules prohibit you from making any further disclosure of this information unless further disclosure is expressly permitted by the written consent of the person to whom it pertains or as otherwise permitted by 42 CFR part 2. A general authorization for the release of medical or other information is NOT sufficient for this purpose. The Federal rules restrict any use of the information to criminally investigate or prosecute any alcohol or drug abuse patient.The records that you are about to access may contain highly sensitive health information, the redisclosure of which is protected by Article 27-F of the [facility] Public Health law. If you continue you may have access to information: Regarding HIV / AIDS; Provided by facilities licensed or operated by the [facility] Office of Mental Health; or Provided by the [facility] Office for People With Developmental Disabilities. If such information is present, then the following [facility] mandated warning applies: This information has been disclosed to you from confidential records which are protected by state law. State law prohibits you from making any further disclosure of this information without the specific written consent of the person to whom it pertains, or as otherwise permitted by law. Any unauthorized further disclosure in violation of state law may result in a fine or prison sentence or both. A general authorization for the release of medical or other information is NOT sufficient authorization for further disc losure. Allergies and Adverse Reactions Type Description Substance Reaction Status Data Source(s ) Drug allergy Penicillin (For Allergies Use Only) Drug allergy Nause a/Vomiting Active eCW1 ([facility]) Encounters Encounter Providers Location Date Indications Data Source(s ) Outpatient Attender: SHAE CHERY MD 07/27/2021 12:00:00 AM [facility] Outpatient Attender: FLOR OCONNOR . 12/23/2020 12:00:00 AM [facility] Outpatient Attender: SUZI DESAI MD 12/01/2020 12:00:00 AM [facility] Outpatient Referrer: JOSE ALBERTO CAMEJO 11/27/2020 12:00:00 AM [facility] Outpatient Referrer: JOSE ALBERTO CAMEJO 11/26/2020 12:00:00 AM [facility] Unknown [address] [id number] 11/03/2020 12:00:00 AM EST eCW1 ([facility]) Recurring Patient Referrer: Darlene Sosa DO 0 11:58:12 AM EST [facility] Recurring Patient Referrer: Darlene Sosa DO 0 02:07:11 PM EST [facility] Unknown [address] [facility] [place] [address] 10/17/2020 12:00:00 AM EST eCW1 ([facility]) Outpatient [address] [facility] [place] [address] 10/13/2020 12:00:00 AM EST eCW1 ([facility]) Unknown [address] [facility] [place] [address] 10/13/2020 12:00:00 AM EST eCW1 ([facility]) [place] [address] [address] 2020 12:00:00 AM EST eCW1 ([facility]) Outpatient Attender: LLUVIA BULL MD Main Office 10/01/2020 07:45:00 AM EST [facility] ([facility]) Outpatient Attender: FLOR OCONNOR . 09/30/2020 12:00:00 AM [facility] [place] [address] [address] 09/25/2020 12:00:00 AM EST eCW1 ([facility]) [place] [address] [address] 09/24/2020 12:00:00 AM EST eCW1 ([facility]) [place] [address] [address] 09/24/2020 12:00:00 AM EST eCW1 ([facility]) [place] [address] [address] 09/16/2020 12:00:00 AM EST eCW1 ([facility]) [place] [address] [address] 09/16/2020 12:00:00 AM EST eCW1 ([facility]) [place] [address] [address] 09/10/2020 12:00:00 AM EST eCW1 ([facility]) [place] [address] [address] 09/08/2020 12:00:00 AM EST eCW1 ([facility]) [place] [address] [address] 09/02/2020 12:00:00 AM EDT eCW1 ([facility]) [place] [address] [address] 08/28/2020 12:00:00 AM EDT eCW1 ([facility]) [place] [address] [address] 08/25/2020 12:00:00 AM EDT eCW1 ([facility]) Emergency Attender: Dudley Ha MDAttender: Lewis Foss DO [id number] 08/22/2020 02:08:00 AM EDT - 08/22/2020 10:34:00 AM EDT Pain in left shoulder [facility] Pain in left shoulder Patient discharged. Outpatient Attender: Arian Almaraz/Darleen/Peter/Re indl 08/21/2020 11:10:00 AM EDT [facility] ([facility]) [place] [address] [address] 08/15/2020 12:00:00 AM EDT eCW1 ([facility]) [place] [address] [address] 08/07/2020 12:00:00 AM EDT eCW1 ([facility]) Emergency Attender: HARDIK SANTIZO MDConsultant: Darlene mcconnell DO 08/02/2020 08:24:00 PM EDT - 08/02/2020 08:59:00 PM EDT [facility] Patient discharged. Emergency Attender: HARDIK SANTIZO MDConsultant: Darlene mcconnell DO 07/31/2020 02:05:00 PM EDT - 07/31/2020 03:43:00 PM EDT [facility] Patient discharged. Outpatient Attender: SHAE CHERY MDReferrer: SUZI DESAI MD [id number] 07/22/2020 12:00:00 AM EDT - 07/22/2020 11:12:47 AM EDT follow up [facility] follow up Outpatient Attender: SHAE CHERY MD 06/24/2020 12:00:00 AM EDT [facility] [place] [address] [address] 05/23/2020 12:00:00 AM EDT eCW1 ([facility]) [place] [address] [address] 05/21/2020 12:00:00 AM EDT eCW1 ([facility]) [place] [address] [address] 05/21/2020 12:00:00 AM EDT eCW1 ([facility]) [place] [address] [address] 05/21/2020 12:00:00 AM EDT eCW1 ([facility]) Outpatient Attender: SHAE CHERY MD 05/21/2020 12:00:00 AM EDT [facility] Outpatient Attender: Arian Almaraz/Darleen/Peter/Jammie luzl 05/20/2020 09:40:00 AM EDT [facility] ([facility]) [place] [address] [address] 05/19/2020 12:00:00 AM EDT eCW1 ([facility]) [place] [address] [address] 05/17/2020 12:00:00 AM EDT eCW1 ([facility]) Outpatient Attender: FLORENTINO SAVAGE MD, PHD [id number] 05/09/2020 12:00:00 AM EDT Neoplasm of unspecified behavior of brain [facility] Neoplasm of unspecified behavior of brai n Outpatient Attender: SUZI DESAI MD [id number] 05/05/20 12:00:00 AM EDT - 05/05/2020 12:35:16 PM EDT Malignant neoplasm of brain, unspecified [facility] Malignant neoplasm of brain, unspecified Outpatient Attender: SUZI DESAI MDReferrer: Darlene overton DO 04/29/2020 12:00:00 AM EDT Malignant neoplasm of brain, unspecified [facility] Malignant neoplasm of brain, unspecified [place] [address] [address] 04/09/2020 12:00:00 AM EDT eCW1 ([facility]) Outpatient Attender: SUZI DESAI MD 02/04/2020 12:00:00 AM [facility] Outpatient Referrer: JOSELO VALENCIA . 02/01/2020 12:00:00 AM [facility] Outpatient Attender: SUZI DESAI MD 01/28/2020 12:00:00 AM [facility] Outpatient Referrer: FLORENTINO SAVAGE MD, PHD 11/30/2019 01:28 :00 PM EST [facility] Outpatient Attender: SUZI DESAI MD 11/28/2019 12:00:[address] [address] 11/27/2019 12:00:00 AM EST eCW1 ([facility]) Outpatient Attender: SHAE CHERY MDReferrer: SUZI DESAI MD [id number] 10/15/2019 12:00:00 AM EST - 10/15/2019 03:22:25 PM EST f/u [facility] f/u [address] [address] 10/15/2019 12:00:00 AM EST eCW1 ([facility]) [address] [place] [address] 10/08/2019 12:00:00 AM EST eCW1 ([facility]) [address] [address] 10/01/2019 12:00:00 AM EST eCW1 ([facility]) Outpatient Attender: SUZI DESAI MD [id number] 09/24/20 19 12:00:00 AM EST - 09/24/2019 10:03:07 AM EST Malignant neoplasm of brain, unspecified [facility] Malignant neoplasm of brain, unspecified Medications Medication Brand Name Start Date Product Form Dose Route Admi nistrative Instructions Pharmacy Instructions Status Indications Reaction Description Data Source(s) Azithromycin 250 MG Oral Tablet Azithromycin 09/30/2020 12:00:[address] ORAL active MEDENT ([facility] Levetiracetam 750 MG Oral Tablet [Keppra] Keppra 09/30/2020 12:00 :00 AM EST ORAL active MEDENT ([facility]) 500 mg 09/27/2020 12:00:00 AM EST tablet 30 TAKE ONE TABLET BY MOUTH TWICE A DAY WITH FOOD TAKE ONE TABLET BY MOUTH TWICE A DAY WITH FOOD SOLD: 020 [facility] 250 mg 09/26/2020 12:00:00 AM EST tablet 6 TAKE TWO TABLETS BY MOUTH AT ONCE ON THE FIRST DAY THEN TAKE ONE DAILY THEREAFTER TAKE TWO TABLETS BY MOUTH AT ONCE ON THE FIRST DAY THEN TAKE ONE DAILY THEREAFTER SOLD: 09/26/2020 [facility] 3.5-10,000-1 mg/mL-unit/mL-% 09/25/2020 12:00:00 AM EST solu tion 10 INSTILL 4 DROOPS INTO RIGHT EAR EVERY 12 HOURS FOR 7 DAYS INSTILL 4 DROOPS INTO RIGHT EAR EVERY 12 HOURS FOR 7 DAYS SOLD: 09/25/2020 [facility] Ciprofloxacin 2 MG/ML Otic Solution Ciprofloxacin HCl 0.2 % Ciprofloxacin HCl 0.2 % 09/24/2020 12:00:00 AM EST active Ciprofloxacin HCl 0.2 % eCW1 ([facility]) Ciprofloxacin 2 MG/ML Otic Solution Ciprofloxacin HCl 0.2 % Ciprofloxacin HCl 0.2 % 09/24/2020 12:00:00 AM EST active Ciprofloxacin HCl 0.2 % eCW1 ([facility]) Ciprofloxacin 2 MG/ML Otic Solution Ciprofloxacin HCl 0.2 % Ciprofloxacin HCl 0.2 % 09/24/2020 12:00:00 AM EST active Ciprofloxacin HCl 0.2 % eCW1 ([facility]) 600 mg 08/25/2020 12:00:00 AM EDT tablet 90 TAKE ONE TABLET BY MOUTH THREE TIMES A DAY (CHECK WITH NEUROSURGEON FIRST) TAKE ONE TABLET BY MOUTH THREE TIMES A DAY (CHECK WITH NEUROSURGEON FIRST) SOLD: 08/25/2020 [facility] 8 HR Acetaminophen 650 MG Extended Release Oral Tablet [Tyle nol] Tylenol 8 Hour 08/01/2020 12:00:00 AM EDT active MEDENT ([facility]) 4 mg 07/31/2020 12:00:00 AM EDT tablet 20 TAKE 1 TABLET BY MOUTH EVERY SIX TO EIGHT HOURS NEEDED FOR PAIN TAKE 1 TABLET BY MOUTH EVERY SIX TO EIGH T HOURS NEEDED FOR PAIN SOLD: 07/31/2020 [facility] 300 mg 07/27/2020 12:00:00 AM EDT capsule 90 TAKE ONE CAPSULE BY MOUTH THREE TIMES A DAY TAKE ONE CAPSULE BY MOUTH THREE TIMES A DAY SOLD: 07/27/2020 [facility] valacyclovir 1000 MG Oral Tablet VALACYCLOVIR HCL 07/23/2020 12: 00:00 AM EDT tablet 30 TAKE ONE TABLET BY MOUTH THREE T IMES A DAY FOR 10 DAYS TAKE ONE TABLET BY MOUTH THREE TIMES A DAY FOR 10 DAYS SOLD: 07/23/2020 [facility] 100 mg 07/19/2020 12:00:00 AM EDT capsule 20 TAKE ONE CAPSULE BY MOUTH EVERY 12 HOURS TAKE ONE CAPSULE BY MOUTH EVERY 12 HOURS SOLD: 07/19/2020 [facility] 750 mg 07/03/2020 12:00:00 AM EDT tablet 60 TAKE ONE TABLET BY MOUTH TWICE A DAY TAKE ONE TABLET BY MOUTH TWICE A DAY SOLD: 10/07/2020 [facility] 750 mg 07/03/2020 12:00:00 AM EDT tablet 60 TAKE ONE TABLET BY MOUTH TWICE A DAY TAKE ONE TABLET BY MOUTH TWICE A DAY SOLD: 09/05/2020 [facility] 750 mg 07/03/2020 12:00:00 AM EDT tablet 60 TAKE ONE TABLET BY MOUTH TWICE A DAY TAKE ONE TABLET BY MOUTH TWICE A DAY SOLD: 11/04/2020 [facility] 750 mg 07/03/2020 12:00:00 AM EDT tablet 60 TAKE ONE TABLET BY MOUTH TWICE A DAY TAKE ONE TABLET BY MOUTH TWICE A DAY SOLD: 08/06/2020 [facility] 750 mg 07/03/2020 12:00:00 AM EDT tablet 60 TAKE ONE TABLET BY MOUTH TWICE A DAY TAKE ONE TABLET BY MOUTH TWICE A DAY SOLD: 07/04/2020 [facility] 5-325 mg 06/17/2020 12:00:00 AM EDT tablet 21 TAKE ONE TABLET BY MOUTH THREE TIMES A DAY MAXIMUM DAILY DOSE = 3 TABLETS TAKE ONE TABLET BY MOUTH THREE TIMES A DAY MAXIMUM DAILY DOSE = 3 TABLETS SOLD: 06/17/2020 [facility] 300 mg 06/16/2020 12:00:00 AM EDT capsule 30 TAKE ONE CAPSULE BY MOUTH THREE TIMES A DAY FOR 10 DAYS TAKE ONE CAPSULE BY MOUTH THREE TIMES A DAY FOR 10 DAYS SOLD: 06/16/2020 [facility] Levetiracetam 750 MG Oral Tablet levETIRAcetam 750 MG Oral Tablet (Keppra) levETIRAcetam 750 MG Oral Tablet (Keppra) 06/03/2020 12:00:00 AM EDT 750 mg Oral active Take 1 tablet by krystal th Two Times Daily [facility] 1 gram 06/01/2020 12:00:00 AM EDT tablet 24 TAKE ONE TABLET BY MOUTH TWICE A DAY FOR 12 DAYS TAKE ONE TABLET BY MOUTH TWICE A DAY FOR 12 DAYS SOLD: 06/01/2020 [facility] 25 mg 06/01/2020 12:00:00 AM EDT tablet 10 TAKE ONE-HALF TABLET BY MOUTH TWICE A DAY FOR 10 DAYS TAKE ONE-HALF TABLET BY MOUTH TWICE A DAY FOR 10 DAYS SOLD: 06/01/2020 [facility] Prednisone 20 MG Oral Tablet PredniSONE 20 MG PredniSONE 20 MG 05/21/2020 12:00:00 AM EDT active PredniSO NE 20 MG eCW1 ([facility]) Prednisone 20 MG Oral Tablet PredniSONE 20 MG PredniSONE 20 MG 05/21/2020 12:00:00 AM EDT active PredniSO NE 20 MG eCW1 ([facility]) Prednisone 20 MG Oral Tablet PredniSONE 20 MG PredniSONE 20 MG 05/21/2020 12:00:00 AM EDT active PredniSO NE 20 MG eCW1 ([facility]) Prednisone 20 MG Oral Tablet PredniSONE 20 MG PredniSONE 20 MG 05/21/2020 12:00:00 AM EDT active PredniSO NE 20 MG eCW1 ([facility]) Prednisone 20 MG Oral Tablet PredniSONE 20 MG PredniSONE 20 MG 05/21/2020 12:00:00 AM EDT active PredniSO NE 20 MG eCW1 ([facility]) Prednisone 20 MG Oral Tablet PredniSONE 20 MG PredniSONE 20 MG 05/21/2020 12:00:00 AM EDT active PredniSO NE 20 MG eCW1 ([facility]) 20 mg 05/21/2020 12:00:00 AM EDT tablet 42 TAKE 3 ONCE DAILY FOR 7 DAYS THEN TAKE 2 TABLETS BY MOUTH EVERY DAY FOR 7 DAYS THEN TAKE 1 TABLET BY MOUTH EVERY DAY FOR 7 DAYS TAKE 3 ONCE DAILY FOR 7 DAYS THEN TAKE 2 TABLETS BY MOUTH EVERY DAY FOR 7 DAYS THEN TAKE 1 TABLET BY MOUTH EVERY DAY FOR 7 DAYS SOLD: 05/21/2020 [facility] tizanidine 4 MG Oral Tablet [Zanaflex] Zanaflex 4 MG Zanafle x 4 MG 05/17/2020 12:00:00 AM EDT 1.0 {tablet_as_needed} active Zanaflex 4 MG eCW1 ([facility]) tizanidine 4 MG Oral Tablet [Zanaflex] Zanaflex 4 MG Zanafle x 4 MG 05/17/2020 12:00:00 AM EDT 1.0 {tablet_as_needed} active Zanaflex 4 MG eCW1 ([facility]) Diclofenac Sodium 75 MG Delayed Release Oral Tablet Diclofen ac Sodium 75 MG 05/17/2020 12:00:00 AM EDT 1.0 {tablet_with_food_or_milk} active Diclofenac Sodium 75 MG eCW1 ([facility]) Diclofenac Sodium 75 MG Delayed Release Oral Tablet Diclofen ac Sodium 75 MG 05/17/2020 12:00:00 AM EDT 1.0 {tablet_with_food_or_milk} active Diclofenac Sodium 75 MG eCW1 ([facility]) tizanidine 4 MG Oral Tablet [Zanaflex] Zanaflex 4 MG Zanafle x 4 MG 05/17/2020 12:00:00 AM EDT 1.0 {tablet_as_needed} active Zanaflex 4 MG eCW1 ([facility]) Diclofenac Sodium 75 MG Delayed Release Oral Tablet Diclofen ac Sodium 75 MG 05/17/2020 12:00:00 AM EDT 1.0 {tablet_with_food_or_milk} active Diclofenac Sodium 75 MG eCW1 ([facility]) Diclofenac Sodium 75 MG Delayed Release Oral Tablet Diclofen ac Sodium 75 MG 05/17/2020 12:00:00 AM EDT 1.0 {tablet_with_food_or_milk} active Diclofenac Sodium 75 MG eCW1 ([facility]) tizanidine 4 MG Oral Tablet [Zanaflex] Zanaflex 4 MG Zanafle x 4 MG 05/17/2020 12:00:00 AM EDT 1.0 {tablet_as_needed} active Zanaflex 4 MG eCW1 ([facility]) tizanidine 4 MG Oral Tablet [Zanaflex] Zanaflex 4 MG Zanafle x 4 MG 05/17/2020 12:00:00 AM EDT 1.0 {tablet_as_needed} active Zanaflex 4 MG eCW1 ([facility]) Diclofenac Sodium 75 MG Delayed Release Oral Tablet Diclofen ac Sodium 75 MG 05/17/2020 12:00:00 AM EDT 1.0 {tablet_with_food_or_milk} active Diclofenac Sodium 75 MG eCW1 ([facility]) Diclofenac Sodium 75 MG Delayed Release Oral Tablet Diclofen ac Sodium 75 MG 05/17/2020 12:00:00 AM EDT 1.0 {tablet_with_food_or_milk} active Diclofenac Sodium 75 MG eCW1 ([facility]) Diclofenac Sodium 75 MG Delayed Release Oral Tablet Diclofen ac Sodium 75 MG 05/17/2020 12:00:00 AM EDT 1.0 {tablet_with_food_or_milk} active Diclofenac Sodium 75 MG eCW1 ([facility]) tizanidine 4 MG Oral Tablet [Zanaflex] Zanaflex 4 MG Zanafle x 4 MG 05/17/2020 12:00:00 AM EDT 1.0 {tablet_as_needed} active Zanaflex 4 MG eCW1 ([facility]) 4 mg 05/17/2020 12:00:00 AM EDT tablet 15 TAKE ONE TABLET BY MOUTH THREE TIMES A DAY NEEDED TAKE ONE TABLET BY MOUTH THREE TIMES A DAY NEEDED S OLD: 05/17/2020 [facility] Diclofenac Sodium 75 MG Delayed Release Oral Tablet DICLOFEN AC SODIUM 05/17/2020 12:00:00 AM EDT tablet,delayed release (DR/EC) 20 TAKE ONE TABLET BY MOUTH TWICE A DAY WITH FOOD OR MILK TAKE ONE TABLET BY MOUTH TWICE A DAY WIT H FOOD OR MILK SOLD: 05/17/2020 [facility] tizanidine 4 MG Oral Tablet [Zanaflex] Zanaflex 4 MG Zanafle x 4 MG 05/17/2020 12:00:00 AM EDT 1.0 {tablet_as_needed} active Zanaflex 4 MG eCW1 ([facility]) 750 mg 11/28/2019 12:00:00 AM EST tablet 60 TAKE ONE TABLET BY MOUTH TWICE A DAY TAKE ONE TABLET BY MOUTH TWICE A DAY SOLD: 11/28/2019 [facility] 750 mg 11/28/2019 12:00:00 AM EST tablet 60 TAKE ONE TABLET BY MOUTH TWICE A DAY TAKE ONE TABLET BY MOUTH TWICE A DAY SOLD: 04/17/2020 [facility] 750 mg 11/28/2019 12:00:00 AM EST tablet 60 TAKE ONE TABLET BY MOUTH TWICE A DAY TAKE ONE TABLET BY MOUTH TWICE A DAY SOLD: 03/20/2020 [facility] 750 mg 11/28/2019 12:00:00 AM EST tablet 60 TAKE ONE TABLET BY MOUTH TWICE A DAY TAKE ONE TABLET BY MOUTH TWICE A DAY SOLD: 01/20/2020 [facility] 750 mg 11/28/2019 12:00:00 AM EST tablet 60 TAKE ONE TABLET BY MOUTH TWICE A DAY TAKE ONE TABLET BY MOUTH TWICE A DAY SOLD: 02/16/2020 [facility] Levetiracetam 750 MG Oral Tablet levETIRAcetam 750 MG Oral Tablet (KEPPRA) levETIRAcetam 750 MG Oral Tablet (KEPPRA) 11/28/2019 12:00:00 AM EST 750 mg Oral active Take 1 tablet by krystal th Two Times Daily [facility] 750 mg 11/28/2019 12:00:00 AM EST tablet 60 TAKE ONE TABLET BY MOUTH TWICE A DAY TAKE ONE TABLET BY MOUTH TWICE A DAY SOLD: 12/26/2019 [facility] Procarbazine 50 MG Oral Capsule Procarbazine HCl 50 MG Oral Capsule (MATULANE) Procarbazine HCl 50 MG Oral Capsule (MATULANE) 09/12/2019 12:00:00 AM EST 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 START 1 WEEK POST [facility] Oligodendroglioma of brain 500 mg 08/07/2019 12:00:00 AM EDT tablet 60 TAKE ONE TABLET BY MOUTH TWICE A DAY TAKE ONE TABLET BY MOUTH TWICE A DAY SOLD: 05/23/2020 [facility] 500 mg 08/07/2019 12:00:00 AM EDT tablet 60 TAKE ONE TABLET BY MOUTH TWICE A DAY TAKE ONE TABLET BY MOUTH TWICE A DAY SOLD: 11/10/2019 [facility] 500 mg 08/07/2019 12:00:00 AM EDT tablet 60 TAKE ONE TABLET BY MOUTH TWICE A DAY TAKE ONE TABLET BY MOUTH TWICE A DAY SOLD: 10/08/2019 [facility] Levetiracetam 500 MG Oral Tablet levETIRAcetam (KEPPRA ) 500 MG tablet levETIRAcetam (KEPPRA) 500 MG tablet 08/06/2019 12:00:00 AM EDT 500 m g Oral aborted Take 1 tablet by mouth Two T imes Daily [facility] Lomustine 40 MG Oral Capsule [Gleostine] GLEOSTINE 40 MG capsule GLEOSTINE 40 MG capsule 08/01/2019 12:00:00 AM EDT aborted [facility] Levetiracetam 500 MG Oral Tablet levETIRAcetam (KEPPRA ) 500 MG tablet levETIRAcetam (KEPPRA) 500 MG tablet 01/11/2019 12:00:00 AM EST 500 m g Oral active Take 1 tablet by mouth Two T imes Daily [facility] Prochlorperazine 10 MG Oral Tablet prochlorperazine (C OMPAZINE) 10 MG tablet prochlorperazine (COMPAZINE) 10 MG tablet 10/16/2018 12:00:00 AM EST 10 mg Oral aborted Oligodendroglioma Take 1 tablet by mouth every 6 (six) hours as needed (Nausea/Vomiting) [facility] Oligodendroglioma sennosides, LONGTERM 8.6 MG Oral Tablet Sennosides (SENNA) 8.6 MG TABS tablet Sennosides (SENNA) 8.6 MG TABS tablet 05/25/2018 12:00:00 AM EDT 2 {tbl} Oral aborted Take 2 tablets by mouth n ightly as needed [facility] UNABLE TO FIND aborted Med Nam e: [facility] Simethicone 80 MG Chewable Tablet simethicone (MYLICON ) 80 MG chewable tablet simethicone (MYLICON) 80 MG chewable tablet 80 mg Oral aborted Chew 80 mg by Mouth every 6 (six) hours as needed for Flatulence [facility] topiramate 25 MG Oral Tablet topiramate (TOPAMAX) 25 M G tablet topiramate (TOPAMAX) 25 MG tablet 25 mg Oral aborted Take 25 mg by mouth Two Times Daily [facility] Insurance Providers Payer name Policy type / Coverage type Policy ID Covered alliance party ID Covered alliance party's relationship to hernandez Policy Hernandez Plan Information ARJUN [id number] SP [id number] MEDICARE A [id number] Self [id number] ARJUN I [id number] Self [id number] [place] [id number] S [id number] [place] F [id number] SELF [id number] [place] [id number] 18 [id number] [place] , 18 , ARJUN I [id number] Self [id number] ARJUN [id number] SP [id number] ANSI-Commercial [id number] ARJUN [id number] SP [id number] ANSI-Commercial [id number] ARJUN [id number] SP [id number] 700 ANSI-Commercial [id number] ANSI-Commercial [id number] ANSI-Commercial [id number] ANSI-Commercial [id number] Problems, Conditions, and Diagnoses Code Display Name Description Problem Type Effective Dates Data Source(s) G89.29 [id number] Other chronic pain Problem 10/11/2020 12:00: 00 AM EST eC1 ([facility]) M25.512 [id number] Pain in left shoulder Problem 10/11/2020 12: 00:00 AM EST eCW1 ([facility]) [id number] Chest pain Chest pain Problem 10/01/2020 12:00:00 AM ES T MEDENT ([facility]) [id number] Overweight Overweight Problem 10/01/2020 12:00:00 AM ES T MEDENT ([facility]) [id number] Dietary management surveillance Dietary manageme nt surveillance Problem 10/01/2020 12:00:00 AM EST MED[facility] ([facility]) G54.0 [id number] Brachial plexopathy Problem 09/02/2020 12:00 :00 AM EDT eCW1 ([facility]) L90.5 [id number] Scar condition and fibrosis of skin Probl em 08/25/2020 12:00:00 AM EDT eCW1 ([facility]) B02.29 [id number] Neuralgia, post-herpetic Problem 08/25/2020 12:00:00 AM EDT eCW1 ([facility]) L81.0 [id number] Post-inflammatory hyperpigmentation Probl em 08/25/2020 12:00:00 AM EDT eCW1 ([facility]) 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 08/25/20 12:00:00 AM EDT eCW1 ([facility]) 69766419 Carpal tunnel syndrome Carpal tunnel syndrome Problem 08/01/2020 12:00:00 AM EDT MEDENT ([facility]) 46897279 Cervical radiculopathy Cervical radiculopathy Problem 08/01/2020 12:00:00 AM EDT MEDENT ([facility]) 21474503 Paresthesia of upper limb Paresthesia of upper limb Pr oblem 08/01/2020 12:00:00 AM EDT MEDENT ([facility]) Z85.841 [id number] History of oligodendroglioma of brain Problem 04/09/2020 12:00:00 AM EDT eCW1 ([facility]) G89.29 Other chronic pain Other chronic pain Diagnosis 02:49:00 AM EDT [facility] M25.512 Pain in left shoulder Pain in left shoulder Diagnosis 08/22/2020 02:49:00 AM [facility] shoulder pain shoulder pain Diagnosis 08/22/2020 02:49:00 AM [facility] Y9389 Activity, other specified Activity, other specified Di agnosis 08[facility]02[facility] Olecranon bursitis, left elbow Olecranon bursitis, lef t elbow Diagnosis 08/02/2020 [facility] Pain in left upper arm Pain in left upper arm Diagnosi s 08/02/2020 08:24:00 PM [facility] [id number] Personal history of malignant neoplasm o f brain Personal history of malignant neoplasm of brain Diagnosis [facility]31[id number] in left arm Pain in left arm Diagnosis 07/31/2020 02 :05:00 PM [facility] G8929 Other chronic pain Other chronic pain Diagnosis 02:05:00 PM [facility] M6281 Muscle weakness (generalized) Muscle weakness (general ized) Diagnosis 07/31/2020 02:05:00 PM [facility] follow up follow up Diagnosis 07/22/2020 10:32:21 AM [facility] f/u f/u Diagnosis 10/15/2019 02:26:19 PM [facility] Surgeries/Procedures Procedure Description Date Indications Data Source(s) ECG ROUTINE ECG W/LEAST 12 LDS W/I&R 10/01/2020 12:00: 00 AM EST SHALA ([facility]) XR CHEST FRONTAL AND LATERAL 37643 XR CHEST FRONTAL AND LATERAL 24167 STAT 08/22/2020 9:24 AM EDT 08/22/2020 09:24:21 AM [facility] VASC LAB US DOPPLER UPPER EXTREMITY UNILATERAL VENOUS LTD 80987 VASC LAB US DOPPLER UPPER EXTREMITY UNILATERAL VENOUS LTD 51777 Routine 8:32 AM EDT 08/22/2020 08:32:[address] [facility] X-Ray Shoulder Complete 08/21/2020 12:00:00 AM EDT SHALA ([facility] ) RADEX SHOULDER COMPLETE MINIMUM 2 VIEWS 08/21/2020 12: 00:00 AM EDT MEDENT ([facility] ) Needle electromyography, each extremity, with related paraspinal areas, when performed, done with nerve conduction, amplitude and latency/velocity study; complete, five or more muscles studied, innervated by three or more nerves or four or more spinal levels (list separately in addition to the code for primary procedure). 08/04/2020 12:00:00 AM EDT MEDEN T ([facility] ) Needle Electromyography Non Extremity Done With Nerve Conduc tion 08/04/2020 12:00:00 AM EDT MEDENT ([facility] ) Nerve Conduction 9-10 Studies 08/04/2020 12:00:00 AM E DT MEDENT ([facility] ) Inject/Drain Arthrocentesis Major Joint/Bursa/Ganglion Cyst 05/20/2020 12:00:00 AM EDT [facility] ([facility] BLOOD COUNT COMPLETE AUTO&AUTO DIFRNTL WBC COUNT CBC AND DIFFER ENTIAL Routine 05/05/2020 12:36 PM EDT Oligodendroglioma 05/05/2020 04:36:00 PM EDT Oligodendroglioma U [facility] Oligodendroglioma COMPREHENSIVE METABOLIC PANEL COMPREHENSIVE METABOLIC PANEL STA T 05/05/2020 12:36 PM EDT Oligodendroglioma 05/05/2020 04:36:00 PM EDT Oligodendroglioma U [facility] Oligodendroglioma MRI BRAIN BRAIN STEM W/O &W/CONTRAST MATERIAL MR BRAI N WITH AND WITHOUT CONTRAST [id number] Routine 04/29/2020 12:21 PM EDT Oligodendroglioma 04/29/2020 04:21:03 PM EDT Oligodendroglioma U [facility] Oligodendroglioma Results ID Date Data Source [id number] 09/05/2020 12:54:00 PM EDT MEDENT ([facility]) Name Value Range Interpretation Code Description Data Cristina rce(s) Supporting Document(s) Calcium [Mass/volume] in Serum or Plasma 8.4 [facility] ([facility]) Sodium 140 [facility] ([facility] Potassium [Moles/volume] in Serum or Plasma 4.2 [facility] ([facility]) Carbon dioxide, total [Moles/volume] in Serum or Plasma 26 [facility] ([facility]) Chloride [Moles/volume] in Serum or Plasma 107 MED[facility] ([facility]) Glucose 117 70-100 MED[facility] ([facility]) Blood Urea Nitrogen 25 5-21 [facility] ([facility]) Creatinine 1.15 0.6-1.5 MED[facility] ([facility]) Glomerular filtration rate/1.73 sq M.pre dicted [Volume Rate/Area] in Serum or Plasma by Creatinine-based formula (MDRD) 60.0 MED[facility] ([facility]) ID Date Data Source [id number] 09/05/2020 12:54:00 PM EDT [facility]) Name Value Range Interpretation Code Description Data Cristina rce(s) Supporting Document(s) Aspartate aminotransferase [Enzymatic activity/volume] in Serum or Plasma 22 [facility] ([facility]) Alkaline phosphatase [Enzymatic activity/volume] in Serum or Plasma 7 2 [facility] ([facility]) Bilirubin.total [Mass/volume] in Serum or Plasma 0.5 MED[facility] ([facility]) Bilirubin.direct [Mass/volume] in Serum or Plasma 0.1 MED[facility] ([facility]) Alanine aminotransferase [Enzymatic activity/volume] in Serum or Pl asma 39 MED[facility] ([facility]) Protein [Mass/volume] in Serum or Plasma 8.2 [facility] ([facility]) Albumin [Mass/volume] in Serum or Plasma 3.9 [facility] ([facility]) Cholesterol [Mass/volume] in Serum or Plasma Laboratory test result MEDENT ([facility]) ID Date Data Source [id number] 09/05/2020 12:54:00 PM EDT [facility] Name Value Range Interpretation Code Description Data Cristina rce(s) Supporting Document(s) Troponin 0.02 [facility] ([facility]) ID Date Data Source [id number] 09/05/2020 12:54:00 PM EDT [facility] Name Value Range Interpretation Code Description Data Cristina rce(s) Supporting Document(s) White Blood Count 4.9 4.3-10.9 [facility] Hemoglobin 14.1 13.0-17.0 MED[facility] ([facility]) Red Blood Count 4.32 4.70-6.20 [facility] ([facility]) Platelets 190 130-400 [facility] ([facility]) Hematocrit 40.5 39.0-50.0 MEDENT ([facility]) ID Date Data Source [id number] 08/22/2020 11:42:26 AM EDT [facility] Name Value Range Interpretation Code Description Data Cristina rce(s) Supporting Document(s) ED Provider Note [facility] HXCKZg2fQiTOHxJy91/UGNpqZFDpr0KvITniCLu7PBzzPOJqB8DhZIS3pD1hTFC1JOoDNrKdEdSjCLZ4 lbm [file] /VvimA0JREgE+Motor Coach Operator+dIXb31NO7TryuvCInFr9+r/j/U [file] A+Joana+Ln7SMIGfRGBgWVNtZaAsLQNHKlShV0DgO4VD y6EuM3LrZS79kLrfqqYnNChjKF5EDE2uCEJkIXVXDH4JoVQydH7oqiEiHJLuLHOCXcYnA23ahMGsGYTm ZSO8RSKdIh1HSQVpB8UfpxQeaMvuzuMnJBMwHRPBGR0TRRbilnLtyWZdqAraOP63mDzhSJ6BJb3GPxOu JX4avb8WdQKjIk4FZVW9Tf7KFQKbSBNpABHoCVN1SJ KsNsHsSLfkPBTkHUZjLFW6ASPjKMPlWW5KGnYsYRMuHRXnQLulFLEsXOUjju8JIZOtPLU3TXy1KKHtJO YoHAPrPYrqQCKkUSSuBRS6XKZoJWSlLN9AYuRxORGyFBP6EAKjXZXeADIgth6PMJQiDBNmJle6WGWwDQ WgPCFxXRhuCDNcPED5Pzf2DIFwKBMfFV5AFiVnXSMb MJm8QSPlWLLwGOFefb1IRUEoWRLaCXInIsRxUEDdYUImDYzvSGDaIYZzNfH2MTItVGWkLD8GEuLoPYQz AZFrDUHgRXJoRHJvmc5NJELgWUAlVlW3JQOvOXYoFWThCSzuNYEpFNT0GMS4EUNaNPCmHZ0AFqQzOAAb DRbrLhNpVSNkKMRhtx3DRNOtHIBkDKE0FzVvBVKhXI IwUGqiESOvDGV6HPWuGTZuEHPgBH7CTcCdTXCuPeT6MtChLWPpENDyrt2IJADeYRLwMlJ7VUImHGRzJV YnYNcjOIVxKFG7CJLcAPOjOSIqGH8GCnKsOPLdAqFeFHmwCLKfEYDqid0SDFYxNBOqPgCkSUInNMGqPR KkAAqbGWXjLYQ1IVI9YZJqIISgSI8JWyTzNNSkRce7 PYwiBGQeNPQssc4URTFwWFPnLNL7NQSqJEGkKGIeOWvzVDZvVBQ4NDVnTTCkUUPwJE7ROsJuRMFvPuzw GRxdTXNbJFDsvt3DJBBwUITyGZBqMNInJLClXGRbZBzuJQCaJKYjGxU9RHKhPNQzOY9WQmJkQIKxRvHu MOzmIRTzLTKlip2RCRFvEHV2GAf7HpPtLHJhTUYqFV bzRTXjTXJzJFijLEFdMYLaOF0NSfOxQHPlHCPvPCWoUMUlHOGkgt0IABUlKPV4QqMwEEEyMIWxWEIiSW sySJQwGRNmLax1PWIeIXTcAO1QMvNgKESjQBV8GtmlNCAiLCAdcz8UGELcRXB8DmaaNmErCBZiWXUgGS csQFQsSSReAGj8MNUaMLDrGQ1DXrQpALTdZKH1Aubx DJXuNGWwcy9OZNOzEJF1IDuoLjErQLUdIUNwVKffEBEyZNM4RNe3HWKmQOKjCW3HLcVtCAGgLOUkHQyb TBMwYXQagr0AGLAiPSI5ZrL5YYYbEFOfLTOcTDlbFDPrXZV2IZr1GXNeNSBdNS4NEaQwJOQlDHE5QjKk JUOfUOKfjl6AFZUrDQJ9Otp5UtUnTMVxGLXjTHt8ka OjcJLhSUe0NW3NL1YjspWyNKEAEt5Jw377VIY9JQFrVs7OG5skTn2dHKRdOXGFNk8APFk4HHL1JwAsRv NvEbWcK8HaFuhsYHcfDSXwTRGaVOMgSSL+SNs6NjgvFtGoEBJxZ4CqYHJ9P6J0RMNeNnU3YDGySSDlRK 8cNTFQWz6+NGsueROifKlyLBCECvD3FNubLLnsXSJVHq2V ID Date Data Source [id number] 08/22/2020 09:46:03 AM EDT [facility] XR CHEST FRONTAL AND LATERAL [id number] RESULTInterpreted by:Lala Adams MDINDICATION: 44-year-old male with left shoulder pain.TECHNIQUE: PA and lateral chest radiographs, 08/22/2020 9:23 AM.COMPARISON: Portable chest radiograph dated 05/17/2018.FINDINGS: The chest wall is normal in appearance.The mediastinal contours are normal.There is no evidence of pleural disease.The lungs are clear.IMPRESSION: No acute disease.For evaluation of shoulder joint pathology, dedicated radiographs for the shoulder joint are suggested.This document has been electronically signed by TARIK Adams on 08/22/2020 9:43 AM Name Value Range Interpretation Code Description Data Cristina rce(s) Supporting Document(s) ID Date Data Source [id number] 08/22/2020 08:42:17 AM EDT [facility] Name Value Range Interpretation Code Description Data Cristina rce(s) Supporting Document(s) ED Provider Note [facility] DLBZWw8rQbWLFzEr70/QDKnzTQUug7AdNTsmDRj3ZVekIAZlK0YtTJB5sE9qBGW3HNzOCxEkAbNcILE3 lbm [file] 0KICA+Joana+Xu5QOOTaIATtNLKsMoTgQFBUKjAkZ3Pm P6FJa4QqO5BbFI81gPctqlWyIJneRQ5DOY1sDCUbOVFZJU0AlGPofL0nlnTrTMKfVATXFpAyF97wtHPc LAApTTY4EEOvVo2GRVBsJ6EiiaXwnIjprhRfRBEfBGEVZO9YQIxvpdPbjUBrpRewXW35mUmnVB1UBj0Y PlNxIE5igx6IlYTfUm4SLWY1ZG5CDJLnIUGuMWVxPA G4TWWeRkRtBIkxHJXiPKNpVPG5AAObIYPwJI2TSvMeJJMzLHArLiSyDREwFKFbgw9CYYWkBIS6PDe5IQ QkZMAeTGFrEQjnLIHzJGBeCAT4JHXbJNSxWQ9VZhIdBNAtERT0DNXvEGFtYZBbka1LOKTiNDRvCbuxYR BlODIpQKWeDQzlAZEcFYB5EMFuBLLyELOnCT0JJeGz FULnWNXxUwYlKJWgAQEmaw2WOCVuUGMmSXPuSZRpIUFvVBDsTKzbXKRnPOO9BGP0GISfRXSdAF5OLbCr CLYyJII3PCWvFXCmYOYqvr1EUGHgNMVnLcq4OkNvMRGcPKAxJKkoSECiKTV3VQclMAUyALSgHS0UMrZt GQSlGSArHIpiKZUxBALjrh1YBDAxJQYqBAE5GcFsLC UoNOKhRThzDSEyQSW7WlT8DSNyQTFsMS0NVnWkIQPwVpX7ZKnmBYTyYLTrem2GJDOpXCOyZNd8IFBcTQ ZbRDAnAHahDHVjLSR4XyG6BHXdACUuOI4PUuRwQMStZnN0LrLzTQXjRYOyho1EZHTsYJMfEiS1DKAdRL ZkFKNsNZbcQHZfPGX5Bru6YBCwWVExEG3UQwTuSKOd SnC3FcIyWPNoGUPslz9SJGOcBMKpOijqIYWmUFNmPNMmCNhdSCMvLDG5RAJuPPQePXUkLV3XOwPvLJFm HfmcILiwZANcAYQttr0GCDXhYDQgVYT3ZGVkEPTiFUObVOpmNBDrWCP0DEGpDZIjAUGrWR5UVqLmOLKg ZUQlRsQzXGYrISQpsf4CIFRuDGA0EXV1VTApTKIoGK AlDOylXEIiLHVjAAT7VHAkISAxWC7OJkSpXKAcVDW9BUFwNHAkFMLnwe1WAYWsLLS2NURbUAWlBZTfSM UwENlyXCZnNNHkSLFeYOKvXSLrYM1IKuInRBSpNOE3YJEoQYXfHBRdre8IQWUgACI4DcvaWRFwCTXsXZ IhPShyNYEoKHKtHMJxHLFrWXEbTT7MWnOiYUVgCNN8 CKHoAVMiEZXzto9CNUTaSPR3YDElPXDcMFTfRTDzELmrYZCaFUK0IEDjJIFnXFAeUW3VFbCiMTTeHUGc BiZkYIKdXOIhik5TILRkRIP2XWW0BgRbLSSqGLJnMCcyXTRjMFT4QcG6VCSxXMQmPQ7NRoEgMFyfZONQ Uzm9JCsuC5q2QTV4CS7CC2Vkv9VyIBUgECXXZSwhBN 5pqhIqEVHfOf4DP0fJWbo1KWHrUKSeQuDaHWH3GvF5NSZ4JeX7Kdr3MNVnATD5Hv8vAPzaLpZrGCSnFu E9HdpyINM3XLN7OwenIIhkXRGtNMI1VqEqQT9QIe7HBbL7ZOI0eHXcKt4DBYY1UAPWZgXbQF8XZYv= ID Date Data Source [id number] 08/04/2020 12:25:00 [place] [address] PHONE: [phone] FAX: [phone] Name .................. : JONATHAN Barba Number.................. : [id number] ROOM. ................. : [facility] MR Number ................... : [id number] Stay type ............. : E/R Discharge Date......... ... : 08/02/20 Admit Date ......... : 08/02/20 Admit Phys .................... : COONEYNORM Date of ....... : 1975 Family Phys ................... : [employer] Phone . ................. : [phone] Age ................................ : 44 Film# .................. .:[id number] Sex ................................. : M Unsigned transcriptions are preliminary reports and do not represent a medical or legal document ELBOW COMPLETE [id number] COMPLETE:08/02/20 20:47 [facility] [id number] Reason(s): Pain LEFT ELBOW X-RAY: FINDINGS: There is normal alignment and position of the bones of the left elbow. No evidence for joint effusion is noted. No acute abnormalities. IMPRESSION: Negative left elbow. Electronically Reviewed and Signed By Jamari Fowler MD , 08/04/20 12:25, KGG Transcribe Initials: JESUSITA , Transcribe Date: 08/03/20 02:03, Dictation Date: Copy for: TRACIE JOHNSON via fax Copy for: EMERGENCY DEPT via modem Copy for: 710 MED REC DISCHARGED Page 1 of 1 Name Value Range Interpretation Code Description Data Cristina rce(s) Supporting Document(s) ID Date Data Source [id number] 08/02/2020 08:24:00 PM EDT [facility] 1 OrderSheet [facility] Emergency Department [address] [place] [address] Phone #: ext- [phone] 08/02/2020 20:13 Patient: JANIE CASTILLO Sex: M : 1975 Age: 44yWEIGHT:89.8 kg (S) HEIGHT:71 inches (S) BMI:27.6ALLERGIES: PenicillinsCHIEF COMPLAINT: swelling, painDIAGNOSIS: BursitisLAB ORDERSOrder Description Priority Entered Acknowledged InitialedDIAGNOSTIC STUDY ORDERSOrder Description Priority Entered Acknowledged InitialedElbow Complete STAT 20:38 08/02/2020 20:42 Kwabena Mireles (Oxygen? Keith Benedict R.N.(Yes)) PA; NOTES: Bursa Reason for Study: PainMEDICATION/IV/DRIP/FLUID ORDERSOrder Description Priority Entere d Acknowledged InitialedToradol IM 30 mg 20:38 08/02/2020 20:42 Keith Mireles R.N.;GENERAL ORDERSOrder Description Priority Entered Acknowledged InitialedAce Wrap 20:51 08/02/2020 20:51 Keith Mireles R.N. PA;[Electronically signed by Jak Mireles R.N. (20:59 08/02/2020)][Electronically signed by Keith Khan (23:02 08/02/2020)][Electronically locked by Jak Mireles R.N. (20:59 08/02/2020)] Name Value Range Interpretation Code Description Data Cristina rce(s) Supporting Document(s) ID Date Data Source [id number] 08/02/2020 08:24:00 PM EDT [facility] 1 Medication Reconciliation Report [facility] Emergency Department [address] [place] [address] Phone #: ext- [phone] 08/02/2020 20:13 Patient: JANIE CASTILLO Sex: M : 1975 Age: 44yWeight: 89.8 kgHeight/Length: 71 in.BMI: 27.6ALLERGIES: PenicillinsThe patient's Home Medications are listed below:THE FOLLOWING MEDICATIONS NEED TO BE RECONCILED: Acyclovir Oral 1000 mg , 3x a day Gabapentin Oral 300 mg, 3x a day Garlic Oral 1 tablet, daily Glucosamine- Chondroitin Oral 1500 / 1200 2 tab, daily Keppra Oral 750 mg, 2x a day Multivitamins Oral 1 pill, daily Tumeric 450 mg daily Vitamin c Oral (1000 mg) 1 tablet, daily Vitamin D-3 Oral (5000 unit) 1 tablet, daily Vitamni b12 1000 mcg dailyThe source(s) of the original Home Medication information:Not obtained.The following Medications were given to the patient in the Emergency Department:Toradol [IM] IM 30 mg, administered: 08/02/2020 8:42:00 PMThe following Medications were prescribed to the patient:None. 2 Medication Reconciliation Report [facility] Emergency Department [address] [place] [address] Phone #: ext- [phone] 08/02/2020 20:13 Patient: JANIE CASTILLO Sex: M : 1975 Age: 44y Name Value Range Interpretation Code Description Data Cristina rce(s) Supporting Document(s) ID Date Data Source [id number] 08/02/2020 08:24:00 PM EDT [facility] 1 Medication Administration Record [facility] Emergency Department [address] [place] [address] Phone #: ext- [phone] 08/02/2020 20:13 Patient: JANIE CASTILLO Sex: M : 1975 Age: 44yWeight: 89.8 kgHeight/Length: 71 inBMI: 27.6ALLERGIES: Penicillins Date/Time Medication Administered Medication OrderedGiven TORADOL [IM] (KETOROLAC Toradol IM 30 mg20:42 08/02/2020 TROMETHAMINE)Jak Mireles R.N. Dose: 30 mg IM Name Value Range Interpretation Code Description Data Cristina rce(s) Supporting Document(s) ID Date Data Source [id number] 08/02/2020 08:24:00 PM EDT [facility] 1 General Instructions [facility] Emergency Department [address] [place] [address] Phone #: ext- [phone] 08/02/2020 20:13 Patient: JANIE CASTILLO Sex: M : 1975 Age: 44yLeft olecranon bursitis. No traumatic or gouty bursitis, bursitis with infection or buritis with abscessformation.INSTRUCTIONSWear elastic wrap (Brandon wrap) as directed for two weeks until better.Follow-up:Follow up with your doctor Tuesday as scheduled. Reason for referral: evaluation and treatment. Summaryof care provided to patient.Understanding of the discharge instructions verbalized by patient. ADDITIONAL INFORMATIONBursitisYou have bursitis. This is an inflammation of the bursa. These are small, fluid-filled sacs that surroundthe larger joints of the body. The bursa help the muscles and tendons move smoothly over the joints.Bursitis often happens in the shoulder. But it can also affect the elbows, hips, pelvis, knees, toes, andheels. Bursitis can be caused by injury, overuse of the joint, or infection of the bursa. Symptoms 2 General Instructions [facility] Emergency Department [address] [place] [address] Phone #: ext- [phone] 08/02/2020 20:13 Patient: JANIE CASTILLO Sex: M : 1975 Age: 44yinclude pain and tenderness over a joint. Symptoms get worse with movement.Bursitis is treated with an anti-inflammatory medicine and by resting the joint. More severe casesrequire injection of medicine directly into the bursa. In the case of infection, surgery and antibioticsmay be needed.Home care Rest the painful joint and protect it from movement. This will allow the inflammation to heal faster. Apply an ice pack over the injured area for no more than 15 to 20 minutes. Do this every 3 to 6 hours for the first 24 to 48 hours. Keep using ice packs 3 to 4 times a day until the pain and swelling improves. To make an ice pack, put ice cubes in a sealed plastic bag. Wrap the bag in a clean, thin towel or cloth. Never put ice or an ice pack directly on the skin. As the ice melts, be careful to not to get the wrap or splint wet. You may take ntse-oxf-wnwhcul pain medicine to treat pain and inflammation, unless another medicine was prescribed. Anti- inflammatory pain medicines may be more effective. Talk with your provider before using these medicines if you have chronic liver or kidney disease, or ev er had a stomach ulcer or gastrointestinal bleeding. As your symptoms improve, slowly begin to move the joint. Don't overuse the joint. This may cause the symptoms to flare up again.When to seek medical adviceCall your healthcare provider right away if any of these occur: Redness or warmth over the painful area Increasing pain or swelling at the joint Fever of 100.4F (38C) or above lasting for 24 to 48 hours, or as advised Chills 6136-3134 [employer]. [address] [place] [address], [place] [address]. All rights reserved. This information is not intended as asubstitute for professional medical care. Always follow your healthcare professional's instructions.BRANDON WrapMinor muscle or joint injuries are often treated with an elastic bandage. The bandage providessupport and compression to the injured area. An elastic bandage is a stretchy, rolled bandage. Elastic 3 General Instructions [facility] Emergency Department [address] [place] [address] Phone #: ext- [phone] 08/02/2020 20:13 Patient: JANEI CASTILLO Sex: M : 1975 Age: 44ybandages range in width from 2 to 6 inches. They can be used for a variety of injuries. The bandagesare often called BRANDON bandages, after the most common brand name.If used correctly, elastic bandages help control swelling and ease pain. An elastic bandage is also agood reminder not to overuse the injured area. However, elastic bandages do not provide a lot ofsupport and will not prevent reinjury.Home care To apply an elastic bandage: Check the skin before wrapping the injury. It should be clean, dry, and free of drainage. Start wrapping below the injury and work your way toward the body. For an ankle sprain, start wrapping around the foot and work up toward the calf. This will help control swelling. Overlap the edges of the bandage so it stays snuggly in place. Wrap the bandage firmly, but not too tightly. A tight bandage can increase swelling on either end of the bandage. Make sure the bandage is wrinkle free. Leave fingers and toes exposed. Secure ends of the bandage (even self-sticking ones) with clips or tape. Check often to be sure there is good circulation, especially in the fingers and toes. Loosen the bandage if there is local swelling, numbness, tingling, discomfort, coldness, or discoloration (skin pale or bluish in color). Rewrap the bandage as needed during the day. Reroll the bandage as you unwind it. 4 General Instructions [facility] Emergency Department [address] [place] [address] Phone #: ext- [phone] 08/02/2020 20:13 -------- Patient: JANIE CASTILLO Sex: M : 1975 Age: 44yContinue using the elastic bandage until the pain and swelling are gone or as your healthcareprovider advises.If you have been told to ice the area, the ice can be secured in place with the elastic bandage. Wrapthe ice pack with a thin towel to protect the skin. Don't put ice or an ice pack directly on the skin. Icethe area for no more than 20 minutes at a time.Follow- up careFollow up with your healthcare provider, or as advised.When to seek medical adviceCall your healthcare provider for any of the following: Pain and swelling that doesn't get better or gets worse Trouble moving injured area Skin discoloration, numbness, or tingling that doesn't go away after bandage is removed [phone] [employer]. [address] [place] [address], [place] [address]. All rights reserved. This information is not intended as asubstitute for professional medical care. Always follow your healthcare professional's instructions. You have been given the following additional information: Bursitis BRANDON Wrap(Electronically signed by JAYLIN Gomez 08/02/2020 23:02) Name Value Range Interpretation Code Description Data Cristina rce(s) Supporting Document(s) ID Date Data Source [id number] 08/02/2020 08:24:00 PM EDT [facility] 1 Clinical Report - Nurses [facility] Emergency Department [address] [place] [address] Phone #: ext- [phone] 08/02/2020 20:13 Patient: JANIE CASTILLO Sex: M : 1975 Age: 44yTRIAGEHistorian: patient.Acuity: LEVEL 4.Chief Complaint: LEFT UPPER EXTREMITY PAIN and SWELLING.No injury occurred. Onset. (4 days ago). ( Pt states he was seen here left shoulder pain this pastday and since then he now states his left elbow has become swollen and painful).Treatment PROCESS ENGINEERING INTERN:None.SEPSIS SCREEN: SIRS Screen negative: heart rate greater than 90. Sepsis Screen negative. Nosuspected or confirmed signs of infection present.SONYA COMA SCORE: 15- eyes open- spontaneous (4); best verbal response- oriented (5); bestmotor response- obeys commands (6). --20:18 08/02/20 Salo Degroot RN20:14 08/02/20. BP: 127/89. MAP: 101. HR: 96. RR: 16. O2 saturation: 97% on room air. Temp: 98.8 F(oral). Pain level now: 02/14. --20:18 08/02/20 Salo Degroot RN.Weight: 89.8 kg stated. Height/Length: 71 inches Per Patient. BMI: 27.6. --20:14 08/02/20 Salo Degroot RN.MedicationsAcyclovir Oral 1000 mg , 3x a day. Gabapentin Oral 300 mg, 3x a day. Garlic Oral 1 tablet, daily. Glucosamine- Chondroitin Oral 1500 / 1200 2 tab, daily. Keppra Oral 750 mg, 2x a day. Multivitamins Oral 1 pill, daily. Tumeric 450 mg daily. Vitamin c Oral (Tablet 1000 mg) 1 tablet, daily. Vitamin D-3 Oral (Tablet 5000 unit) 1 tablet, daily. Vitamni b12 1000 mcg daily. --20:59 08/02/20 Jak Mireles R.N.AllergiesPenicil khai.(vomiting) --20:59 08/02/20 Jak Mireles R.N.HistoryPAST MEDICAL HX: Tetanus status: up-to-date. Immunizations: up-to-date. 2 Clinical Report - Nurses [facility] Emergency Department [address] [place] [address] Phone #: ext- [phone] 08/02/2020 20:13 Patient: JANIE CASTILLO Sex: M : 1975 Age: 44y SOCIAL HX: Never smoker. No alcohol use or drug use. He was offered HIV testing but declined and hepatitis C testing but declined. He has not traveled outside the [place] Infectious disease exposure: No infectious disease exposure. The patient was not exposed to Coronavirus. SELF HARM ASSESSMENT: Self harm assessment was performed. The patient answered "no" to the question(s) "Have you recently felt down, depressed, or hopeless?", "Do you have thoughts of harming or killing yourself?", "Do you have a plan for harming or killing yourself?", "Have you recently had thoughts about harming or killing others?", "Do you have any dangerous items in your possession?", "Have you noticed less interest or pleasure in doing things?", "Are you here because you tried to hurt yourself?" and "Have you ever tried to hurt yourself before today?". ABUSE ASSESSMENT: No report of abuse. NUTRITIONAL RISK ASSESSMENT: The nutritional risk assessment revealed no deficiencies. FUNCTIONAL ASSESSMENT: Functional assessment: no impairments noted. LEARNING NEEDS ASSESSMENT: The learning needs assessment revealed no barriers. FALL RISK ASSESSMENT: Fall risk assessment completed. No risk factors identified. SKIN INTEGRITY ASSESSMENT: Skin integrity risk assessment completed. No skin integrity risk identified. --20:18 08/02/20 Salo Degroot RN. Interventions To treatment room. --20:18 08/02/20 Salo Degroot RN.PHYSICAL ASSESSMENTAmbulatory to room.GENERAL / NEURO / PSYCH: Oriented X 4. Alert. Appears in no acute distress.EXTREMITIES: Neuro-vascular status intact to the extremity. No upper extremity edema. Left elbow:tenderness and swelling. Limited ROM secondary to swelling (diminished flexion and extension). ( 3+swelling at posterior portion of left elbow, pt denies any injury).SKIN: Skin intact. Skin is warm and dry. --20:36 08/02/20 Jak Mireles R.N.NURSING PROGRESS NOTESReassessment acuity: LEVEL 4. The patient reports no complaints, he is calm and resting quietly and hehas had no adverse reaction. Overall patient status is the same- he states feels the same.GENERAL / NEURO / PSYCH: Alert. Oriented X 4.RESPIRATORY: No respiratory distress.CVS: Capillary refill less than 2 seconds.EXTREMITIES: Neuro-vascular status intact to the extremity.SKIN: Skin is warm. Two patient identifiers checked. Call light placed in reach. Side rails up x 2. Bedplaced in lowest position. Brakes of bed on. --20:36 08/02/20 Jak Mireles R.N. 3 Clinical Report - Nurses [facility] Emergency Department [address] [place] [address] Phone #: ext- [phone] 08/02/2020 20:13 [id number] Sex: M : 1975 Age: 44y 20:40 08/02/20. Patient walked to radiology. --20:43 08/02/20 Jak Mireles R.N. 20:40 08/02/20. Two patient identifiers checked. Call light placed in reach. Side rails up x 2. Bed placed in lowest position. Brakes of bed on. --20:44 08/02/20 Jak Mireles R.N. 20:42 08/02/2020 Toradol (Ketorolac Tromethamine) IM 30 mg given. Given in the right deltoid. --20:42 08/02/20 Jak Mireles R.N. Patient walked back from radiology. Two patient identifiers checked. Call light placed in reach. Side rails up x 1. --20:51 08/02/20 Jak Mireles R.N. 3 inch brandon bandage applied to left elbow by nurse; distal pulses intact, sensation intact and motor function within normal limits. --20:58 08/02/20 Jak Mireles R.N.DISPOSITION / DISCHARGE Condition at departure: improved. No learning barriers present. Discharge instructions provided and reviewed with the patient. Reviewed warnings. Reviewed medication(s). Treatments reviewed. Reviewed referrals. Patient verbalized understanding. Written instructions provided in [place]. The patient was discharged by the physician billing assistant. He was discharged home. He left ambulatory and via private vehicle. Patient driving. Patient has no belongings. --20:57 08/02/20 Jak Mireles R.N. 20:56 08/02/20. BP: deferred. HR: deferred. RR: deferred. O2 saturation: deferred. Temp: deferr ed. Pain level now deferred. --20:57 08/02/20 Jak Mireles R.N. Departure time: 20:58 08/02/2020. --20:58 08/02/20 Jak Mireles R.N.Locked/Released at 08/02/2020 20:59 by Jak Mireles R.N. Name Value Range Interpretation Code Description Data Cristina rce(s) Supporting Document(s) ID Date Data Source [id number] 08/02/2020 08:24:00 PM EDT [facility] 1 Clinical Report - Physicians/Mid Levels [facility] Emergency Department [address] [place] [address] Phone #: ext- [phone] 08/02/2020 20:13 [id number] Sex: M : 1975 Age: 44y Time Seen: 20:35 08/02/2020. Arrived- By private vehicle. Historian- patient.HISTORY OF PRESENT ILLNESS Chief Complaint: UPPER EXTREMITY PAIN and SWELLING. Severity is described as being mild. The quality is noted to be aching, "pain" and similar to prior episodes. This started 4 days ago and is still present (Pt states he was seen here left shoulder pain this past and since then he now states his left elbow has become swollen and painful). It was gradual in onset and has been constant. Symptoms located in the area of the left elbow. No chest pain, difficulty breathing, sensory loss, motor loss or repetitive hand use at work. He has had swelling, but not had redness. Patient denies an injury. Similar symptoms previously. Patient has had similar symptoms several times. Recent medical care: Not recently seen/assessed.REVIEW OF SYSTEM SNo fever, chills, eye discomfort, headache or depression. No sore throat, cough, skin rash, enlargedlymph nodes or neck pain. No abdominal pain, nausea, vomiting, diarrhea or black stools. No difficultywith urination, urinary frequency, hematuria or bloody stools.SOCIAL HISTORYNever smoker. No alcohol use or drug use.PHYSICAL EXAMVital Signs: 08/02/2020 20:14 BP: 127/89. MAP: 101. HR: 96. RR: 16. O2 saturation: 97% on room air.Temp: 98.8 F. Pain level now: 4/10. Have been reviewed as normal. Oxygen saturation normal.Appearance: Alert. Oriented X3. No acute distress.Eyes: Pupils equal, round and reactive to light. Eyes normal inspection.ENT: Ears normal. Nose normal. Pharynx normal.Neck: Normal inspection.CVS: Normal heart rate.Respiratory: No respiratory distress.Abdomen: Nontender.Back: Normal inspection.Skin: Skin intact. Skin warm and dry. Normal skin color. Normal skin turgor.Extremities: Left elbow: mild swelling located in the area of the olecranon and posterior elbow. LimitedROM secondary to weakness. (small bursa). No joint effusion. Neurovascular not intact distally.Extremities otherwise negative.Neuro: Oriented X 3. 2 Clinical Report - Physicians/Mid Levels [facility] Emergency Department [address] [place] [address] Phone #: ext- [phone] 08/02/2020 20:13 [id number] Sex: M : 1975 Age: 44yLABS, X-RAYS, AND EKGLt Elbow X-ray: No fracture. Views: AP, lateral and oblique. The X-rays were interpreted by theradiologist and contemporaneously by me. Interpretation time: 20:49 08/02/2020.PROGRESS AND PROCEDURESCourse of Care: Aug 02 2020. Evaluation after observation. (Discussed risks, benefits, options andpt is agreeable with dx and tx plan.). Patient counseled in person regarding the patient's stable condition, test results, diagnosis and need for follow-up. Patient agrees with plan of care. 20:Aug 02 2020. Disposition: Discharged home in good and improved condition (Aug 02 2020).CLINICAL IMPRESSION Left olecranon bursitis. No traumatic or gouty bursitis, bursitis with infection or buritis with abscess formation.INSTRUCTIONS Wear elastic wrap (Brandon wrap) as directed for two weeks until better. Follow-up: Follow up with your doctor Tuesday as scheduled. Reason for referral: evaluation and treatment. Summary of care provided to patient. Understanding of the discharge instructions verbalized by patient.(Electronically signed by JAYLIN Gomez 08/02/2020 23:02) Name Value Range Interpretation Code Description Data Cristina rce(s) Supporting Document(s) ID Date Data Source [id number] 07/31/2020 02:05:00 PM EDT [facility] 1 Medication Reconciliation Report [facility] Emergency Department [address] [place] [address] Phone #: ext- [phone] 07/31/2020 13:53 Patient: JANIE CASTILLO Sex: M : 1975 Age: 44yWeight: 89.8 kgHeight/Length: 71 in.BMI: 27.6ALLERGIES: PenicillinsThe patient's Home Medications are listed below:CONTINUE TAKING THE FOLLOWING MEDICATIONS: Acyclovir Oral 1000 mg , 3x a day Gabapentin Oral 300 mg, 3x a day Garlic Oral 1 tablet, daily Glucosamine-Chondroitin Oral 1500 / 1200 2 tab, daily Keppra Oral 750 mg, 2x a day Multivitamins Oral 1 pill, daily Tumeric 450 mg daily Vitamin c Oral (1000 mg) 1 tablet, daily Vitamin D-3 Oral (5000 unit) 1 tablet, daily Vitamni b12 1000 mcg dailyThe source(s) of the original Home Medication information:Not obtained.The following Medications were given to the patient in the Emergency Department:None.The following Medications were prescribed to the patient: 2 Medication Reconciliation Report [facility] Emergency Department [address] [place] [address] Phone #: ext- [phone] 07/31/2020 13:53 Patient: JANIE CASTILLO Sex: M : 1975 Age: 44ytizanidine 4 mg tablet Take 1 tablet every six to eight hours as needed for pain -- Dispense 20 tablet.Refills: 0. Substitution permitted.Pharmacy - [id number] - [address] [facility] ; [place] [address]. . -- JAYLIN Rico Name Value Range Interpretation Code Description Data Cristina rce(s) Supporting Document(s) ID Date Data Source [id number] 07/31/2020 02:05:00 PM EDT [facility] 1 Medication Administration Record [facility] Emergency Department [address] [place] [address] Phone #: ext- [phone] 07/31/2020 13:53 Patient: JANIE CASTILLO Sex: M : 1975 Age: 44yWeight: 89.8 kgHeight/Length: 71 inBMI: 27.6ALLERGIES: PenicillinsDate/Time Medication Administered Medication Ordered Name Value Range Interpretation Code Description Data Cristina rce(s) Supporting Document(s) ID Date Data Source [id number] 07/31/2020 02:05:00 PM EDT [facility] 1 General Instructions [facility] Emergency Department [address] [place] [address] Phone #: ext- [phone] 07/31/2020 13:53 Patient: JANIE CASTILLO Sex: M : 1975 Age: 44yChronic generalized weakness of the left upper extremity.INSTRUCTIONSWear sling (use as needed. Take your are out of the sling routinely to do range of motion exercises so youdo not get stiff).(Activity as tolerated. Maintain the range of motion you have. Continue physical therapy and any otherinstructions previously given to you by your preexisting providers. Return to the ER immediately for suddenworsening or concerning symptoms.).Warnings: Further evaluation is necessary (The nerve study is very important. make sure you make thisappointment). It is very important to follow up with a healthcare provider.GENERAL WARNINGS: Return or contact your physician immediately if your condition worsens orchanges unexpectedly, if not improving as expected, or if other problems arise. Specifically return ifproblem worsens or fails to resolve.Your Current Medications: Your current home medications have been reviewed.CONTINUE TAKING THE FOLLOWING MEDICATIONS:Acyclovir Oral : 1000 mg 3x a day.Gabapentin Oral : 300 mg 3x a day.Garlic Oral : 1 tablet daily.Glucosamine-Chondroitin Oral : 1500 / 1200 2 tab daily.Keppra Oral : 750 mg 2x a day.Multivitamins Oral : 1 pill daily.Tumeric 450 mg daily*.Vitamin c Oral : Tablet 1000 mg, 1 tablet daily.Vitamin D-3 Oral : Tablet 5000 unit, 1 tablet daily.Vitamni b12 1000 mcg daily*.Prescription Medications:tizanidine 4 mg tablet Take 1 tablet every six to eight hours as needed for pain -- Dispense 20 tablet.Refills: 0. Substitution permitted.Pharmacy - [facility] - [address] [facility] ; [place] [address]. .Understanding of the discharge instructions verbalized by patient.Follow-up with: [facility], , [id number], [address] [place] [address] General Instructions [facility] Emergency Department [address] [place] [address] Phone #: ext- [phone] 07/31/2020 13:53 Patient: JANIE CASTILLO Sex: M : 1975 Age: 44[place], [id number] Follow up Tuesday as scheduled. Reason for referral: evaluation and treatment. Summary of careprovided to patient via paper. ADDITIONAL INFORMATIONWeakness with Uncertain CauseBased on your exam today, the exact cause of your weakness is not certain. But your weakness doesnot seem to be a sign of a serious illness at this time. Keep an eye on your symptoms and getmedical advice as instructed below.Home care Rest at home today. Don't over-exert yourself. Take any medicine as prescribed. For the next few days, drink extra fluids (unless your healthcare provider wants you to restrict fluids for other reasons). Don't skip meals. Unless otherwise directed, continue to take any prescription medicines. Contact your healthcare provider if you have any questions or concerns.Follow-up careFollow up with your healthcare provider, or as advised.When to seek medical adviceCall your healthcare provider right away for any of the following: Symptoms get worse Symptoms don't start getting better within 2 days Fever of 100.4 F (38 C) or higher, or as directed by your healthcare providerCall 911Call [phone] for any of these: Chest, arm, neck, jaw, or upper back pain Trouble breathing 3 General Instructions [facility] Emergency Department [address] [place] [address] Phone #: ext- [phone] 07/31/2020 13:53 Patient: JANIE CASTILLO Sex: M : 1975 Age: 44y Numbness or weakness of the face, one arm, or one leg Slurred speech, confusion, or trouble speaking, walking, or seeing Blood in vomit or stool (black or red color) Loss of consciousness Severe headache [id number] [employer]. [address] [place] [address]. All rights reserved. This information is not intended as asubstitute for professional medical care. Always follow your healthcare professional's instructions.SlingA sling is designed to support your arm in a position of rest. It is used for injuries of the hand, forearm,upper arm, and shoulder.A shoulder that is immobilized too long can become stiff and lose range of motion. Your elbow canalso get stiff. Follow up with your healthcare provider as advised and don't use the sling longer thandirected.Home use: Leave the sling in place as long as directed by your healthcare provider. Unless told otherwise, you may remove it when bathing, dressing, and when you go to sleep. If approved by your healthcare provider, you can do gentle "pendulum exercises." To do these: o Remove your sling. o Stand or sit with your arm vertical and close to your side. o Relax your shoulder muscles and gently swing the arm forward and back, side to side, 4 General Instructions [facility] Emergency Department [address] [place] [address] Phone #: ext- [phone] 07/31/2020 13:53 Patient: JANIE CASTILLO Sex: M : 1975 Age: 44y and in small circles. o Do this for about 5 minutes once or twice a day.There should be only minimal pain with this exercise. If you have more than minimal discomfort, stopthe exercise and call your healthcare provider. The sling is adjustable. If it becomes loose, adjust it so that your forearm is horizontal (level with the ground). Your hand should be level with the elbow. [employer]. [address] [place] [address]. All rights reserved. This information is not intended as asubstitute for professional medical care. Always follow your healthcare professional's instructions. You have been given the following additional information: Weakness (Uncertain Cause) Sling(Electronically signed by JAYLIN Rico 07/31/2020 22:24) Name Value Range Interpretation Code Description Data Cristina rce(s) Supporting Document(s) ID Date Data Source [id number] 07/31/2020 02:05:00 PM EDT [facility] 1 Clinical Report - Nurses [facility] Emergency Department [address] [place] [address] Phone #: ext- [phone] 07/31/2020 13:53 Patient: JANIE CASTILLO Sex: M : 1975 Age: 44yTRIAGEArrived by private vehicle. Historian: patient. ( May 2020 pt came down with shingles affecting leftshoulder nerves hard to raise left arm over head, today increased pain with raising arm).Triage time: 14:00 07/31/2020. Acuity: LEVEL 3.Chief Complaint: LEFT UPPER EXTREMITY PAIN. Location of symptoms- left shoulder.14:15 07/31/20.Location of injuries: left shoulder. This started today. Has had no swelling or redness. No fever, neckpain, skin rash, itching or numbness. No weakness.Treatment PROCESS ENGINEERING INTERN:None. --14:15 07/31/20 Elliot Lott RN14:00 07/31/20. BP: 125/82. MAP: 96. HR: 79. RR: 16. O2 saturation: 98% on room air. Temp: 98.3 F(oral). Pain level now: 7/10. Describes the q uality as throbbing and burning. --14:15 07/31/20 GIRISH Mclain.Weight: 89.8 kg stated. Height/Length: 71 inches Per Patient. BMI: 27.6. --14:03 07/31/20 Elliot Lott RN.MedicationsGabapentin Oral 300 mg, 3x a day. --14:07/31/20 Elliot Lott RN Keppra Oral 750 mg, 2x a day. --14:07/31/20 Elliot Lott RN Multivitamins Oral 1 pill, daily. --14:07/31/20 Elliot Lott RN Glucosamine-Chondroitin Oral 1500 / 1200 2 tab, daily. --14:07/31/20 Elliot Lott RN Tumeric 450 mg daily. --14:07/31/20 Elliot Lott RN Vitamni b12 1000 mcg daily. --14:07/31/20 Elliot Lott RN Vitamin D-3 Oral (Tablet 5000 unit) 1 tablet, daily. --14:10 07/31/20 Elliot Lott RN Vitamin c Oral (Tablet 1000 mg) 1 tablet, daily. --14:10 07/31/20 Elliot Lott RN Garlic Oral 1 tablet, daily. --14:10 07/31/20 Elliot Lott RN Acyclovir Oral 1000 mg , 3x a day. --14:11 07/31/20 Elliot Lott RN.AllergiesPenicillins.(vomiting) --14:11 07/31/20 Elliot Lott RN.PROBLEMS:Herpes Zoster.Cancer: (Brain). --14:13 07/31/20 Elliot Lott RN.ADDITIONAL SURGERIES: 2 Clinical Report - Nurses [facility] Emergency Department [address] [place] [address] Phone #: ext- [phone] 07/31/2020 13:53 Patient: JANIE CASTILLO Sex: M : 1975 Age: 44y Brain. --14:13 07/31/20 Elliot Lott RN. History 14:15 07/31/20. PAST MEDICAL HX: No history of diabetes mellitus, heart disease, an indwelling line, hypertension or lung disease. No history of infections. SOCIAL HX: Never smoker. No alcohol use or drug use. He was offered HIV testing but declined and hepatitis C testing but declined. He has not traveled outside the [place] Infectious disease exposure: No infectious disease exposure. SELF HARM ASSESSMENT: Self harm assessment was performed. The patient answered "no" to the question(s) "Have you recently felt down, depressed, or hopeless?", "Do you have thoughts of harming or killing yourself?", "Do you have a plan for harming or killing yourself?", "Have you recently had thoughts about harming or killing others?", "Do you have any dangerous items in your possession?", "Have you noticed less interest or pleasure in doing things?", "Are you here because you tried to hurt yourself?" and "Have you ever tried to hurt yourself before today?". ABUSE ASSESSMENT: Abuse history: reports abuse. (no). Abuse assessment. No suspicion of abuse. NUTRITIONAL RISK ASSESSMENT: The nutritional risk assessment revealed no deficiencies. FUNCTIONAL ASSESSMENT: Functional assessment: no impairments noted. LEARNING NEEDS ASSESSMENT: The learning needs assessment revealed no barriers. FALL RISK ASSESSMENT: Fall risk assessment completed. No risk factors identified. SKIN INTEGRITY ASSESSMENT: Skin integrity risk assessment completed. No skin integrity risk identified. --14:15 07/31/20 Elliot Lott RN. Interventions 14:15 07/31/20. Identification band on patient. To room. --14:15 07/31/20 Elliot Lott RN.PHYSICAL [id number] 07/31/20. Ambulatory to room.GENERAL / NEURO / PSYCH: Alert. Appears in no acute distress.EXTREMITIES: Left shoulder: tenderness.SKIN: Skin is warm and dry. ( left arm in sling). --14:16 07/31/20 Elliot Lott RN.NURSING PROGRESS NOTES14:07/31/20. Two patient identifiers checked. Call light placed in reach. Bed placed in lowestposition. Brakes of bed on. Patient ready for evaluation- chart flagged. --14:16 07/31/20 Elliot Lott RN. 3 Clinical Report - Nurses [facility] Emergency Department [address] [place] [address] Phone #: ext- [phone] 07/31/2020 13:53 Patient: JANIE CASTILLO Sex: M : 1975 Age: 44yDISPOSITION / DISCHARGE 15:34 07/31/20. BP: 131/90. MAP: 103. HR: 78. RR: 16. O2 saturation: 98% on room air. Temp: 97.6 F (oral). Pain level now: 5/10. --15:35 07/31/20 Elliot Lott RN 15:43 07/31/20. Departure time: 15:43 07/31/2020. Condition at departure: unchanged. No learning barriers present. Discharge instructions provided and reviewed with the patient. Reviewed medication(s) side effects, precautions, dosing and course information. Prescription(s) sent electronically to pharmacy. Reviewed rest instructions (sling). Reviewed referral to a neurologist. Patient verbalized understanding. Written instructions provided in [place]. The patient was discharged by the physician billing assistant. He was discharged home. He left ambulatory and via private vehicle. --15:52 07/31/20 Elliot Lott RN.Locked/Released at 07/31/2020 15:56 by Elliot Lott RN Name Value Range Interpretation Code Description Data Cristina rce(s) Supporting Document(s) ID Date Data Source [id number] 07/31/2020 02:05:00 PM EDT [facility] 1 Clinical Report - Physicians/Mid Levels [facility] Emergency Department [address] [place] [address] Phone #: ext- [phone] 07/31/2020 13:53 Patient: JANIE CASTILLO Sex: M : 1975 Age: 44y Time Seen: 14:28 07/31/2020. Arrived- By private vehicle. Historian- patient. Disposition decision: 15:26 07/31/2020.HISTORY OF PRESENT ILLNESS Chief Complaint: UPPER EXTREMITY PAIN and ; PROBLEM IN THE LEFT SHOULDER. Severity is described as being moderate in degree. The quality is noted to be dull and aching. This started May 2020 and is still present. It was gradual in onset and has been constant. (left shoulder/UE). No chest pain, difficulty breathing, swelling, sensory loss or motor loss. He has not had redness. (Pt was diagnosed with shingles in May 2020 involving the left upper extremity. He states he has had pain and weakness in this arm since. The symptoms he is currently presenting with are symptoms he has had and been evaluated for. He was scheduled to have a EMG/NCS numerous times but is was initially cancelled because he still had shingle lesions. He was supposed to have it done today but he was still taking valtrex so it was postponed again until this coming Tuesday. No acute changes in symptoms (pain/weakness today).). Patient denies an injury. Similar symptoms previously. (since May 2020). Recent medical care: The patient was seen recently by a health care provider ([facility], PCP).REVIEW OF SYSTEMSNo chills, fatigue, fever, double vision or ear pain. No nasal congestion, runny nose, sore throat, chestpain or cough. No difficulty breathing, abdominal pain, diarrhea, nausea or vomiting. No urinaryproblems or skin rash. The patient has had joint pain, and weakness.PAST HISTORYProblems:Herpes Zoster.Cancer. Additional Surgeries: Brain. Medications: Acyclovir Oral 1000 mg , 3x a day. Garlic Oral 1 tablet, daily. Vitamin c Oral (Tablet 1000 mg) 1 tablet, daily. Vitamin D-3 Oral (Tablet 5000 unit) 1 tablet, daily. Vitamni b12 1000 mcg daily. Tumeric 450 mg daily. 2 Clinical Report - Physicians/Mid Levels [facility] Emergency Department [address] [place] [address] Phone #: ext- [phone] 07/31/2020 13:53 Patient: JANIE CASTILLO Sex: M : 1975 Age: 44y Glucosamine-Chondroitin Oral 1500 / 1200 2 tab, daily. Multivitamins Oral 1 pill, daily. Keppra Oral 750 mg, 2x a day. Gabapentin Oral 300 mg, 3x a day. Allergies: Penicillins.(vomiting).SOCIAL HISTORYNever smoker. No alcohol use or drug use.ADDITIONAL NOTESThe nursing notes have been reviewed with agreement regarding the chief complaint, HPI, ROS, PMH andpatient medications and allergies.PHYSICAL EXAMVital Signs: 07/31/2020 14:00 BP: 125/82. MAP: 96. HR: 79. RR: 16. O2 saturation: 98% on room air.Temp: 98.3 F. Pain level now: 7/10. Have been reviewed and appear to be correct. Blood pressurenormal. Heart rate normal. Respiratory rate normal. Temperature normal. Oxygen saturation normal.Appearance: Alert. Oriented X3. No acute distress.Eyes: Eyes normal inspection.Neck: Normal inspection.CVS: Normal heart rate and rhythm. Heart sounds normal.Respiratory: No respiratory distress. Painless inspiration. Breath sounds normal.Abdomen: Soft.Back: Normal inspection. No tenderness.Skin: Skin intact. Skin warm and dry. Normal skin color.Extremities: Left shoulder. (significant atrophy noted over the SSP, ISP, deltoid. Numerous scars notedover the entire LUE. no lesions noted consistent with active herpes zoster. Pt unable to actively FF, ER. Iwas able to passively FF the pt to 100 degrees.). Extremi ties otherwise negative.Neuro: Oriented X 3. He has constant, localized weakness of the left arm (2/5 movement possible but notagainst gravity), left elbow flexion (1/5 muscle flicker but no movement) and left elbow extension (1/5muscle flicker but no movement).PROGRESS AND PROCEDURESCourse of Care: 22:15 07/31/20. Although persistent pain and weakness are concerning, they have bothbeen present and essentially unchanged for several weeks now. He needs to have an EMG/NCS, which [facility]. The importance of keeping this apt was stressed. She isalso already established with [facility]. he was advised to continue the gabapentin. Zanaflex rxsent to the pharmacy. pt advised to return with any concerns. Disposition: Discharged home. Discharge decision based on the following: patient's condition is stable; patient is ambulatory; patient's exam is stable; improving condition on repeat evaluation; social support is adequate; transportation is available; follow-up is available; clinical impression is consistent with outpatient treatment. 3 Clinical Report - Physicians/Mid Levels [facility] Emergency Department [address] [place] [address] Phone #: ext- [phone] 07/31/2020 13:53 Patient: JANIE CASTILLO Sex: M : 1975 Age: 44yCLINICAL IMPRESSION Chronic generalized weakness of the left upper extremity.INSTRUCTIONS Wear sling (use as needed. Take your are out of the sling routinely to do range of motion exercises so you do not get stiff). (Activity as tolerated. Maintain the range of motion you have. Continue physical therapy and any other instructions previously given to you by your preexisting providers. Return to the ER immediately for sudden worsening or concerning symptoms.). Warnings: Further evaluation is necessary (The nerve study is very important. make sure you make this appointment). It is very important to follow up with a healthcare provider. GENERAL WARNINGS: Return or contact your physician immediately if your condition worsens or changes unexpectedly, if not improving as expected, or if other problems arise. Specifically return if problem worsens or fails to resolve. Your Current Medications: Your current home medications have been reviewed. CONTINUE TAKING THE FOLLOWING MEDICATIONS: Acyclovir Oral : 1000 mg 3x a day. Gabapentin Oral : 300 mg 3x a day. Garlic Oral : 1 tablet daily. Glucosamine-Chondroitin Oral : 1500 / 1200 2 tab daily. Keppra Oral : 750 mg 2x a day. Multivitamins Oral : 1 pill daily. Tumeric 450 mg daily*. Vitamin c Oral : Tablet 1000 mg, 1 tablet daily. Vitamin D-3 Oral : Tablet 5000 unit, 1 tablet daily. Vitamni b12 1000 mcg daily*. Prescription Medications: tizanidine 4 mg tablet Take 1 tablet every six to eight hours as needed for pain -- Dispense 20 tablet. Refills: 0. Substitution permitted. Pharmacy - [facility] - [address] [facility] ; [place] [address]. . Understanding of the discharge instructions verbalized by patient. Follow-up with: [facility], , [id number], [address] [place] [address], [facility] 4 Clinical Report - Physicians/Mid Levels [facility] Emergency Department [address] [place] [address] Phone #: ext- [phone] 07/31/2020 13:53 [id number] Sex[facility] M : 1975 Age: 44y Follow up Tuesday as scheduled. Reason for referral: evaluation and treatment. Summary of care provided to patient via paper.(Electronically signed by JAYLIN Rico 07/31/2020 22:24) Name Value Range Interpretation Code Description Data Cristina rce(s) Supporting Document(s) ID Date Data Source [id number] 07/24/2020 08:16:12 AM EDT [facility] Name Value Range Interpretation Code Description Data Cristina rce(s) Supporting Document(s) Progress Note [facility] [id number]YD1eU5eGHS9MPqNCxDwYjBnTZX3 lbm [file] [id number]+[id number]TlzQVLHPj3Q ID Date Data Source [id number] 05/19/2020 07:30:15 PM EDT [facility] Name Value Range Interpretation Code Description Data Cristina rce(s) Supporting Document(s) Progress Note [facility] [id number]/[id number]LvM8PlTYQ3vM9xVFV7RUnWAjOrWoRaQbTw lbm [file] ICAgICAgICAgICAgICAgICAgICAgICAgICAgICAgIC JtUFIzJMHnSDChZJFkDDArMXOhIGIpXVHlQXAoMZTyPAZsNDOkOKBdBMWjFCYlQU9BPHYiWCUmEPZuDP AgICAgICAgICAgICAgICAgICAgICAgICAgICAgICAgICAgICAgICAgICAgICAgICAgICAgICAgICAgIC FnZILdNOLkYBXeIFLwHHZkJHTfALGmWLDiKKUjAM3Y ICAgICAgICAgICAgICAgICAgICAgICAgICAgICAgICAgICAgICAgICAgICAgICAgICAgICAgICAgICAg MAZiZVAbEYOlMZNqDMTsDTAvKUVtGDSeMPBdOBWnOJNjWABsUOCpFP3RHSCmETAiPNEuASQqMAJdMDFl ICAgICAgICAgICAgICAgICAgICAgICAgICAgICAgIC XmHHHbCBDaDQTaBUErNGRwMMFmDSTyITAdEHFgBKXhCQHxDDIxCGKhJSWdSHAsKNCsXV9RMKReWUSaHS AgICAgICAgICAgICAgICAgICAgICAgICAgICAgICAgICAgICAgICAgICAgICAgICAgICAgICAgICAgIC AgICAgICAgICAgICAgICAgICAgICAgICAgICAgICAg NK4PYFNsGVBpBQYxUEZsQMDbUGRcYCRxWZGoYPMyUIRdHORzKBMvXQKkYAKwNVMqSJFwAEZfSNBsVXFp RAUoUTOuLQZiULJoXHZzYEWyLRNhQJDsPAArNILaKQGgVVWbWHXxNELrWR1YFODfBXGtRUEkDFBnOXEc ICAgICAgICAgICAgICAgICAgICAgICAgICAgICAgIC OaMAGcAFYcWKPrVGEfHHNbIARwJICaJHCqTYAqAHYmYCRyBOGrOBFoSMCyOATaKHUdUZZiTT7EWWXeSN AgICAgICAgICAgICAgICAgICAgICAgICAgICAgICAgICAgICAgICAgICAgICAgICAgICAgICAgICAgIC AgICAgICAgICAgICAgICAgICAgICAgICAgICAgICAg JNMzNX7PFKZwDJYxQLVyMJIdONMwDZCsPRLvXBAvMOTaTSCdTDLqCOJoIONlHTKlOBLqBILcRRCpJWIs BJRoDJKxCXGfJSFuUENkDZEyAINzJQLpYUImWHCxULVwCGDqERLuDINjJHGiZL6TCQPdDSYbFSQmWBId ICAgICAgICAgICAgICAgICAgICAgICAgICAgICAgIC IoOJHoIKTuAWFlMAXvDKCiKEOqINVwQQZkWJLnMZAsKHQiRJOqQGGaPOKpRGWgIFXhYOEzLEXwMG3LSS 57mHQkc9W8SWUsJH7tedh/Vj9VPVjjbeDvmIIvNO4YGbHeHQ8gsu7RJiQgQE0cik2MERyXUkSoD2E7dX DrFXTgAVKILyLiB57aUKqtGd91OOkiEZFrVnPoFVk1 Ee5SJzEoT5wyDEBmMdO8FCEiObKeGYplIL2Mr8DrlKXiRHq+Km1SDH0mp9MxFIzdUCHkUM7tdt7TJBmS YaFiZ8BepwC7CTCiRBYsQm6HQKIzLBNdcWZbFFEnEDOPEnDxM9YqlJ80SSOUMq2+DQplbmRvYmoNCjIw PFCyr0UzBKg0GK2LPAHxGBg4nNNcAYSqN0Zjd4NvJn 60QRNnNzosGCwakB6qEBkfETshKATxGJTlLk6uWB7bKSWdAKKlJoOyEYVFYW7ZWJIuFXPgmYPnMLRuQB AUZI9PKJhwKOJ3RQJrncKsiSPiUAmxAP7WRQWzwuTzWUlwOUEURFo+Hp1QWH9px9PeMDitKZVsAL9ifk 2FFVoMUkIzZ3C2fWVkU5U6QZerNt6DLYRaEMWrMBry OAFSWQbdGM1WDK4hfpA7PZ4BeUOmYGCnXKNkhALqENw9F01xiSWyVPlkXO5IUZD+Joana+Ip6XDNCeFJGe LPDcBwPgZGYDUjNvI1YfJ5DId4SeK5MrRI27wBeqyfQjCUmpID8VNJ0bEMYnGYACDP2VeBLaxA7ntyMu BJUvWYLCAoDlM09qvCEnGHRfZLP5DOKvNk3JRBRkZ8 AfoeNzrVpxkvYdMMShMDEOCN5YOKwchkEmfQLzmVbkKF55tXdwJF3JDr2SYwNcTF5qsk6NxRRiNg4LFN NjTo4OSBVwCZNnPWPgAWE0JQAxQfNxBNkzHQGnAZPhORP9GCBvPXDzIL9WJrVxWFTmXMeoRmIuORXsRD Bwnm8IVSDnWJVxOGXaYRFnXPBsKFPvYUgrFWIuDLWx IUG9VMJqNGAhHP1USiYqNIWnFEFtQQAtUNWiIOJphk8GAISnMSFjWcV1FRHqLQYmONUtPRijDHQtDJXy NhN6NQMpCKJiRH3GOoYvWRYeXHU6ZHWoBUUcXKObeo6TPMBqYNClIdX6AFGeEOCtPONkZZnnIVNpKCS8 ZjPmUGUjYRNjGT9FIgCiKEAxQPI2GQFoUKLhZNIeyo 8HSJJkZQTcTCPtPtSsQQFuNMOhITikYSZjDAF8Qaq1CTHwCLUoAV8XRtYvYLWgOPI3PLMoQRIyZKAitq 6ABBVyCLSaSoooLoBuTQKfWOXzRAmcLOJcQLD0GITaHQDjQPKxYC4AXqItNYMdNQfsUXdtOPHyYJSplk 0TDKQvEKMpYiS7KRYgQZOzUFHhWEfyHLDqTJY2RIL4 HHJzVRVkHO1EVpNrDBByGJlrCLclVXWkABDxcw5VBCQuBAYtKCG5JkPvSJIwPANtOYy0aeXxeAPlYUd3 KT0WT7OczjKaAxUNPy6Yb637ZPInWAPvSa5YQ6mbZg0wVFYsTFHMMv8DVHn0HXOmUsPkWYFcAAYaLKD9 NgW5BFpbUFA6SPEaNQLyW6X+UCjmTIRjS8AmLLQ8XW K8DTpyUVrnNVZjQKy9RDYbYGM5Sk7wNAXSRr8+AEdumAJiwTvkQKFRTeS8VAv9WEecSTAVSf4B ID Date Data Source [id number] 05/09/2020 09:49:22 AM EDT [facility] Name Value Range Interpretation Code Description Data Cristina rce(s) Supporting Document(s) Progress Note [facility] FEJWJt2tJvZOUaXu50/EMFwhCLJsm0TmRInwCMc0UOkyEGRyI8XyVFC8oV6vHKW9DYaYSbOrKsHnYaKz lbm [file] AgICAgICAgICAgICAgICAgICAgICAgICAgICAgICAg ICAgICAgICAgICAgICAgICAgICAgICAgDQogICAgICAgICAgICAgICAgICAgICAgICAgICAgICAgICAg ICAgICAgICAgICAgICAgICAgICAgICAgICAgICAgICAgICAgICAgICAgICAgICAgICAgICAgICAgICAg ICAgICAgDQogICAgICAgICAgICAgICAgICAgICAgIC AgICAgICAgICAgICAgICAgICAgICAgICAgICAgICAgICAgICAgICAgICAgICAgICAgICAgICAgICAgIC AgICAgICAgICAgICAgICAgDQogICAgICAgICAgICAgICAgICAgICAgICAgICAgICAgICAgICAgICAgIC AgICAgICAgICAgICAgICAgICAgICAgICAgICAgICAg ICAgICAgICAgICAgICAgICAgICAgICAgICAgDQogICAgICAgICAgICAgICAgICAgICAgICAgICAgICAg ICAgICAgICAgICAgICAgICAgICAgICAgICAgICAgICAgICAgICAgICAgICAgICAgICAgICAgICAgICAg ICAgICAgICAgDQogICAgICAgICAgICAgICAgICAgIC AgICAgICAgICAgICAgICAgICAgICAgICAgICAgICAgICAgICAgICAgICAgICAgICAgICAgICAgICAgIC AgICAgICAgICAgICAgICAgICAgDQogICAgICAgICAgICAgICAgICAgICAgICAgICAgICAgICAgICAgIC AgICAgICAgICAgICAgICAgICAgICAgICAgICAgICAg ICAgICAgICAgICAgICAgICAgICAgICAgICAgICAgDQogICAgICAgICAgICAgICAgICAgICAgICAgICAg ICAgICAgICAgICAgICAgICAgICAgICAgICAgICAgICAgICAgICAgICAgICAgICAgICAgICAgICAgICAg ICAgICAgICAgICAgDQogICAgICAgICAgICAgICAgIC AgICAgICAgICAgICAgICAgICAgICAgICAgICAgICAgICAgICAgICAgICAgICAgICAgICAgICAgICAgIC AgICAgICAgICAgICAgICAgICAgICAgDQogICAgICAgICAgICAgICAgICAgICAgICAgICAgICAgICAgIC AgICAgICAgICAgICAgICAgICAgICAgICAgICAgICAg SVIqUVIrXZYkYGWnSUDbODJtIGDnAXZkKBCxMLZeVIBpNFf6T6pzMWTtGTNfLA1kUYu0Ky9+DQoNCmVu ZFB7kzAzkW4GHK3dt0NlNSonJVJqq8HwUSv9WZ0EMNRgCCziXQ0SJManid3WAUQiERIorNRDd4ytTeKc AHC0LFZbTlzhAJ7NWVQrO8kmksMoWHDrYPXNUSzkCF NIBVjtSVOTKW9TQwTkA5DonZ74FOIVUl3+QZogrePpFcpFLjR8CCBml8ZqJVi9DG4SFLJgRhqef6JdYf hyNXPLEBoeZZ8BSAT5JWJ5ALVzQs8HUUWrH374wqUzDF1VBw7AZlDjCU6iqk6DVqikLTCaEslEMld4LD edLI5BbFOnBZpWxc0bujRdcpYIq0LpgjKcmESAPYTi nJ5kLRMCGGZfzPqqTAQkYHVrOu7mTdAfZtDyZDv1COTwNL2xCNhiPC6AMXC6KOnkYKLmVOOzU1nUTcWy FQHfHWMowOoyYY8SHxRnT5TtvaCtaWFsEmSnTYLQLu3+LOajynOxKvvBFzL4YABde2OeTXq9EK5TAXFh KTehXU6BGNMuaZ4zJUmcTV9BEzTiQGEpQHYNUzFbN3 9vlSMbUNg0R2IdOuQmQFEgMqxpXSRaYIsxUmGyETZtYaThUPgeMH4+ID4+FHefGN7PRPnqjcTcQXMdQj 9OIXVvPRUtPZ4bIRDcQRCxE1S0vErwAPWIVpUeO5gpuvvsBG3bHLEsL989nTtyppFoAAY9VQClUk3IBN UwQWZ5NBCpdKEoDbNgYLKMQXheTW9XyZIwEKP6eD0m XZvpAXJdRFKtN9bRFrOsiVaoCJ13xHwgqkOgaSIvQXm+Zz7ADJ2yy7LnEQz1btOzWWbbVSG0OSddBEBs MLLaPZMfEHX3HJI9WOHVYkLsHPWiKOYqQMlpRFQhIMUozc0ZZJIzZXDjBGV3WiCqQFAlXCLuZUuwLERo HEP0QAWdEQYtAJFgCY1DPgIjLHBvFYXxTOchBHKtYW Wocj5VDVAaZHGyZdD7FFYoHKBuNKVoSJopJWKyWCCjPXd7EOJpFZRbZA5ITjZgSYAqOXK1MhQdFCXvYF Vvjr5AUTDnQBFbTnthAeJfGKUjROBvCTmcBVBzTPY8UPBgZFEuLIVeLT3QQlHtIXShVZl4QNCjQTAgHY Zmkm5AVQDvFFEkLED8TjDnSKHfLWKhEBetPEOqOKY4 QZauMTTfXVFvPY5KCsBxMGFlKJwmNXPsAZTbLDSpaa7VDZDrYFHcXWHxXLZwXYDoNNGqRZpaXBXcEZVh FbU4QHOfLFQmNY8NZkSlSFLeXHX2PXJiXDTrKFZnmi1MHSYuROUcNMqkWAYzEOSjYICwJJefPYTdODRs EOYqSHAaHIWlEA0JQyNcSKDsWeFhLpewRUQjPOHhtu 6LTFXmQXUsFhSgSVKcYLEfSZNkOYomHMSxRMPwDrI8CEAiAZOtFL4BVsPkDPHlPhA1TVdeYEQiOQIgzi 3BHSJlWRVsExd8JtMvGTUgRFNzSEfxZOUoEII1MSs1QSBuGCIwFU7QTsAaNXBvAgM8BFYvPSRnDDAgmg 3UHEInTRAeYYs2YyKzGMRxRBVxCYcsRFJnULN6PKJj SJQsTYCaEX0UZnJzZFAdAoJbKbBiZRUzFTVada1KfRPuwLenyq0ZBAjKOg1LpCvpVPB3HTfoFt5xzBOk RUWqUDOBGh1BfaExCOUeSQGEKUroNEZhBBLvDfMuZQX5YqSzHAfdLHPiPMFpUCmlOcw2YbIaCTW5IkU4 TsRqLNFcTajtGkX6GPA7JvZaWRQaWASiUhevYVR2Xc Y+OQ5oROa+Ft3Br8WsnqI7pmEuLCelNvHlTI9OQLAZY9JLPr== ID Date Data Source [id number] 05/05/2020 04:05:55 PM EDT [facility] Name Value Range Interpretation Code Description Data Cristina rce(s) Supporting Document(s) Progress Note [facility] CJNIMo7hSgZZDtAq50/QSTzpOWOjz5EgUBnjICt2QSkdSIPfD6BvXNS5aD5qMME5AWiSIvOnHlLnUbV0 lbm [file] AuqaT5uhPfDWwgNcL6IU7JSTOHP4RTUb== ID Date Data Source [id number] 05/05/2020 12:46:[address] [facility] Name Value Range Interpretation Code Description Data Cristina e(s) Supporting Document(s) Leukocytes [#/volume] in Blood by Automated count 4.2 10*3/uL 4-10 [facility] Erythrocytes [#/volume] in Blood by Automated count 4.16 10*6/uL 4.6- 6.1 L [facility] Hemoglobin [Mass/volume] in Blood 13.4 g/dL 13.5-18 L [facility] Hematocrit [Volume Fraction] of Blood by Automated count 39.4 % 4 1-53 L [facility] Erythrocyte mean corpuscular volume [Entitic volume] by Auto mated count 94.7 fL 80-96 [facility] Erythrocyte mean corpuscular hemoglobin [Entitic mass] by Automated count 32.3 pg 27-33 [facility] Erythrocyte mean corpuscular hemoglobin concentration [Mass/volume] by Autom[facility] 34.1 g/dL [facility] distribution width [Ratio] by Automated count 13.7 % 11.5-14.5 [facility] Platelets [#/volume] in Blood by Automated count 153 10*3/uL 150-400 [facility] Differential cell count method - Blood [facility] Neutrophils/100 leukocytes in Blood by Automated count 52 % [facility] Lymphocytes/100 leukocytes in Blood by Automated count 33 % [facility] Monocytes/100 leukocytes in Blood by Automated count 11 % [facility] Eosinophils/100 leukocytes in Blood by Automated count 3 % [facility] Basophils/100 leukocytes in Blood by Automated count 1 % [facility] Neutrophils [#/volume] in Blood by Automated count 2.19 10*3/uL 1.8-7 .0 [facility] Lymphocytes [#/volume] in Blood by Automated count 1.37 10*3/uL 1.2-4 .0 [facility] Monocytes [#/volume] in Blood by Automated count 0.46 10*3/uL 0-0.8 [facility] Eosinophils [#/volume] in Blood by Automated count 0.14 10*3/uL 0-0.5 [facility] Basophils [#/volume] in Blood by Automated count 0.02 10*3/uL 0-0.2 [facility] Nucleated erythrocytes/100 leukocytes [Ratio] in Blood by Automated count 0 /100{WBCs} 0-0 [facility] ID Date Data Source [id number] 05/05/2020 01:21:40 PM EDT [facility] Name Value Range Interpretation Code Description Data Cristina rce(s) Supporting Document(s) Albumin [Mass/volume] in Serum or Plasma by Bromocresol green (BCG) dye binding method 4.4 g/dL 3.5-5.2 [facility] Bilirubin.total [Mass/volume] in Serum or Plasma 0.6 mg/dL <1.2 [facility] Calcium [Mass/volume] in Serum or Plasma 9.0 mg/dL 8.6-10.0 [facility] Chloride [Moles/volume] in Serum or Plasma 103 mmol/L 98-107 [facility] Creatinine [Mass/volume] in Serum or Plasma 1.08 mg/dL 0.70-1.20 [facility] Glucose [Mass/volume] in Serum or Plasma 92 mg/dL 70-140 [facility] Alkaline phosphatase [Enzymatic activity/volume] in Serum or Plasma 59 U/L 40-129 [facility] Potassium [Moles/volume] in Serum or Plasma 4.4 mmol/L 3.4-5.1 [facility] Protein [Mass/volume] in Serum or Plasma 7.5 g/dL 6.4-8.3 [facility] Sodium [Moles/volume] in Serum or Plasma 137 mmol/L 136-145 [facility] Aspartate aminotransferase [Enzymatic activity/volume] in Serum or Plasma 22 U/L <40 [facility] Urea nitrogen [Mass/volume] in Serum or Plasma 21 mg/dL 6-20 H [facility] Osmolality of Serum or Plasma by calculation 286 mosm/kg 275-300 [facility] Creatinine/Urea nitrogen [Mass Ratio] in Serum or Plasma 19 [facility] Bicarbonate [Moles/volume] in Serum 27 mmol/L 22-29 [facility] Alanine aminotransferase [Enzymatic activity/volume] in Seru m or Plasma 29 U/L <41 [facility] Anion gap 3 in Serum or Plasma 7 mmol/L 8-15 L [facility] Glomerular filtration rate/1.73 sq M pre dicted among non-blacks [Volume Rate/Area] in Serum or Plasma by Creatinine-based formula (MDRD) 83 mL/min/1.73m2 >60 [facility] Glomerular filtration rate/1.73 sq M pre dicted among blacks [Volume Rate/Area] in Serum or Plasma by Creatinine-based formula (MDRD) >60 [facility] ID Date Data Source [id number] 04/29/2020 01:14:47 PM EDT [facility] MR BRAIN WITH AND WITHOUT CONTRAST [id number] FINAL RESULTInterpreted by:AARON Altamirano HEAD WITH AND WITHOUT IV CONTRASTClinical indication: 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 Redemonstration of small surgical void in the left anterior frontal lobe surrounded by gliosis with associated mild expected dilatation of the anterior horn of the left lateral ventricle. The ventricular system is otherwise age appropriate in size, shape, and configuration. The ventricles are midline. Otherwise, there is no focus of abnormal signal intensity visualized on any sequence performed.The basal cisterns are normally patent.The cortical sulci is age appropriate in size, shape and configuration. There is no midline shift or mass effect. Normal flow-voids are seen bilaterally.There is no focal area of abnormal post contrast increased signal intensity. No AVM, dissection, or aneurysm.[place] and white matter differentiation is preserved. No hemosiderin deposition. No significant congenital anomaly.The visualized brain stem is unremarkable. The visualized posterior fossa structures are unremarkable. The sella, hypophysis and corpus callosum is unremarkable with normal posterior bright spot. The internal auditory canals are symmetric and unremarkable.The cerebellopontine angle is unremarkable bilaterally. Visualized paranasal sinuses including the mastoid air cells are all clear.IMPRESSION:Unchanged small surgical void in the left anterior frontal lobe surrounded by gliosis with no evidence of residual or recurrent tumor.This document has been electronically signed by Jessica Alexis MD on 04/29/2020 1:12 PM Name Value Range Interpretation Code Description Data Cristina rce(s) Supporting Document(s) ID Date Data Source [id number] 10/18/2019 11:57:24 AM [facility] Name Value Range Interpretation Code Description Data Cristina rce(s) Supporting Document(s) Progress Note [facility] FIQRLn7sZnEBIqYn47/DBZujMTUsz6YmNFeiCZv9BRoqNGZkQ2AyRMB4vE5vPAI6TJoGLfWaCWblOjQu lbm [file] AgICAgICAgICAgICAgICAgICAgICAgICAgICAgICAg ALWhSOQtOLAhJXHkKCFlLT6NLMGcFMPcDUWrXQLaCVIjLSEbQUIsPIMqOAIdCXIbRHTuNNPwHQOeCMDo IKXmNGKgCROwGMFnPYTkIVXlNOAiDBRdAYHrVSWpPOWhSEJjTYVxVFJvGJGgVXXaMTPdNKHjPDJlVU3G ICAgICAgICAgICAgICAgICAgICAgICAgICAgICAgIC AgICAgICAgICAgICAgICAgICAgICAgICAgICAgICAgICAgICAgICAgICAgICAgICAgICAgICAgICAgIC JqXZMxSDVeGX6TUSSgNNLuFRDnRZQfIYZfLBJwSNMnPFKvBBYkBYPcVDZnTHNmJUSpNYOnQSRyGUNbOR AgICAgICAgICAgICAgICAgICAgICAgICAgICAgICAg MVDyPTHaRSEaRPZbZOXiJXDgPO2ZTCYgCBDpACHuRICkWWCkAZMbOIJwAVLwLGZdGLWrELDvVRBjJOJg ICAgICAgICAgICAgICAgICAgICAgICAgICAgICAgICAgICAgICAgICAgICAgICAgICAgICAgICAgICAg KF8MGOLdPHJlVADuRMXtUISsPIRwBYZpPCKzLLPyCM AgICAgICAgICAgICAgICAgICAgICAgICAgICAgICAgICAgICAgICAgICAgICAgICAgICAgICAgICAgIC IuQVUdOSJxQZVsNF9LHVSbSTKuFHUwHCNwMRAaWNIcZAOsYADzTBClFBCmGCInUJNsSTSnOKYkIWSzVE AgICAgICAgICAgICAgICAgICAgICAgICAgICAgICAg NNDyUFItOWIvRWBrPJEhKVNxCAYjHL2MBBOsGTVwDUUbHRHzFRDgBOGtKQNsHPAkDFPwOHSyNCZlRTHw ICAgICAgICAgICAgICAgICAgICAgICAgICAgICAgICAgICAgICAgICAgICAgICAgICAgICAgICAgICAg MFWlHH8DTXMrQJIpXQYrHBMxVCEwQHTdNHCaKQYqOD AgICAgICAgICAgICAgICAgICAgICAgICAgICAgICAgICAgICAgICAgICAgICAgICAgICAgICAgICAgIC XxZXSlHBLnOSImVSRyXS9RYWOnOFIyKFVyXGZfMMOwNMAfLAAmVONvUCWzZVVfUYPcDTCcTMUvWBTnVZ AgICAgICAgICAgICAgICAgICAgICAgICAgICAgICAg LADxIOEqZYFoOIOhAKZiRKGsNXWgPKBrWV0JPT90lQBuo1A5LDGvRS4mhow/Aa0QXNrbunKpvAOtZF5J KoCmIQ3jll7JTrNqGV5jad9HMAiSXgDgT5E0yYExGWIzFIABWnKiP78iDHvgGh30ZDprFJIsYnThGYd9 Ht4GGwHfC4wuVEFpSwN4OUTrJwE7NHSwSmF3NGDjOk CxQWLxNXLuWF1SYDTrI343xwLmVN3XSt5HVeQqQR4ixi1LVyDyDSCkOtcJLot3AClpHL2ObQKwkLPfNp NnNFOTYjMtT7kqv9VbPzDyOGUCJBnjZI0Mw1PbhLUlPGn+Dg8TVG6pe8OwYUibFyQxSK7hfs2IZXaSOh UcA4TiwYwcJYGkn8zrWJIdQT3wfAHySLD0ZNAjhCLj JTTCJA8qu2CmfQfuVBRjEMHrJMGrUP7dPPP9SCQrJtShWJVZHH3HEPWeEWBzvAAwUVHwWPWOGG2BTJwc MZF1GEIhmzZkbQRlZWetSD3PPWPmhvSzRkQqETCZSTg+He2QBZ0ob3YhSNucTxYqDG4zii7TNRxJOgMv R4F2qGZoB3H1TYvwUc6QAIBeBKTgYsJkRNKVFQeqJZ 3BQX1djxD1JK7QcEEfGKEyKCKspEOuOXe7P61xyDFuUJzfJB6WLSQ+Joana+Fi4TQMEzSEAyAOBwMmUrTM UWWbVeH2WkT2WDx6BaM8EcVC45fQwxtoSqDYnaOP7VGK8iPXIsBPBSUA6IiXIssZ4wlgRcXRXoVCXFBr MlX35oiOUeAIVeMXC2DKKoBz9YWPQdD9LodnHjmCdk skHlONChWIQAXL2RBBlvndJxtFNrrCtlVH82gCuhMR4GMc8QQqIdGA3aka3XtZTqKq1QGEIpYK2ZEWMv ABLsMZZoQVJ2KKZyFyUxOHnnAQTiLNSlYKP8TLVzWEIcYJ1VJbYzOKKfEej3JSTbVOXeVGBxvj5XRSOr HSUxPXC4HBOnKNUrNYNnQXfxAUGrAUFrSAM6COFhPF KtCZ2TCeLqIWDbOLAtRApfIFCkXJIotw9PCDTuISYaSHHsQkPtWHRpZOWkHFjiCNGdKWA9NkRfRGMhHB NjAR1KXrXdBRIyDNh7AGzoNFZbXTYsev2GFLTtUAHcEUA0ANKiEXVjSGPfTIeiBYCnMLUlKeu5NKUoPH VwHW3GEgNjWRQmGQP5GiUaRQPsIQXuum5QFDThTZDj YkW5ENDsHWYsVXNzEOhsOZNgSWGhVvCgCAQoCWRtVS5DQwGtLLNoIHD0PdmgMHTpSRHsrv0NHLUqYQCh GRSmBJGeCYMlVTZwIWhiETFiLDJ6WTV9GSDhEFDiSX8TZtClSWXxLLEnClKyTLXtUUNozx0ADXGbQKBq SPL5OBKfOSCmDGGyMMfgULZaWII4Gsc2TAUdFFBfIM 7BYpCsVNUiQwqdKUXlIVXgQNHbkg9CPDVxFKCpHkJnTeFyBSBwRRRpVEvsNSMuYYL8SLjwMVEtJIZfXB 8HUlDsUONzGjy6WBheGCBrZATjth5NFCEnBPWmJHTvPIVaRFIqUNWkBRrvFPBzWYB6XNy2QKLoIUUyWM 4KCpCfBHBvNki1IDwzKJAbKTLteg8ECPPcPMPjZQb1 FTPlIYXnWUZuBRd8nlXnhBIyMPp9EV7WD1WyqtRsAzsLGu3Wx610FGC5AKIqDm3MJ5rcPv5dPNIrVUDI Ef9FHLs9R9E4UZPuKVkuAvC2XMN1EbNmGCZcRaL0WWFmWOM3UCb+ITh2WbEwABVcSDUbFFw8KUebNMF9 DELjBcD1AJPoOUpjIm9wDDQFAy0+OTauvHLdmMbmNSIPKmAoUKDkKTseLXDTCq8I ID Date Data Source [id number] 10/08/2019 08:41:10 PM EST [facility] Name Value Range Interpretation Code Description Data Cristina rce(s) Supporting Document(s) Progress Note [facility] YUPEUj9nGbVMQdGq84/CMXyfBSHvb7YzBCzuEQl1IYhwGZCsD0LiVPS6rT8hJYI6REmCBmMaOZfaJwOr lbm [file] ICAgICAgICAgICAgICAgICAgICAgICAgICAgICAgICAgICAgICAgICAgICAgICAgDQogICAgICAgICAg ICAgICAgICAgICAgICAgICAgICAgICAgICAgICAgIC AgICAgICAgICAgICAgICAgICAgICAgICAgICAgICAgICAgICAgICAgICAgICAgICAgICAgICAgICAgDQ ogICAgICAgICAgICAgICAgICAgICAgICAgICAgICAgICAgICAgICAgICAgICAgICAgICAgICAgICAgIC AgICAgICAgICAgICAgICAgICAgICAgICAgICAgICAg ICAgICAgICAgDQogICAgICAgICAgICAgICAgICAgICAgICAgICAgICAgICAgICAgICAgICAgICAgICAg ICAgICAgICAgICAgICAgICAgICAgICAgICAgICAgICAgICAgICAgICAgICAgICAgICAgDQogICAgICAg ICAgICAgICAgICAgICAgICAgICAgICAgICAgICAgIC AgICAgICAgICAgICAgICAgICAgICAgICAgICAgICAgICAgICAgICAgICAgICAgICAgICAgICAgICAgIC AgDQogICAgICAgICAgICAgICAgICAgICAgICAgICAgICAgICAgICAgICAgICAgICAgICAgICAgICAgIC AgICAgICAgICAgICAgICAgICAgICAgICAgICAgICAg ICAgICAgICAgICAgDQogICAgICAgICAgICAgICAgICAgICAgICAgICAgICAgICAgICAgICAgICAgICAg ICAgICAgICAgICAgICAgICAgICAgICAgICAgICAgICAgICAgICAgICAgICAgICAgICAgICAgDQogICAg ICAgICAgICAgICAgICAgICAgICAgICAgICAgICAgIC AgICAgICAgICAgICAgICAgICAgICAgICAgICAgICAgICAgICAgICAgICAgICAgICAgICAgICAgICAgIC AgICAgDQogICAgICAgICAgICAgICAgICAgICAgICAgICAgICAgICAgICAgICAgICAgICAgICAgICAgIC AgICAgICAgICAgICAgICAgICAgICAgICAgICAgICAg ICAgICAgICAgICAgICAgDQogICAgICAgICAgICAgICAgICAgICAgICAgICAgICAgICAgICAgICAgICAg ICAgICAgICAgICAgICAgICAgICAgICAgICAgICAgICAgICAgICAgICAgICAgICAgICAgICAgICAgDQo8 M3xbZIZnUKCzUD0xUKu1Vv0+KEyKFiZgXXR5vdWfcN 1ACO5wb0AoNCfeAGEhi7LpXEm8WX8BGKAoLGzfVV7OFIzren8LKGEqLQDnaHIFp6osXiZyQGE4NOKrRd gfRC4MAHCoQ0krbbPsUKDdEGLLNG0ZOnKvT7FaiI91CPFQOw5+RBtqugWpHpvDRdS0XVZer3QxUKr7PB 3XMRFrExnfv1CpMwWgVDZCBZjjJL8ZIWR5RBQcDSFm Oh2LXJUwT379kdGyTR5BPx0QDwEaOG0lkb8DKeFrMIBeRmnLMmr3WKubYM4OgJTeQTbOwc7qwyUyvnYD b1BuixGrlZVZhZt8zopqSHDoIGZAHXSyxLTbTM1lMS1wQTS4JFX9GhXkNHNHVC5VLAEaFSZduCFhWEPq HAQQXF1ESRwzUMF0BYRzdoOjyVLsPDaqKU1PKFNkny QgMTkgMCBSDQo+Mi7GSK9lw0HjJCfdAODqYE3uca7OSFwUAjQvH0Z7gJAsX6R3WCzzAv4EBBQfBEVoWW wqZBJPSWdnLV2DVT3pgjU0GC9PoDNqRQZtUQCmnZOtWBc8Q75ppOSmUHxyMX5OETK+Joana+Vi5NVIGfTS OvXGFhQlLzTYBDKnMvN7BjV5XSo4CqG9LaYB08dSoe uyPzIWtiVB6YAE2fATTjXSXYMQ2ZuTOiyV1uzyGaBEHdLBFHSfIyG82zgJTrUAAwLQP0VDBtAx9KZWJy R5IeddUggXicpgBkDKVkHIIGSC2ZWPdyxtWkxWPreYrdAN00tKwyFP8DRk0HSmLtVO6nlm2SmZNyZf7E SYBkJj3RYFNlMCHqYTZpEPD9TZJcHwBbMVjgXHOxIA QpGVE9XWDrDFUwLB6QDpPxOCHmWEv3HxRxLKWqGYEuxi3TISZxWFDqDFW8JWVpXHLwBZFeQOuoLMXyTE NtBIY5GXRvRJUrIZ4WLsArSXFyFGXrOIkjGXFqAMVthj7ZTXReQEWbFoH5HkEiKLTcCIOrZQpkUXRoYH McDRIhDDEcSGMmDL7UNtMtDLXgOEE1BDtxETSqFCMq bi1UJBZkQOXmTva2XwBoLWHgRYGqDVciMFWpBHL9ZYI1NJVuFWMzZV2JMvSgOFMcIJGmGLkpPDFuPPPo ej2YUZYpBUWhZWY8EGRhCGUjCRFbFKlxTJFoGET5NHk0LWEsGGWkZR9YAkKtGRNwHQG1MKMwUAJaOALs nu3ZHWTjIRSwQiFpRQAwIENkHADeJBriCROvAJD5Ey A9MYDtPWAvZM9VNyTzJKIeEYi7GINeILUpNCSuvn3ELPRcRLLtFcfwZFJfXSOfAHOgQZwvVJOtJCA3Kd W5DKWfAQNlQG3ITsByQIUgOMz1VAehCSNuWTOgox2IGVHnLZCnFMW3UCVmRBBeTKXzOUt9sqFubYGnHD o8BP2TA4IqasGzIpBFYm8Hv332FQKxEDAlXv2JI7yq Yg5jUOChONUGKo3WGEk5GrM2UdShAHLzDEX8LqE5T8BqGzZjJST6OKYjTvRgEyC+IDxmYTljMzNhMmY0 Jjb7HSqrTyInYKWyNdLcOGDmO3W0Fj5yZZJHDs2+NAdtkGZwcLigXAYOVgQ5OJZ9MRipUBGTHe9O ID Date Data Source [id number] 10/08/2019 08:41:05 PM [facility] Name Value Range Interpretation Code Description Data Cristina rce(s) Supporting Document(s) Progress Note [facility] YRQJGm8vVsNRCcXy49/BIWjbQLGff4HkKVncREc6WIupBQDnZ2IvPTQ4sC6nTQW6VGgJGfTeADnbMoEa [id number] [file] [id number] Procedure Social History Code Duration Value Status Description Data Source(s ) Smoking 10/13/2020 12:00:00 AM EST Never Smoker completed Never S moker eCW1 ([facility]) Smoking 10/13/2020 12:00:00 AM EST Never Smoker completed Never S moker eCW1 ([facility]) Smoking 10/13/2020 12:00:00 AM EST Never Smoker completed Never S moker eCW1 ([facility]) Smoking 10/13/2020 12:00:00 AM EST Never Smoker completed Never S moker eCW1 ([facility]) Smoking 10/13/2020 12:00:00 AM EST Never Smoker completed Never S moker eCW1 ([facility]) Smoking 10/01/2020 12:00:00 AM EST Patient has never smoked co mpleted Patient has never smoked MEDENT ([facility]) Smoking 09/24/2020 12:00:00 AM EST Never Smoker completed Never S moker eCW1 ([facility]) Smoking 09/24/2020 12:00:00 AM EST Never Smoker completed Never S moker eCW1 ([facility]) Smoking 09/24/2020 12:00:00 AM EST Never Smoker completed Never S moker eCW1 ([facility]) Smoking 09/16/2020 12:00:00 AM EST Never Smoker completed Never S moker eCW1 ([facility]) Smoking 09/16/2020 12:00:00 AM EST Never Smoker completed Never S moker eCW1 ([facility]) Smoking 09/16/2020 12:00:00 AM EST Never Smoker completed Never S moker eCW1 ([facility]) Smoking 09/08/2020 12:00:00 AM EST Never Smoker completed Never S moker eCW1 ([facility]) Smoking 08/25/2020 12:00:00 AM EDT Never Smoker completed Never S moker eCW1 ([facility]) Smoking 08/25/2020 12:00:00 AM EDT Never Smoker completed Never S moker eCW1 ([facility]) Smoking 08/25/2020 12:00:00 AM EDT Never Smoker completed Never S moker eCW1 ([facility]) Smoking 08/25/2020 12:00:00 AM EDT Never Smoker completed Never S moker eCW1 ([facility]) Alcohol intake 08/22/2020 12:00:00 AM EDT Current non-d [place] of alcohol (finding) completed Current non-drinker of alcohol (finding) [facility] Tobacco use and exposure 08/22/2020 12:00:00 AM EDT Never used co mpleted Never used [facility] Smoking 08/22/2020 12:00:00 AM EDT Never smoker completed Never s [facility] Alcohol intake 07/22/2020 12:00:00 AM EDT Current non-d [place] of alcohol (finding) completed Current non-drinker of alcohol (finding) [facility] Smoking 05/21/2020 12:00:00 AM EDT Never Smoker completed Never S moker eCW1 ([facility]) Smoking 05/21/2020 12:00:00 AM EDT Never Smoker completed Never S moker eCW1 ([facility]) Smoking 05/21/2020 12:00:00 AM EDT Never Smoker completed Never S moker eCW1 ([facility]) Smoking 05/21/2020 12:00:00 AM EDT Never Smoker completed Never S moker eCW1 ([facility]) Smoking 05/21/2020 12:00:00 AM EDT Never Smoker completed Never S moker eCW1 ([facility]) Smoking 05/21/2020 12:00:00 AM EDT Never Smoker completed Never S moker eCW1 ([facility]) Smoking 05/20/2020 12:00:00 AM EDT Non Smoker completed Non Smoke r MEDENT ([facility]) Smoking 05/17/2020 12:00:00 AM EDT Never Smoker completed Never S moker eCW1 ([facility]) Alcohol intake 05/05/2020 12:00:00 AM EDT Current non-d [place] of alcohol (finding) completed Current non-drinker of alcohol (finding) [facility] Smoking 05/05/2020 12:00:00 AM EDT Never smoker completed Never s [facility] Smoking 04/09/2020 12:00:00 AM EDT Never Smoker completed Never S moker eCW1 ([facility]) Alcohol intake 10/17/2019 12:00:00 AM EST Current non-d [place] of alcohol (finding) completed Current non-drinker of alcohol (finding) [facility] Smoking 10/17/2019 12:00:00 AM EST Never smoker completed Never s [facility] Vital Signs ID Date Data Source UNK Name Value Range Interpretation Code Description Data Source(s) Diastolic blood pressure 78 mm[Hg] 78 mm[Hg] eCW1 ([facility]) Systolic blood pressure 128 mm[Hg] 128 mm[Hg] e CW1 ([facility]) Body mass index (BMI) [Ratio] 27.92 kg/m2 27.92 kg/m2 [facility] ([facility]) Body height 71.5 [in_i] 71.5 [in_i] eCW1 ([facility]) Body weight 203 [lb_av] 203 [lb_av] eCW1 ([facility]) Diastolic blood pressure 84 mm[Hg] 84 mm[Hg] eCW1 ([facility]) Systolic blood pressure 124 mm[Hg] 124 mm[Hg] e CW1 ([facility]) Body temperature 97.1 [degF] 97.1 [degF] eCW1 ( [facility]) Respiratory rate 18 /min 18 /min eCW1 ([facility]) Heart rate 77 /min 77 /min eCW1 ([facility]) Body mass index (BMI) [Ratio] 28.60 kg/m2 28.60 kg/m2 eCW1 ([facility]) Body height 71.5 [in_i] 71.5 [in_i] eCW1 ([facility]) Body weight 208 [lb_av] 208 [lb_av] eCW1 ([facility]) Body surface area Derived from formula 2.08 m2 2.08 m2 MED[facility] ([facility], ) Body weight 87.545 kg 87.545 kg [facility] [place] body weight 172 [lb_av] 172 [lb_av] MEDEN T ([facility]) Body mass index (BMI) [Ratio] 26.9 kg/m2 26.9 k g/m2 MED[facility] ([facility]) Body weight 193.00 [lb_av] 193.00 [lb_av] MEDEN T ([facility]) Body height 71 [in_i] 71 [in_i] MEDENT ([facility]) 5'11" Diastolic blood pressure--sitting 80 mm[Hg] 80 mm[Hg] MEDENT ([facility]) [place], large cuff/Ra Systolic blood pressure--sitting 122 mm[Hg] 122 mm[Hg] MEDENT ([facility]) [place], large cuff/Ra Heart rate 89 /min 89 /min [facility] ([facility]) Body mass index (BMI) [Ratio] 28.9 kg/m2 28.9 k g/m2 [facility] [facility] Body height 71 [in_i] 71 [in_i] MEDENT ([facility] 5'11" Body weight 207.00 [lb_av] 207.00 [lb_av] MEDEN T ([facility]) Diastolic blood pressure 84 mm[Hg] 84 mm[Hg] eCW1 ([facility]) Systolic blood pressure 130 mm[Hg] 130 mm[Hg] e CW1 ([facility]) Body temperature 97.8 [degF] 97.8 [degF] eCW1 ( [facility]) Respiratory rate 18 /min 18 /min eCW1 ([facility]) Heart rate 85 /min 85 /min eCW1 ([facility]) Body mass index (BMI) [Ratio] 29.68 kg/m2 29.68 kg/m2 eCW1 ([facility]) Body height 71.5 [in_i] 71.5 [in_i] eCW1 ([facility]) Body weight 215.8 [lb_av] 215.8 [lb_av] eCW1 ([facility]) Body temperature 97.1 [degF] 97.1 [degF] MEDENT ([facility], ) Diastolic blood pressure 82 mm[Hg] 82 mm[Hg] eCW1 ([facility]) Systolic blood pressure 125 mm[Hg] 125 mm[Hg] e CW1 ([facility]) Body temperature 98.5 [degF] 98.5 [degF] eCW1 ( [facility]) Respiratory rate 18 /min 18 /min eCW1 ([facility]) Heart rate 74 /min 74 /min eCW1 ([facility]) Body mass index (BMI) [Ratio] 28.74 kg/m2 28.74 kg/m2 eCW1 ([facility]) Body height 71.5 [in_i] 71.5 [in_i] eCW1 ([facility]) Body weight 209 [lb_av] 209 [lb_av] eCW1 ([facility]) Diastolic blood pressure 86 mm[Hg] 86 mm[Hg] eCW1 ([facility]) Systolic blood pressure 130 mm[Hg] 130 mm[Hg] e CW1 ([facility]) Body temperature 98.3 [degF] 98.3 [degF] eCW1 ( [facility]) Respiratory rate 18 /min 18 /min eCW1 ([facility]) Heart rate 99 /min 99 /min eCW1 ([facility]) Body mass index (BMI) [Ratio] 28.33 kg/m2 28.33 kg/m2 eCW1 ([facility]) Body height 71.5 [in_i] 71.5 [in_i] eCW1 ([facility]) Body weight [lb_av] eCW1 ([facility]) Body mass index (BMI) [Ratio] 28.11 kg/m2 28.11 kg/m2 eCW1 ([facility]) Body height 71.5 [in_i] 71.5 [in_i] eCW1 ([facility]) Body weight 204.4 [lb_av] 204.4 [lb_av] eCW1 ([facility]) [place] body weight 172 [lb_av] 172 [lb_av] MEDEN T ([facility]) Body mass index (BMI) [Ratio] 27.6 kg/m2 27.6 k g/m2 MEDENT ([facility]) Body weight 198.00 [lb_av] 198.00 [lb_av] MEDEN T ([facility]) Body height 71 [in_i] 71 [in_i] MEDENT ([facility]) 5'11" Heart rate 72 /min 72 /min MEDENT ([facility]) Diastolic blood pressure 80 mm[Hg] 80 mm[Hg] MEDENT ([facility]) Systolic blood pressure 120 mm[Hg] 120 mm[Hg] M EDENT ([facility]) Diastolic blood pressure 82 mm[Hg] 82 mm[Hg] eCW1 ([facility]) Systolic blood pressure 117 mm[Hg] 117 mm[Hg] e CW1 ([facility]) Body temperature 98 [degF] 98 [degF] eCW1 ([facility]) Respiratory rate 18 /min 18 /min eCW1 ([facility]) Heart rate 82 /min 82 /min eCW1 ([facility]) Body mass index (BMI) [Ratio] 25.99 kg/m2 25.99 kg/m2 W1 ([facility]) Body height 71.5 [in_i] 71.5 [in_i] eCW1 ([facility]) Body weight 189 [lb_av] 189 [lb_av] eCW1 ([facility]) Body weight 87.545 kg 87.545 kg MEDENT ([facility], ) [place] body weight 172 [lb_av] 172 [lb_av] MEDEN T ([facility]) Body mass index (BMI) [Ratio] 26.9 kg/m2 26.9 k g/m2 MEDENT ([facility]) Body weight 193.00 [lb_av] 193.00 [lb_av] MEDEN T ([facility], ) Body height 71 [in_i] 71 [in_i] MEDENT ([facility], ) 5'11" Body temperature 98.0 [degF] 98.0 [degF] [facility], [facility] Diastolic blood pressure 84 mm[Hg] 84 mm[Hg] eCW1 ([facility]) Systolic blood pressure 117 mm[Hg] 117 mm[Hg] e CW1 ([facility]) Body temperature 99.1 [degF] 99.1 [degF] eCW1 ( [facility]) Respiratory rate 18 /min 18 /min eCW1 ([facility]) Heart rate 82 /min 82 /min eCW1 ([facility]) Body mass index (BMI) [Ratio] 26.54 kg/m2 26.54 kg/m2 W1 ([facility]) Body height 71.5 [in_i] 71.5 [in_i] eCW1 ([facility]) Body weight 193 [lb_av] 193 [lb_av] eCW1 ([facility]) Diastolic blood pressure 73 mm[Hg] 73 mm[Hg] eCW1 ([facility]) Systolic blood pressure 110 mm[Hg] 110 mm[Hg] e CW1 ([facility]) Body temperature 98.7 [degF] 98.7 [degF] eCW1 ( [facility]) Respiratory rate 18 /min 18 /min eCW1 ([facility]) Heart rate 91 /min 91 /min eCW1 ([facility]) Body mass index (BMI) [Ratio] 26.13 kg/m2 26.13 kg/m2 eCW1 ([facility]) Body height 71.5 [in_i] 71.5 [in_i] eCW1 ([facility]) Body weight 190 [lb_av] 190 [lb_av] eCW1 ([facility]) Diastolic blood pressure 72 mm[Hg] 72 mm[Hg] eCW1 ([facility]) Systolic blood pressure 118 mm[Hg] 118 mm[Hg] e CW1 ([facility]) Body temperature 99.0 [degF] 99.0 [degF] eCW1 ( [facility]) Respiratory rate 16 /min 16 /min eCW1 ([facility]) Heart rate 83 /min 83 /min eCW1 ([facility]) Body mass index (BMI) [Ratio] 27.09 kg/m2 27.09 kg/m2 eCW1 ([facility]) Body height 71.5 [in_us] 71.5 [in_us] eCW1 ([facility]) Body weight Measured [lb_av] eCW1 ([facility]) ID Date Data Source [id number] 07/24/2020 08:16:12 AM [facility] Value Range Interpretation Code Description Data Source(s) WEIGHT RECORDED 198.8 lb 198.8 lb [facility] ID Date Data Source [id number] 05/19/2020 07:30:15 PM EDT [facility] Name Value Range Interpretation Code Description Data Source(s) WEIGHT RECORDED 191.4 lb 191.4 lb [facility] ID Date Data Source [id number] 10/18/2019 11:57:24 AM [facility] Value Range Interpretation Code Description Data Source(s) WEIGHT RECORDED 194 lb 194 lb [facility] ID Date Data Source [id number] 10/08/2019 08:41:10 PM [facility] Value Range Interpretation Code Description Data Source(s) WEIGHT RECORDED 192.6 lb 192.6 lb [facility] Patient Treatment Plan of Care Planned Activity Planned Date Details Description Data Source (s) Ciprofloxacin 2 MG/ML Otic Solution 09/24/2020 12:00:00 AM EST eCW1 ([facility]) Ciprofloxacin 2 MG/ML Otic Solution 09/24/2020 12:00:00 AM EST eCW1 ([facility]) Ciprofloxacin 2 MG/ML Otic Solution 09/24/2020 12:00:00 AM EST eCW1 ([facility]) Levetiracetam 750 MG Oral Tablet 06/03/2020 12:00:00 AM [facility] Prednisone 20 MG Oral Tablet 05/21/2020 12:00:00 AM EDT eCW1 ([facility]) Prednisone 20 MG Oral Tablet 05/21/2020 12:00:00 AM EDT eCW1 ([facility]) Prednisone 20 MG Oral Tablet 05/21/2020 12:00:00 AM EDT eCW1 ([facility]) Prednisone 20 MG Oral Tablet 05/21/2020 12:00:00 AM EDT eCW1 ([facility]) Prednisone 20 MG Oral Tablet 05/21/2020 12:00:00 AM EDT eCW1 ([facility]) Prednisone 20 MG Oral Tablet 05/21/2020 12:00:00 AM EDT eCW1 ([facility]) tizanidine 4 MG Oral Tablet [Zanaflex] 05/17/2020 12:00:00 AM EDT eCW1 ([facility]) Diclofenac Sodium 75 MG Delayed Release Oral Tablet 05/17/20 12:00:00 AM EDT eCW1 ([facility]) Levetiracetam 750 MG Oral Tablet 11/28/2019 12:00:00 AM [facility] Procarbazine 50 MG Oral Capsule 09/12/2019 12:00:00 AM [facility] Levetiracetam 500 MG Oral Tablet 08/06/2019 12:00:00 AM [facility] Lomustine 40 MG Oral Capsule [Gleostine] 08/01/2019 12:00:00 AM [facility] Levetiracetam 500 MG Oral Tablet 01/11/2019 12:00:00 AM [facility] Prochlorperazine 10 MG Oral Tablet 10/16/2018 12:00:00 AM [facility] sennosides, LONGTERM 8.6 MG Oral Tablet 05/25/2018 12:00:00 AM [facility] UNABLE TO FIND [facility] topiramate 25 MG Oral Tablet [facility] Simethicone 80 MG Chewable Tablet [facility]
--- OUTSIDE RECORDS SUMMARY | 2020-11-26 05:36 | CCD ---
Author Author [facility] Organization [facility] Address Unknown Phone Unavailable Care Team Providers Care Liquor Store Manager Name Role Phone JOSELO VALENCIA . Unavailable [...] Unavailable Amy Ha MD Unavailable Unavailable Schoeneman, Ansonia DO Unavailable Schoeneman, Ansonia DO Unavailable Schoeneman, Ansonia DO Unavailable Schoeneman, Ansonia DO Unavailable Schoeneman, Ansonia DO Unavailable Schoeneman, [place]sonia DO Unavailable Schoeneman, Darlene DO Unavailable Schoeneman, Darlene DO Unavailable Schoeneman, Ansonia DO Unavailable Schoeneman, Ansonia DO Unavailable Schoeneman, Ansonia DO Unavailable Schoeneman, Ansonia DO Unavailable Schoeneman, Ansonia DO Unavailable Schoeneman, Darlene DO Unavailable Schoeneman, Ansonia DO Unavailable Schoeneman, Ansonia DO Unavailable Schoeneman, Ansonia DO Unavailable Schoeneman, Darlene DO Unavailable Schoeneman, Ansonia DO Unavailable Schoeneman, Ansonia DO Unavailable Schoeneman, Ansonia DO Unavailable Schoeneman, Darlene DO Unavailable Schoeneman, Ansonia DO Unavailable Schoeneman, Darlene DO Unavailable Schoeneman, Ansonia DO Unavailable Schoeneman, Ansonia DO Unavailable Schoeneman, Ansonia DO Unavailable Schoeneman, Ansonia DO Unavailable Schoeneman, Ansonia DO Unavailable Schoeneman, Darlene DO Unavailable Schoeneman, Ansonia DO Unavailable Schoeneman, Ansonia DO Unavailable ADITHYA SAVAGEUM MD, PHD Unavailable [...] Unavailable Unavailable LLOYD, MIJUNG MD Unavailable Unavailable LLYOD MIJUNG MD Unavailable Unavailable LLOYD MIJUNG MD [...] GOOD MD, PHD Unavailable Unavailabl e SAVAGEADITHYA HWITMORE MD, PHD Unavailable Unavailabl e SAVAGE, ADITHYA [...] Mollison, Abhay Don MD Unavailable Unavailable Schoeneman, Ansonia DO Unavailable Schoeneman, Darlene DO Unavailable Schoeneman, Darlene DO Unavailable Schoeneman, Darlene DO Unavailable Schoeneman, Ansonia DO Unavailable Schoeneman, Ansonia DO Unavailable Schoeneman, Ansonia DO Unavailable Schoeneman, Darlene DO Unavailable Schoeneman, Ansonia DO Unavailable Schoeneman, Ansonia DO Unavailable Schoeneman, Ansonia DO Unavailable Schoeneman, Ansonia DO Unavailable Schoeneman, Ansonia DO Unavailable Schoeneman, Ansonia DO Unavailable Schoeneman, Darlene DO Unavailable Schoeneman, Darlene DO Unavailable Schoeneman, Ansonia DO Unavailable Schoeneman, Darlene DO Unavailable Schoeneman, Darlene DO Unavailable Schoeneman, Darlene DO Unavailable Schoeneman, Ansonia DO Unavailable Schoeneman, Darlene DO Unavailable Schoeneman, Ansonia DO Unavailable Schoeneman, Ansonia DO Unavailable Schoeneman, Ansonia DO Unavailable Schoeneman, Ansonia DO Unavailable Schoeneman, Ansonia DO Unavailable Schoeneman, Darlene DO Unavailable Schoeneman, [...] Peter Pipo, L Earlene DO Unavailable Unavailable Converse Pipo, L Earlene DO Unavailable Unavailable Peter Pipo, L Earlene DO Unavailable Unavailable Peter Pipo, L Earlene DO Unavailable Unavailable Converse Pipo, L Earlene DO Unavailable Unavailable Converse Pipo, L Earlene DO Unavailable Unavailable DARLYN, [...] is protected by Article 27-F of the [facility] Public Health law. If you continue you may have access to information: Regarding HIV / AIDS; Provided by facilities licensed or operated by the [facility] Office of Mental Health; or Provided by the [facility] Office for People With Developmental Disabilities. If such information is present, then the following [facility] mandated warning applies: This information has been [...] law may result in a fine or long term sentence or both. A general authorization for the release of medical or other information is NOT sufficient authorization for further disc losure. Allergies and Adverse Reactions Type Description Substance Reaction Status Data Source(s ) Drug allergy Penicillin (For Allergies Use Only) Drug allergy Nause a/Vomiting Active [facility] Encounters Encounter Providers Location Date Indications Data Source(s ) Outpatient Attender: SHAE CHERY MD 07/27/2021 12:00:00 AM [facility] Outpatient Attender: FLOR OCONNOR . 12/23/2020 12:00:00 AM [facility] Outpatient Attender: SUZI DESAI MD 12/01/2020 12:00:00 AM [facility] Outpatient Referrer: JOSE ALBERTO CAMEJO 11/27/2020 12:00:00 AM [facility] Outpatient Referrer: JOSE ALBERTO CAMEJO 11/26/2020 12:00:00 AM [facility] Unknown [address] [facility] [address] 11/03/2020 12:00:00 AM EST eCW1 ([facility]) Recurring Patient Referrer: Darlene Sosa DO 0 11:58:12 AM EST [facility] Recurring Patient Referrer: Darlene Sosa DO 0 02:07:11 PM EST [facility] Unknown [address] [facility] [place] [address] 10/17/2020 12:00:00 AM EST eCW1 ([facility]) Outpatient [address] [facility] [place] [address] 10/13/2020 12:00:00 AM EST eCW1 ([facility]) Unknown [address] [facility] [place] [address] 10/13/2020 12:00:00 AM EST eCW1 ([facility]) Outpatient [address] [facility] [address] 2020 12:00:00 AM EST eCW1 ([facility]) Outpatient Attender: LLUVIA BULL MD Main Office 10/01/2020 07:45:00 AM EST SHALA ([facility]) Outpatient Attender: FLOR OCONNOR . 09/30/2020 12:00:00 AM [facility] Unknown [address] [facility] [address] 09/25/2020 12:00:00 AM EST eCW1 ([facility]) Outpatient [address] [facility] [address] 09/24/2020 12:00:00 AM EST eCW1 ([facility]) Unknown [address] [facility] [address] 09/24/2020 12:00:00 AM EST eCW1 ([facility]) Outpatient [address] [facility] [address] 09/16/2020 12:00:00 AM EST eCW1 ([facility]) Unknown [address] [facility] [address] 09/16/2020 12:00:00 AM EST eCW1 ([facility]) Unknown [address] [facility] [address] 09/10/2020 12:00:00 AM EST eCW1 ([facility]) Outpatient [address] [facility] [address] 09/08/2020 12:00:00 AM EST eCW1 ([facility]) Unknown [address] [facility] [address] 09/02/2020 12:00:00 AM EDT eCW1 ([facility]) Unknown [address] [facility] [address] 08/28/2020 12:00:00 AM EDT eCW1 ([facility]) Outpatient [address] [facility] [address] 08/25/2020 12:00:00 AM EDT eCW1 ([facility]) Emergency Attender: Dudley Ha MDAttender: Lewis Foss DO [id number] 08/22/2020 02:08:00 AM EDT - 08/22/2020 10:34:00 AM EDT Pain in left shoulder [facility] Pain in left shoulder Patient discharged. Outpatient Attender: Arian Almaraz/Darleen/Peter/Re indl 08/21/2020 11:10:00 AM EDT MEDENT ([facility]) Unknown [address] [facility] [address] 08/15/2020 12:00:00 AM EDT eCW1 ([facility]) Unknown [address] [facility] [address] 08/07/2020 12:00:00 AM EDT eCW1 ([facility]) Emergency Attender: HARDIK SANTIZO MDConsultant: Darlene mcconnell DO 08/02/2020 08:24:00 PM EDT - 08/02/2020 08:59:00 PM EDT [facility] Patient discharged. Emergency Attender: HARDIK SANTIZO MDConsultant: Darlene mcconnell DO 07/31/2020 02:05:00 PM EDT - 07/31/2020 03:43:00 PM EDT [facility] Patient discharged. Outpatient Attender: SHAE CHERY MDReferrer: SUZI DESAI MD 0 [id number] 07/22/2020 12:00:00 AM EDT - 07/22/2020 11:12:47 AM EDT follow up [facility] follow up Outpatient Attender: SHAE CHERY MD 06/24/2020 12:00:00 AM EDT [facility] Unknown [address] [facility] [address] 05/23/2020 12:00:00 AM EDT eCW1 ([facility]) Outpatient [address] [facility] [address] 05/21/2020 12:00:00 AM EDT eCW1 ([facility]) Unknown [address] [facility] [address] 05/21/2020 12:00:00 AM EDT eCW1 ([facility]) Unknown [address] [facility] [address] 05/21/2020 12:00:00 AM EDT eCW1 ([facility]) Outpatient Attender: SHAE CHERY MD 05/21/2020 12:00:00 AM EDT [facility] Outpatient Attender: Arian Almaraz/Darleen/Peter/Jammie luzl 05/20/2020 09:40:00 AM EDT MEDENT ([facility]) Unknown [address] [facility] [address] 05/19/2020 12:00:00 AM EDT eCW1 ([facility]) Outpatient [address] [facility] [address] 05/17/2020 12:00:00 AM EDT eCW1 ([facility]) Outpatient Attender: FLORENTINO SAVAGE MD, PHD [id number] 05/09/2020 12:00:00 AM EDT Neoplasm of unspecified behavior of brain [facility] Neoplasm of unspecified behavior of brai n Outpatient Attender: SUZI DESAI MD [id number] 05/05/20 12:00:00 AM EDT - 05/05/2020 12:35:16 PM EDT Malignant neoplasm of brain, unspecified [facility] Malignant neoplasm of brain, unspecified Outpatient Attender: SUZI DESAI MDReferrer: Darlene overton DO 04/29/2020 12:00:00 AM EDT Malignant neoplasm of brain, unspecified [facility] Malignant neoplasm of brain, unspecified Outpatient [address] [facility] [address] 04/09/2020 12:00:00 AM EDT eCW1 ([facility]) Outpatient Attender: SUZI DESAI MD 02/04/2020 12:00:00 AM [facility] Outpatient Referrer: JOSELO VALENCIA . 02/01/2020 12:00:00 AM [facility] Outpatient Attender: SUZI DESAI MD 01/28/2020 12:00:00 AM [facility] Outpatient Referrer: FLORENTINO SAVAGE MD, PHD 11/30/2019 01:28 :00 PM EST [facility] Outpatient Attender: SUZI DESAI MD 11/28/2019 12:00:[address] [address] 11/27/2019 12:00:00 AM EST eCW1 ([facility]) Outpatient Attender: SHAE CHERY MDReferrer: SUZI DESAI MD 0 [id number] 10/15/2019 12:00:00 AM EST - 10/15/2019 03:22:25 PM EST f/u [facility] f/u [address] [address] 10/15/2019 12:00:00 AM EST eCW1 ([facility]) [address] [place] [address] 10/08/2019 12:00:00 AM EST eCW1 ([facility]) [address] [address] 10/01/2019 12:00:00 AM EST eCW1 ([facility]) Outpatient Attender: SUZI DESAI MD [id number] 09/24/20 19 12:00:00 AM EST - 09/24/2019 10:03:07 AM EST Malignant neoplasm of brain, unspecified [facility] Malignant neoplasm of brain, unspecified Medications Medication Brand Name Start Date Product Form Dose Route Admi nistrative Instructions Pharmacy Instructions Status Indications Reaction Description Data Source(s) Azithromycin 250 MG Oral Tablet Azithromycin 09/30/2020 12:00:[address] ORAL active [facility]ENT ([facility] Levetiracetam 750 MG Oral Tablet [Keppra] Keppra 09/30/2020 12:00 :00 AM EST ORAL active [facility] ([facility] 500 mg 09/27/2020 12:00:00 AM EST tablet [...] EST active Ciprofloxacin HCl 0.2 % [facility] Ciprofloxacin 2 MG/ML Otic Solution Ciprofloxacin HCl 0.2 % Ciprofloxacin HCl 0.2 % 09/24/2020 12:00:00 AM EST active Ciprofloxacin HCl 0.2 % [facility]CW[facility]) Ciprofloxacin 2 MG/ML Otic Solution Ciprofloxacin HCl 0.2 % Ciprofloxacin HCl 0.2 % 09/24/2020 12:00:00 AM EST active Ciprofloxacin HCl 0.2 % [facility]CW[facility]) 600 mg 08/25/2020 12:00:00 AM EDT tablet 90 TAKE ONE TABLET BY MOUTH THREE TIMES A DAY (CHECK WITH NEUROSURGEON FIRST) TAKE ONE TABLET BY MOUTH THREE TIMES A DAY (CHECK WITH NEUROSURGEON FIRST) SOLD: 08/25/2020 [facility] 8 HR Acetaminophen 650 MG Extended Release Oral Tablet [Tyle nol] Tylenol 8 Hour 08/01/2020 12:00:00 AM EDT active MEDENT ([facility]) 4 mg 07/31/2020 12:00:00 AM [...] tablet by krystal th Two Times Daily [facility] 1 gram 06/01/2020 12:00:00 AM EDT tablet [...] A DAY FOR 10 DAYS SOLD: 06/01/2020 [facility] Prednisone 20 MG Oral Tablet PredniSONE 20 MG PredniSONE 20 MG 05/21/2020 12:00:00 AM EDT active PredniSO NE 20 MG [facility]CW[facility]) Prednisone 20 MG Oral Tablet PredniSONE 20 MG PredniSONE 20 MG 05/21/2020 12:00:00 AM EDT active PredniSO NE 20 MG eCW1 [facility]) Prednisone 20 MG Oral Tablet PredniSONE 20 MG PredniSONE 20 MG 05/21/2020 12:00:00 AM EDT active PredniSO NE 20 MG eCW1 ([facility]) Prednisone 20 MG Oral Tablet PredniSONE 20 MG PredniSONE 20 MG 05/21/2020 12:00:00 AM EDT active PredniSO NE 20 MG eCW1 [facility]) Prednisone 20 MG Oral Tablet PredniSONE 20 MG PredniSONE 20 MG 05/21/2020 12:00:00 AM EDT active PredniSO NE 20 MG eCW1 ([facility]) Prednisone 20 MG Oral Tablet PredniSONE 20 MG PredniSONE 20 MG 05/21/2020 12:00:00 AM EDT active PredniSO NE 20 MG eCW1 [facility]) 20 mg 05/21/2020 12:00:00 AM EDT tablet [...] EVERY DAY FOR 7 DAYS SOLD: 05/21/2020 [facility] tizanidine 4 MG Oral Tablet [Zanaflex] Zanaflex 4 MG Zanafle x 4 MG 05/17/2020 12:00:00 AM EDT 1.0 {tablet_as_needed} active Zanaflex 4 MG [facility]CW[facility]) tizanidine 4 MG Oral Tablet [Zanaflex] Zanaflex 4 MG Zanafle x 4 MG 05/17/2020 12:00:00 AM EDT 1.0 {tablet_as_needed} active Zanaflex 4 MG eCW1 [facility]) Diclofenac Sodium 75 MG Delayed Release Oral Tablet Diclofen ac Sodium 75 MG 05/17/2020 12:00:00 AM EDT 1.0 {tablet_with_food_or_milk} active Diclofenac Sodium 75 MG eCW1 ([facility]) Diclofenac Sodium 75 MG Delayed Release Oral Tablet Diclofen ac Sodium 75 MG 05/17/2020 12:00:00 AM EDT 1.0 {tablet_with_food_or_milk} active Diclofenac Sodium 75 MG eCW1 ([facility]) tizanidine 4 MG Oral Tablet [Zanaflex] Zanaflex 4 MG Zanafle x 4 MG 05/17/2020 12:00:00 AM EDT 1.0 {tablet_as_needed} active Zanaflex 4 MG eCW1 [facility]) Diclofenac Sodium 75 MG Delayed Release Oral Tablet Diclofen ac Sodium 75 MG 05/17/2020 12:00:00 AM EDT 1.0 {tablet_with_food_or_milk} active Diclofenac Sodium 75 MG eCW1 ([facility]) Diclofenac Sodium 75 MG Delayed Release Oral Tablet Diclofen ac Sodium 75 MG 05/17/2020 12:00:00 AM EDT 1.0 {tablet_with_food_or_milk} active Diclofenac Sodium 75 MG eCW1 ([facility]) tizanidine 4 MG Oral Tablet [Zanaflex] Zanaflex 4 MG Zanafle x 4 MG 05/17/2020 12:00:00 AM EDT 1.0 {tablet_as_needed} active Zanaflex 4 MG eCW1 [facility]) tizanidine 4 MG Oral Tablet [Zanaflex] Zanaflex 4 MG Zanafle x 4 MG 05/17/2020 12:00:00 AM EDT 1.0 {tablet_as_needed} active Zanaflex 4 MG eCW1 [facility]) Diclofenac Sodium 75 MG Delayed Release Oral Tablet Diclofen ac Sodium 75 MG 05/17/2020 12:00:00 AM EDT 1.0 {tablet_with_food_or_milk} active Diclofenac Sodium 75 MG eCW1 ([facility]) Diclofenac Sodium 75 MG Delayed Release Oral Tablet Diclofen ac Sodium 75 MG 05/17/2020 12:00:00 AM EDT 1.0 {tablet_with_food_or_milk} active Diclofenac Sodium 75 MG eCW1 ([facility]) Diclofenac Sodium 75 MG Delayed Release Oral Tablet Diclofen ac Sodium 75 MG 05/17/2020 12:00:00 AM EDT 1.0 {tablet_with_food_or_milk} active Diclofenac Sodium 75 MG eCW1 [facility]) tizanidine 4 MG Oral Tablet [Zanaflex] Zanaflex 4 MG Zanafle x 4 MG 05/17/2020 12:00:00 AM EDT 1.0 {tablet_as_needed} active Zanaflex 4 MG eCW1 [facility]) 4 mg 05/17/2020 12:00:00 AM EDT tablet [...] 1.0 {tablet_as_needed} active Zanaflex 4 MG [facility]CW1 [facility]) 750 mg 11/28/2019 12:00:00 AM EST tablet [...] tablet by krystal th Two Times Daily [facility] 750 mg 11/28/2019 12:00:00 AM EST tablet [...] FOR 14 DAYS. 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 [...] tablet by mouth Two T imes Daily [facility] Lomustine 40 MG Oral Capsule [Gleostine] GLEOSTINE 40 MG capsule GLEOSTINE 40 MG capsule 08/01/2019 12:00:00 AM EDT aborted [facility] Levetiracetam 500 MG Oral Tablet levETIRAcetam (KEPPRA ) 500 MG tablet levETIRAcetam (KEPPRA) 500 MG tablet 01/11/2019 12:00:00 AM EST 500 m g Oral active Take 1 tablet by mouth Two T imes Daily [facility] Prochlorperazine 10 MG Oral Tablet prochlorperazine (C OMPAZINE) 10 MG tablet prochlorperazine (COMPAZINE) 10 MG tablet 10/16/2018 12:00:00 AM EST 10 mg Oral aborted Oligodendroglioma Take 1 tablet by mouth every 6 (six) hours as needed (Nausea/Vomiting) [facility] Oligodendroglioma sennosides, ASSISTED 8.6 MG Oral Tablet Sennosides (SENNA) 8.6 MG TABS tablet Sennosides (SENNA) 8.6 MG TABS tablet 05/25/2018 12:00:00 AM EDT 2 {tbl} Oral aborted Take 2 tablets by mouth n ightly as needed [facility] UNABLE TO FIND aborted Med Nam e: [facility] Simethicone 80 MG Chewable Tablet simethicone (MYLICON ) 80 MG chewable tablet simethicone (MYLICON) 80 MG chewable tablet 80 mg Oral aborted Chew 80 mg by Mouth every 6 (six) hours as needed for Flatulence [facility] topiramate 25 MG Oral Tablet topiramate (TOPAMAX) 25 M G tablet topiramate (TOPAMAX) 25 MG tablet 25 mg Oral aborted Take 25 mg by mouth Two Times Daily [facility] Insurance Providers Payer name Policy type / Coverage type Policy ID Covered constitution party ID Covered constitution party's relationship to hernandez Policy Hernandez Plan Information MEDICARE [id number] SP [id number] [facility] [id number] SP [id number] MEDICARE A [id number] Self [id number] ARJUN I [id number] Self [id number] [place] [id number] S [id number] [place] F [id number] SELF [id number] [place] [id number] 18 [id number] [place] , 18 , ARJUN I [id number] Self [id number] ARJUN [id number] SP [id number] ANSI-Commercial [id number] ARJUN [id number] SP [id number] ANSI-Commercial [id number] ARJUN [id number] SP [id number] ANSI-Commercial [id number] ANSI-Commercial [id number] ANSI-Commercial [id number] ANSI-Commercial [id number] Problems, Conditions, and Diagnoses Code Display Name Description Problem Type Effective Dates Data Source(s) G89.29 75304869 Other chronic pain Problem 10/11/2020 12:00: 00 AM EST [facility]) M25.512 [id number] Pain in left shoulder Problem 10/11/2020 12: 00:00 AM EST eCW1 ([facility]) 87985905 Chest pain Chest pain Problem 10/01/2020 12:00:00 AM ES T MEDENT ([facility]) 840188384 Overweight Overweight Problem 10/01/2020 12:00:00 AM ES T MEDENT ([facility]) 597213951 Dietary management surveillance Dietary manageme nt surveillance Problem 10/01/2020 12:00:00 AM EST [facility] ([facility] G54.0 2852798 Brachial plexopathy Problem 09/02/2020 12:00 :00 AM EDT eCW1 [facility]) L90.5 304179754 Scar condition and fibrosis of skin Probl em 08/25/2020 12:00:00 AM EDT eCW1 ([facility]) B02.29 0227635 Neuralgia, post-herpetic Problem 08/25/2020 12:00:00 AM EDT eCW1 ([facility]) L81.0 [id number] Post-inflammatory hyperpigmentation Probl em 08/25/2020 12:00:00 AM EDT eCW1 ([facility]) 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 08/25/20 20 12:00:00 AM EDT eCW1 ([facility]) 54212175 Carpal tunnel syndrome Carpal tunnel syndrome Problem 08/01/2020 12:00:00 AM EDT MEDENT ([facility]) 18598458 Cervical radiculopathy Cervical radiculopathy Problem 08/01/2020 12:00:00 AM EDT MEDENT ([facility]) 29499869 Paresthesia of upper limb Paresthesia of upper limb Pr oblem 08/01/2020 12:00:00 AM EDT MEDENT ([facility]) Z85.841 [id number] History of oligodendroglioma of brain Problem 04/09/2020 12:00:00 AM EDT eCW1 ([facility]) G89.29 Other chronic pain Other chronic pain Diagnosis 02:49:00 AM [facility] M25.512 Pain in left shoulder Pain in left shoulder Diagnosis 08/22/2020 02:49:00 AM [facility] shoulder pain shoulder pain Diagnosis 08/22/2020 02:49:00 AM [facility] Y9389 Activity, other specified Activity, other specified Di agnosis 08/02/2020 08:24:00 PM EDT [facility] M7022 Olecranon bursitis, left elbow Olecranon bursitis, lef t elbow Diagnosis 08/02/2020 08:24:00 PM EDT [facility] U29971 Pain in left upper arm Pain in left upper arm Diagnosi s 08/02[facility]2020 [id number] Personal history of malignant neoplasm o f brain Personal history of malignant neoplasm of brain Diagnosis 07/31/2020 02:05:00 PM EDT [facility] K50653 Pain in left arm Pain in left arm Diagnosis 07/31/2020 02 :05[facility] G8929 Other chronic pain Other chronic pain Diagnosis 02:05:00 PM [facility] M6281 Muscle weakness (generalized) Muscle weakness (general ized) Diagnosis 07/31/2020 02:05:00 PM [facility] follow up follow up Diagnosis 07/22/2020 10:32:21 AM [facility] f/u f/u Diagnosis 10/15/2019 02:26:19 PM [facility] Surgeries/Procedures Procedure Description Date Indications Data Source(s) ECG ROUTINE ECG W/LEAST 12 LDS W/I&R 10/01/2020 12:00: 00 AM EST SHALA ([facility]) XR CHEST FRONTAL AND LATERAL 30753 XR CHEST FRONTAL AND LATERAL 07404 STAT 08/22/2020 9:24 AM EDT 08/22/2020 09:24:21 AM [facility] VASC LAB US DOPPLER UPPER EXTREMITY UNILATERAL VENOUS LTD 59397 VASC LAB US DOPPLER UPPER EXTREMITY UNILATERAL VENOUS LTD 89883 Routine 8:32 AM EDT 08/22/2020 08:32:00 AM EDT U [facility] X-Ray Shoulder Complete 08/21/2020 12:00:00 AM EDT MEDENT ([facility], ) RADEX SHOULDER COMPLETE MINIMUM 2 VIEWS 08/21/2020 12: 00:00 AM EDT MEDENT ([facility] ) Needle electromyography, each extremity, with related paraspinal areas, when performed, done with nerve conduction, amplitude and latency/velocity study; complete, five or more muscles studied, innervated by three or more nerves or four or more spinal levels (list separately in addition to the code for primary procedure). 08/04/2020 12:00:00 AM EDT MEDEN T ([facility], ) Needle Electromyography Non Extremity Done With Nerve Conduc tion 08/04/2020 12:00:00 AM EDT [facility] ([facility] ) Nerve Conduction 9-10 Studies 08/04/2020 12:00:00 AM E DT MEDENT ([facility] ) Inject/Drain Arthrocentesis Major Joint/Bursa/Ganglion Cyst 05/20/2020 12:00:00 AM EDT MEDENT ([facility], ) BLOOD COUNT COMPLETE AUTO&AUTO DIFRNTL WBC COUNT CBC AND DIFFER ENTIAL Routine 05/05/2020 12:36 PM EDT Oligodendroglioma 05/05/2020 04:36:00 PM EDT Oligodendroglioma [facility] Oligodendroglioma COMPREHENSIVE METABOLIC PANEL COMPREHENSIVE METABOLIC PANEL STA T 05/05/2020 12:36 PM EDT Oligodendroglioma 05/05/2020 04:36:00 PM EDT Oligodendroglioma [facility] Oligodendroglioma MRI BRAIN BRAIN STEM W/O &W/CONTRAST MATERIAL MR BRAI N WITH AND WITHOUT CONTRAST [id number] Routine 04/29/2020 12:21 PM EDT Oligodendroglioma 04/29/2020 04:21:03 PM EDT Oligodendroglioma [facility] Oligodendroglioma Results ID Date Data Source [id number] 09/05/2020 12:54:00 PM EDT [facility] ([facility] Name Value Range Interpretation Code Description Data Cristina rce(s) Supporting Document(s) Calcium [Mass/volume] in Serum or Plasma 8.4 [facility] ([facility]) Sodium 140 [facility] ([facility] Potassium [Moles/volume] in Serum or Plasma 4.2 [facility] ([facility]) Carbon dioxide, total [Moles/volume] in Serum or Plasma 26 [facility] ([facility]) Chloride [Moles/volume] in Serum or Plasma 107 [facility] ([facility]) Glucose 117 70-100 [facility] ([facility]) Blood Urea Nitrogen 25 5-21 [facility] (Ca [facility]) Creatinine 1.15 0.6-1.5 [facility] ([facility]) Glomerular filtration rate/1.73 sq M.pre dicted [Volume Rate/Area] in Serum or Plasma by Creatinine-based formula (MDRD) 60.0 [facility] ([facility]) ID Date Data Source [id number] 09/05/2020 12:54:00 PM EDT [facility] ([facility] Name Value Range Interpretation Code Description Data Cristina rce(s) Supporting Document(s) Aspartate aminotransferase [Enzymatic activity/volume] in Serum or Plasma 22 [facility] ([facility]) Alkaline phosphatase [Enzymatic activity/volume] in Serum or Plasma 7 2 [facility] ([facility]) Bilirubin.total [Mass/volume] in Serum or Plasma 0.5 [facility] ([facility]) Bilirubin.direct [Mass/volume] in Serum or Plasma 0.1 [facility] ([facility]) Alanine aminotransferase [Enzymatic activity/volume] in Serum or Pl asma 39 [facility] ([facility]) Protein [Mass/volume] in Serum or Plasma 8.2 [facility] ([facility]) Albumin [Mass/volume] in Serum or Plasma 3.9 [facility] ([facility]) Cholesterol [Mass/volume] in Serum or Plasma Laboratory test result [facility] ([facility]) ID Date Data Source [id number] 09/05/2020 12:54:00 PM EDT [facility] ([facility]) Name Value Range Interpretation Code Description Data Cristina rce(s) Supporting Document(s) Troponin 0.02 [facility] ([facility]) ID Date Data Source [id number] 09/05/2020 12:54:00 PM EDT [facility] ([facility]) Name Value Range Interpretation Code Description Data Cristina rce(s) Supporting Document(s) White Blood Count 4.9 4.3-10.9 [facility] ([facility]) Hemoglobin 14.1 13.0-17.0 [facility] ([facility]) Red Blood Count 4.32 4.70-6.20 [facility] ([facility]io [facility]) Platelets 190 130-400 [facility] ([facility]) Hematocrit 40.5 39.0-50.0 [facility] ([facility]) ID Date Data Source [id number] 08/22/2020 11:42:26 AM EDT [facility] Name Value Range Interpretation Code Description Data Cristina rce(s) Supporting Document(s) ED Provider Note [facility] JQXETn2lCkLZHzYk37/ZXCntNKNjh2GzUKldDOc5USitLVZsZ7WtDDX1pE4iNZC6SEuHVlVfQxLgSNK7 lbm [file] /VxkyX6BTYoW+Orthopaedic Technologist+kYBf07MN0OzqucGNqCs4+r/j/U [file] //Ni/wjtbrKt/K6aozAu1foSlsChiZ9vFdpdmG [file] A+Joana+Et6UGNEpKNLkPDEaKrPdRMPNPuRiI1GrG4CY k3LaH4NtXC98aHosspGlHPvtEH1QRF6oZSPwZTNKXH1MpNSuyD3abhNbSEEvBUPOXpJpO89rtBFyOTIu QGB3FFFxJi5VWXHnV2FhahQvvQoqhgIqTXFrRSFXDL2ICNmoogRrbXRdhXrdXZ96pDqlTS3HIx0HGfUk BB9zgd5DrPGoSl0RWNG0Fx0FPHBiRMPuRVAlANW8BN YnXmFyRGzcSPHaLXOgZVR3TYYnZXGiZD3PCrNyPYRsPLIeIIfhVIOuHMZnpr9QINCrJGJ1QDv2AIMwCR PkIDEpPJncDZJwELNiEBT3ZKYdMANsYS5UVfWdLITpDPM6GHBqRGGvGXVwdo2FMUNtQSCjSfg1SFDbQV OqINEgKQmsGIVyLXQ1Cru2FTSdSTGgPP4OFaMkIUWy HOq0QPQaQHHwMYCjez2ULLWpRCGdGARjDkYxGMOzVBJiLNdaQSLfAKYeKkK3ZPOyCJZoIP6MEmZaVRMy GUGrHKIsCATkLVVrli0JXDBgVNJvWoG4WPHbNPRnLBMmBDvsFOGkIJP0EWI4PNJtDJGtXI4SJoWbTUIv SCkiQjSfXCBqZLSyci6MAAMrSJReBKK3KsQfSNPkIC ZoPGxzHFMrCQO2ATMpZJIjUUJlCE1SEcRbHMZsWnN8SqDdZYIsHCIezm2KFWFeQPDaEzX1TRErXPSbMB XpFCvuCSElJGT3OGWxMTAhJAFqOL7KHvJlPVEnDnFoPFpwHCEoBTHxjm1TWBZpEFSxLqArVIFhFTWuSP DzQEchBNMoCCZ2WYD7TKOrQXYnIC9BAoAxWDZyQlg8 QPisYRGbIVFmgr9MRENkQQQdPDF1SXNpYCBqXAVuPSwlVCOuPAA0NFFrJIQaYWCpZP5PGtJzXKDyDtwc OAhqXZKqVUVjkl9AHNXjONFqDTYfVCRzNKIdYWPyRBesTGTePDMpKgV1FXDlHLMuEY3QKpTfCOXzDoWn YAavKFMjLEKqdg4GMFYvFAT8ESd6PwQrUHYcKUYhXN udPNScHSMcMHpwVJEvKVTgQT6ZHiTySPJrGXNjBFOdDNNuUXEkum1GHAZiTPI7WtPsJASwNXTiGESsOZ igBLVaOALmYyj9HAZfIWXcQC6ILdWdDQRpSLZ6SasiXSQcAYPaot3WJMGbQIR5ViujYbJsZJCyYLJgCG rcWHBrDOVzZIr5FBXaZTNuDR0WRwFeFFJnVBA4Gjvn XFWxTMEqvo2BBLFvOFL1LEbtWrXfUXTySIPvHJtuACRjYNS9LTe5KAVnWLDlDL2CBcYqSVKqPZIhAJpa BOLdCKDdum9ECHGpJYE6JmG9OLObJZEhFCMjSFafCQSkJSU0ZIk5AAVtOMTzDA0EExEtWRShNCU1GcMc FRFxPAMnyh5KMDKgTQF0Loh0XsYdQWHzDCUzUGk5as BuhTTgNPa7FI9ZE8HfapVeRWFSCv2Bd121RWO1AWEnFl3IE4azCm3qBCMpLDCDXy8JGWr9OLS4HpMnVc XsRgOlP3WcHbjjQMbwIFYvWISvEXXnEAG+XHa9GvslVeZoUEUgP0BnRTI7Y2Y0WUHrBlX0NKObLTFdXM 7sPIBWVn0+JUvgcSBehBrqZBFAZgZ9KDciGZgkECVPCa9J ID Date Data Source [id number] 08/22/2020 09:46:03 AM EDT [facility] XR CHEST FRONTAL AND LATERAL [id number] RESULTInterpreted by:Lala Adams MDINDICATION: 44-year-old male with [...] rce(s) Supporting Document(s) ID Date Data Source [id number] 08/22/2020 08:42:17 AM EDT [facility] Name Value Range Interpretation Code Description Data Cristina rce(s) Supporting Document(s) ED Provider Note [facility] ZFGRAt2eQoOWLrBr61/XIAhrHMSsu6FzYTfwKDl3RDcvGALbB1IpLHA9hV0zCKX8TQkTRdMyYaWsHFB4 lbm [file] 0KICA+Joana+Jx6WOJHdKWLsMCSnOuMdSKJNWtRhP0Rz B6WKs4LyT9PvXR52eRasspKxWMldDM6WXF9yZZQvFAWKCN0HmQNjoP1kxhJdWCVcCAXBIkHlK96yrFVd VZNtLEF5HRQtNs7LMJFlV5LsicFceBcudbPdKWPoEISRYN6BKGlqkaEnkKKbxUulED05eVevIV1IVp6S IkBgDD6qot4ZfPJtAt7MTZM1SX8KCJSiODLoLVTgGS O1UZQyGaJrCKcxSNJcQJGaKRH0UHGjOEHmBR0QCoRkYYDxUPLiJsUrZHTlRMCamr2YGXIeMDC3WSk3HJ GiNAIeCAPvJAxeAHGnEMNjSUS8ZWStLMBxIH0FKuXgWOCsBYC8HBUgPLDyALIqsy8PUFKhZEPnQlymYM WeHOWgGAPoWJztHMUcCMH1PXGwVTIzPNTsJQ8CNfRs YBMlSZRxMcSqQASkSFLrcp3RBSZoPZRaHOMpGWYqEYOvHBHtDVlkVUUkFBS9BHR9FWTpUPKoJF8CVaDj DEGmZVK6BANwXFXfELMgth1GFFDpRZTdFie3UtXkBKZvVUXmNWchTSCqFMU3NTzhJLEmEUHsJV3ZOyRt CQUlAWDqDJmkQJJqCJMsdo8VXCJvOYRsWVO9BuXbQY GxTCImRDtoITBnYNN5ZaC8UWKeFNHhMG0MWzNbWYQqFsD2TWppDYCvDYNmtu7YPLCnZFWfKFi8HIJxCU KaCXZvNTmkCNLlSWZ0LxG2DOKqTCYlYB6KPvCsHLOiEtU2VgAhZXKqENMfkv1AYTUrRZZcYsF7SGEtVS VoBZHmFQvmXEXgPCN6Jof8LBMoOPXxDE0XJoJjFQDx IjD1LpWxZBXpIHFauy2ERKRfNVRrHjglDCOhIPTkQMRzHXozNTAsGUY6FGAgZKNyGYHuND8FJhRoSVCf HpjfOQhrETBtBUOsfz7BIJGsWFUsDUF4YVQpSHAkWAJbDPyqITDwHPC8JNIbLIVeRGJfPX3AHjLbATJk IPWiXjOgJUTeKNWksx1TRNWjKLI2XGK9YDOrPNStDG SfYWwsBSHhMWKiOTH1VSLhJUKlUE3DEkQoKSQjZHS5VOHhIFQwGIUpye2ZQNSuGDH3IJSzBHJgNOUvRF MvQFyoULJcRHQtFYXbUOYrMOIvIX7YQsOcOEGbQYI8UXKxWFOcZFPdjh5NYZZfLGK7PnolQAHlPOBiJT ZeCUyxUDHvWPCfECYuISAcBSPwJM8LArJhZOLfWSK4 LCHdTUYgPACznl6XJBUfHPF4BAAuJLBbOJNoLPVpHEefYSJnIRX6DOBqESGuBBTgIY3HWiApVVTlCUSg RmUtBFMjDHPqay3FHPQkHTK3JYZ7YkOjKUMqAEIqKIaxDIAxEOI6FaS8RPJoVDUhZE6URaBeGIahLHJC Wtt2LDlyQ9e9SQX6UO1KN5Bwo4CkAHFwIAUPJFiiVR 6ppnCmVSCuUw3TS5rYVfc0DVZmCOMqNyWtCPB2ZsW1SZV6MkN7Kod3ZRYxNII9Zv0lYVsaOzAsGOTxFj E6BfvpZUH3SQN0BufvYLnnXXQiUBT3FaRmUD7IDq3LUyV3DSU3lQSuEe8FCWD2YPQAFhWcFB5AYCz= ID Date Data Source [id number] 08/04/2020 12:25:00 [place] [address] PHONE: [phone] FAX: [phone] Name .................. : JONATHAN Camp Acct Number.................. : [id number] ROOM. ................. : [facility] MR Number ................... : [id number] Stay type ............. : E/R Discharge Date......... ... : 08/02/20 Admit Date ......... : 08/02/20 [facility] .................... : [facility] Date of ....... : 1975 Family Phys ................... : MST Phone . ................. : [phone] Age ................................ : 44 Film# .................. .:[id number] Sex ................................. : M Unsigned transcriptions are preliminary reports and do not represent a medical or legal document ELBOW COMPLETE [id number] COMPLETE:08/02/20 20:47 KJE [id number] Reason(s): Pain LEFT ELBOW X-RAY: FINDINGS: There is normal alignment and position of the bones of the left elbow. No evidence for joint effusion is noted. No acute abnormalities. IMPRESSION: Negative left elbow. Electronically Reviewed and Signed By Jamari Fowler MD , 08/04/20 12:25, KGGarcía Transcribe Initials: JESUSITA , Transcribe Date: 08/03/20 02:03, Dictation Date: Copy for: TRACIE JOHNSON via fax Copy for: EMERGENCY DEPT via modem Copy for: 710 MED REC DISCHARGED Page 1 of 1 Name Value Range Interpretation Code Description Data Cristina rce(s) Supporting Document(s) ID Date Data Source [id number] 08/02/2020 08:24:00 PM EDT [facility] 1 OrderSheet [facility] Emergency Department [address] [place] [address] Phone #: ext- [phone] 08/02/2020 20:13 Patient: JANIE CASTILLO Sex: M [...] rce(s) Supporting Document(s) ID Date Data Source [id number] 08/02/2020 08:24:00 PM EDT [facility] 1 Medication Reconciliation Report [facility] Emergency Department [address] [place] [address] Phone #: ext- [phone] 08/02/2020 20:13 Patient: [...] to the patient:None. 2 Medication Reconciliation Report [facility] Emergency Department [address] [place] [address] Phone #: ext- [phone] 08/02/2020 20:13 Patient: JANIE CASTILLO Sex: M : 1975 Age: 44y Name Value Range Interpretation Code Description Data Cristina rce(s) Supporting Document(s) ID Date Data Source [id number] 08/02/2020 08:24:00 PM EDT [facility] 1 Medication Administration Record [facility] Emergency Department [address] [place] [address] Phone #: ext- [phone] 08/02/2020 20:13 Patient: JANIE CASTILLO Sex: M : 1975 Age: 44yWeight: 89.8 kgHeight/Length: 71 inBMI: 27.6ALLERGIES: Penicillins Date/Time Medication Administered Medication OrderedGiven TORADOL [IM] (KETOROLAC Toradol IM 30 mg20:42 08/02/2020 TROMETHAMINE)Jak Mireles R.N. Dose: 30 mg IM Name Value Range Interpretation Code Description Data Cristina rce(s) Supporting Document(s) ID Date Data Source [id number] 08/02/2020 08:24:00 PM EDT [facility] 1 General Instructions [facility] Emergency Department [address] [place] [address] Phone #: ext- [phone] 08/02/2020 20:13 Patient: [...] of the bursa. Symptoms 2 General Instructions [facility] Emergency Department [address] [place] [address] Phone #: ext- [phone] 08/02/2020 20:13 Patient: JANIE CASTILLO Sex: M [...] wrap or splint wet. You may take fvxu-zpr-mbdzxxb pain medicine to treat pain and inflammation, [...] to 48 hours, or as advised Chills [phone] [employer]. [address] [place] [address]. All rights reserved. This information is not intended as asubstitute for professional medical care. Always follow your healthcare professional's instructions.BRANDON WrapMinor muscle or joint injuries are often treated with an elastic bandage. The bandage providessupport and compression to the injured area. An elastic bandage is a stretchy, rolled bandage. Elastic 3 General Instructions [facility] Emergency Department [address] [place] [address] Phone #: ext- [phone] 08/02/2020 20:13 Patient: JANIE CASTILLO Sex: M : 1975 Age: 44ybandages [...] as you unwind it. 4 General Instructions [facility] Emergency Department [address] [place] [address] Phone #: ext- [phone] 08/02/2020 20:13 -------- [...] doesn't go away after bandage is removed [phone] [employer]. [address] [place] [address], [place] [address]. All rights reserved. This information is not intended as asubstitute for professional medical care. Always follow your healthcare professional's instructions. You have been given the following additional information: Bursitis BRANDON Wrap(Electronically signed by JAYLIN Gomez 08/02/2020 23:02) Name Value Range Interpretation Code Description Data Cristina rce(s) Supporting Document(s) ID Date Data Source [id number] 08/02/2020 08:24:00 PM EDT [facility] 1 Clinical Report - Nurses [facility] Emergency Department [address] [place] [address] Phone #: sio- [phone] 08/02/2020 20:13 Patient: JANIE CASTILLO Sex: M : 1975 Age: 44yTRIAGEHistorian: patient.Acuity: LEVEL 4.Chief Complaint: LEFT UPPER EXTREMITY PAIN and SWELLING.No injury occurred. Onset. (4 days ago). ( Pt states he was seen here left shoulder pain this pastday and since then he now states his left elbow has become swollen and painful).Treatment ELEPHANT TAMER:None.SEPSIS SCREEN: SIRS Screen negative: heart rate greater than 90. Sepsis Screen negative. Nosuspected or confirmed signs of infection present.SONYA COMA SCORE: 15- eyes open- spontaneous (4); best verbal response- oriented (5); bestmotor response- obeys commands (6). --20:18 08/02/20 Salo Dgeroot RN20:14 08/02/20. BP: 127/89. MAP: 101. HR: [...] Immunizations: up-to-date. 2 Clinical Report - Nurses [facility] Emergency Department [address] [place] [address] Phone #: ext- [phone] 08/02/2020 20:13 Patient: JANIE CASTILLO Sex: M [...] Mireles R.N. 3 Clinical Report - Nurses [facility] Emergency Department [address] [place] [address] Phone #: ext- [phone] 08/02/2020 20:13 Patient: JANIE CASTILLO Sex: M : 1975 Age: 44y 20:40 [...] Patient verbalized understanding. Written instructions provided in Cypriot. The patient was discharged by the physician rehabilitation assistant. He was discharged home. He left [...] rce(s) Supporting Document(s) ID Date Data Source [id number] 08/02/2020 08:24:00 PM EDT [facility] 1 Clinical Report - Physicians/Mid Levels [facility] Emergency Department [address] [place] [address] Phone #: ext- [phone] 08/02/2020 20:13 Patient: JANIE CASTILLO Sex: M [...] 3. 2 Clinical Report - Physicians/Mid Levels [facility] Emergency Department [address] [place] [address] Phone #: ext- [phone] 08/02/2020 20:13 Patient: JANIE CASTILLO Sex: M : 1975 Age: 44yLABS, X-RAYS, AND EKGLt Elbow X-ray: No fracture. Views: AP, lateral and oblique. The X-rays were interpreted by theradiologist and contemporaneously by me. Interpretation time: 20:49 08/02/2020.PROGRESS AND PROCEDURESCourse of Care: :Aug 02 2020. Evaluation after observation. (Discussed risks, benefits, options andpt is agreeable with dx and tx plan.). Patient counseled in person regarding the patient's stable condition, test results, diagnosis and need for follow-up. Patient agrees with plan of care. 20:Aug 02 2020. Disposition: Discharged home in good and improved condition (:Aug 02 2020).CLINICAL IMPRESSION Left olecranon bursitis. No [...] rce(s) Supporting Document(s) ID Date Data Source [id number] 07/31/2020 02:05:00 PM EDT [facility] 1 Medication Reconciliation Report [facility] Emergency Department [address] [place] [address] Phone #: ext- [phone] 07/31/2020 13:53 Patient: [...] to the patient: 2 Medication Reconciliation Report [facility] Emergency Department [address] [place] [address] Phone #: ext- [phone] 07/31/2020 13:53 Patient: JANIE CASTILLO Sex: M : 1975 Age: 44ytizanidine 4 mg tablet Take 1 tablet every six to eight hours as needed for pain -- Dispense 20 tablet.Refills: 0. Substitution permitted.Pharmacy - [facility] - [address] [facility] ; [place] [address]. . -- JAYLIN Rico Name Value Range Interpretation Code Description Data Cristina rce(s) Supporting Document(s) ID Date Data Source [id number] 07/31/2020 02:05:00 PM EDT [facility] 1 Medication Administration Record [facility] Emergency Department [address] [place] [address] Phone #: ext- [phone] 07/31/2020 13:53 Patient: JANIE CASTILLO Sex: M : 1975 Age: 44yWeight: 89.8 kgHeight/Length: 71 inBMI: 27.6ALLERGIES: PenicillinsDate/Time Medication Administered Medication Ordered Name Value Range Interpretation Code Description Data Cristina rce(s) Supporting Document(s) ID Date Data Source [id number] 07/31/2020 02:05:00 PM EDT [facility] 1 General Instructions [facility] Emergency Department [address] [place] [address] Phone #: ext- [phone] 07/31/2020 13:53 Patient: JANIE CASTILLO Sex: M [...] Dispense 20 tablet.Refills: 0. Substitution permitted.Pharmacy - [facility] #87 - [address] ; [place] [address]. .Understanding of the discharge instructions verbalized by patient.Follow-up with: NEUROLOGY [facility], , [id number], [address] [place] [address] General Instructions [facility] Emergency Department [address] [place] [address] Phone #: ext- [phone] 07/31/2020 13:53 Patient: JANIE CASTILLO Sex: M : 1975 Age: 44[place], [address] Follow up Tuesday as scheduled. Reason for [...] as directed by your healthcare providerCall 911Call 911 for any of these: Chest, arm, neck, jaw, or upper back pain Trouble breathing 3 General Instructions [facility] Emergency Department [address] [place] [address] Phone #: ext- [phone] 07/31/2020 13:53 Patient: JANIE CASTILLO Sex: M : 1975 Age: 44y Numbness or weakness of the face, one arm, or one leg Slurred speech, confusion, or trouble speaking, walking, or seeing Blood in vomit or stool (black or red color) Loss of consciousness Severe headache [id number] [employer]. [address] [place] [address]. All rights reserved. This information is not [...] back, side to side, 4 General Instructions [facility] Emergency Department [address] [place] [address] Phone #: ext- [phone] 07/31/2020 13:53 Patient: [...] hand should be level with the elbow. [phone] [employer]. [address] [place], [place] [address]. All rights reserved. This information is not intended as asubstitute for professional medical care. Always follow your healthcare professional's instructions. You have been given the following additional information: Weakness (Uncertain Cause) Sling(Electronically signed by JAYLIN Rico 07/31/2020 22:24) Name Value Range Interpretation Code Description Data Cristina rce(s) Supporting Document(s) ID Date Data Source [id number] 07/31/2020 02:05:00 PM EDT [facility] 1 Clinical Report - Nurses [facility] Emergency Department [address] [place] [address] Phone #: ext- [phone] 07/31/2020 13:53 Patient: [...] skin rash, itching or numbness. No weakness.Treatment ELEPHANT TAMER:None. --14:15 07/31/20 Elliot Lott RN14:00 07/31/20. BP: [...] Oral (Tablet 1000 mg) 1 tablet, daily. --14:07/31/20 Elliot Lott RN Garlic Oral 1 tablet, daily. --14:10 07/31/20 Elliot Lott RN Acyclovir Oral 1000 mg , 3x a day. --14:11 07/31/20 Elliot Lott RN.AllergiesPenicillins.(vomiting) --14:11 07/31/20 Elliot Lott RN.PROBLEMS:Herpes Zoster.Cancer: (Brain). --14:13 07/31/20 Elliot Lott RN.ADDITIONAL SURGERIES: 2 Clinical Report - Nurses [facility] Emergency Department [address] [place] [address] Phone #: ext- [phone] 07/31/2020 13:53 Patient: JANIE CASTILLO Sex: M [...] To room. --14:15 07/31/20 Elliot Lott RN.PHYSICAL RDVJAWCCGB94:16 07/31/20. Ambulatory to room.GENERAL / NEURO / [...] Lott RN. 3 Clinical Report - Nurses [facility] Emergency Department [address] [place] [address] Phone #: ext- [phone] 07/31/2020 13:53 Patient: JANIE CASTILLO Sex: M : 1975 Age: 44yDISPOSITION / DISCHARGE 15:34 07/31/20. BP: 131/90. MAP: 103. HR: 78. RR: 16. O2 saturation: 98% on room air. Temp: 97.6 F (oral). Pain level now: 10. --15:35 07/31/20 Elliot Lott RN 15:43 07/31/20. Departure time: 15:43 07/31/2020. Condition at departure: unchanged. No learning barriers present. Discharge instructions provided and reviewed with the patient. Reviewed medication(s) side effects, precautions, dosing and course information. Prescription(s) sent electronically to pharmacy. Reviewed rest instructions (sling). Reviewed referral to a neurologist. Patient verbalized understanding. Written instructions provided in Cypriot. The patient was discharged by the physician rehabilitation assistant. He was discharged home. He left ambulatory and via private vehicle. --15:52 07/31/20 Elliot Lott RN.Locked/Released at 07/31/2020 15:56 by Elliot Lott RN Name Value Range Interpretation Code Description Data Cristina rce(s) Supporting Document(s) ID Date Data Source [id number] 07/31/2020 02:05:00 PM EDT [facility] 1 Clinical Report - Physicians/Mid Levels [facility] Emergency Department [address] [place] [address] Phone #: ext- [phone] 07/31/2020 13:53 Patient: JANIE CASTILLO Sex: M [...] seen recently by a health care provider ([facility], PCP).REVIEW OF SYSTEMSNo chills, fatigue, [...] daily. 2 Clinical Report - Physicians/Mid Levels [facility] Emergency Department [address] [place] [address] Phone #: ext- [phone] 07/31/2020 13:53 Patient: [...] room air.Temp: 98.3 F. Pain level now: 10. Have been reviewed and appear to be [...] an EMG/NCS, which [facility]. The importance of keeping this apt was stressed. She isalso already established with [facility]. he was advised to [...] treatment. 3 Clinical Report - Physicians/Mid Levels [facility] Emergency Department [address] [place] [address] Phone #: ext- [phone] 07/31/2020 13:53 Patient: JANIE CASTILLO [facility]#: [id number] Sex: M : 1975 Age: 44yCLINICAL IMPRESSION [...] tablet. Refills: 0. Substitution permitted. Pharmacy - [facility] - [address] ; [place] [address]. . Understanding of the discharge instructions verbalized by patient. Follow-up with: NEUROLOGY [facility], , [id number], [address] [place] [address], [id number] [phone] Clinical Report - Physicians/Mid Levels [facility] Emergency Department [address] [place] [address] Phone #: ext- [phone] 07/31/2020 13:53 Patient: JANIE CASTILLO Sex: M : 1975 Age: 44y Follow up Tuesday as scheduled. Reason for referral: evaluation and treatment. Summary of care provided to patient via paper.(Electronically signed by JAYLIN Rico 07/31/2020 22:24) Name Value Range Interpretation Code Description Data Cristina rce(s) Supporting Document(s) ID Date Data Source [id number] 07/24/2020 08:16:12 AM EDT [facility] Name Value Range Interpretation Code Description Data Cristina rce(s) Supporting Document(s) Progress Note [facility] [id number] lbm [file] [id number] ID Date Data Source [id number] 05/19/2020 07:30:15 PM EDT [facility] Name Value Range Interpretation Code Description Data Cristina rce(s) Supporting Document(s) Progress Note [facility] [place] XTZSKn9xVmPKYrXf52/XSSheDYSap6TyJDkyYHp3EJebJMEpN8VlFRC4tN8cXYD5DEuFVdYiJjGsTlGn lbm [file] ICAgICAgICAgICAgICAgICAgICAgICAgICAgICAgIC NdPNCuUNPbHGEgNIIqJBLvQXBaLVYnTIYtVBGcVRQbCWQaREKuMFLpWSAuBYHoKE6UCEMbVEVbFHLlPZ AgICAgICAgICAgICAgICAgICAgICAgICAgICAgICAgICAgICAgICAgICAgICAgICAgICAgICAgICAgIC LtKXSnSHDlROUnBWMuZOLvUOJtJUBwUHIuCAMkMO6J ICAgICAgICAgICAgICAgICAgICAgICAgICAgICAgICAgICAgICAgICAgICAgICAgICAgICAgICAgICAg MYBnHVObJZRfOWIpQGMvCZVlGXLxYJEoZKBtSHEuWOIiOVRkTEOvTH6MSPYxJUIjYTOkKPFzXMAsDTZq ICAgICAgICAgICAgICAgICAgICAgICAgICAgICAgIC XvVYIsMOXkGDFdWEBdZDHdJXDtLEDgRSIsNPRqCOPrSVGgLDCuCEVbRGPqJZVrDDIhHY8DRDJpEJLoKH AgICAgICAgICAgICAgICAgICAgICAgICAgICAgICAgICAgICAgICAgICAgICAgICAgICAgICAgICAgIC AgICAgICAgICAgICAgICAgICAgICAgICAgICAgICAg RW1DQLHjXXXcKVSmFTBwVNQlHGMvGBIoJOLqHZJsEEJjWYZeORUwRHSqPVZrUVKzJGZvDZZaAIHuBMHw OAHmENMbMOGxGEFqUJEwCQDvQYNcZWHeBBVzZCWqXGBmTOPnMRAbGLZmDH9ELGJrLKHuYKRxLUPxKAWv ICAgICAgICAgICAgICAgICAgICAgICAgICAgICAgIC FkDCMeLGUxGAAvVYWzCYCrENKqTCVlNZRiRWHsDKWqYAYpBHRpBIXwRLPwPPYoISBfLASfUW6JQZPpYW AgICAgICAgICAgICAgICAgICAgICAgICAgICAgICAgICAgICAgICAgICAgICAgICAgICAgICAgICAgIC AgICAgICAgICAgICAgICAgICAgICAgICAgICAgICAg KGGnZC0RXHFzINLzSJYrYPMxTGMoSDSzAROaPBGjIHPmMAPvJHAvJZWhXHHqQWOyLWUmJNTyMYIuPJSw ANAfSITgVEUzSHXiJYHkXZUkBUFpITLeZLTwOJFjAMRlGIMaCWUbRSCvGJMaFD9GREIfHMNxVFTvBEDj ICAgICAgICAgICAgICAgICAgICAgICAgICAgICAgIC PzAXZhRZGfXCVcDXUyGHDxGPFjUUOwFUWxWANpYNZdDCXiPJJfIFBuQDAiJDWkGACrJJFqHACdZH3WZN 92sTHku5K6PJBhNE8gdxz/Hu8WCHugfcHjnPTaFG1QMrFrNN1sxf6XQsXjAE1oip6KCWfGNaZgP2I5cG TzQGHkJSWLHeJsC96oRJndCp48KMwaMGBdXrIxRMy9 Ai5IMkJxH8jrAVLsFtJ5ICCyTkFiVGuyBR8Yh1FaaJHcPXo+Uo4ZZE5dx4LzVVihCWIfMZ5jbe0TPCzB ZuIhU8OascN5ETGuMEQhCk7UQETbMDOvsWRpOXWzSWEZAbIcR4XbiR38DYXIHg1+DQplbmRvYmoNCjIw CMMod2XaFDz2KS8NPBSnOZi4qXRaXRCoO1Ljk3TgWc 55VVZnEvwwGRjltR1tTRcfGMenIZEsLMRkQz3kWU3fZSLaDGTpZiTbHPROGQ1SEQWtSWOytGQsXHGmGL YMBW6EEUcvRBY7CMMzmdPgfOGlVKeeLJ6VDJSxqkTbSCohJZNJMBv+Bf8WNH1dw1UsTTefJMZqYH3out 2RGJdXSoAbF1X3zMTqJ9Z5JXrhJk4FMVVsBBFuNQep EFMGMXxpBA2TYI2yrbB2QE7EbJRjPUBsJUQuaQWkAMi0L17izAIcESgcLI9UABD+Joana+Jb0GJLCpNTXi WROsSdAdYDPTEyRlS5PnL3VWw6XhS2MaMG35uCqqbaBkLNaeOQ2GQL5tACDxXTXRPS7OxHTimF2oieDm KYUtGTVSPkFgK29wiJApGYQaGAF2MFQzCb2UDZLvI9 QrloRdhUgymaWnHYPsZYVKSP2HSBlxtlYaiHGloKqsSK87nVjzMS8DUr0RBbHsZS4cfb5WcHWuPb4NEU RmUk4ZFHQhQIKuRZJxGRW3CXImUlPfLNuwVJWvMBAjDLN3QGRdSJOuAC2BZuNeCHIxBYmkGoJgAZBpRK Tmrn3FTFZcCMQaMIZmLOOiUFWuAFAcFFetUJMtRKPa HBC5XPZlJTJzPP4KTzVaCUPcLDBaYKEvHRTtDXFxqj8HFTSjHWBcOdY8SVLrAAYoKLIjZAwmMNSbOUIo IyJ0OYUeXDAwAS4BNmVqXSXoKOJ8QYZvYLRgFFYflg2XILTyQRJfScF0LJNuANOiBYImKPppFHRiJXU0 SbUsKBCnNCFsKQ9EGjNbXCMpFYK8FMQkCWSwUPNnsf 3PLHSyFPMzSLWeInIxUWJvUAHhTZstIVYwALS0Bac4MOFfDZOtZW2SAoCwKUDiXUT1BDGpLOTcVVAdvn 9LLYYxPBOsVyshTiOpKZPeGWIuGJqtMKYkFOJ9LDVhWRReURBuLV7ZDbXcVLGcSKhmJOrfOXFpUKCiro 6WDYTyTMLiFpA1GYMwBCHyELDfIWjkEWGdDGP3OBY2 QOYxVBCtTJ8JGuXxETZaMKcyAFliPIZbEVCigr1VJJMbEBAlLDU4YuAcXBJqYCEnYQu6ouUzwJDcPKu1 XE3WV9HqqoSdDxBTSs6Hd258CLGqOLVdGs0YJ0kcJj0rLSTdNGQWOh2YPLj7ZTVaKoThLHVyOGXjHUC7 NiN5PDerCFH4IVCwQAEkB7M+NHuxIRJsG8YbXSV4WP A2TNbuFMcaOHEgHOy6ZLUrPYJ5Wa7hMPONVv4+OKymfALrwWrlHTRQXqD0MXp6PKdxLPPFId4W ID Date Data Source [id number] 05/09/2020 09:49:22 AM EDT [facility] Name Value Range Interpretation Code Description Data Cristina rce(s) Supporting Document(s) Progress Note [facility] [place] HWHOIz1oHuKSZoHs74/KSUipJSYtu2HmHNymNVh8JRiuWSBhQ1ZwNVR7lQ8wCXN6TQlPBeRtEoSlEmQl lbm [file] AgICAgICAgICAgICAgICAgICAgICAgICAgICAgICAg ICAgICAgICAgICAgICAgICAgICAgICAgDQogICAgICAgICAgICAgICAgICAgICAgICAgICAgICAgICAg ICAgICAgICAgICAgICAgICAgICAgICAgICAgICAgICAgICAgICAgICAgICAgICAgICAgICAgICAgICAg ICAgICAgDQogICAgICAgICAgICAgICAgICAgICAgIC AgICAgICAgICAgICAgICAgICAgICAgICAgICAgICAgICAgICAgICAgICAgICAgICAgICAgICAgICAgIC AgICAgICAgICAgICAgICAgDQogICAgICAgICAgICAgICAgICAgICAgICAgICAgICAgICAgICAgICAgIC AgICAgICAgICAgICAgICAgICAgICAgICAgICAgICAg ICAgICAgICAgICAgICAgICAgICAgICAgICAgDQogICAgICAgICAgICAgICAgICAgICAgICAgICAgICAg ICAgICAgICAgICAgICAgICAgICAgICAgICAgICAgICAgICAgICAgICAgICAgICAgICAgICAgICAgICAg ICAgICAgICAgDQogICAgICAgICAgICAgICAgICAgIC AgICAgICAgICAgICAgICAgICAgICAgICAgICAgICAgICAgICAgICAgICAgICAgICAgICAgICAgICAgIC AgICAgICAgICAgICAgICAgICAgDQogICAgICAgICAgICAgICAgICAgICAgICAgICAgICAgICAgICAgIC AgICAgICAgICAgICAgICAgICAgICAgICAgICAgICAg ICAgICAgICAgICAgICAgICAgICAgICAgICAgICAgDQogICAgICAgICAgICAgICAgICAgICAgICAgICAg ICAgICAgICAgICAgICAgICAgICAgICAgICAgICAgICAgICAgICAgICAgICAgICAgICAgICAgICAgICAg ICAgICAgICAgICAgDQogICAgICAgICAgICAgICAgIC AgICAgICAgICAgICAgICAgICAgICAgICAgICAgICAgICAgICAgICAgICAgICAgICAgICAgICAgICAgIC AgICAgICAgICAgICAgICAgICAgICAgDQogICAgICAgICAgICAgICAgICAgICAgICAgICAgICAgICAgIC AgICAgICAgICAgICAgICAgICAgICAgICAgICAgICAg CLTgRUUhOTWaPCWtVLCaLXLyJEGbYWBrNQDfQPBqOUGeIMe9O4hwXTNmWVZpTJ5wWIz3Jy7+DQoNCmVu BEX6gvPjuN0ELF8qq4PyQGfpWSGue1BhSTk6GP3WOECvRQbcHM7EMVvuiw2XPJAqKUZevVOMx0ttHbOy OFP8MRXjEfjaOI4GFTVlD2kajyZqLQEoBWTHNKlgAK YJWWqlOKSJNR7AKoWvO6NemQ41UOWVQt9+MYtjpdTuTwjOQgI6CYIwi9EyMSb2CL5YRFRaPungm2ZsKc szTTNNMZsaSZ4PYFI7JGN1RTIyIs8YKIWuR539lhPnZD6NFt0PTwPaQJ3awm8VXlfnQDYoGyjOCnl8EW bpNR2FtZOqHGlGnj1kfpIutaPSy3CnaiZebQKDELHr xL5rUWBIKAUdiLshGRUdJKHmYp6tDsNtGsDnTCd2TZRtZX5bVXvbZU9GPTB6MObmDBNfTMFvJ4aQQwGn SSZvBFWdxSbgVK9EKyKwG2KypuLbrFOaAxBiMTJDDj7+ATliurHmKfiGHcL0NJQvb3WnHKj8KV0JRCFe OZsyWF9JMNGwqQ9lCNicEF4KFuGwYALxRATBGdUwE4 6kwVMmFBl6B1OdOcHxCVLrRsqhXVDyDEktQxWwTXWvAaWhUSurJV5+ID4+ZPzoFJ3PLZvusnMqOGAvWo 7WPIPgUQRrEW4sSQWmLVPoO9H9mIrdWOFPQmNiB5eaqnjjHI9iCUIrO353fMkmapDcCTP9MDRbMo6GUA FeTDI3XASmiWBzUdDhVWUDBWtnJS3YcCZaZEB3lD5u VFmfYZJkYZZiN8uSCcEkfSzgLA85gTdwlnAqeSFgNGy+Wo5BPH4vc6OrZUx1yaGaUCnjRHL5JUteBJGn UJDzFYYjBAW3TEX9MJMDUiYxKUIpFJChJSpqXQEiQNJrtj8ISXPbGDLaYKO3MjFkGMGwHWThRYhxSSZd RAK9JPRnCYFtBZBhEI1CHdPtLQHiTERyODsgKCDgBX Stcw4EQXBmVECyOwE3HAHgTFVjIHEhAQxyUVNfLKXhBFz7VZMsSRUkIL5FTsDuSAOvBEM7DsHpBYSfNZ Ogjn0RCAGzNMLiOlgfUuWcOYLrBYVjPSunKGBsCUO7GPLlVHUxVRTxEU2JQcQfEZFkUOt2ILWtZHYoXU Uovu3UPITgFHLaXUI9SkMqCWAiVNTdBSasRUGyOPB2 CRmnLBMkDINmVO2MPsXfFFXsOSbzGBOaRJQyRCWwnv4ZXETcIBRmUZOiUSDlXNQbKSHuFZcdFOAfHXYc PkR3ZYGmHKGmMM7TQnChRUZvURX2ISYxKGOpDATdqb8NBWTiSSAiDYlmWZMvOGCtJNLlTShgUMKiOLIo VVUdRVTjOXOeDE1YSrJiWUFnKtUcUmlqNMAlJCEwhw 3JHCOoRQMqKyUoRDHcLUEtIJExTFaqGGSdLOAlCkK7DHEfENFmIO0YJvUvCWNkBqF4IAljPORqNWIuzp 8LXOKtDAHyOmv0WoFqAOLvHCNoKApxPIOiAUU3VPk0CQYqRHHuNA7UTkIvCONuQhR9AWOgFCQjKZVosh 6MNCBxCQSoABv5NoZeQLHeCIOgRHmwGLOiOVA4NDAt BTXhQHUfAR8TOxWeLSSaIvBaQbAjTOFlJBEozi6IfOEqmEengh7QWTfNWn2QhOisARF6LBhoYj9gvOSx SUAiUBRQQu0WxuZqACLlTMMSVBhzAXXcGVZoTqHyTDP8GjVvZCtqZUJrZWUhYWiuQvt0NeSrKXL7XuS4 EyLpJAGeGshjKsM8XDH0PpDeTDIpJPFuIwroYWO2Gx Y+ZQ9pPNu+Zo9Ij1RprdR3xbXbWAkaWpMuRU6RDPXXI4NFKn== ID Date Data Source [id number] 05/05/2020 04:05:55 PM EDT [facility] Name Value Range Interpretation Code Description Data Cristina rce(s) Supporting Document(s) Progress Note [facility] [place] QDWDFn4xHmTHMzIb53/GSSueLEFaj8KsUOnsJLx9XOnqLQEvU5ZlTAH8oA8fAXM8ZUyZMeJtKqYnBeO0 lbm [file] WermC1viIcWIfjRfD7DE6GRWTVU9FGZm== ID Date Data Source [id number] 05/05/2020 12:46:07 PM [facility] Name Value Range Interpretation Code Description Data Cristina rce(s) Supporting Document(s) Leukocytes [#/volume] in Blood by Automated count 4.2 10*3/uL 4-10 [facility] Erythrocytes [#/volume] in Blood by Automated count 4.16 10*6/uL 4.6- 6.1 L [facility] Hemoglobin [Mass/volume] in Blood 13.4 g/dL 13.5-18 L [facility] Hematocrit [Volume Fraction] of Blood by Automated count 39.4 % 4 1-53 L [facility] Erythrocyte mean corpuscular volume [Entitic volume] by Auto mated count 94.7 fL 80-96 [facility] Erythrocyte mean corpuscular hemoglobin [Entitic mass] by Automated count 32.3 pg 27-33 [facility] Erythrocyte mean corpuscular hemoglobin concentration [Mass/volume] by Automated count 34.1 g/dL 32.0-[facility] distribution width [Ratio] by Automated count 13.7 % 11.5-14.5 [facility] Platelets [#/volume] in Blood by Automated count 153 10*3/uL 150-400 [facility] Differential cell count method - Blood [facility] Neutrophils/100 leukocytes in Blood by Automated count 52 % [facility] Lymphocytes/100 leukocytes in Blood by Automated count 33 % [facility] Monocytes/100 leukocytes in Blood by Automated count 11 % [facility] Eosinophils/100 leukocytes in Blood by Automated count 3 % [facility] Basophils/100 leukocytes in Blood by Automated count 1 % [facility] Neutrophils [#/volume] in Blood by Automated count 2.19 10*3/uL 1.8-7 .0 [facility] Lymphocytes [#/volume] in Blood by Automated count 1.37 10*3/uL 1.2-4 .0 [facility] Monocytes [#/volume] in Blood by Automated count 0.46 10*3/uL 0-0.8 [facility] Eosinophils [#/volume] in Blood by Automated count 0.14 10*3/uL 0-0.5 [facility] Basophils [#/volume] in Blood by Automated count 0.02 10*3/uL 0-0.2 [facility] Nucleated erythrocytes/100 leukocytes [Ratio] in Blood by Automated count 0 /100{WBCs} 0-0 [facility] ID Date Data Source [id number] 05/05/2020 01:21:40 PM EDT [facility] Name Value Range Interpretation Code Description Data Cristina rce(s) Supporting Document(s) Albumin [Mass/volume] in Serum or Plasma by Bromocresol green (BCG) dye binding method 4.4 g/dL 3.5-5.2 [facility] Bilirubin.total [Mass/volume] in Serum or Plasma 0.6 mg/dL <1.2 [facility] Calcium [Mass/volume] in Serum or Plasma 9.0 mg/dL 8.6-10.0 [facility] Chloride [Moles/volume] in Serum or Plasma 103 mmol/L 98-107 [facility] Creatinine [Mass/volume] in Serum or Plasma 1.08 mg/dL 0.70-1.20 [facility] Glucose [Mass/volume] in Serum or Plasma 92 mg/dL 70-140 [facility] Alkaline phosphatase [Enzymatic activity/volume] in Serum or Plasma 59 U/L 40-129 [facility] Potassium [Moles/volume] in Serum or Plasma 4.4 mmol/L 3.4-5.1 [facility] Protein [Mass/volume] in Serum or Plasma 7.5 g/dL 6.4-8.3 [facility] Sodium [Moles/volume] in Serum or Plasma 137 mmol/L 136-145 [facility] Aspartate aminotransferase [Enzymatic activity/volume] in Serum or Plasma 22 U/L <40 [facility] Urea nitrogen [Mass/volume] in Serum or Plasma 21 mg/dL 6-20 H [facility] Osmolality of Serum or Plasma by calculation 286 mosm/kg 275-300 [facility] Creatinine/Urea nitrogen [Mass Ratio] in Serum or Plasma 19 [facility] Bicarbonate [Moles/volume] in Serum 27 mmol/L 22-29 [facility] Alanine aminotransferase [Enzymatic activity/volume] in Seru m or Plasma 29 U/L <41 [facility] Anion gap 3 in Serum or Plasma 7 mmol/L 8-15 L [facility] Glomerular filtration rate/1.73 sq M pre dicted among non-blacks [Volume Rate/Area] in Serum or Plasma by Creatinine-based formula (MDRD) 83 mL/min/1.73m2 >60 [facility] Glomerular filtration rate/1.73 sq M pre dicted among blacks [Volume Rate/Area] in Serum or Plasma by Creatinine-based formula (MDRD) >60 [facility] ID Date Data Source [id number] 04/29/2020 01:14:47 PM EDT [facility] MR BRAIN WITH AND WITHOUT CONTRAST [id number] FINAL RESULTInterpreted by:AARON Altamirano HEAD WITH AND [...] rce(s) Supporting Document(s) ID Date Data Source [id number] 10/18/2019 11:57:24 AM [facility] Name Value Range Interpretation Code Description Data Cristina rce(s) Supporting Document(s) Progress Note [facility] [place] AVREDe8xWmBMByMy95/RVQrwJOYzx9KrNSyhWCz7ZLtdWZCmP8MeRNT1dG8eIYI8UAzBYkHvTXoxScHy lbm [file] AgICAgICAgICAgICAgICAgICAgICAgICAgICAgICAg MDGhOQGxDXUwAXZmAIGbST2LPNSbSCNqAWCkALXjKYHqCRWtKUJiQOIzHBObOUYnSDUqQXWdPLYcCCLz XZDlKLKhGIQhLKLaGUQeQANwSWBgHRKzADPwRHWfJXYgOWHmFLPmDPTwKISdKIXvJCSxSLVcSZMhWX8D ICAgICAgICAgICAgICAgICAgICAgICAgICAgICAgIC AgICAgICAgICAgICAgICAgICAgICAgICAgICAgICAgICAgICAgICAgICAgICAgICAgICAgICAgICAgIC VsMREmFYAqQK2GEMZmJGJbBEZtKIUpGLBkSERxRWWqISJrFYGhVQVhKFIxHTUeASQbSUKwSIZtWTKnFH AgICAgICAgICAgICAgICAgICAgICAgICAgICAgICAg SXXuDYIxUWJiWQKhGIElYISgBU6UEYLhUWLhDXGySHRlHLSsHSCeCLCoTUNiFCCoCBWgZGOdORTdBIOn ICAgICAgICAgICAgICAgICAgICAgICAgICAgICAgICAgICAgICAgICAgICAgICAgICAgICAgICAgICAg VZ8RHDKsPLVtMAGsMLBxZRHvZRHnIDIjSTDgILHuZM AgICAgICAgICAgICAgICAgICAgICAgICAgICAgICAgICAgICAgICAgICAgICAgICAgICAgICAgICAgIC BlGIRwDGLkUDEfQU0BSAKcJDDdNRSsPKRsXJJnSHPrWYNsVVApBORjFPWrYJTkMOXxFPVtQROcFCEyYL AgICAgICAgICAgICAgICAgICAgICAgICAgICAgICAg MFRnFOYhTSOqIQHgJHChMUCaZOVpAT2VOQViPPYgBETwPTWdLDHcGLMdABGbUAQiVZEwNHDjHNCiZEUq ICAgICAgICAgICAgICAgICAgICAgICAgICAgICAgICAgICAgICAgICAgICAgICAgICAgICAgICAgICAg BODlMD4QQKSkHLQyCITmDFUgPAQqJBTiDDOcGXNrGF AgICAgICAgICAgICAgICAgICAgICAgICAgICAgICAgICAgICAgICAgICAgICAgICAgICAgICAgICAgIC ScHJUuTUXrVHRlSNNgWS5ZWIWhGFHlTCEiJKPdIAKiDKTaQVUuQLCtUPLqFSXmYFKkTUSzXBYtGQKmYY AgICAgICAgICAgICAgICAgICAgICAgICAgICAgICAg UYMwIGZmUWQyAAZwZYQlTUWvYYJhZKNbLT1NZQ80dPCha0S6JXJjDK5aiie/Gw0DWAleqvWhxDQpMN7I DkRxVS0dsc7DZaNeUU9ebi7RTDdXXpNqV5B9wXWkCKArNLSDMhGoP07nSDnqZd93MLnpZFLuHuCzENw5 Bv7KGxFqJ3drQKYwVuG1OYAiKwG0ONGdDcX1EKZmMx VdFXYsVDAhTC3HDHZtQ453vrXlEZ7ZSw6RHgBpYA4pzt7VDkCmRKIiIqqMRez5GVddAC3LmTQxtHGxFc NePKKEXtVoD3icq6RdZtFuPEEZUOugBA4Gy8SqpIQyUJl+Zq7OKF8by1TaQTcfWcJuQX1wme7PEMwWHb OvG2RiyGudENFht1lqMYCqFZ4iiJCvBDO6SZThiCDg DIRGXY3mu5UkzRboBPTyWNMpRWQbZL8zEPS2KYGpFsZwPWTAIW2FGPRoEOAkvVZgNSOvKLCFLC1ESEps WLJ3BNKdxoUklKKiWPwrQB3NABIrjlLzRyVbQFJRMZz+Qi8DRM6hb5RlYQudUbAoCY9ohj9XTGyCSdGv L1V0oOMlA9D1SZbnDh7DBSAaOEAlYcBmSAKFQZibBJ 3COB3vrlN7PW5QvTTwWAKgZUXabUUgPSt9Y71miEViQFnqNM1PMBV+Joana+Ri8GANTdHVQjBXSzSiEvLN AFAjCiV1RwP8ZZt0XbR3HbUL51tQyuxuGfVBuaTR2DYC7nYEExEDMFMM8AuPHsyT2xfiKvFHRkJEPLNf GtA52sqULxFAMoSVM7PEZxIl0CCXLdA0WlhnXhoCfn alVoYVLaWDSWUX0ARMcxfqZluTGgfUuvLO87qAmeAA8XSy6HPxDlPQ8llm5KpGHuRs1QVYMaLJ1YIZPw DHQzHCGtZKT7TUHjCaNdKCdhJLObXDWzHWL4HSLhFIReYD6XSfBgKAPaZpb5JAXwDVIvAGKfge1VNIOy OPZfYWV4NWNhZECuGDBhTObyMGVsPVSxJBS7AZNfQC EiJP6IZnIcTUJqFLPhXDwzEYHmRYFsdz2DGYVcZVYkNECiXiPmPZKjZPYgMUrhYVRgOBL4RaSeGWQjJR QwYE0BSgFgJDVqOZl0EJhbKMMtKQOast1ZPOHwQNEkBWU1UWAhXEVtIUTxWEtzNWAlDFJuDzt3XVQgDU NzGF7QQwIaQMQjGFN9VaHaNWOeOKNmrx5JRWQqGPRo ZwW8CKAwFMVkSOVgUUelWFVmXRGxUfYaOHEpLIQtMF8EMqVtSHHvJDF5ZlliZNKqJVRbsd3DBSUyWGFg KSZoAMJjRMLkXOUvQMxcOWXtFAU2RKJ9ITGbDBVnWM1QNkEnIMIvDRHaKhWsPQKjUPDtxe2THKXuQVCp LPN5NYTrHXWuFIEzNWghGFTlHGR8Zxu9EMHuRPVhMA 1XNjMlUSVdKowjSHFfMBCoQOTrwd0BACTqYYWqPeAwGkBsBINjLHWxZXvzJINcKDV2RSxcPLQgOFWzFJ 2RGjNjQSQaTke9JOujUHSvGZIzzt1UUXCoISAoEXYhPVFrEBVzQXMkLAujDNZaKIC4BZi4EUMaLNXnST 1XQuRrFZUjHph8SOpjRUKuOJPzkc4ZAOIhBIIjKVt0 GXPqXKZeLPPkSPt1dpRefEHaGLc5UU8LV6JqedHpNmiVJn9Ju982YFB0LNXiMa8XN8goXm9xGABoZOAG Dj7YPUe9W8S1OJGuHJtdUmE7MLQ0QcMsRSKyAwM1TFNqCJH1YUn+BOc2ObPwPRTmRSDyZSr3IOlkCKA5 DOMjDuE0BBSdEYquVx7qJWXGRi4+ZCalmWAhxTenSESGWcSlJULkOCwxKQZKGk8F ID Date Data Source [id number] 10/08/2019 08:41:10 PM [facility] Name Value Range Interpretation Code Description Data Cristina rce(s) Supporting Document(s) Progress Note [facility] [place] ZCDHNe2fSrGCTkCc45/EFJayRZZmd5QuGYdiWDf1EMdtKHJrC3StYJA9dN7oEJD2YQjHLwLnDUvcYuUd lbm [file] ICAgICAgICAgICAgICAgICAgICAgICAgICAgICAgICAgICAgICAgICAgICAgICAgDQogICAgICAgICAg ICAgICAgICAgICAgICAgICAgICAgICAgICAgICAgIC AgICAgICAgICAgICAgICAgICAgICAgICAgICAgICAgICAgICAgICAgICAgICAgICAgICAgICAgICAgDQ ogICAgICAgICAgICAgICAgICAgICAgICAgICAgICAgICAgICAgICAgICAgICAgICAgICAgICAgICAgIC AgICAgICAgICAgICAgICAgICAgICAgICAgICAgICAg ICAgICAgICAgDQogICAgICAgICAgICAgICAgICAgICAgICAgICAgICAgICAgICAgICAgICAgICAgICAg ICAgICAgICAgICAgICAgICAgICAgICAgICAgICAgICAgICAgICAgICAgICAgICAgICAgDQogICAgICAg ICAgICAgICAgICAgICAgICAgICAgICAgICAgICAgIC AgICAgICAgICAgICAgICAgICAgICAgICAgICAgICAgICAgICAgICAgICAgICAgICAgICAgICAgICAgIC AgDQogICAgICAgICAgICAgICAgICAgICAgICAgICAgICAgICAgICAgICAgICAgICAgICAgICAgICAgIC AgICAgICAgICAgICAgICAgICAgICAgICAgICAgICAg ICAgICAgICAgICAgDQogICAgICAgICAgICAgICAgICAgICAgICAgICAgICAgICAgICAgICAgICAgICAg ICAgICAgICAgICAgICAgICAgICAgICAgICAgICAgICAgICAgICAgICAgICAgICAgICAgICAgDQogICAg ICAgICAgICAgICAgICAgICAgICAgICAgICAgICAgIC AgICAgICAgICAgICAgICAgICAgICAgICAgICAgICAgICAgICAgICAgICAgICAgICAgICAgICAgICAgIC AgICAgDQogICAgICAgICAgICAgICAgICAgICAgICAgICAgICAgICAgICAgICAgICAgICAgICAgICAgIC AgICAgICAgICAgICAgICAgICAgICAgICAgICAgICAg ICAgICAgICAgICAgICAgDQogICAgICAgICAgICAgICAgICAgICAgICAgICAgICAgICAgICAgICAgICAg ICAgICAgICAgICAgICAgICAgICAgICAgICAgICAgICAgICAgICAgICAgICAgICAgICAgICAgICAgDQo8 J8coKTEoNNXlZP6zBOj0Cz6+RAiAIhBnTUP1arJkuO 7VJJ4go2FmWHzaEKDvf7HbNSk9FX9WQCMdRLyfPU2QSVlxmo0GYJAxUNKmxLBKa6wrHlNuGEI0GHXvGn tgVG2GKKLjA4basnMlECNkTHSKSV6AJyOuA4MgfS79AVRFGs8+YDnnljRhOpzHByB3CUBxk8HzXDi0RK 4BQSGkSucaa9RpNuXjHQAWADcnNX1NJBY4JWEoFJLv Cu7FGFWqW749khVxWN2LRj9POmQpMT8thp6ICcFbTLVpDznBOxr3RPenLH0EtDFqHTfYqb7bpdThnvEQ x2IqovRlnEZMjQn3nclzDGVcKCPZKIZqoKLxDX2sXB6nGBM4WNO2JuQmMOKODO2XATTeJHDrhABsEKPo JWWJEL1LBJnlKMF3WIYqwvYpdNIkCAnoPZ0FFLQkqa QgMTkgMCBSDQo+Yi6BHZ1pb6YmWHvuNFMcIB0ppj3ONVwWCdNhN5W2dWRfF9I8HTcbHu1UDVKrDZIaCT zyCMNGOOsxUI7XNY7lnpA7SA8RnCFaFNEfPTYfsPWxVRq9O15hlVIlVLeuRM8LTLX+Joana+Ao9FZOBrNW NiKZMzCbKnDBQQMlGiN1DrD7KPb8BzS3HzAK07uTkm yjLsHDpyFU2JVF7mQVOdHSOOLU4ZfBHwdH3fezWuSLLuEEWYUuIwD74giYHtKGFhIBT6UNJtBa2XSSTf D5HfbtBgzCfyehKwOSBiKTYGPP5WVXnxznUtiZExyKggGW72oTrpNQ1BAh9VYgCoHU5vwe4IsYAjHe5V IOIgCc5KSCYiMIZzIAAgYOC4MPXaLqTcQVqxPNKsKX ZzVVI3NWUgYYNuYC5HAfXuPNHhEKy9GtIoHDSeFXPofw6LZMQcJIXvCMF6HLKzHYQiUCGjVYleUFJzHI WnRAG5OXVxDHMxYP1ZLvUfPRVzTIYvNFjgEIUyWZVplo0GNWRoNEXrLrE3DuZnKXOmXVCoLLlnRUTgSQ OeBQTaHDVoUGXoVJ7AKqOdOMFgLER6IXxhGLMjVZDt af4ULCTcCTCqZad1BmQuINHnAWPcXQhdMAMyASM6JBO8NCOlCCNjUX0BZyXzVEFmCBXpMKwrHSScIIOg rr1DBHLmLRYvHML8ZTLbJDTiCTVwEFuxESEhVOI9XNb5OMIeDILlKS1DRePbQLAzJWX0CMMiSPBeGPDa tm1BLTTaUAEfHeHmGZEbGVLoHTCnTMgyJQOzAWD0Mo N8LXYoYFCpOF6ZPwUePERuWHu1HSPwHOUqBJWjkr1ISJJiATWiTznqCMMdESRtRJVeVBjlVMKnGCW9Zs J5QXMjEXZgTY5MZsLdTMFnXYk5FPgqHVTmVVKghx2XEOBdBEYiNFT9FEYbHTSiCTCuXNo3zvMviZVjYF o6FF1DO4GofbDfAqNSZy5Ej875GZFuYWHsZx9QC3kw Cl1vNYCbAAUMSu2YMZd7IzV7RvOmLLBsRSE5PjT7R5IdXxWxWKJ2NZOyAgUyKtJ+IDxmYTljMzNhMmY0 Onx3SSrdNpSrZJVpXiKxTBJoJ3A8Sl3wRORDBi8+GPzviXMopUmpPWHWCfF1YPK7QJgnYGCLWn8I ID Date Data Source [id number] 10/08/2019 08:41:05 PM [facility] Name Value Range Interpretation Code Description Data Cristina rce(s) Supporting Document(s) Progress Note [facility] [place] [id number]UV4BJeYFcYbOOynZgUv lbm [file] [id number]= Procedure Social History Code Duration Value Status Description Data Source(s ) Smoking 10/13/2020 12:00:00 AM EST Never Smoker completed Never S moker [facility] Smoking 10/13/2020 12:00:00 AM EST Never Smoker completed Never S moker eCW1 ([facility]) Smoking 10/13/2020 12:00:00 AM EST Never Smoker completed Never S moker eCW1 ([facility]) Smoking 10/13/2020 12:00:00 AM EST Never Smoker completed Never S moker eCW1 ([facility]) Smoking 10/13/2020 12:00:00 AM EST Never Smoker completed Never S moker eCW1 ([facility]) Smoking 10/01/2020 12:00:00 AM EST Patient has never smoked co mpleted Patient has never smoked MEDENT ([facility]) Smoking 09/24/2020 12:00:00 AM EST Never Smoker completed Never S moker eCW1 ([facility]) Smoking 09/24/2020 12:00:00 AM EST Never Smoker completed Never S moker eCW1 ([facility]) Smoking 09/24/2020 12:00:00 AM EST Never Smoker completed Never S moker eCW1 ([facility]) Smoking 09/16/2020 12:00:00 AM EST Never Smoker completed Never S moker eCW1 ([facility]) Smoking 09/16/2020 12:00:00 AM EST Never Smoker completed Never S moker eCW1 ([facility]) Smoking 09/16/2020 12:00:00 AM EST Never Smoker completed Never S moker eCW1 ([facility]) Smoking 09/08/2020 12:00:00 AM EST Never Smoker completed Never S moker eCW1 ([facility]) Smoking 08/25/2020 12:00:00 AM EDT Never Smoker completed Never S moker eCW1 ([facility]) Smoking 08/25/2020 12:00:00 AM EDT Never Smoker completed Never S moker eCW1 ([facility]) Smoking 08/25/2020 12:00:00 AM EDT Never Smoker completed Never S moker eCW1 ([facility]) Smoking 08/25/2020 12:00:00 AM EDT Never Smoker completed Never S moker eCW1 ([facility]) Alcohol intake 08/22/2020 12:00:00 AM EDT Current non-d [place] of alcohol (finding) completed Current non-drinker of alcohol (finding) [facility] Tobacco use and exposure 08/22/2020 12:00:00 AM EDT Never used co mpleted Never used [facility] Smoking 08/22/2020 12:00:00 AM EDT Never smoker completed Never s [facility] Alcohol intake 07/22/2020 12:00:00 AM EDT Current non-d [place] of alcohol (finding) completed Current non-drinker of alcohol (finding) [facility] Smoking 05/21/2020 12:00:00 AM EDT Never Smoker completed Never S moker eCW1 ([facility]) Smoking 05/21/2020 12:00:00 AM EDT Never Smoker completed Never S moker eCW1 ([facility]) Smoking 05/21/2020 12:00:00 AM EDT Never Smoker completed Never S moker eCW1 ([facility]) Smoking 05/21/2020 12:00:00 AM EDT Never Smoker completed Never S moker eCW1 ([facility]) Smoking 05/21/2020 12:00:00 AM EDT Never Smoker completed Never S moker eCW1 ([facility]) Smoking 05/21/2020 12:00:00 AM EDT Never Smoker completed Never S moker eCW1 ([facility]) Smoking 05/20/2020 12:00:00 AM EDT Non Smoker completed Non Smoke r MEDENT ([facility]) Smoking 05/17/2020 12:00:00 AM EDT Never Smoker completed Never S moker eCW1 ([facility]) Alcohol intake 05/05/2020 12:00:00 AM EDT Current non-d [place] of alcohol (finding) completed Current non-drinker of alcohol (finding) [facility] Smoking 05/05/2020 12:00:00 AM EDT Never smoker completed Never s [facility] Smoking 04/09/2020 12:00:00 AM EDT Never Smoker completed Never S moker eCW1 ([facility]) Alcohol intake 10/17/2019 12:00:00 AM EST Current non-d [place] of alcohol (finding) completed Current non-drinker of alcohol (finding) [facility] Smoking 10/17/2019 12:00:00 AM EST Never smoker completed Never s [facility] Vital Signs ID Date Data Source UNK Name Value Range Interpretation Code Description Data Source(s) Diastolic blood pressure 78 mm[Hg] 78 mm[Hg] eCW[facility] Systolic blood pressure 128 mm[Hg] 128 mm[Hg] e CW1 ([facility]) Body mass index (BMI) [Ratio] 27.92 kg/m2 27.92 kg/m2 W1 ([facility]) Body height 71.5 [in_i] 71.5 [in_i] eCW1 ([facility]) Body weight 203 [lb_av] 203 [lb_av] eCW1 ([facility]) Diastolic blood pressure 84 mm[Hg] 84 mm[Hg] eCW1 ([facility]) Systolic blood pressure 124 mm[Hg] 124 mm[Hg] e CW1 ([facility]) Body temperature 97.1 [degF] 97.1 [degF] eCW1 ( [facility]) Respiratory rate 18 /min 18 /min eCW1 ([facility]) Heart rate 77 /min 77 /min eCW1 ([facility] Body mass index (BMI) [Ratio] 28.60 kg/m2 28.60 kg/m2 W1 ([facility]) Body height 71.5 [in_i] 71.5 [in_i] eCW1 ([facility]) Body weight 208 [lb_av] 208 [lb_av] eCW1 ([facility]) Body surface area Derived from formula 2.08 m2 2.08 m2 SHALA ([facility]) Body weight 87.545 kg 87.545 kg SHALA ([facility]) [place] body weight 172 [lb_av] 172 [lb_av] MEDEN T ([facility]) Body mass index (BMI) [Ratio] 26.9 kg/m2 26.9 k g/m2 [facility] ([facility]) Body weight 193.00 [lb_av] 193.00 [lb_av] MEDEN T ([facility]) Body height 71 [in_i] 71 [in_i] MEDENT ([facility]) 5'11" Diastolic blood pressure--sitting 80 mm[Hg] 80 mm[Hg] MEDENT ([facility]) [place], large cuff/Ra Systolic blood pressure--sitting 122 mm[Hg] 122 mm[Hg] MEDENT ([facility]) [place], large cuff/Ra Heart rate 89 /min 89 /min MEDENT ([facility] Body mass index (BMI) [Ratio] 28.9 kg/m2 28.9 k g/m2 [facility] Body height 71 [in_i] 71 [in_i] MEDENT ([facility] 5'11" Body weight 207.00 [lb_av] 207.00 [lb_av] MEDEN T ([facility]) Diastolic blood pressure 84 mm[Hg] 84 mm[Hg] eCW1 ([facility]) Systolic blood pressure 130 mm[Hg] 130 mm[Hg] e CW1 ([facility]) Body temperature 97.8 [degF] 97.8 [degF] eCW1 ( [facility]) Respiratory rate 18 /min 18 /min eCW1 ([facility]) Heart rate 85 /min 85 /min eCW1 [facility] Body mass index (BMI) [Ratio] 29.68 kg/m2 29.68 kg/m2 eCW1 ([facility]) Body height 71.5 [in_i] 71.5 [in_i] eCW1 ([facility]) Body weight 215.8 [lb_av] 215.8 [lb_av] eCW1 ([facility]) Body temperature 97.1 [degF] 97.1 [degF] MEDENT ([facility], ) Diastolic blood pressure 82 mm[Hg] 82 mm[Hg] eCW1 ([facility]) Systolic blood pressure 125 mm[Hg] 125 mm[Hg] e CW1 ([facility]) Body temperature 98.5 [degF] 98.5 [degF] eCW1 ( [facility]) Respiratory rate 18 /min 18 /min eCW1 ([facility]) Heart rate 74 /min 74 /min eCW1 ([facility] Body mass index (BMI) [Ratio] 28.74 kg/m2 28.74 kg/m2 eCW1 ([facility]) Body height 71.5 [in_i] 71.5 [in_i] eCW1 ([facility]) Body weight 209 [lb_av] 209 [lb_av] eCW1 ([facility]) Diastolic blood pressure 86 mm[Hg] 86 mm[Hg] eCW1 ([facility]) Systolic blood pressure 130 mm[Hg] 130 mm[Hg] e CW1 ([facility]) Body temperature 98.3 [degF] 98.3 [degF] eCW1 ( [facility]) Respiratory rate 18 /min 18 /min eCW1 ([facility]) Heart rate 99 /min 99 /min eCW1 [facility] Body mass index (BMI) [Ratio] 28.33 kg/m2 28.33 kg/m2 eCW1 ([facility]) Body height 71.5 [in_i] 71.5 [in_i] eCW1 ([facility]) Body weight [lb_av] eCW1 ([facility]) Body mass index (BMI) [Ratio] 28.11 kg/m2 28.11 kg/m2 eCW1 ([facility]) Body height 71.5 [in_i] 71.5 [in_i] eCW1 ([facility]) Body weight 204.4 [lb_av] 204.4 [lb_av] eCW1 ([facility]) [place] body weight 172 [lb_av] 172 [lb_av] [facility] Body mass index (BMI) [Ratio] 27.6 kg/m2 27.6 k g/m2 MEDENT ([facility]) Body weight 198.00 [lb_av] 198.00 [lb_av] MEDEN T ([facility], ) Body height 71 [in_i] 71 [in_i] MEDENT ([facility]) 5'11" Heart rate 72 /min 72 /min MEDENT ([facility]) Diastolic blood pressure 80 mm[Hg] 80 mm[Hg] MEDENT ([facility]) Systolic blood pressure 120 mm[Hg] 120 mm[Hg] M EDENT ([facility]) Diastolic blood pressure 82 mm[Hg] 82 mm[Hg] eCW1 ([facility]) Systolic blood pressure 117 mm[Hg] 117 mm[Hg] e CW1 ([facility]) Body temperature 98 [degF] 98 [degF] eCW1 ([facility]) Respiratory rate 18 /min 18 /min eCW1 ([facility]) Heart rate 82 /min 82 /min eCW1 [facility] Body mass index (BMI) [Ratio] 25.99 kg/m2 25.99 kg/m2 W1 ([facility]) Body height 71.5 [in_i] 71.5 [in_i] eCW1 ([facility]) Body weight 189 [lb_av] 189 [lb_av] eCW1 ([facility]) Body weight 87.545 kg 87.545 kg MEDENT ([facility], ) [place] body weight 172 [lb_av] 172 [lb_av] MEDEN T ([facility]) Body mass index (BMI) [Ratio] 26.9 kg/m2 26.9 k g/m2 MEDENT ([facility], ) Body weight 193.00 [lb_av] 193.00 [lb_av] MEDEN T ([facility], ) Body height 71 [in_i] 71 [in_i] MEDENT ([facility], ) 5'11" Body temperature 98.0 [degF] 98.0 [degF] MEDENT ([facility], ) Diastolic blood pressure 84 mm[Hg] 84 mm[Hg] eCW1 ([facility]) Systolic blood pressure 117 mm[Hg] 117 mm[Hg] e CW1 ([facility]) Body temperature 99.1 [degF] 99.1 [degF] eCW1 ( [facility]) Respiratory rate 18 /min 18 /min eCW1 ([facility]) Heart rate 82 /min 82 /min eCW1 [facility] Body mass index (BMI) [Ratio] 26.54 kg/m2 26.54 kg/m2 W1 ([facility]) Body height 71.5 [in_i] 71.5 [in_i] eCW1 ([facility]) Body weight 193 [lb_av] 193 [lb_av] eCW1 ([facility]) Diastolic blood pressure 73 mm[Hg] 73 mm[Hg] eCW1 ([facility]) Systolic blood pressure 110 mm[Hg] 110 mm[Hg] e CW1 ([facility]) Body temperature 98.7 [degF] 98.7 [degF] eCW1 ( [facility]) Respiratory rate 18 /min 18 /min eCW1 ([facility]) Heart rate 91 /min 91 /min eCW1 [facility] Body mass index (BMI) [Ratio] 26.13 kg/m2 26.13 kg/m2 W1 ([facility]) Body height 71.5 [in_i] 71.5 [in_i] eCW1 ([facility]) Body weight 190 [lb_av] 190 [lb_av] eCW1 ([facility]) Diastolic blood pressure 72 mm[Hg] 72 mm[Hg] eCW1 ([facility]) Systolic blood pressure 118 mm[Hg] 118 mm[Hg] e CW1 ([facility]) Body temperature 99.0 [degF] 99.0 [degF] eCW1 ( [facility]) Respiratory rate 16 /min 16 /min eCW1 ([facility]) Heart rate 83 /min 83 /min eCW1 [facility] Body mass index (BMI) [Ratio] 27.09 kg/m2 27.09 kg/m2 eCW1 ([facility]) Body height 71.5 [in_us] 71.5 [in_us] eCW1 ([facility]) Body weight Measured [lb_av] eCW1 ([facility]) ID Date Data Source [id number] 07/24/2020 08:16:12 AM EDT [facility] Value Range Interpretation Code Description Data Source(s) WEIGHT RECORDED 198.8 lb 198.8 lb [facility] ID Date Data Source [id number] 05/19/2020 07:30:15 PM EDT [facility] Name Value Range Interpretation Code Description Data Source(s) WEIGHT RECORDED 191.4 lb 191.4 lb [facility] ID Date Data Source [id number] 10/18/2019 11:57:24 AM [facility] Value Range Interpretation Code Description Data Source(s) WEIGHT RECORDED 194 lb 194 lb [facility] ID Date Data Source [id number] 10/08/2019 08:41:10 PM [facility] Value Range Interpretation Code Description Data Source(s) WEIGHT RECORDED 192.6 lb 192.6 lb [facility] Patient Treatment Plan of Care Planned Activity Planned Date Details Description Data Source (s) Ciprofloxacin 2 MG/ML Otic Solution 09/24/2020 12:00:00 AM EST eCW1 ([facility]) Ciprofloxacin 2 MG/ML Otic Solution 09/24/2020 12:00:00 AM EST eCW1 ([facility]) Ciprofloxacin 2 MG/ML Otic Solution 09/24/2020 12:00:00 AM EST eCW1 ([facility]) Levetiracetam 750 MG Oral Tablet 06/03/2020 12:00:00 AM [facility] Prednisone 20 MG Oral Tablet 05/21/2020 12:00:00 AM EDT eCW1 ([facility]) Prednisone 20 MG Oral Tablet 05/21/2020 12:00:00 AM EDT eCW1 ([facility]) Prednisone 20 MG Oral Tablet 05/21/2020 12:00:00 AM EDT eCW1 ([facility]) Prednisone 20 MG Oral Tablet 05/21/2020 12:00:00 AM EDT eCW1 ([facility]) Prednisone 20 MG Oral Tablet 05/21/2020 12:00:00 AM EDT eCW1 ([facility]) Prednisone 20 MG Oral Tablet 05/21/2020 12:00:00 AM EDT eCW1 ([facility]) tizanidine 4 MG Oral Tablet [Zanaflex] 05/17/2020 12:00:00 AM EDT eCW1 ([facility]) Diclofenac Sodium 75 MG Delayed Release Oral Tablet 05/17/20 12:00:00 AM EDT eCW1 ([facility]) Levetiracetam 750 MG Oral Tablet 11/28/2019 12:00:00 AM [facility] Procarbazine 50 MG Oral Capsule 09/12/2019 12:00:00 AM [facility] Levetiracetam 500 MG Oral Tablet 08/06/2019 12:00:00 AM [facility] Lomustine 40 MG Oral Capsule [Gleostine] 08/01/2019 12:00:00 AM [facility] Levetiracetam 500 MG Oral Tablet 01/11/2019 12:00:00 AM [facility] Prochlorperazine 10 MG Oral Tablet 10/16/2018 12:00:00 AM [facility] sennosides, ASSISTED 8.6 MG Oral Tablet 05/25/2018 12:00:00 AM [facility] UNABLE TO FIND [facility] topiramate 25 MG Oral Tablet [facility] Simethicone 80 MG Chewable Tablet [facility]
[2020-11-26] MEDS ORDERED: TRIA1OI TOP (06:39)
[2020-11-26 06:49] VITALS: BP 118/83
== END 2020-11-26 06:54 | disposition home or self-care (01) ==
LOC: M ED 01:13
DX: L30.9 Dermatitis, unspecified (principal); Z88.0 Allergy status to penicillin; Z88.1 Allergy status to other antibiotic agents

== ENCOUNTER → 2021-02-05 | Outpatient (REF) | payer MEDICARE, OTHER ==
[~2021-02-05] MED LIST changes: +TRIA1OI TOP
[2021-02-06 12:38] LABS: HEMOGLOBIN A1c 5.4 %
== END ==
LOC: M SFHCCLAY 14:11
PROVIDERS: ATTEND Family Medicine
DX: Z13.1 Encounter for screening for diabetes mellitus (principal); Z83.3 Family history of diabetes mellitus; Z79.899 Other long term (current) drug therapy
CPT/HCPCS: 83036; G0463

== ENCOUNTER 2021-03-04 09:15 | Outpatient (RCR) | payer MEDICARE, OTHER | END 2021-03-06 | LOC: M PT 09:15 | PROVIDERS: ATTEND Psychiatry & Neurology Neurology | DX: M25.512 Pain in left shoulder (principal); G89.29 Other chronic pain ==

== ENCOUNTER 2021-04-02 10:00 | Outpatient (RCR) | payer MEDICARE, OTHER | END 2021-04-06 | LOC: M PT 10:00 | PROVIDERS: ATTEND Psychiatry & Neurology Neurology | DX: M25.512 Pain in left shoulder (principal) ==

== ENCOUNTER 2021-04-09 10:00 | Outpatient (RCR) | payer MEDICARE, OTHER ==
[~2021-04-09 10:00] MED LIST changes: -DOXY100C37 PO; +DOXY1CAP62 PO
== END 2021-05-06 ==
LOC: M PT 10:00
PROVIDERS: ATTEND Psychiatry & Neurology Neurology
DX: M25.512 Pain in left shoulder (principal)

== ENCOUNTER → 2021-06-15 | Outpatient (CLI) | payer MEDICARE, OTHER ==
[~2021-06-15] MED LIST changes: +DOXY-443 PO; -DOXY1CAP62 PO; +TIZA10TA; -TIZA4TAB4
== END ==
LOC: M RAD 15:33
PROVIDERS: ATTEND Family Medicine
DX: E04.1 Nontoxic single thyroid nodule (principal)

== ENCOUNTER → 2021-06-24 | Outpatient (REF) | payer MEDICARE, OTHER ==
[~2021-06-24] MED LIST changes: -DOXY-443 PO; +DOXY1CAP62 PO; -TIZA10TA; +TIZA4TAB4
== END ==
LOC: M LAB REF 18:56
PROVIDERS: ATTEND Internal Medicine Endocrinology, Diabetes & Metabolism
DX: E04.1 Nontoxic single thyroid nodule (principal)

== ENCOUNTER 2021-07-01 09:21 | Outpatient (RCR) | payer MEDICARE, OTHER | END 2021-07-07 | LOC: M PT 09:21 | PROVIDERS: ATTEND Psychiatry & Neurology Neurology | DX: G54.0 Brachial plexus disorders (principal) ==

== ENCOUNTER 2021-08-05 11:28 | Outpatient (RCR) | payer MEDICARE, OTHER | END 2021-08-06 | LOC: M PT 11:28 | PROVIDERS: ATTEND Psychiatry & Neurology Neurology | DX: G54.0 Brachial plexus disorders (principal) ==

== ENCOUNTER 2021-08-31 10:45 | Outpatient (RCR) | payer MEDICARE, OTHER ==
[~2021-08-31 10:45] MED LIST changes: +DOXY-443 PO; -DOXY1CAP62 PO
== END 2021-09-06 ==
LOC: M PT 10:45
PROVIDERS: ATTEND Psychiatry & Neurology Neurology
DX: G54.0 Brachial plexus disorders (principal)

== ENCOUNTER → 2021-10-06 | Outpatient (RCR) | payer MEDICARE, OTHER ==
[~2021-10-06] MED LIST changes: +TIZA10TA; -TIZA4TAB4
== END ==
LOC: M PT 09-10 10:37
PROVIDERS: ATTEND Psychiatry & Neurology Neurology
DX: G54.0 Brachial plexus disorders (principal)

== ENCOUNTER 2021-10-14 09:09 | Outpatient (RCR) | payer MEDICARE, OTHER ==
[~2021-10-14 09:09] MED LIST changes: -TIZA10TA; +TIZA4TAB4
== END 2021-11-06 ==
LOC: M PT 09:09
PROVIDERS: ATTEND Psychiatry & Neurology Neurology
DX: G54.0 Brachial plexus disorders (principal)

== ENCOUNTER → 2022-02-23 | Outpatient (REF) | payer MEDICARE, OTHER ==
[~2022-02-23] MED LIST changes: +TIZA10TA; -TIZA4TAB4
== END ==
LOC: M LAB REF 16:14
PROVIDERS: ATTEND Otolaryngology
DX: H60.92 Unspecified otitis externa, left ear (principal); R21 Rash and other nonspecific skin eruption

== ENCOUNTER → 2022-02-23 | Outpatient (REF) | payer MEDICARE, OTHER | LOC: M SFHCDERM 19:16 | PROVIDERS: ATTEND Physician Assistant | DX: R21 Rash and other nonspecific skin eruption (principal) ==

== ENCOUNTER → 2022-03-01 | Outpatient (CLI) | payer MEDICARE, OTHER ==
[2022-03-01 07:56] LABS: CHOLESTEROL RISK RATIO 5.59 (<5)
== END ==
LOC: M LAB 06:36
PROVIDERS: ATTEND Family Medicine
DX: Z13.220 Encounter for screening for lipoid disorders (principal); Z79.899 Other long term (current) drug therapy

== ENCOUNTER → 2022-03-03 | Outpatient (CLI) | payer MEDICARE, OTHER ==
[2022-03-03 13:29] LABS: HEMOGLOBIN A1c 5.4 %
[2022-03-03 13:44] LABS: CALCIUM LEVEL 9.1 MG/DL (8.5-10.1); CREATININE FOR GFR 1.45 MG/DL (0.70-1.30); GLOMERULAR FILTRATION RATE 56.3 (>60); MAGNESIUM LEVEL 2.3 MG/DL (1.8-2.4); POTASSIUM SERUM 4.8 MEQ/L (3.5-5.1)
== END ==
LOC: M LAB 10:40
PROVIDERS: ATTEND Family Medicine
DX: Z00.00 Encounter for general adult medical examination without abnormal findings (principal); R25.2 Cramp and spasm; R63.1 Polydipsia; Z83.3 Family history of diabetes mellitus

== ENCOUNTER → 2022-03-05 | Outpatient (CLI) | payer MEDICARE, OTHER ==
[2022-03-05 10:00] LABS: CALCIUM LEVEL 9.3 MG/DL (8.5-10.1); CREATININE FOR GFR 1.46 MG/DL (0.70-1.30); GLOMERULAR FILTRATION RATE 55.8 (>60); POTASSIUM SERUM 4.6 MEQ/L (3.5-5.1)
== END ==
LOC: M LAB 08:54
PROVIDERS: ATTEND Family Medicine
DX: R79.89 Other specified abnormal findings of blood chemistry (principal)

== ENCOUNTER → 2022-04-08 | Outpatient (CLI) | payer MEDICARE, OTHER | LOC: M RAD 08:54 | PROVIDERS: ATTEND Family Medicine | DX: N18.31 Chronic kidney disease, stage 3a (principal) ==

== ENCOUNTER 2022-08-07 01:58 | Emergency (ER) | payer MEDICARE, OTHER ==
[~2022-08-07] VITALS: Ht 180.3 cm; Wt 90.9 kg
[2022-08-07 02:24] LABS: BASO % 0.3 % (0.0-1.0); EOS # 0.1 10^3/uL (0.0-0.5); HEMATOCRIT 39.9 % (42.0-52.0); HEMOGLOBIN 13.8 g/dl (13.5-17.5); LYMPH # 2.6 10^3/uL (1.5-5.0); LYMPH % 40.4 % (24.0-44.0); MEAN CORPUSCULAR HEMOGLOBIN 31.6 pg (27.0-33.0); MEAN CORPUSCULAR HGB CONC 34.6 g/dl (32.0-36.5); MEAN CORPUSCULAR VOLUME 91.3 fl (80.0-96.0); MONO # 0.5 10^3/uL (0.0-0.8); MONO % 7.9 % (2.0-8.0); NEUTROPHILS # 3.2 10^3/uL (1.5-8.5); NEUTROPHILS % 49.2 % (36.0-66.0); PLATELET COUNT, AUTOMATED 154 10^3/uL (150-450); RED BLOOD COUNT 4.37 10^6/uL (4.30-6.10); WHITE BLOOD COUNT 6.4 10^3/uL (4.0-10.0)
[2022-08-07 03:01] LABS: CK-MB VALUE MASS 2.7 NG/ML (<3.6); MB/CK RELATIVE INDEX 1.86 (< OR =4)
[2022-08-07 03:09] LABS: ALBUMIN 3.8 GM/DL (3.2-5.2); BILIRUBIN,DIRECT 0.1 MG/DL (0.0-0.2); BILIRUBIN,TOTAL 0.5 MG/DL (0.2-1.0); CALCIUM LEVEL 8.8 MG/DL (8.5-10.1); CREATININE FOR GFR 1.52 MG/DL (0.70-1.30); ETHYL ALCOHOL (ETHANOL) 0.005 % (0.000-0.010); GLOMERULAR FILTRATION RATE 53.3 (>60); POTASSIUM SERUM 3.9 MEQ/L (3.5-5.1); THYROID STIMULATING HORMONE 6.64 uIU/ML (0.358-3.740); TOTAL PROTEIN 7.5 GM/DL (6.4-8.2)
[2022-08-07] MEDS ORDERED: NS 1,000 ML IV ONE (03:10)
[2022-08-07] MEDS ORDERED: levETIRAcetam INJection 1,000 MG in D5W 100 ML IV ONE (04:50)
[2022-08-07] MEDS ORDERED: KEPP10002 PO (04:51)
[2022-08-07 05:03] LABS: AMPHETAMINES LEVEL URINE NEGATIVE (NEGATIVE); BARBITURATES URINE NEGATIVE (NEGATIVE); BENZODIAZEPINES URINE NEGATIVE (NEGATIVE); CANNABINOIDS URINE NEGATIVE (NEGATIVE); COCAINE METABOLITE URINE NEGATIVE (NEGATIVE); METHADONE URINE NEGATIVE (NEGATIVE); OPIATES URINE NEGATIVE (NEGATIVE); PHENCYCLIDINE URINE NEGATIVE (NEGATIVE)
[2022-08-07 05:45] VITALS: BP 148/87
[2022-08-07 05:59] VITALS: O2SAT 99
== END 2022-08-07 06:05 | disposition home or self-care (01) ==
LOC: M ED 01:58 → EDBD 01:58 → M ED 06:05
DX: G40.509 Epileptic seizures related to external causes, not intractable, without status epilepticus (principal); I45.10 Unspecified right bundle-branch block; Z88.0 Allergy status to penicillin; Z88.1 Allergy status to other antibiotic agents; Z88.8 Allergy status to other drugs, medicaments and biological substances; Z79.899 Other long term (current) drug therapy
CPT/HCPCS: 70450; 80048; 80076; 80180; 80307; 82077; 82140; 82550; 82553; 83605; 84443; 84484; 85025; 87486; 87581; 87633; 87798; 93005; 93041; 94760; 96365; 99285; J1953

== ENCOUNTER → 2022-09-22 | Outpatient (CLI) | payer MEDICARE, OTHER ==
[~2022-09-22] MED LIST changes: +KEPP10002 PO
== END ==
LOC: M RAD 13:17
PROVIDERS: ATTEND Nurse Practitioner Family
DX: E04.1 Nontoxic single thyroid nodule (principal)

== ENCOUNTER → 2022-09-28 | Outpatient (REF) | payer MEDICARE, OTHER ==
[2022-09-28 16:57] LABS: HEMATOCRIT 39.9 % (42.0-52.0); HEMOGLOBIN 13.8 g/dl (13.5-17.5); MEAN CORPUSCULAR HEMOGLOBIN 31.9 pg (27.0-33.0); MEAN CORPUSCULAR HGB CONC 34.6 g/dl (32.0-36.5); MEAN CORPUSCULAR VOLUME 92.1 fl (80.0-96.0); PLATELET COUNT, AUTOMATED 184 10^3/uL (150-450); RED BLOOD COUNT 4.33 10^6/uL (4.30-6.10); WHITE BLOOD COUNT 4.7 10^3/uL (4.0-10.0)
[2022-09-28 18:38] LABS: ALT/SGPT 31 U/L (7.0-40); BILIRUBIN,TOTAL 0.7 MG/DL (0.3-1.2); BLOOD UREA NITROGEN 21 MG/DL (9-23); CALCIUM LEVEL 8.9 MG/DL (8.5-10.1); CARBON DIOXIDE LEVEL 28 MMOL/L (20-31); CHLORIDE LEVEL 103 MMOL/L (98-107); CHOLESTEROL LEVEL 186 MG/DL (<200); CHOLESTEROL RISK RATIO 4.27 (<5); CREATININE FOR GFR 1.18 MG/DL (0.70-1.30); FREE T4 1.09 NG/DL (0.89-1.76); GLOMERULAR FILTRATION RATE > 60.0 (>60); GLUCOSE, FASTING 69 MG/DL (60-100); HDL CHOLESTEROL 43.5 MG/DL (>40); LDL CHOLESTEROL 108.3 MG/DL (<100); NON-HDL-C 143 MG/DL; POTASSIUM SERUM 4.7 MMOL/L (3.5-5.1); SODIUM LEVEL 140 MMOL/L (136-145); THYROID STIMULATING HORMONE 2.819 uIU/ML (0.55-4.78); TOTAL PROTEIN 7.2 G/DL (5.7-8.2); TRIGLYCERIDES LEVEL 171 MG/DL (<150)
== END ==
LOC: M SFHCCLAY 10:49
PROVIDERS: ATTEND Nurse Practitioner Family
DX: E04.1 Nontoxic single thyroid nodule (principal); N18.31 Chronic kidney disease, stage 3a; Z85.841 Personal history of malignant neoplasm of brain; E78.00 Pure hypercholesterolemia, unspecified

== ENCOUNTER → 2023-06-09 | Outpatient (REF) | payer MEDICARE, OTHER ==
[2023-06-09 18:10] LABS: FREE T4 1.06 NG/DL (0.89-1.76)
[2023-06-09 18:11] LABS: THYROID STIMULATING HORMONE 2.451 uIU/ML (0.55-4.78)
[2023-06-09 18:15] LABS: ALBUMIN 3.7 G/DL (3.2-5.2); ALKALINE PHOSPHATASE 61 U/L (46-116); ALT/SGPT 22 U/L (7.0-40); AST/SGOT 13 U/L (<34); BILIRUBIN,TOTAL 0.6 MG/DL (0.3-1.2); BLOOD UREA NITROGEN 20 MG/DL (9-23); CALCIUM LEVEL 8.7 MG/DL (8.5-10.1); CARBON DIOXIDE LEVEL 28 MMOL/L (20-31); CHLORIDE LEVEL 107 MMOL/L (98-107); CHOLESTEROL LEVEL 191 MG/DL (<200); CHOLESTEROL RISK RATIO 3.97 (<5); GLOMERULAR FILTRATION RATE > 60.0 (>60); GLUCOSE, FASTING 93 MG/DL (60-100); LDL CHOLESTEROL 107.4 MG/DL (<100); POTASSIUM SERUM 3.8 MMOL/L (3.5-5.1); SODIUM LEVEL 143 MMOL/L (136-145); TOTAL PROTEIN 6.8 G/DL (5.7-8.2); TRIGLYCERIDES LEVEL 178 MG/DL (<150)
== END ==
LOC: M SFHCCLAY 16:30
PROVIDERS: ATTEND Nurse Practitioner Family
DX: E78.5 Hyperlipidemia, unspecified (principal); N18.31 Chronic kidney disease, stage 3a; E04.1 Nontoxic single thyroid nodule

== ENCOUNTER → 2023-07-29 | Outpatient (CLI) | payer MEDICARE, OTHER | LOC: M RAD 08:04 | PROVIDERS: ATTEND Nurse Practitioner Family | DX: E04.1 Nontoxic single thyroid nodule (principal) ==

== ENCOUNTER → 2023-12-23 | Outpatient (CLI) | payer MEDICARE, OTHER ==
[2023-12-23 12:38] LABS: BASO % 0.6 % (0.0-1.0); EOS # 0.2 10^3/uL (0.0-0.5); EOS % 3.9 % (0.0-3.0); HEMOGLOBIN 14.4 g/dl (13.5-17.5); LYMPH # 1.7 10^3/uL (1.5-5.0); LYMPH % 33.3 % (24.0-44.0); MEAN CORPUSCULAR HEMOGLOBIN 32.4 pg (27.0-33.0); MEAN CORPUSCULAR HGB CONC 35.1 g/dl (32.0-36.5); MEAN CORPUSCULAR VOLUME 92.3 fl (80.0-96.0); MONO # 0.5 10^3/uL (0.0-0.8); MONO % 9.9 % (2.0-8.0); NEUTROPHILS # 2.6 10^3/uL (1.5-8.5); NEUTROPHILS % 52.1 % (36.0-66.0); PLATELET COUNT, AUTOMATED 192 10^3/uL (150-450); RED BLOOD COUNT 4.44 10^6/uL (4.30-6.10); WHITE BLOOD COUNT 5.1 10^3/uL (4.0-10.0)
[2023-12-23 12:39] LABS: FREE T4 1.02 NG/DL (0.89-1.76); THYROID STIMULATING HORMONE 3.685 uIU/ML (0.55-4.78)
[2023-12-23 12:40] LABS: ALBUMIN 3.6 G/DL (3.2-5.2); ALKALINE PHOSPHATASE 53 U/L (46-116); ALT/SGPT 30 U/L (7.0-40); AST/SGOT 14 U/L (<34); BILIRUBIN,TOTAL 0.5 MG/DL (0.3-1.2); BLOOD UREA NITROGEN 20 MG/DL (9-23); CALCIUM LEVEL 8.6 MG/DL (8.5-10.1); CARBON DIOXIDE LEVEL 32 MMOL/L (20-31); CHLORIDE LEVEL 105 MMOL/L (98-107); CHOLESTEROL LEVEL 194 MG/DL (<200); CHOLESTEROL RISK RATIO 4.19 (<5); CREATININE FOR GFR 1.16 MG/DL (0.70-1.30); GLOMERULAR FILTRATION RATE > 60.0 (>60); GLUCOSE, FASTING 97 MG/DL (60-100); HDL CHOLESTEROL 46.2 MG/DL (>40); LDL CHOLESTEROL 113.6 MG/DL (<100); NON-HDL-C 147.8 MG/DL; POTASSIUM SERUM 3.9 MMOL/L (3.5-5.1); SODIUM LEVEL 141 MMOL/L (136-145); TOTAL PROTEIN 6.9 G/DL (5.7-8.2); TRIGLYCERIDES LEVEL 171 MG/DL (<150)
== END ==
LOC: M WUC 08:53
PROVIDERS: ATTEND Nurse Practitioner Family
DX: E04.1 Nontoxic single thyroid nodule (principal); N18.31 Chronic kidney disease, stage 3a; E78.5 Hyperlipidemia, unspecified; Z85.841 Personal history of malignant neoplasm of brain

== ENCOUNTER → 2024-09-25 | Outpatient (CLI) | payer MEDICARE, OTHER, MEDICAID ==
[~2024-09-25] MED LIST changes: +DOXY-441 PO; -DOXY-443 PO; +META-10 PO; -META1TAB22 PO
[2024-09-25 10:24] LABS: BASO % 0.4 % (0.0-1.0); EOS # 0.1 10^3/uL (0.0-0.5); HEMATOCRIT 40.9 % (42.0-52.0); HEMOGLOBIN 14.2 g/dl (13.5-17.5); LYMPH # 1.7 10^3/uL (1.5-5.0); LYMPH % 37.3 % (24.0-44.0); MEAN CORPUSCULAR HEMOGLOBIN 31.8 pg (27.0-33.0); MEAN CORPUSCULAR HGB CONC 34.7 g/dl (32.0-36.5); MEAN CORPUSCULAR VOLUME 91.7 fl (80.0-96.0); MONO # 0.4 10^3/uL (0.0-0.8); MONO % 9.1 % (2.0-8.0); NEUTROPHILS # 2.3 10^3/uL (1.5-8.5); NEUTROPHILS % 50.2 % (36.0-66.0); PLATELET COUNT, AUTOMATED 181 10^3/uL (150-450); RED BLOOD COUNT 4.46 10^6/uL (4.30-6.10); WHITE BLOOD COUNT 4.6 10^3/uL (4.0-10.0)
[2024-09-25 10:58] LABS: ALBUMIN 3.6 G/DL (3.2-5.2); ALKALINE PHOSPHATASE 55 U/L (40-129); ALT/SGPT 24 U/L (7.0-40); AST/SGOT 10 U/L (<34); BILIRUBIN,TOTAL 0.6 MG/DL (0.3-1.2); BLOOD UREA NITROGEN 24 MG/DL (9-23); CARBON DIOXIDE LEVEL 31 MMOL/L (20-31); CHLORIDE LEVEL 107 MMOL/L (98-107); CHOLESTEROL LEVEL 207 MG/DL (<200); CHOLESTEROL RISK RATIO 4.18 (<5); CREATININE FOR GFR 1.21 MG/DL (0.70-1.30); GLOMERULAR FILTRATION RATE > 60.0 (>60); GLUCOSE, FASTING 95 MG/DL (60-100); HDL CHOLESTEROL 49.5 MG/DL (>40); LDL CHOLESTEROL 139.1 MG/DL (<100); NON-HDL-C 157.5 MG/DL; POTASSIUM SERUM 4.2 MMOL/L (3.5-5.1); SODIUM LEVEL 141 MMOL/L (136-145); TOTAL PROTEIN 7.3 G/DL (5.7-8.2); TRIGLYCERIDES LEVEL 92 MG/DL (<150)
[2024-09-25 10:59] LABS: FREE T4 1.06 NG/DL (0.89-1.76)
[2024-09-25 11:00] LABS: THYROID STIMULATING HORMONE 3.032 uIU/ML (0.55-4.78)
== END ==
LOC: M WUC 08:33
PROVIDERS: ATTEND Nurse Practitioner Family
DX: E78.5 Hyperlipidemia, unspecified (principal); N18.31 Chronic kidney disease, stage 3a; R56.9 Unspecified convulsions; Z85.841 Personal history of malignant neoplasm of brain; E04.1 Nontoxic single thyroid nodule

== ENCOUNTER → 2025-03-27 | Outpatient (CLI) | payer MEDICARE, MEDICAID ==
[~2025-03-27] MED LIST changes: +CAYE450C3 PO; +CIDA500T2 PO; +GNP400TA10 PO; +LEVE250T5 PO; +MULTTAB61 PO; +OREG1CAP PO; +RA T500C2 PO; +VITA1CAP20 PO; +VITA500C24 PO; +VITACAP8 PO; +ZINC50CA4 PO
[2025-03-27 13:11] LABS: FREE T4 1.06 NG/DL (0.89-1.76); THYROID STIMULATING HORMONE 3.836 uIU/ML (0.55-4.78)
[2025-03-27 13:17] LABS: ALBUMIN 3.7 G/DL (3.2-5.2); BILIRUBIN,TOTAL 0.6 MG/DL (0.3-1.2); CALCIUM LEVEL 8.8 MG/DL (8.5-10.1); CHOLESTEROL RISK RATIO 4.24 (<5); CREATININE FOR GFR 1.12 MG/DL (0.70-1.30); GLOMERULAR FILTRATION RATE 81.5 (>60); HDL CHOLESTEROL 50.4 MG/DL (>40); LDL CHOLESTEROL 142.6 MG/DL (<100); NON-HDL-C 163.6 MG/DL; POTASSIUM SERUM 3.9 MMOL/L (3.5-5.1); TOTAL PROTEIN 6.9 G/DL (5.7-8.2)
== END ==
LOC: M WUC 08:49
PROVIDERS: ATTEND Nurse Practitioner Family
DX: Z00.00 Encounter for general adult medical examination without abnormal findings (principal); Z12.11 Encounter for screening for malignant neoplasm of colon; Z85.841 Personal history of malignant neoplasm of brain; E04.1 Nontoxic single thyroid nodule; N18.31 Chronic kidney disease, stage 3a

== ENCOUNTER → 2025-09-23 | Outpatient (CLI) | payer MEDICAID, MEDICARE ==
[~2025-09-23] MED LIST changes: -RA T500C2 PO; +TURM500C10 PO
[2025-09-23 14:24] LABS: ALT/SGPT 25.0 U/L (7.0-40); AST/SGOT 22.0 U/L (<34); CALCIUM LEVEL 9.0 MG/DL (8.5-10.1); CARBON DIOXIDE LEVEL 32.0 MMOL/L (20-31); CHLORIDE LEVEL 102.0 MMOL/L (98-107); CHOLESTEROL LEVEL 192.0 MG/DL (<200); CHOLESTEROL RISK RATIO 3.49 (<5); CREATININE FOR GFR 1.3 MG/DL (0.70-1.30); GLOMERULAR FILTRATION RATE 68.2 (>60); LDL CHOLESTEROL 107.6 MG/DL (<100); NON-HDL-C 137.0 MG/DL; POTASSIUM SERUM 4.5 MMOL/L (3.5-5.1); SODIUM LEVEL 142.0 MMOL/L (136-145); TRIGLYCERIDES LEVEL 147.0 MG/DL (<150)
[2025-09-23 14:26] LABS: FREE T4 1.06 NG/DL (0.89-1.76)
[2025-09-23 14:29] LABS: ESTIMATED AVERAGE GLUCOSE 111.0 MG/DL (60-110)
== END ==
LOC: M WUC 08:29
PROVIDERS: ATTEND Nurse Practitioner Family
DX: Z00.00 Encounter for general adult medical examination without abnormal findings (principal); E04.1 Nontoxic single thyroid nodule; Z85.841 Personal history of malignant neoplasm of brain; E78.00 Pure hypercholesterolemia, unspecified